=== PATIENT | female | born 1990 | race Caucasian/White ===

== ENCOUNTER 2018-01-19 08:58 | Emergency (ER) | payer OTHER, SELFPAY ==
[2018-01-19 09:00] VITALS: BP 121/74; PULSE 75; RESP 18; TEMP 36.5; O2SAT 100; BMI 18.6
--- NOTE | 2018-01-19 09:20 | RAD_ITS ---
STUDY: X-RAY CHEST REASON FOR EXAM: Female, 27 years old. Cough and dyspnea. TECHNIQUE: Two portable chest radiographs are obtained with the patient upright. COMPARISON: June 30, 2017. FINDINGS: The lungs are clear and hyperexpanded. There is no demonstrated pleural abnormality. Normal size heart. Normal mediastinum and rohini. There is prominence of the pulmonary hilar arteries without peripheral pulmonary vascular congestion. Normal visualized aortic arch and descending thoracic aorta. Normal visualized thoracic spine. Normal visualized ribs, clavicles, and shoulders. There is no demonstrated abnormality of the visualized soft tissue structures of the upper abdomen. RAD/Chest 1 View (Portable) IMPRESSION: No radiographic evidence of acute cardiopulmonary disease. Hyperexpansion of lungs could be related to reactive airway disease. Electronically Signed: Anuradha Bynum MD at 9:53 EST , Service support ,
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
[2018-01-19 09:23] VITALS: BP 112/76; PULSE 94; RESP 16; O2SAT 100
[2018-01-19] MEDS: Ipratropium/Albuterol Sulfate 3 ML AMPUL.NEB INHALATION (09:29)
[2018-01-19 09:30] VITALS: PULSE 100; RESP 18; O2SAT 100
--- NOTE | 2018-01-19 10:10 | ED.DEP ---
ED Disposition - Plan for ED Patient: Chief Complaint: Asthma Instructions: ED Reactive Airway Disease Referrals: Deyvi Preston DO [Primary Care Provider] -
[2018-01-19 10:12] VITALS: BP 114/79; PULSE 81; RESP 16; O2SAT 100
--- NOTE | 2018-01-19 10:13 | ED.RN ---
THIS NURSE REVIEWED D/C INSTRUCTIONS WITH PT. PT VERBALIZED UNDERSTANDING OF INSTRUCTIONS. PT DENIES FURTHER NEEDS OR QUESTIONS AT THIS TIME. PT AMBULATES FROM ROOM ON OWN WITHOUT ASSISTANCE FROM STAFF
== END 2018-01-19 10:14 | disposition home or self-care (01) ==
PROVIDERS: Emergency Provider Emergency Medicine; Family Provider Family Medicine; PCP Family Medicine
DX: J98.01 Acute bronchospasm (principal); Z79.51 Long term (current) use of inhaled steroids
CPT/HCPCS: 71045; 94640; 99282

== ENCOUNTER → 2018-02-03 15:28 | Outpatient (CLI) | payer OTHER, SELFPAY ==
[2018-02-09 10:07] LABS: HPV Reflexed? NOT INDICATED
== END ==
PROVIDERS: Visit Provider Obstetrics & Gynecology
DX: Z12.4 Encounter for screening for malignant neoplasm of cervix (principal)
CPT/HCPCS: 88175; G0145

== ENCOUNTER 2018-09-01 09:49 | Emergency (ER) | payer OTHER, SELFPAY ==
[2018-09-01 09:50] VITALS: BP 129/82; PULSE 74; RESP 18; TEMP 37.2; O2SAT 100; BMI 20.7
--- NOTE | 2018-09-01 11:02 | ED.DCSUM_ITS ---
- ER Visit Summary Date of Service: 09/01/18 Chief Complaint: Abdominal pain History of Present Illness: The patient is a 27 F history of asthma. Status post prior appendectomy and cholecystectomy in the past. She is had intermittent abdominal pain primarily epigastric and periumbilical for the last week. It is above her umbilicus. She denies any nausea, vomiting or diarrhea. No dysuria. No fever. No trauma. She is currently on her menstrual cycle. Physical Examination: Well-appearing young female. Vital signs are stable and afebrile. She does not look septic or toxic. She is in no acute distress. HEENT exam unremarkable. Neck nontender. Lungs clear to auscultation bilaterally. Heart regular rhythm no murmur. Abdomen soft. Nondistended. Normal bowel sounds. Both the right upper and right lower quadrant unremarkable nontender. No hernias or masses. She has mild tenderness between the epigastric region and above the umbilicus. There is no signs of trauma. Both the left upper and left lower quadrants are unremarkable. She is moving all 4 extremities. Back is nontender. Neurologically awake and alert with no focal deficits. Test Results: CBC normal. BMP normal. Normal creatinine and gap. Liver enzymes normal. Lipase normal. UA had 50-100 red cells otherwise was unremarkable. She is currently on her menstrual period. No signs of infection. test negative. Emergency Department Course and Treatment: Screening labs will be obtained. Patient currently does not need any for pain or nausea. Treatment Plan: Repeat exam patient is doing well at 1245. Abdomen is benign. She will be instructed to follow-up her primary care physician for further evaluation. I do not feel she needs imaging. Disposition: Discharge Impression: Acute upper abdominal pain of uncertain etiology This note was generated with [employer] dictation software. It may contain incorrect words, spelling, and punctuation that were not noted in review of the chart prior to signing ED Disposition - Plan for ED Patient: Chief Complaint: Abd Pain Referrals: Deyvi Preston DO [Primary Care Provider] -
[2018-09-01 11:24] LABS: Bacteria 0 SEEN /hpf (None Seen); Mucous, Urine 0 SEEN /hpf (<or=2+); White Blood Cells 0 SEEN /hpf (0-5)
[2018-09-01 11:27] LABS: Color, Urine Yellow (Yellow); Glucose, Dipstick Normal (Normal); Ketone-Dipstick Negative (Negative); Leukocyte Esterase-Dipstick 25 /ul (Negative); Nitrite-Dipstick Negative (Negative); Occult Blood-Urine 250 /ul (Negative); Protein-Dipstick 15 mg/dl (Negative); Specific Gravity, Urine 1.015 (1.002-1.030); Urine Bilirubin Dipstick Negative (Negative); Urine Clarity Sl. Cloudy (Clear); Urine Urobilinogen Normal (Normal)
[2018-09-01 11:28] LABS: Absolute Neutrophil Count 3.4 X10^3/uL (2.0-7.7); Basophil# 0.02 X10^3/uL; Basophil% 0.4 % (0-1); Eosinophil# 0.04 X10^3/uL; Eosinophils% 0.8 % (0-5); Hemoglobin 13.6 g/dl (12.0-15.0); Lymphocyte % 28.7 % (19-41); Mean Corp Hgb Conc 33.2 g/gl (32-36); Mean Corpuscular Hgb 29.9 pg (27.0-32.0); Mean Corpuscular Volume 90.1 fL (81-99); Mean Platelet Vol. 9.6 fl (6.2-12.0); Monocyte# 0.31 X10^3/uL; Monocyte% 5.9 % (0-10); Neutrophil # 3.35 X10^3/uL (2.7-7.7); POSITIVE COUNT NO; POSITIVE DIFFERENTIAL NO; POSITIVE MORPHOLOGY NO; Platelet Count 251 K/mm3 (150-450); RBC Distribution Width CV 14.5 % (11.6-14.6); RBC Distribution Width SD 47.6 fl (35.1-43.9); Red Blood Count 4.55 M/mm3 (4.2-5.4); White Blood Count 5.2 K/mm3 (4.4-11.0)
[2018-09-01 11:34] LABS: Squamous Epithelial Cells - UA 0-5 SEEN /hpf (5-10)
[2018-09-01 11:35] LABS: Red Blood Cells-Urine 50-100 SEEN /hpf (0-5)
[2018-09-01 11:42] LABS: AST(SGOT) 11 U/L (15-37); Alanine Aminotransfer ALT/SGPT 18 U/L (13-56); Albumin, Serum 3.5 g/dL (3.2-5.0); Alkaline Phosphatase 67 U/L (45-117); Anion Gap 7 (5-15); BUN 13 mg/dL (7-18); BUN/Creat Ratio 16.2 RATIO (10-20); Bilirubin, Direct 0.18 mg/dL (0.00-0.30); Calcium,Total 8.6 mg/dL (8.5-10.1); Chloride 107 mmol/L (98-107); EST Glomerular Filtration Rate 91 mL/min (>60); Est Glom Filt Rate - Afr Amer 110 mL/min (>60); Estimated Creatinine Clearance 87.38 ml/min; Glucose 82 mg/dL (74-106); Lipase 95 U/L (73-393); Potassium 3.6 mmol/L (3.5-5.1); Protein, Total 7.5 g/dL (6.4-8.2); Sodium Level 140 mmol/L (136-145)
[2018-09-01 11:54] LABS: Pregnancy, Serum, hCG Quali. NEGATIVE Negative (0-9 Nonpreg)
--- NOTE | 2018-09-01 12:48 | ED.DEP ---
ED Disposition - Plan for ED Patient: Disposition: Home or Assisted Living Chief Complaint: Abd Pain Instructions: ED Abdominal Pain Unkn Cause Referrals: Deyvi Preston DO [Primary Care Provider] - 1 Week if not improving Additional Instructions: Follow-up with your doctor. All your labs are normal today.
[2018-09-01 13:00] VITALS: BP 118/73; PULSE 67; RESP 14; RESP 18; O2SAT 99
== END 2018-09-01 13:01 | disposition home or self-care (01) ==
PROVIDERS: Emergency Provider Emergency Medicine; Family Provider Family Medicine; PCP Family Medicine
DX: R10.13 Epigastric pain (principal); J45.909 Unspecified asthma, uncomplicated
CPT/HCPCS: 80048; 80076; 81001; 83690; 84703; 85025; 99283; A4216

== ENCOUNTER 2018-10-24 13:27 | Emergency (ER) | payer OTHER, SELFPAY ==
[2018-10-24 13:29] VITALS: BP 137/64; PULSE 101; RESP 16; TEMP 36.7; O2SAT 98; BMI 20.5
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
--- NOTE | 2018-10-24 13:54 | ED.DEP ---
ED Disposition - Plan for ED Patient: Chief Complaint: Occup Expose Instructions: ED Inhalation Chemical Referrals: Corporate,[facility] [GROUP OF PHYSICIANS] -
--- NOTE | 2018-10-24 13:55 | DCINST.ED_ITS ---
ED Disposition - Plan for ED Patient: Chief Complaint: Occup Expose Instructions: ED Inhalation Chemical Referrals: [facility] [GROUP OF PHYSICIANS] -
[2018-10-24 13:58] VITALS: PULSE 91; RESP 18
[2018-10-24] MEDS: Ipratropium/Albuterol Sulfate 3 ML AMPUL.NEB INHALATION (13:58)
[2018-10-24 14:26] VITALS: RESP 16
--- NOTE | 2018-10-24 14:28 | ED.RN ---
REVIEWED D/C INSTRUCTIONS, FOLLOW UP CARE, AND S/S THAT WOULD WARRANT A RETURN TO THE ED WITH PT. PT VERBALIZED AN UNDERSTANDING AND DENIES FURTHER QUESTIONS FOR THIS RN. PT SKIN P/W/D, RESP EVEN AND UNLABORED, PT A&O X 3, NO DISTRESS NOTED. PT AMBULATED OUT OF ED, GAIT STEADY.
--- OUTSIDE RECORDS SUMMARY | 2018-12-17 23:47 | XMS RPT_ITS ---
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 week. It is above her umbilicus. She denies any nausea, vomiting or diarrhea. No dysuria. No fever. No trauma. She is currently on her menstrual cycle. Physical Examination: Well-appearing young female. Vital signs are stable and afebrile. She does not look septic or toxic. She is in no acute distress. HEENT exam unremarkable. Neck nontender. Lungs clear to auscultation bilaterally. Heart regular rhythm no murmur. Abdomen soft. Nondistended. Normal bowel sounds. Both the right upper and right lower quadrant unremarkable nontender. No hernias or masses. She has mild tenderness between the epigastric region and above the umbilicus. There is no signs of trauma. Both the left upper and left lower quadrants are unremarkable. She is moving all 4 extremities. Back is nontender. Neurologically awake and alert with no focal deficits. Test Results: CBC normal. BMP normal. Normal creatinine and gap. Liver enzymes normal. Lipase normal. UA had 50-100 red cells otherwise was unremarkable. She is currently on her menstrual period. No signs of infection. test negative. Emergency Department Course and Treatment: Screening labs will be obtained. Patient currently does not need any for pain or nausea. Treatment Plan: Repeat exam patient is doing well at 1245. Abdomen is benign. She will be instructed to follow-up her primary care physician for further evaluation. I do not feel she needs imaging. Disposition: Discharge Impression: Acute upper abdominal pain of uncertain etiology This note was generated with FilterEasyation software. It may contain incorrect words, spelling, and punctuation that were not noted in review of the chart prior to signing ED Disposition - Plan for ED Patient: Chief Complaint: Abd Pain Referrals: Aliyah Levy, [Primary Care Provider] - What to do if you have Problems For any increased pain, shortness of breath, bleeding, nausea or vomiting, chest pain, or any unexpected problems, contact your Primary Care Provider. Call [facility] ([phone]) or report to the closest Emergency Room. Call 911 if necessary. 09/01/18 0156 <Electronically signed by Theo Caceres MD> Date Theo Caceres MD Cosigner Signature (If Indicated): Date CC: DO Aliyah Levy CBC W/DIFF, AUTOMATED Collected: 09/01/2018 Status: F Source: [place] 11:19 AM [facility] REPOSITORY TYPE CODE TESTS RESULT OUT OF RANGE REFERENCE UNITS LAB L100.1000 4.4-11.0 K/mm3 Normal WBC 5.2 LAB L100.1200 4.2-5.4 M/mm3 Normal RBC 4.55 LAB L100.1300 12.0-15.0 g/dl Normal HGB 13.6 LAB L100.1400 37-47 % Normal HCT 41.0 LAB L100.1500 81-99 fL Normal MCV 90.1 LAB L100.1600 27.0-32.0 pg Normal MCH 29.9 LAB L100.1700 32-36 g/gl Normal MCHC 33.2 LAB L100.1810 11.6-14.6 % Normal RDW CV 14.5 LAB L100.1820 35.1-43.9 fl High RDW SD 47.6 LAB L100.1900 150-450 K/mm3 Normal PLT 251 LAB L100.2000 6.2-12.0 fl Normal MPV 9.6 LAB L100.2100 47-70 % Normal NEUT% 64.0 LAB L100.2200 19-41 % Normal LY% 28.7 LAB L100.2300 0-10 % Normal MONO% 5.9 LAB L100.2400 0-5 % Normal EO% 0.8 LAB L100.2500 0-1 % Normal BASO% 0.4 LAB L100.2550 0.0-0.9 % Normal IM GRAN % 0.200 Result Comment: IG% - Immature Granulocytes (promyelocytes, myelocytes and metamyelocytes) > 1% indicates that a LEFT SHIFT is Present. LAB L100.2620 2.0-7.7 X10 3/uL Normal Absolute Neut 3.4 LAB L100.2720 0.83-4.51 X10 3/ul Normal Absolute Lymph 1.50 Performed By: #### L100.0100 #### [facility] [address] [place], [address] URINALYSIS, COMPLETE Collected: 09/01/2018 Status: F Source: [place] 11:19 AM [facility] REPOSITORY Order Comment: Order Date: 09/01/18 How was Urine Obtained? CLEAN CATCH TYPE CODE TESTS RESULT OUT OF RANGE REFERENCE UNITS LAB L400.3000 Yellow COLOR Normal Yellow LAB L400.3050 Clear Normal CLARITY Sl. Cloudy LAB L400.3200 Normal mg/dl Normal GLUCOSE, UR Normal LAB L400.3300 Negative mg/dL Normal BILIRUBIN URINE Negative LAB L400.3400 Negative mg/dl Normal KETONE UR Negative LAB L400.3465 1.002-1.030 Normal SP.GR. DIPSTX 1.015 LAB L400.3550 5.0 - 8.0 pH UR Normal 8.0 LAB L400.3600 Negative mg/dl High PROT 15 DIPSTX LAB L400.3700 Normal mg/dl Normal UROBILI Normal LAB L400.3750 Negative Normal NITRITE UR Negative LAB L400.3780 Negative /ul High OCCULT BLOOD-UR 250 LAB L400.3800 Negative /ul High LEUK 25 ESTERASE LAB L400.4050 0-5 /hpf WBC 0 Normal SEEN LAB L400.4100 0-5 /hpf Normal RBC-UA 50-100 SEEN LAB L400.4150 5-10 /hpf SQUAM Normal EPI 0-5 SEEN LAB L400.4300 None Seen /hpf 0 Normal BACTERIA SEEN LAB L400.4350 <or=2+ /hpf 0 Normal MUCUS, URINE SEEN Performed By: #### L400.0001 #### [facility] [address] [place], [place], [id number] BASIC METABOLIC Collected: 09/01/2018 Status: F Source: [place] PROFILE (BMP) 11:19 AM [facility] REPOSITORY TYPE CODE TESTS RESULT OUT OF RANGE REFERENCE UNITS LAB L501.0100 74-106 mg/dL Normal GLU 82 Result Comment: Please note revised GLUCOSE reference range effective 2017. LAB L501.1000 7-18 mg/dL Normal BUN 13 LAB L501.1100 0.55-1.02 mg/dL Normal CREAT,SERUM 0.80 Result Comment: The validity of the calculated GFR AND GFRAA in patients over 70 years has not been determined. Clinical correlation is essential. LAB L501.1110 >60 mL/min Normal EST GFR 91 Result Comment: Non- GFR Calc LAB L501.1115 >60 mL/min Normal EST GFR - AA 110 Result Comment: GFR Calc LAB L501.1255 ml/min Normal Estimated CRCL 87.38 LAB L501.1300 10-20 RATIO Normal BUN/CRE 16.2 LAB L501.2200 8.5-10 mg/dL Normal .1 CA 8.6 LAB L501.5300 136-14 mmol/L Normal 5 NA 140 LAB L501.5600 3.5-5. mmol/L Normal 1 K 3.6 LAB L501.5900 98-107 mmol/L Normal CL 107 LAB L501.6100 21.0-3 mmol/L Normal 2.0 CO2 26.0 LAB L501.6200 5-15 Normal GAP 7 Performed By: #### L500.2500, L500.3400, L501.2450 #### [facility] [address] [place], [place], [id number] LIVER PROFILE Collected: 09/01/2018 Status: F Source: [place] 11:19 AM [facility] REPOSITORY TYPE CODE TESTS RESULT OUT OF RANGE REFERENCE UNITS LAB L501.1500 6.4-8.2 g/dL Normal T PROT 7.5 LAB L501.1800 3.2-5.0 g/dL Normal ALB 3.5 LAB L501.1950 2.2-4.2 g/dL Normal GLOB 4.0 LAB L501.4100 15-37 U/L Low AST 11 LAB L501.4305 45-117 U/L Normal ALK P 67 LAB L501.4405 13-56 U/L Normal ALT 18 LAB L501.4600 0.20-1.00 mg/dL Normal T BILI 0.60 LAB L501.4700 0.00-0.30 mg/dL Normal D BILI 0.18 Performed By: #### L500.2500, L500.3400, L501.2450 #### [facility] [address] [place], [address] LIPASE Collected: 09/01/2018 Status: F Source: [place] 11:19 AM [facility] TYPE CODE TESTS RESULT OUT OF RANGE REFERENCE UNITS LAB L501.2450 73-393 U/L Normal LIPASE 95 Performed By: #### L500.2500, L500.3400, L501.2450 #### [facility] [address] [place], [address] ,SERUM,HCG QUALI. Collected: Status: F Source: [place] 09/01/2018 11:19 AM [facility] REPOSITORY TYPE CODE TESTS RESULT OUT OF REFERENCE UNITS RANGE LAB L700.6700 =>Qualitative mIU/mL Normal HCG Qual < 1 triggr LAB L700.7000 0-9 Nonpreg Negative Normal HCGSQUAL NEGATIVE Performed By: #### L700.6800 #### [facility] [address] [facility] [place], [address] EMERGENCY REPORT Observed: 07/27/2018 Status: F Source: [place] 4:51 PM [facility] EMERGENCY ROOM REPORT NAME ACCOUNT SEX AGE ADMIT DISCHARGE PT MED. RECORD# NUMBER DATE DATE TYPE PRERNA MARTINEZ [id number] F 07/26/18 07/26/18 3 N [id number] ROOM: ER DATE OF : 1990 DICTATING PHYSICIAN: Alma Douglas CHIEF COMPLAINT: Facial tenderness. HISTORY OF PRESENT ILLNESS: This is a 27-year-old female with a history of allergies and asthma who presents to the emergency department with the chief complaint as stated above. She has a 1 week history of nasal congestion, facial fullness, and pressure in her face. She was placed on an antibiotic last Thursday, as well as steroids, which is not helping the symptoms. She has allergies, but has not taken anything for allergies. She used to get allergy shots, but has discontinued those because she did not think they worked. She denies any recent fever, chills, difficulty breathing, swallowing, cough, or shortness of breath. No nausea, vomiting, abdominal pain, diarrhea, constipation, urinary symptoms, fever, chills, change in appetite, or chance of . PAST MEDICAL HISTORY: Asthma and allergies. PAST SURGICAL HISTORY: Denied. MEDICATIONS: See nursing notes. ALLERGIES: She denies. FAMILY HISTORY: Noncontributory. SOCIAL HISTORY: She denies alcohol, tobacco, or illicit drug abuse. REVIEW OF SYSTEMS: Ten systems reviewed and present above in the HPI. PHYSICAL EXAMINATION: Vital signs: Stable. She is afebrile. She is awake, alert and oriented x3 in no acute distress. She has nasal congestion without rhinorrhea and mild tenderness to palpation of the frontal sinuses, maxillary sinuses. TMs are without erythema, edema, or exudate bilaterally. Extraocular muscles are intact. Mucous membranes are moist. No posterior pharyngeal erythema, edema, or exudate bilaterally. Trachea is midline. Neck is supple. Full range of motion of the neck without difficulty. Heart rate and rhythm are regular without murmur, gallop, or rub. Lungs: Clear to auscultation bilaterally without wheeze, rales, or rhonchi. Abdomen: Soft. No tenderness, guarding, rebound, or rigidity. Page 1 of 2 PRERNA MARTINEZ Emergency Room Report EMERGENCY DEPARTMENT COURSE AND TREATMENT: The patient's symptoms are consistent with sinus congestion/allergies, not bacterial so I would not expect steroids or antibiotics to have responded, and which they have not. She is going to get Claritin D and Flonase. DIAGNOSIS: Sinus congestion. PLAN/DISPOSITION: She is going to follow up with her primary care physician in 3 to 4 days. I do not believe she has acute bacterial sinusitis or meningitis and we discussed reasons for ED return sooner. Dictated By: Alma Douglas DO 07/26/18 10:35 JOB #: [id number] Transcribed By: am 07/26/18 11:46 Electronically signed by: E-Sign: ALMA DOUGLAS MD 07/27/18 16:45 Page 2 of 2 PRERNA MARTINEZ Emergency Room Report EMERGENCY REPORT Observed: 07/21/2018 Status: F Source: [place] 4:09 PM [facility] EMERGENCY ROOM REPORT NAME ACCOUNT SEX AGE ADMIT DISCHARGE PT MED. RECORD# NUMBER DATE DATE TYPE PRERNA MARTINEZ [id number] F 27 07/19/18 07/19/18 3 N [id number] ROOM: ER DATE OF : 1990 DICTATING PHYSICIAN: Lincoln Gray TIME SEEN: 2:50 a.m. HISTORY OF PRESENT ILLNESS: This is a 27-year-old white female complaining of nasal congestion, sore throat and sinus pressure for the past 2 days. She states her nose is running all the time. She was seen here recently and was given some Ceftin, but she had to be taken off of that due to some allergic- type symptoms, but usually when they put her on prednisone and Augmentin her symptoms clear up. She has been taking some [id number]-btf-[id number] guaifenesin with phenylephrine. That has been helping a little bit but not very much. She does use her albuterol aerosol machine at home as well but usually she needs the prednisone and Augmentin to get the symptoms to resolve. She complains of a lot of sinus congestion and states she cannot breathe through her nose. 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 PAST MEDICAL HISTORY: Asthma and environmental allergies. PAST SURGICAL HISTORY: Appendectomy, cholecystectomy, and previous right ankle surgery. ALLERGIES: She is allergic to Ceftin and iodine. SOCIAL HISTORY: She is not a smoker. She denies any use of alcohol or illicit drugs. She lives at home with her family. REVIEW OF SYSTEMS: She denies any chest pain or shortness of breath. She does admit to a cough. She denies any sputum, wheezing, abdominal pain, nausea, vomiting, diarrhea, constipation, melena, hematochezia, headache, numbness, unsteady gait, weakness, neck or back pain, joint pain, skin rash or swelling, hives, hay fever, or swollen glands. She does complain of a sore throat, nasal congestion, and sinus pressure. She denies any fevers, sweats or chills. Further review of systems is negative. PHYSICAL EXAMINATION: Vital signs: Blood pressure is 122/58, pulse 117, respirations 16, temperature 97.2, pulse oximetry 99%, and weight 110 pounds. The Page 1 of 2 PRERNA MARTINEZ Emergency Room Report patient is alert and oriented x3. She presently appears in some mild distress secondary to sinus congestion, but she is pleasant and cooperative. HEENT: Pupils are equal and reactive to light. Red reflexes are intact bilaterally. Extraocular muscles are intact. No conjunctival injection. Ears: TMs are intact bilaterally. No erythema is noted. No external auditory canal edema or bleeding. Nose exhibits a lot of clear rhinorrhea, and the patient does have bilateral maxillary sinus tenderness on palpation. Her face looks a little puffy but is not actually swollen. Mouth: Mucous membranes are moist. I do note some mild diffuse pharyngeal erythema. No exudates. Positive copious postnasal drainage. Neck is supple. Trachea is midline. No JVD or lymphadenopathy. No posterior cervical tenderness. No nuchal rigidity. Lungs are clear to auscultation in all lung waite. No adventitious sounds are noted. No accessory muscle use. CV: Heart rate and rhythm are regular without murmur. Abdomen is soft and nontender with normoactive bowel sounds x4 quadrants. No guarding or rigidity. No rebound. No palpable abdominal masses. No hepatosplenomegaly. Back exhibits no midline or paraspinal region tenderness. No increased paraspinal muscle rigidity. Negative Bryan's sign. Extremities: No edema or cyanosis. Peripheral pulses are intact. No motor or sensory deficits are noted. Hand missing persons investigator are strong and symmetric. Skin is warm and dry. No diaphoresis or rash. Neurologic examination shows the patient to be alert and oriented x4. No motor or sensory deficits are noted. Normal speech. No hot potato voice. EMERGENCY DEPARTMENT COURSE AND TREATMENT: The patient was placed on Augmentin 875 mg one p.o. b.i.d., dispense #20 with no refill, and prednisone 20 mg one p.o. b.i.d., dispense #10 with no refill. She was given a dose of prednisone 60 mg p.o. here and Augmentin 500 mg p.o. here. She is to follow up with [facility] in 3 to 5 days for evaluation. If her symptoms become worse or any other problems develop, return here to the Emergency Department. The patient was discharged in clinically stable condition. Nurse's notes reviewed. DIAGNOSIS: Acute sinusitis. Dictated By: Lincoln Gray DO 07/19/18 03:26 JOB #: [id number] Transcribed By: eliza 07/20/18 07:00 Electronically signed by: E-Sign: Dr. Lincoln Gray D.O. 07/21/18 16:09 Page 2 of 2 PRERNA MARTINEZ Emergency Room Report BMP WITH EGFR Collected: 06/02/2018 Status: F Source: [place] 8:52 PM [facility] REPOSITORY TYPE CODE TESTS RESULT OUT OF RANGE REFERENCE UNITS LAB BMP with eGFR(LOINC) BMP with eGFR Result Comment: BASIC METABOLIC PANEL LAB SODIUM(LOINC) 136 - 145 mmol/l SODIUM 137 LAB POTASSIUM(LOINC) 3.5 - 5.1 mmol/L POTASSIUM 3.7 LAB CHLORIDE(LOINC) 98 - 107 mmol/L CHLORIDE 103 LAB CO2(LOINC) 21.0 - mmol/L 31.0 CO2 24.8 LAB GLUCOSE(LOINC) 74 - 106 mg/dl GLUCOSE High 139 LAB BUN(LOINC) 6 - 20 mg/dl BUN 14 LAB CREATININE(LOINC) 0.6 - 1.2 mg/dl CREATININE 1.1 LAB CALCIUM(LOINC) 8.6 - mg/dl 10.2 CALCIUM 9.1 LAB ANION GAP(LOINC) 10 - 20 mmol/L ANION GAP 13 LAB AGE(LOINC) years AGE 27 LAB eGFR(LOINC) 60 - 999 ML/MINUTE eGFR 60 LAB eGFR(AA)(LOINC) 60 - 999 ML/MINUTE eGFR(AA) >60 Result Comment: ACCORDING TO THE NATIONAL KIDNEY DISEASE EDUCATION PROGRAM(NKDE), A NORMAL eGFR IS A VALUE GREATER THAN OR EQUAL TO 60 ML/MIN/1.73 SQ METERS. CHRONIC KIDNEY DISEASE: <60mL/MIN/1.73 SQ METERS KIDNEY FAILURE: <15mL/MIN/1.73 SQ METERS THIS TEST SHOULD ONLY BE USED FOR PATIENTS 18 YEARS OF AGE AND OLDER. Performed By: #### [id number] #### [facility],[address] [place] [address] CBC Collected: 06/02/2018 Status: F Source: [facility] 8:52 PM [facility] REPOSITORY TYPE CODE TESTS RESULT OUT OF RANGE REFERENCE UNITS LAB CBC(LOINC) CBC Result Comment: CBC-COMPLETE BLOOD COUNT LAB WBC(LOINC) 4.5 - 10.8 x 10EE3/UL WBC 7.6 LAB RBC(LOINC) 4.10 - x 10EE6/UL 5.30 RBC 4.36 LAB HEMOGLOBIN(LOINC) 12.0 - g/dl 16.0 HEMOGLOBIN 13.5 LAB HEMATOCRIT(LOINC) 34.0 - % 46.0 HEMATOCRIT 38.7 LAB MCV(LOINC) 80 - 99 fl MCV 89 LAB MCH(LOINC) 27 - 33 pg MCH 31 LAB MCHC(LOINC) 32 - 36 X10 3 MCHC 35 LAB RDW/CV(LOINC) 12.0 - % 15.6 RDW/CV 13.6 LAB PLATELET(LOINC) 150 - 450 x10EE3/UL PLATELET 186 LAB MPV(LOINC) 6.6 - 10.5 fl MPV 8.8 Result Comment: AUTOMATED DIFFERENTIAL LAB NEUT %(LOINC) 46.0 - % Low 76.0 NEUT % 34.2 LAB LYMPH %(LOINC) 20.0 - % 45.0 LYMPH % 55.1 High LAB MONOS %(LOINC) 0.0 - 10.0 % MONOS % 10.5 High LAB EO %(LOINC) 0.0 - 7.0 % EO % 0.0 LAB BASO %(LOINC) 0.0 - 2.0 % BASO % 0.2 LAB Lymph #(LOINC) 0.80 - x10EE3/ 2.80 UL Lymph # 4.20 High LAB Neut #(LOINC) 1.50 - x10EE3/ 7.10 UL Neut # 2.60 LAB Lawrence #(LOINC) 0.20 - x10EE3/ 1.00 UL Lawrence # 0.80 LAB EO #(LOINC) 0.00 - x10EE3/ 0.50 UL EO # 0.00 LAB Baso #(LOINC) 0.00 - x10EE3/ 0.10 UL Baso # 0.00 LAB MANUAL DIFF(LOINC) MANUAL DIFF SEE BELOW LAB SEGS(LOINC) 50 - 70 % Low SEGS 39 LAB LYMPH(LOINC) 20 - 40 % LYMPH 54 High LAB MONOS(LOINC) 0 - 8 % MONOS 7 LAB CELL COUNT(LOINC) CELL COUNT 100 LAB MORPHOLOGY(LOIN C) MORPHOLOGY REVIEWED Result Comment: {CD] Performed By: #### [id number] #### [place] [address] TROPONIN Collected: 06/02/2018 Status: F Source: [facility] 8:52 PM [facility] TYPE CODE TESTS RESULT OUT OF REFERENCE UNITS RANGE LAB TROPONIN 0.00 - 0.05 ng/ml I(LOINC) TROPONIN I <0.01 Result Comment: Elevated troponin (above the 99th percentile) usually indicates myocardial ischemia. Results must be interpreted within the clinical setting. 1.Non-ischemic pathology can also cause elevated troponin levels (e.g., acute pulmonary embolism, myocarditis, pericarditis, heart failure, intracranial injury, rhabdomyolisis, sepsis, shock and renal insufficiency). 2.Approximately 1% of healthy adults have elevated troponin levels. 3.Analytical false positive results rarely occur(due to multiple interferences such as heterophile antibodies). Performed By: #### [id number] #### [place] [address] EMERGENCY REPORT Observed: 06/02/2018 Status: F Source: [facility] 8:22 PM [facility] EMERGENCY ROOM REPORT NAME ACCOUNT SEX AGE ADMIT DISCHARGE PT MED. RECORD# NUMBER DATE DATE TYPE PRERNA MARTINEZ [id number] F 27 06/02/18 06/02/18 3 N [id number] ROOM: ER DATE OF : 1990 DICTATING PHYSICIAN: Júnior Feldman CHIEF COMPLAINT: Adverse reaction to medication. HISTORY OF PRESENT ILLNESS: The patient is a 27-year-old female who was here on Thursday, 3 days prior to arrival, for sinus infection. The patient was given cefuroxime 500 mg b.i.d. The patient states that as of Thursday she began to have some mild chest pain and arm discomfort that only began after taking her current medication. The patient states that she stopped taking the antibiotic and does feel better. The patient presently would like to have a different antibiotic. She notes that she has had symptoms like this in the past and amoxicillin has helped her significantly and presently requests this at this time. PAST MEDICAL HISTORY: Denies. PAST SURGICAL HISTORY: Significant for appendectomy, cholecystectomy, and right ankle surgery. ALLERGIES: Iodine, tape, cefuroxime as noted with today's evaluation. SOCIAL HISTORY: The patient denies tobacco use, alcohol use, illicit drug use, or prescription drug abuse. The patient lives at home with family. The patient denies concerns for domestic violence or thoughts for self harm at this time. The patient's immunizations are up-to-date. REVIEW OF SYSTEMS: A full 10 point review of systems is complete and is as noted in the paper chart. Please see this for additional details. PHYSICAL EXAMINATION: Vital signs: Temperature 98.8, pulse 88, respiratory rate 16, blood pressure 111/75, oxygen saturation 99% on room air. In general, the patient is awake, alert, and oriented, in no acute distress, well-developed, well-nourished is seated comfortably on the side of the bed in the [place] evaluation area. HEENT: Atraumatic and normocephalic. Mucous membranes are moist. Extraocular muscles are intact. Neck: Neck is supple. Range of motion normal. Cardiovascular: Regular rate and rhythm. No murmurs, rubs, or gallops. Pulmonary: Clear to auscultation bilaterally. No wheezes, rales, or rhonchi. Abdomen: Soft and nontender. Bowel sounds are normal. Musculoskeletal: No obvious deformity or range of motion abnormalities. Neurologic: Cranial nerves II-XII were grossly intact. No sensory or motor abnormalities. The patient Page 1 of 2 PRERNA MARTINEZ Emergency Room Report is awake, alert, and oriented x3. Extremities: Inspection normal. No edema. Psychiatric: Mood, affect and judgment are within normal limits at this time. DIAGNOSTIC DATA: Laboratories: CBC, troponin, and BMP were obtained and were unremarkable at this time. EKG was also obtained and was negative for ST segment changes in anterior, lateral, or inferior leads. MEDICAL DECISION MAKING/EMERGENCY DEPARTMENT COURSE AND TREATMENT: The patient is a 27-year-old female who presents with mild discomfort in chest and left upper extremity that the patient strongly associates with recent antibiotic use that has been going on in an unchanged manner for the last 2 days. Possibilities include ACS, drug reaction, upper respiratory infection, or musculoskeletal causes. Laboratory work and EKG is unremarkable at this time. The patient's HEART score is 0 at this time or potentially a 1 for history only. I do feel the patient is a low risk for discharge home with a different antibiotic at this time. DIAGNOSIS: Chest pain, drug reaction. PLAN/DISPOSITION: I did have the patient discontinue the cefuroxime, which she already had frankly, and I will provide the patient with a prescription for Augmentin, which contains the prescribed amoxicillin clavulanate as well. I discussed the new antibiotic, as well as its risks and benefits with the patient. The patient did agree to take the new antibiotic. I encouraged the patient to follow up with her primary care physician in 3 to 5 days for reevaluation. I also encouraged the patient to return to the emergency department with worsening of original symptoms or with any new concerns. Specifically, I encouraged the patient to return to the emergency department if her chest pain were to worsen, she develops shortness of breath, or any new concerns at all. All of the patient's questions were answered to her satisfaction at this time. The patient is discharged home in good clinical condition. Condition: Good. Disposition: Home. Dictated By: Júnior Feldman MD 06/03/18 12:19 JOB #: [id number] Transcribed By: am 06/03/18 19:11 Electronically signed by: DR. JÚNIOR FELDMAN 09/20/18 04:23 Page 2 of 2 PRERNA MARTINEZ [facility] Room Report EMERGENCY REPORT Observed: 06/02/2018 Status: F Source: [facility] 7:21 AM [facility] EMERGENCY ROOM REPORT NAME ACCOUNT SEX AGE ADMIT DISCHARGE PT MED. RECORD# NUMBER DATE DATE TYPE PRERNA MARTINEZ [id number] F 27 05/31/18 3 N [id number] ROOM: ER DATE OF : 1990 DICTATING PHYSICIAN: Vikram Qiu CHIEF COMPLAINT: Cold and sinus pressure. HISTORY OF PRESENT ILLNESS: The patient states that over the last couple of months she has had a lot of runny nose, nasal and sinus pressure. She has been getting allergy shots, and that has helped slightly; however, over the last several days to a week she has developed increasing nasal and head pressure, generalized achiness. She has had some fever up to 101 or more. No appreciable cough. No nausea or vomiting. PAST MEDICAL HISTORY: Negative for chronic medical problems. MEDICATIONS: She takes no medications. ALLERGIES: She has allergies to iodine and tape, but no medical allergies. SOCIAL HISTORY: She does not smoke or drink alcohol. PHYSICAL EXAMINATION: This is a 27-year-old female alert, appropriate, does not appear toxic or in acute distress. Skin is pink, warm, and dry. HEENT: Pupils equal, round, and reactive to light. Extraocular muscles intact. TMs are normal. Nose: Mild mucosal redness and swelling. No purulent drainage. Mouth and throat: Minimal redness. No exudate. Neck is supple. No adenopathy. Lungs are clear without crackles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 persistent pain in 7-10 days recommend repeat radiograph. Dictated by: Neyda Benitez MD on 01/14/2018 at 17:08 Approved by: Neyda Benitez MD on 01/14/2018 at 17:08 ALLERGIES ALLERGIES DATE TYPE / CODE NAME / REACTION SEVERITY SOURCE CODE 10/24/2018 Drug cefuroxime Other Unknown Tully Allergy/180630577(SN /[id number] [facility]) 0(RXNORM) Hospital Repository 09/01/2018 Drug iodine/F00 Rash Unknown Tracy Allergy/592622915(SN 5544630(RX [facility]) NORM) Hospital Repository Drug CEFTIN/000 Moderate Hector Pomerene Allergy/986072344(SN 78397(RXNO ([facility]) RM) Modifier) Hospital (Qualifier Repository Value) Drug IODINE/000 Moderate Hector Pomerene Allergy/434454149(SN 48478(RXNO ([facility]) RM) Modifier) Hospital (Qualifier Repository Value) Environmental TAPE Moderate Hector Pomerene Allergy/863933478(SN ([facility]) Modifier) Hospital (Qualifier Repository Value) ENCOUNTERS ENCOUNTERS ADMIT/DISCHARGE ACCOUNT NUMBER ADMITTING ENCOUNTER LOCATION SOURCE CLASS 10/24/2018/10/24/20 [id number] Emergency [address] ding:ED Repository 10/20/2018/10/20/20 [id number] DA [facility] [place] [address] Room: ERBed: [facility] Repository 10/15/2018/10/15/[id number] UYEN [facility] [place] [address] Room: ERBed: [facility] Repository 09/29/2018/10/03/20 [id number] Ambulatory ABuilding:[address] Repository 09/03/2018/09/03/20 [id number] CAM, Ambulatory Hector Pomere[address] Repository 09/03/2018/09/03/[id number] UYEN [facility] [place] [address] VIKRAM Room: ERBed: [facility] Repository 09/01/2018/09/01/20 [id number] Emergency [address] ding:ED Repository 07/26/2018/07/26/20 [id number] GRISELDA [facility] [place] [address] ALMA Miller Room: ERBed: [facility] [place] [facility] Repository 07/19/2018/07/19/20 [id number] LINCOLN GRAY [facility] [place] [address] DO Room: ERBed: [facility] Repository 06/02/2018/06/02/20 [id number] MICHELLE [facility] [place] [address] JÚNIOR MERCADO Room: ERBed: [facility] Repository 05/31/2018/07/09/[id number] UYEN [facility] [place] [address] VIKRAM Christianson Room: ERBed: [facility] Repository 02/18/2018/02/19/20 [id number] LINCOLN GRAY [facility] [place] [address] DO Room: ERBed: [facility] Repository 02/03/2018 [id number] [facility] Rep[facility] 01/19/2018/01/19/20 [id number] Emergency [address] ding:ED Repository 01/14/2018/01/14/20 [id number] RAYMOND [facility] [place] [address] DR SCAR Parisi Room: ERBed: [facility] Repository PAYERS PAYERS ENCOUNTER GUARANTOR PAYER SUBSCRIBER SOURCE 10/24/2018 PRERNA N Primary PRERNA N Tully [id number] TR Insurance:[employer] HENSELDOB: [address] Number: [id number] [facility] [address]Xbx: [id number] Repository Date: () [facility] [place], [place] [address]AW: 10/24/2018 Secondary PRERNA N Tracy Insurance:MEDICAL HENSELDOB: [facility] [id number] Hospital Number: Repository [id number] Date:[id number] [address] [place] [address]FK: 10/24/2018 Tertiary NOT GIVENUNK Tully Insurance:SELF PAY [facility] Hospital Number: Effective Repository Date:2018-10-24 10/20/2018 PRERNA N Primary PRERNA N Hector Bradshaw HENSELDOB: Insurance:MEDICAL HENSELDOB: [facility] [id number] [facility] [id number] [facility] [address] OUTPATIENTPolicy [address] [facility] [address] Repository [address] [place] [address], Number: [address], [place] [id number] N[place] [id number]: Date:Plan Name:M3 () 10/15/2018 PRERNA N Primary PRERNA N Hector DUONGELDOB: Insurance:MEDICAL HENSELDOB: [facility] [id number]PAT[address] Repository [address] [place] [address], Number: [address], [place] [id number] [place] [id number]: Date:Plan Name:M3 (HP) 09/29/2018 PRERNA Primary PRERNA HENSELDOB: [facility] HENSELDOB: Insurance:MEDICAL [id number] [facility] [place] [address] INSCOPolicy Number: 576[facility] [address] [place] [address], [id number] [place] [address]Uos: [place] [address]Kwq: Date:2017-06-06 - [id number] ()Tel: (000) (HP)Tel: (000) Name:[facility] [address] (WP) 000-0000 () [address], [place] [address]VE: 09/03/2018 PRERNA N Primary PRERNA N Hector DUONGELDOB: Insurance:MEDICAL HENSELDOB: [facility] [id number] [facility] [address] OUTPATIENTPolicy [address] Repository [address] [place] [address], Number: [address], [place] [id number] N[place] [id number]: Date:Plan Name: () 09/03/2018 PRERNA N Primary PRERNA N Hector DUONGELDOB: Insurance:MEDICAL HENSELDOB: [facility] [id number]PAT[address] Repository [address] [place] [address], Number: [address], [place] [id number] N[place] [id number]: Date:Plan Name:M3 () 09/01/2018 Prerna N Primary Prerna N Tully [id number] Insurance:MEDICAL HenselDOB: [facility] [id number], Number: [place]ository [place] [address]Vdi: [id number] Date:1742-26-25VX BOX () [address] [place], [place] [address]WP: 09/01/2018 Secondary NOT GIVENUNK Tully Insurance:SELF PAY [facility] Number: Effective Repository Date:2018-09-01 07/26/2018 PRERNA N Primary PRERNA N Hector DUONGSJOB: Insurance:MEDICAL HENSELDOB: [facility] [id number] [facility] [id number] OUTPATIENTPolicy [address] [place] [address] [place] [address], Number: [address] [place] [id number] Nd [id number]: Date:Plan Name: () 07/19/2018 PRERNA N Primary PRERNA N Hector Simentalcastillo ARREDONDOOB: Insurance:MEDICAL HENSELDOB: [facility] [id number] [facility] [id number] OUTPATIENTPolicy [facility] [address] Repository [address] [place] [address], Number: [address] [place] [address] [id number] Nd [id number]: Date:Plan Name:M3 () 06/02/2018 PRERNA N Primary PRERNA N Hector DUONGSJOB: Insurance:MEDICAL HENSELDOB: [facility] [id number] [facility] [id number] OUTPATIENTPolicy [address] [facility] [address] Repository [address] [place] [address], Number: [address], [place] [id number] Nd [id number]: Date:Plan Name:M3 () 05/31/2018 PRERNA N Primary PRERNA N Hector Melo ARREDONDOOB: Insurance:MEDICAL HENSELDOB: [facility] [id number] [facility] [address] OUTPATIENTPolicy [address] [facility] [address] Repository [address] [place] [address], Number: [address], [place] [id number] Nd [id number]: Date:Plan Name: () 02/18/2018 PRERNA N Primary PRERNA N Hector Bradshaw HENSELDOB: Insurance:MEDICAL HENSELDOB: [facility] [id number] [facility] [id number] OUTPATIENTPolicy [address] [facility] [address] Repository [address] [place] [address], Number: 57FermínEl [place], [place] [id number] Nd [id number]: Date:Plan Name: () 02/03/2018 Prerna N Primary Prerna N Tracy [id number] Insurance:MEDICAL HenselDOB: [facility] [id number], Number: [place]ository [place] [address]Qhe: [id number] Date:2827-24-01LQ BOX (HP) [address], [place] [address]QW: 02/03/2018 Secondary NOT GIVENUNK Tully Insurance:SELF PAY [facility] Number: Effective Repository Date:2018-02-03 01/19/2018 Prerna N Primary Prerna N Tracy [id number] Insurance:MEDICAL HenselDOB: [facility] [id number], Number: [place]ository [place] [address]Zxq: [id number] Date:9821-17-83JI [address] () [address], [place] [address]CL: 01/19/2018 Secondary NOT GIVENUNK Tully Insurance:SELF PAY [facility] Number: Effective Repository Date:2018-01-19 01/14/2018 PRERNA N Primary PRERNA N Hector DUONGELDOB: Insurance:MEDICAL HENSELDOB: [facility] [id number] [facility] [id number] [facility] [address] OUTPAT[address]Policy [address] Repository [address] [place] [address], Number: [address], [place] [id number] Nd [id number]: Date:Plan Name: ()
== END 2018-10-24 14:31 | disposition home or self-care (01) ==
LOC: ED 14:15
PROVIDERS: Emergency Provider Emergency Medicine; Family Provider Family Medicine; PCP Family Medicine
DX: J45.909 Unspecified asthma, uncomplicated (principal); Z79.51 Long term (current) use of inhaled steroids
CPT/HCPCS: 94640; 99283

== ENCOUNTER → 2018-11-17 14:34 | Outpatient (CLI) | payer OTHER, SELFPAY ==
[2018-10-24 13:29] VITALS: BMI 20.5
[2018-11-17 16:03] LABS: Pregnancy, Serum, hCG Quali. NEGATIVE Negative (0-9 Nonpreg)
== END ==
PROVIDERS: Visit Provider Obstetrics & Gynecology
DX: N91.2 Amenorrhea, unspecified (principal)
CPT/HCPCS: 36415; 84703

== ENCOUNTER → 2018-12-22 09:40 | Outpatient (CLI) | payer OTHER, SELFPAY ==
--- NOTE | 2018-12-22 13:09 | NEURO ---
NCS and/or EMG Patient Report Ordering Doctor: Ubaldo Vernon DATE OF SERVICE: 12/22/18 Prerna Munroe is a 28 year old female who presents with complaints of right elbow and hand pain. She presents for electrodiagnostic testing of the right upper limb. Electrodiagnostic findings: The right median motor nerve demonstrates normal distal latency, amplitude and conduction velocity. Normal right ulnar motor response, including conduction across the elbow. Normal median and ulnar F waves. Sensory responses are within normal limits. On needle EMG, all muscles tested in the right upper limb show no evidence of denervation with normal motor unit action potentials. Electrodiagnostic impression: This is a normal electrodiagnostic study of the right upper limb. There is no electrodiagnostic evidence for peripheral neuropathy or cervical radiculopathy. If there are any further questions, please do not hesitate to contact me
== END ==
PROVIDERS: Family Provider Family Medicine; PCP Family Medicine; Referring Provider Physician Assistant; Visit Provider Physician Assistant
DX: R20.0 Anesthesia of skin (principal)
CPT/HCPCS: 95886; 95910

== ENCOUNTER → 2019-02-11 09:39 | Outpatient (CLI) | payer OTHER, SELFPAY ==
[2019-02-11 11:28] LABS: hCG Titer Quant., Serum 2778 mIU/mL (<9 non-preg)
== END ==
PROVIDERS: Visit Provider Obstetrics & Gynecology
DX: N91.2 Amenorrhea, unspecified (principal)
CPT/HCPCS: 36415; 84702

== ENCOUNTER → 2019-02-13 11:42 | Outpatient (CLI) | payer OTHER, SELFPAY ==
[2019-02-13 12:38] LABS: hCG Titer Quant., Serum 5097 mIU/mL (<9 non-preg)
== END ==
PROVIDERS: Family Provider Family Medicine; PCP Family Medicine
DX: N91.2 Amenorrhea, unspecified (principal)
CPT/HCPCS: 36415; 84702

== ENCOUNTER → 2019-02-16 14:48 | Outpatient (CLI) | payer OTHER, SELFPAY ==
[2019-02-16 17:24] LABS: Chlamydia Trachomatis by PCR Negative (Negative); Neisserai gonorrhoeae by PCR Negative (Negative); Probe Check PASS; Sample Adequacy Control PASS; Specimen Processing Control PASS
== END ==
PROVIDERS: Visit Provider Obstetrics & Gynecology
DX: Z11.3 Encounter for screening for infections with a predominantly sexual mode of transmission (principal)
CPT/HCPCS: 87491; 87591

== ENCOUNTER → 2019-03-09 | Outpatient (CLI) | payer OTHER, SELFPAY ==
[2019-03-09 15:42] LABS: Absolute Lymphocyte Count 1.86 X10^3/ul (0.83-4.51); Absolute Neutrophil Count 6.8 X10^3/uL (2.0-7.7); Basophil# 0.02 X10^3/uL; Basophil% 0.2 % (0-1); Eosinophil# 0.08 X10^3/uL; Eosinophils% 0.9 % (0-5); Hematocrit 39.4 % (37-47); Hemoglobin 13.4 g/dl (12.0-15.0); Lymphocyte # 1.86 X10^3/ul (4.0); Lymphocyte % 19.8 % (19-41); Mean Corpuscular Hgb 30.8 pg (27.0-32.0); Mean Corpuscular Volume 90.6 fL (81-99); Mean Platelet Vol. 10.3 fl (6.2-12.0); Monocyte# 0.63 X10^3/uL; Monocyte% 6.7 % (0-10); Neutrophil % 72.3 % (47-70); POSITIVE COUNT NO; POSITIVE DIFFERENTIAL NO; POSITIVE MORPHOLOGY NO; Platelet Count 291 K/mm3 (150-450); RBC Distribution Width CV 14.1 % (11.6-14.6); RBC Distribution Width SD 46.8 fl (35.1-43.9); Red Blood Count 4.35 M/mm3 (4.2-5.4); White Blood Count 9.4 K/mm3 (4.4-11.0)
[2019-03-09 15:58] LABS: Thyroid Stim Hormone (TSH) 0.97 uIU/mL (0.358-3.74)
[2019-03-09 16:06] LABS: Amphetamine Urine VISTA NEGATIVE (<1000 ng/mL); Barbiturate Urine VISTA NEGATIVE (< 200 ng/mL); Benzodiazepine Urine VISTA NEGATIVE (< 200 ng/mL); Cocaine Urine VISTA NEGATIVE (< 300 ng/mL); Ecstacy Urine VISTA NEGATIVE (< 500 ng/mL); Methadone Urine VISTA NEGATIVE (< 300 ng/mL); PCP Urine VISTA NEGATIVE (< 25 ng/mL); THC Urine VISTA NEGATIVE (< 50 ng/mL); Vista UDS pH Range 6
[2019-03-09 16:40] LABS: Color, Urine Yellow (Yellow); Glucose, Dipstick Normal (Normal); Ketone-Dipstick Negative (Negative); Leukocyte Esterase-Dipstick Negative /ul (Negative); Nitrite-Dipstick Negative (Negative); Occult Blood-Urine Negative /ul (Negative); Protein-Dipstick 15 mg/dl (Negative); Specific Gravity, Urine 1.015 (1.002-1.030); Urine Bilirubin Dipstick Negative (Negative); Urine Clarity Sl. Cloudy (Clear); Urine Urobilinogen Normal (Normal)
[2019-03-09 16:44] LABS: HIV - WCH Non-Reactive (Nonreactive); Rubella IgG 248.5 IU/mL
[2019-03-11 01:43] LABS: Prenatal RPR NONREACTIVE (NONREACTIVE)
[2019-03-11 13:26] LABS: HEPATITIS B SURFACE AG Negative (Negative); Hep C Antibodies <0.1 s/co ratio (0.0-0.9)
== END | disposition home or self-care (01) ==
LOC: WOBLAB 11:31
PROVIDERS: Visit Provider Obstetrics & Gynecology
DX: Z34.81 Encounter for supervision of other normal pregnancy, first trimester (principal)
CPT/HCPCS: 36415; 80307; 81002; 84443; 85025; 86703; 86762; 86803; 87340

== ENCOUNTER → 2019-05-04 | Outpatient (CLI) | payer OTHER, SELFPAY ==
[2019-05-10 04:32] LABS: AFP MoM Value 2.37 (.); AFP Value-EIA 99.8 ng/mL (.); Comment Report (.); DIA MoM Value 1.06 (.); DIA Value-EIA 208.32 pg/mL (.); DSR (By Age) 789 (.); DSR (Second Trimester) 10000 (.); Gestat. Age Based On As provided (.); Gestational Age 16.9 WEEKS (.); Insulin Dep Diabetes No (.); Maternal Age At EDD 28.9 yr (.); hCG MoM 0.88 (.)
== END | disposition home or self-care (01) ==
LOC: LABSPEC 10:11
PROVIDERS: Visit Provider Obstetrics & Gynecology
DX: Z34.82 Encounter for supervision of other normal pregnancy, second trimester (principal)
CPT/HCPCS: 36415; 82105; 82677; 84702

== ENCOUNTER 2019-07-20 17:10 | Emergency (ER) | payer OTHER, SELFPAY ==
[2019-07-20 17:11] VITALS: BP 121/67; PULSE 107; RESP 16; TEMP 36.6; O2SAT 99; BMI 22.8
--- NOTE | 2019-07-20 17:31 | RAD_ITS ---
STUDY: X-RAY - LEFT ANKLE REASON FOR EXAM: Female, 28 years old. Pain after fall. TECHNIQUE: 3 view(s) of the ankle. COMPARISON: None. FINDINGS: Normal visualized distal tibia and fibula. Normal medial and lateral malleoli. Normal tibiotalar articulation and ankle mortise. Normal visualized talus and calcaneus. The visualized subtalar, talonavicular, calcaneocuboid and tarsal articulations are normal. The soft tissue structures are unremarkable. RAD/Ankle min 3 Views IMPRESSION: No acute fracture or dislocation. Electronically Signed: Brayan Guzman DO at 17:58 EDT Tel [phone], Service support ,
--- NOTE | 2019-07-20 18:39 | ED.VIS.LOWEX ---
History of Present Illness Chief Complaint: Lower Extremity Injury Narrative: Patient presenting secondary to fall with ankle pain. Patient is a G1, P0 at 28 weeks. She reports that she suffered a mechanical fall today while at work. She reports that her left ankle gave out on her and she fell down maybe one step. She reports that she was able to catch herself and did not actually hit her abdomen or her head on the ground. She denies any decreased movement loss of fluid or vaginal bleeding. Patient's has been complicated by a low riding placenta, with no issues with abnormal bleeding. Patient is complaining of moderate pain in her left ankle worse with ambulation and movement. Review of systems otherwise negative. Past Medical History - Allergies and Home Meds Allergies/Adverse Reactions: Allergies iodine Allergy (Verified 09/01/18 09:52) Rash cefuroxime [From Ceftin] Adverse Reaction (Verified 10/24/18 13:34) Other Primary Care Physician: Deyvi Preston DO [Primary Care Provider] - Past Medical History: None Smoking Status: Never smoker Review of Systems All systems negative except as indicated Genitourinary: Reports: - - No vaginal bleeding loss of fluid or decreased movement Musculoskeletal: Reports: - - Ankle pain Physical Exam Vital Signs/Narrative: Vital Signs Temp Pulse Resp BP Pulse Ox 07/20/19 17:11 97.9 F 107 H 16 121/67 H 99 - Extremity Exam Left Ankle: - - Examination the patient's left lower extremity shows no pain with palpation of the proximal fibular head. There is tenderness palpation over the lateral malleolus with some swelling. Patient complains of some pain over her Achilles, but has a negative Mandel test and normal active plantarflexion of the foot. No pain over the dorsal midfoot of the fifth metatarsal head. Normal pulses normal sensation. Normal capillary refill. General: Well nourished, Well developed Head: Normocephalic, Atraumatic Eyes: Perrl, EOMI ENT: No Trauma, Moist Mucous Membranes Neck: Nontender, Full ROM Cardiovascular: Regular rate, Regular rhythm, No murmurs Respiratory: No distress, CTA bilaterally, Chest nontender Abdomen: - - Appropriately gravid and nontender Back: Nontender Skin: Normal color, No rash Neurological: Alert, Oriented x3, Cranial nerves II-XII grossly intact, Normal Strength, Normal Sensation Psychological: Normal affect Diagnostic/Tx/Re-eval Chest X-Ray - ED: - - 3 view of the left ankle by my personal interpretation as well as radiology shows no evidence of fracture dislocation of the ankle - Medical Decision Making Patient presented secondary to a mechanical fall with an ankle injury. Patient is 28 weeks , but denies hitting her abdomen, and has no outward signs of trauma. 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 X-rays were obtained which were found to be negative. Patient will be provided with a David wrap, was recommended Tylenol for treatment of pain for her ankle sprain. ED Disposition - Plan for ED Patient: Disposition: Home or Assisted Living Diagnosis: Left ankle sprain Instructions: Sprain, Ankle, with X-Ray Referrals: Deyvi Preston DO [Primary Care Provider] - As Needed
== END 2019-07-20 19:09 | disposition home or self-care (01) ==
PROVIDERS: Emergency Provider Emergency Medicine; Family Provider Family Medicine; PCP Family Medicine
DX: O26.893 Other specified pregnancy related conditions, third trimester (principal); S93.402A Sprain of unspecified ligament of left ankle, initial encounter; Z3A.28 28 weeks gestation of pregnancy; W10.9XXA Fall (on) (from) unspecified stairs and steps, initial encounter; Y93.01 Activity, walking, marching and hiking; Y92.89 Other specified places as the place of occurrence of the external cause; Y99.0 Civilian activity done for income or pay
CPT/HCPCS: 73610; 99282

== ENCOUNTER → 2019-07-20 | Outpatient (CLI) | payer OTHER, SELFPAY ==
[2019-07-20 14:05] LABS: Hematocrit 35.1 % (37-47); Hemoglobin 11.4 g/dL (12.0-15.0); Mean Corp Hgb Conc 32.5 g/dL (32-36); Mean Corpuscular Hgb 30.2 pg (27.0-32.0); Mean Corpuscular Volume 92.9 fL (81-99); Mean Platelet Vol. 10.3 fl (6.2-12.0); Platelet Count 294 K/mm3 (150-450); RBC Distribution Width CV 13.2 % (11.6-14.6); RBC Distribution Width SD 44.8 fl (35.1-43.9); Red Blood Count 3.78 M/mm3 (4.2-5.4); White Blood Count 8.9 K/mm3 (4.4-11.0)
[2019-07-20 14:14] LABS: Glucose Challenge Gest 1H 50g 83 mg/dL (70-140)
== END | disposition home or self-care (01) ==
LOC: WOBLAB 10:13
PROVIDERS: Visit Provider Obstetrics & Gynecology
DX: Z34.83 Encounter for supervision of other normal pregnancy, third trimester (principal)
CPT/HCPCS: 36415; 82950; 85027

== ENCOUNTER → 2019-09-15 | Outpatient (CLI) | payer OTHER, SELFPAY | END | disposition home or self-care (01) | PROVIDERS: Family Provider Family Medicine; PCP Family Medicine; Referring Provider Obstetrics & Gynecology; Visit Provider Obstetrics & Gynecology | DX: Z36.85 Encounter for antenatal screening for Streptococcus B (principal) | CPT/HCPCS: 87081 ==

== ENCOUNTER 2019-09-28 20:20 | Outpatient (CLI) | payer OTHER, SELFPAY ==
[2019-09-28 20:59] VITALS: BMI 24.5
[2019-09-28 22:00] VITALS: RESP 18
--- NOTE | 2019-09-28 22:10 | OB.TRI.HP_ITS ---
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 Denies: Nausea, Vomiting Genitourinary: Denies: Dysuria Musculoskeletal: Denies: Joint Pain, Joint Tenderness Skin: Denies: Rash, Wounds Neurological: Denies: Numbness, Tingling, Focal weakness Psychiatric: Denies: Anxiety, Depression, Homicidal Ideations, Suicidal Ideations Hematologic/ Lymphatic: Denies: Easy Bruising, Easy Bleeding Physical Exam Vitals: Vital Signs Resp 18 09/28/19 22:00 Cervix Dilation (cm): 1.2 Station: -3 Effacement (%): 20 - done by pediatrician managing partner NST - FHR Rate Baby A Baseline: 130 Variability:: Moderate Accelerations:: 15 x 15 Decelerations:: None NST Reactive:: Yes FHR Category:: Category I Uterine Activity:: irritability, no contractions Impression/Plan Spoke with RN and in collaboration with Dr. Coffey, will let patient discharge home. To return or call if regular UC start again. Stay hydrated and rest. Has appointment in AM with mortgage or loan underwriter for follow up.
== END 2019-09-28 22:00 | disposition home or self-care (01) ==
LOC: WPOUT 20:57 → WP 20:58
PROVIDERS: Family Provider Family Medicine; PCP Family Medicine; Referring Provider Obstetrics & Gynecology; Visit Provider Obstetrics & Gynecology
DX: O26.893 Other specified pregnancy related conditions, third trimester (principal); R10.9 Unspecified abdominal pain; Z3A.38 38 weeks gestation of pregnancy
CPT/HCPCS: 59025; 59050; 99218; G0378

== ENCOUNTER 2019-10-08 04:50 | Inpatient (IN) | payer OTHER, SELFPAY ==
[2019-10-08 05:38] VITALS: BMI 24.7
[2019-10-08] MEDS: 0.9% Saline Lock 10 ML Syringe IV (06:03)
[2019-10-08 06:17] LABS: Absolute Lymphocyte Count 2.98 X10^3/uL (0.83-4.51); Absolute Neutrophil Count 6.4 X10^3/uL (2.0-7.7); Basophil# 0.07 X10^3/uL; Basophil% 0.7 % (0-1); Eosinophil# 0.07 X10^3/uL; Eosinophils% 0.7 % (0-5); Hematocrit 40.2 % (37-47); Hemoglobin 13.4 g/dL (12.0-15.0); Lymphocyte # 2.98 X10^3/ul (4.0); Lymphocyte % 29.1 % (19-41); Mean Corp Hgb Conc 33.3 g/dL (32-36); Mean Corpuscular Hgb 28.3 pg (27.0-32.0); Mean Platelet Vol. 12.4 fl (6.2-12.0); Monocyte# 0.57 X10^3/uL; Monocyte% 5.6 % (0-10); NRBC Flagged by Analyzer 0 % (0-5); Neutrophil % 62.3 % (47-70); Platelet Count 251 K/mm3 (150-450); RBC Distribution Width CV 13.6 % (11.6-14.6); RBC Distribution Width SD 41.9 fl (35.1-43.9); Red Blood Count 4.73 M/mm3 (4.2-5.4); White Blood Count 10.3 K/mm3 (4.4-11.0)
--- NOTE | 2019-10-08 08:14 | HP.PCM_ITS ---
History and Physical This is a late entry for 05[address] [facility] ANTEPARTUM RECORD - HISTORY AND PHYSICAL (10/08/2019) Name: PRERNA MARTINEZ OB Physician: JERRELL Victoria's Physician: UNDECIDED ...................................................................... : 1990 Age: 28 Address: [address] [place] [address] Phone: H) [phone] (O) [phone] Insurance Carrier: [facility] [id number] Emergency Contact: KOKO BARTLETT/BOYFRIEND [phone] ...................................................................... Final HIRAM: 10/13/19 By Ultrasound: 5 weeks 6 days Prerna is a 28yo at 39w2d gestation by 5w6d US [place] [address] this morning; she had been mike sporadically throughout the day and contractions increased in strength and frequency after midnight until they were coming constantly; she reports active FM, denies VB other than spotting after having her membranes stripped in office 2 days ago; she is O positive and group B negative; she desires as non interventive a as possible, opting to use nitrous oxide to manage her contractions PARITY: (G-Total Pregnancies P-Fullterm,Premature,Induced AB,Spont AB, Ectopics, Multip le,Living) HIRAM CONFIRMATION: By LMP: 12/30/18 Initial Exam: 10/06/19 By First Ultrasound Exam: 10/13/19 Final HIRAM: 10/13/19 BLOOD TYPE: AFP: 1 HR PG: GBS: negative (Scanned) Original Ordering Provider: SYLVAIN WONG Culture Group B Beta Streptococcus is not isolated. Rublla titer (>10 immune)-- Hepatatis B naty AG-- CULTURES:-- OB PROBLEM LIST: ALLERGIC to Ceftine and Iodine Asthma Marginal posterior previa 1.2cm from cx at 19 weeks 6 days; ck u/s at about 32 wks to confirm resolution --previa resolved Prefers NO epidural, office childbirth classes encouraged Unsure ofFOB involvement, he has teenaged children WANTS MSAFP, declines CF testing Z: Okay with midwives for visits and delivery ALLERGIES: Ceftin Stomach ache Iodine Hives and/or rash Iodine Rash/hives NKDA MEDICATIONS: Albuterol Inhaler prn Gummy 400 mcg-35 mg-25 mg-5 mg chewable tablet One pill by mouth twice a day Pulmicort Flexhaler 90 mcg/actuation breath activated As Directed one puff daily prn SOCIAL HISTORY: Smoking - Never Alcohol Use - None Diet - no special diet Lifestyle - moderate stress lifestyle and single Exercise - active Employer - [employer] Local Job Description - [employer] Illicit Drug Use - denies use of street drugs Sexual Activity - single sexual partner to date Residence - Lives with mother Place of - [place], [place] Hours Worked - 40-45 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 per 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 DATE GEST LAB WT LB WT OZ TYPE ANES LABOR TX ANTEPARTUM FLOW CHART VISIT GE RTC FU F F SC U U DATE WK MD WKS HT PN HR M SS BP ED WT SC GL D EF ST __ ____ ___ __ __ ___ __ __ __ ___ __ __ __ ___ __ 14 Sep KW 1 37 + 134/72 sl 135 - - 1 50 -3 07 Sep CH 1 37 V + + 130/78 sl 136 - - ft 30 -Aug KW 1 35 + + 136/80 0 136 - - 24 Aug 36 CH 1 35 V + + 120/78 sl 136 - - ft TH hi 17 Aug JMW 1 34 + + 114/68 sl 134 - - 03 Aug JMW 2 32 + + 110/70 sl 131 tr - Jul JMW 2 30 on + 112/58 0 130 tr - 28 Jul 19 JMW 3 27 + + 118/76 0 128 - 1+ Jun 14 JMW 4 28 + + 104/62 sl 126 - - 03 Jun 10 JMW 4 20 + + 104/66 0 122 - - May 08 JMW 3 16 + + 118/64 0 121 - - 15 April 03 ELB 4 - - + ? 114/62 0 120 - - 17 Feb 28 JMW 4 + 0 122/56 0 121 - - ANTEPARTUM NOTE(S): Oct 06 2019: Sep 29 2019: was in [facility] triage last night. Bleeding slightly. Sep 22 2019: feeling well. Cxs on and off. Sep 15 2019: feeling well. GBS and LARC today. Sep 08 2019: doing well, Good FM Aug 25 2019: feeling well. Still having heart burn. Aug 11 2019: Sono Today,Feeling Well Jul 20 2019: CBC,OGCT Today,Good FM,Low Backache Jun 20 2019: still having problems with heartburn but tums does help. May 25 2019: Sono Today,Good FM,Feeling Well May 04 2019: Doing Well, AFP today Apr 06 2019: Nausea and Fatigue Better, Mar 09 2019: mild nausea, NOB and u/s today COMPREHENSIVE ANTEPARTUM NOTE(S): Oct 07 2019: GBS negative. EB Oct 06 2019: Numerous bruised noted both lower legs. No injuries she is aware of. States first noted apprx 10 days ago. States rash upper arms is better; has not noticed a rash anywhere else. Reporting ctx's > 6/hr at times. No leaking fluid. Thinks she lost part of her mucous plug apprx a week ago. 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 Sent to [facility] to pre-register. [facility] Oct 06 2019: Feeling well; reports active FM, frequent, irregulaur UCs, denies VB, LOF; multiple small, healing bruises on both legs, no evidence of abuse, pt unable to stay how they occurred; VE per pt request /-3, soft, mid position; membrane stripping offerred, risks/benefits discussed, pt accepted, accomplished w/mininimal discomfort; discussed warning signs, s/s Labor, when to call/come in; RTO 1 week for PNV - KVW Sep 29 2019: (f*) Here after trip to triage last night. Contractions subsided, now irregular hailey demarco like has been having Q4 weeks now. States she went home, ate and went to bed which let them stop. Instructed her she can call motor and controls tester number to speak to provider if she is unsure whether she should go in to triage or not. At this point if shes resting, staying hydrated and they stop when laying down it isn't active labor. Active labor will be regular contractions that come closer, stronger, and last. States understanding. Wants SVE since checked last night in triage. FT/30%/-3 mid posterior. Mild spotting after SVE which reassured is normal. Will return in one week for routine PNV with KW. Wants EIOL. Agreeable to waiting until 40+. At that point will discuss elective induction procedure based on cervical check at that time. Reviewed bleeding, ROM and to call with regular UC. - Sep 22 2019: Feeling well; reports active FM; reports frequent BH UCs, none at this time, denies VB, LOF; discussed warning signs, s/s Labor, when to call/come in; RTO 1 week for PNV - KVW Sep 20 2019: H taken to OB. tkg Sep 20 2019: GBS negative. EB Sep 15 2019: (f*) FM+, FHR 135. Reports irregular hailey demarco contractions, nothing regular. Will try warm baths, increased fluid and rest. 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 Sister is present and support person. Having increased white discharge, which education on normalcy. Educated on mucous plug, regular contractions, ROM, and bleeding to call office [facility] SVE ft/thick/high. GBS collected today. Will return in one week with . 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 AM Jun 19 2019: [facility] Prerna used an Albuterol Treatment 45 min prior to this call and asking if she can take a Tums for heartburn ? Would there be any adverse effects d/t recent use of Albuterol? Advised no adverse effects and can certainly take Tums, Offered she can take Zantac if needed, but she has tried this and feels Tums has been more effective. Mentions she has a visit w/Dr. Rai tomorrow. Encouraged to discuss further w/. She then says she has been having Thompson Demarco, sometimes more than once a day, today just once and that Dr. Rai had asked her about this at a previous appt. Would recommend taking the opportunity at her visit to discuss both the heartbu rn and Thompson Demarco. Mar 09 2019: Prerna is here for her NOB visit at 8 w 6 d, she is a with an HIRAM of 10/13/2019. US and PNV with Dr. Rai completed prior to NOB visit today. She is accompanied today by her mother, with whom she resides. She is unsure about FOB involvement, and prefers none of his information be included on the chart at this time. Delivery at [facility], preferably without an epidural planned, and she will feed baby formula. Office childbirth classes discussed and encouraged. 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 Prerna is a non-smoker, and denies use of drugs or ETOH. She rivera sbeen having problem staking OTC vitamins, as they make her gag. She plans to try a gummy vitamin containing DHA. Genetics Screening form completed. She would like to have MSAFP drawn, and declines CF testing; consent signed as such. She shares recent Carpal Tunnel Syndrome surgery (January 2019), states that she she took four doses of Tramadol post-op, and was not yet aware of . Office practice patterns reviewed, including labs that will be collected today. Emergencies/danger signs, round ligament pain, reporting s/s of a UTI, and common oTC medications approved/not approved for use during reviewed. States mild nausea, and measures to help minimize nausea reviewed, including small frequent meals with protein included throughout the day, adequate water hydration of at least one gallon per 24 hours, Vitamin B6 50 mg twice a day, and Unisom at bedtime. Walks for exercise, and plans to continue to do so. Reviewed lifting restrictions. Water and dietary needs reviewed, including caloric needs, recommended weight gain, limiting empty calories, and limiting caffeien intake to one cup a day. Printed guide for food safety provided with review. Prerna states that she understands all information provided during NOB visit, and has no questions following same. To [facility] draw station for labs. AW Feb 17 2019: Cervical cultures NEG EB Feb 16 2019: Prerna presents here today with sister(February) for Sono due to LLQ pain, and Missed Menses appointment. 28 y.o. G 1 P 0 non-smoker with LMP of 12-31-18 lasting 5 days and history of regular menses. Sono today shows 5 weeks 6 days. Reports the LLQ discomfort continues, but not as bad as it was and we discussed using warm compresses and Tylenol. Approximate HIRAM of 10/16/19. Currently taking the Gummy Prenatals and Educational Materials given. History of normal pap screenings from 2016 through 2018. Medication list up-dated. SRAVAN Feb 16 2019: ok REVIEW OF SYSTEMS: GENERAL - Denies fever, or chills SKIN - Denies rash, new skin lesions, or change in moles EYES - Denies blurred vision, or change in visual acuity EARS - Denies ear pain, or difficulty hearing NOSE - Denies nasal congestion, discharge, or bleeding MOUTH - Denies sore throat, or difficulty swallowing NECK - Denies pain or swelling RESPIRATORY - Denies shortness of breath, cough, wheezing CARDIOVASCULAR - Denies palpitations, chest pain, orthopnea, PND, peripheral edema, syncope or claudication GASTROINTESTINAL - Denies nausea, vomiting, diarrhea, constipation, Denies abdominal pain, melena and or bright red blood GENITOURINARY - Denies dysuria, frequency of urination, urgency, or hesitancy MUSCULOSKELETAL - Denies joint or muscle pain, or back pain NEUROLOGICAL - Denies localized numbness, weakness, or tingling PSYCHIATRIC - Denies depression, anxiety, substance abuse or suicide attempts ENDOCRINE - Denies heat or cold intolerance, weight loss or gain, increasing thirst HEMATO-IMMUNOLOGIC - Denies easy bruising, bleeding, oral ulcerations or recurrent infections GENETICS SCREENING: Age 35+ years: No Thalassemia: No Neural Tube Defect: No Down Syndrome: No TORI-SACHS: No Sickle Cell Disease: No Hemophilia: No Musc. Dystrophy: No Cystic Fibrosis: No-declines screening Trudy Chorea: No Mental Retardation: No Fragile X: No Other genetic: No Other defects: No SABs/still births: No Drugs since LMP: No INFECTION HISTORY: High risk AIDS: No High risk Hepatitis: No Exposed to TB: No Exposed to Herpes: No Rash/viral illness since LMP: No History of STD: No MENSTRUAL HISTORY: *Menses Amount/Duration: 5-6 DAYSMenses Regularity: RegularFrequency: monthlyMenarche (Age Onset): 13* PAST SUMMARY: PARITY: 1. Total Pregnancies............ 1 2. Full Term Pregnancies........ 0 3. Premature.................... 0 4. Abortions - Induced.......... 0 5. Abortions - Spontaneous...... 0 6. Ectopics..................... 0 7. Multiple Births.............. 0 8. Living Children.............. 0 Labs for : PRERNA MARTINEZ since 01/16/2019 ORDER DATEIN DESCRIPTION VALUE UNITS RANGE A+ COMMENT TYPE AND SCREEN 10/08/19 Reason for Type AND Screen/Red Cells: [facility]~[address] [place], [address]~ BLOOD TYPE GEL O POSITIVE N ANTIBODY SCREEN NEGATIVE N CBC W/DIFF, AUTOMATED 10/08/19 NOTE Original Ordering Provider: SYLVAIN Rodriguez WBC 10.3 K/mm3 4.4-11.0 RBC 4.73 M/mm3 4.2-5.4 HGB 13.4 g/dL 12.0-15.0 HCT 40.2 % 37-47 MCV 85.0 fL 81-99 MCH 28.3 pg 27.0-32.0 MCHC 33.3 g/dL 32-36 RDW CV 13.6 % 11.6-14.6 RDW SD 41.9 fl 35.1-43.9 PLT 251 K/mm3 150-450 MPV 12.4 fl 6.2-12.0 H NEUT% 62.3 % 47-70 LY% 29.1 % 19-41 MONO% 5.6 % 0-10 EO% 0.7 % 0-5 BASO% 0.7 % 0-1 IM GRAN % 1.600 % 0.0-0.9 H IG% - Immature Granulocytes (promyelocytes, myelocytes and metamyelocytes) > 1% indicates that a LEFT SHIFT is Present. ABSOLUTE NEUT 6.4 X10 3/uL 2.0-7.7 ABSOLUTE LYMPH 2.98 X10 3/uL 0.83-4.51 w NRBC, FLAGGED 0 % 0-5 CULTURE, GROUP B STREPTOCOCCUS 09/15/19 NOTE Original Ordering Provider: SYLVAIN Mata MARVIN Culture Group B Beta Streptococcus is not isolated. Reviewed by MOY 36+ Week Labs 09/15/19 Group B Strep negative (Scanned) Negative Reviewed by JULIO GLUCOSE CHALLENGE GEST 1H 50G 07/20/19 NOTE Original Ordering Provider: Julio Rai GLU GEST 50G 1H 83 mg/dL 70-140 Reviewed by JULIO CBC-COMPLETE BLOOD CNT NO DIFF 07/20/19 NOTE Original Ordering Provider: Julio Rai WBC 8.9 K/mm3 4.4-11.0 RBC 3.78 M/mm3 4.2-5.4 L HGB 11.4 g/dL 12.0-15.0 L HCT 35.1 % 37-47 L MCV 92.9 fL 81-99 MCH 30.2 pg 27.0-32.0 MCHC 32.5 g/dL 32-36 RDW CV 13.2 % 11.6-14.6 RDW SD 44.8 fl 35.1-43.9 H PLT 294 K/mm3 150-450 MPV 10.3 fl 6.2-12.0 Reviewed by JULIO AFP TETRA QUAD SCREEN 05/04/19 NOTE Original Ordering Provider: Julio Rai TEST RESULTS: *Screen Negative* . GESTATIONAL AGE 16.9 WEEKS . GEST AGE FROM As provided . [facility] [age]AM [age] . RACE . WEIGHT 121 lbs . INS DEP DIABETE No . MULT GESTATION No . AFP VALUE-EIA 99.8 ng/mL . AFP MOM VALUE 2.37 . HCG VALUE 69842 mIU/mL . HCG MOM 0.88 . UE3 VALUE 1.21 ng/mL . UE3 MOM 1.11 . CON VALUE-EIA 208.32 pg/mL . CON MOM VALUE 1.06 . OSBR RISK 370 . DSR 2ND TRIMEST 53723 . DSR (BY AGE) 789 . T18 RISK Not increased . T18 (BY AGE) 1:3074 . INTERPRETATION . Interpretation: Screen Negative This result is screen negative for OSB, Down Syndrome and Trisomy 18. The AFP MoM and patient specific risks calculated are based on the gestational age and the clinical information provided. This test can identify up to 80% of open neural tube defects. Closed neural tube defects and some open defects may not be detected by this test. The combination of maternal age, AFP, hCG, uE3, and CON identifies 75-80% of Down Syndrome. The combination of maternal age, AFP, hCG and uE3 identifies 60% of Trisomy 18 pregnancies. The [place] [employer] recommends amniocentesis be offered to women age 35 and older. Recalculations are not recommended when gestational dating by LMP and ultrasound are within 10 days. Reviewed by JULIO HEPATITIS C ANTIBODIES 03/09/19 NOTE Original Ordering Provider: Julio Rai HEP C AB <0.1 s/co ratio 0.0-0.9 Negative: < 0.8 Indeterminate: 0.8 - 0.9 Positive: > 0.9 The CDC recommends that a positive HCV antibody result be followed up with a HCV Nucleic Acid Amplification test (610071). Reviewed by JULIO HEPATITIS B SURFACE AG 03/09/19 NOTE Original Ordering Provider: Julio Rai HB SURF AG Negative Negative Performed at: [place] [id number] Md Senior Research Scientist: Lonny Hawthorne PhD, Phone: [phone] Reviewed by JULIO RPR 03/09/19 NOTE Original Ordering Provider: Julio Rai RPR NONREACTIVE NONREACTIVE Reviewed by JULIO T AND S-NO CHARGE W/PNP 03/09/19 Reason for Type AND Screen/Red Cells: Surgery? [facility]~[address] [place], [address]~ BLOOD TYPE GEL O POSITIVE N AB SCREEN GEL NEGATIVE N Reviewed by JULIO HIV - [facility] 03/09/19 NOTE Original Ordering Provider: Julio Rai HIV - [facility] Non-Reactive Nonreactive Reviewed by JULIO RUBELLA IGG 03/09/19 NOTE Original Ordering Provider: Julio Rai RUBELLA IGG 248.5 IU/mL Antibody results Interpretation of Immune Status < 5 IU/ml Presumed Non-immune 5 - < 10 IU/ml Equivocal > or = 10 IU/ml Presumed Immune Reviewed by JULIO URINALYSIS, ROUTINE (DIPSTICK) 03/09/19 NOTE Original Ordering Provider: Julio Rai COLOR Yellow Yellow CLARITY Sl. Cloudy Clear GLUCOSE, UR Normal mg/dl Normal BILIRUBIN URINE Negative mg/dL Negative KETONE UR Negative mg/dl Negative SP.GR. DIPSTX 1.015 1.002-1.030 PH UR 7.0 5.0 - 8.0 PROT DIPSTX 15 mg/dl Negative H UROBILI Normal mg/dl Normal NITRITE UR Negative Negative OCCULT BLOOD-UR Negativew /ul Negative LEUK ESTERASE Negative /ul Negative Reviewed by JULIO URINE DRUG SCREEN (VISTA) 03/09/19 NOTE Original Ordering Provider: Julio Rai TO BE CONFIRMED CONFIRMATORY TESTING FOR ALL POSITIVE URINE DRUG SCREEN RESULTS WILL ONLY BE SENT OUT UPON PHYSICIAN ORDER. VISTA Urine Drug Screen methods provide only preliminary analytical test results. A more specific alternate chemical method must be used in order to obtain a confirmed analytical result. Gas chromatography/mass spectrometery (GC/MS) is the preferred confirmatory method. Clinical consideration and professional judgement should be applied to any drug of abuse test result, particularly when preliminary positive results are used. URINE TCA TESTING MUST BE ORDERED SEPARATELY. USE TEST MNEMONIC: [facility] VISTA UDS PH 6 AMPHETAMINES NEGATIVE <1000 ng/mL BARBITIURATES NEGATIVE < 200 ng/mL BENZODIAZIPINE NEGATIVE < 200 ng/mL COCAINE NEGATIVE < 300 ng/mL ECSTACY NEGATIVE < 500 ng/mL METHADONE NEGATIVE < 300 ng/mL OPIATES NEGATIVE < 300 ng/mL PCP NEGATIVE < 25 ng/mL THC NEGATIVE < 50 ng/mL Reviewed by JULIO THYROID STIM HORMONE (TSH) 03/09/19 NOTE Original Ordering Provider: Julio Rai TSH 0.97 uIU/mL 0.358-3.74 Reviewed by JULIO CBC W/DIFF, AUTOMATED 03/09/19 NOTE Original Ordering Provider: Julio Rai WBC 9.4 K/mm3 4.4-11.0 RBC 4.35 M/mm3 4.2-5.4 HGB 13.4 g/dl 12.0-15.0 HCT 39.4 % 37-47 w MCV 90.6 fL 81-99 MCH 30.8 pg 27.0-32.0 MCHC 34.0 g/gl 32-36 RDW CV 14.1 % 11.6-14.6 RDW SD 46.8r fl 35.1-43.9 H PLT 291 K/mm3 150-450 MPV 10.3 fl 6.2-12.0 NEUT% 72.3 % 47-70 H LY% 19.8 % 19-41 w MONO% 6.7 % 0-10 EO% 0.9 % 0-5 BASO% 0.2 % 0-1 IM GRAN % 0.100 % 0.0-0.9 IG% - Immature Granulocytes (promyelocytes, myelocytes and metamyelocytes) > 1% indicates that a LEFT SHIFT is Present. ABSOLUTE NEUT 6.8 X10 3/uL 2.0-7.7 ABSOLUTE LYMPH 1.86 X10 3/ul 0.83-4.51 Reviewed by JULIO LAW/JUAN F [facility] BY PCR 02/16/19 NOTE Original Ordering Provider: Julio CASTLEAM TRAC PCR Negative Negative NG BY PCR Negative Negative Reviewed by MOY HCG, Quant 02/13/19 HCG, Quant 5097 (Scanned) negative Reviewed by Jonathan HCG TITER QUANT., SERUM 02/11/19 NOTE Original Ordering Provider: Julio cabrera HCG QUANT. 2778 mIU/mL <9 non-preg H Reviewed by MOY PROVIDER SIGNATURE ( REQUIRED) PHYSICAL EXAMINATION General Appearence: 28 yo female in no acute distress Vital Signs: AF, VSS Heart: RRR without rubs or gallops Lungs: CTA x 2 Breasts: deferred Abdomen: gravid Pelvis: Cervix: 4/80/-2 per RN at approx 0509 per RN Presentation: cephalic Fetus: Size: AGA Movement: present Heart: 135 baseline, with accels, no decels, moderate to minimal va riability Impression: 28yo at 39w2d gestation by 5w6d US Term spontaneous ROM at home Active labor GBS negative O positive Cat 2 FHTs Plan: Admit to inpatient Risk/benefits of Pitocin augmentation discussed with patient, augmentation recommended, patient chooses to wait two hours to see how she progresses, then will accept Pitocin Recheck cervix in 2 hours Expectant management Anticipate vaginal delivery
--- NOTE | 2019-10-08 08:43 | PN.OBGYN_ITS ---
Subjective: This is a late entry for 10/08/2019 0730 Uncomfortable with contractions, urge to push; using nitrous oxide to manage; mother, father, sister bedside and supportive Objective: AVSS FHTs: 135 baseline, moderate variability, with accels, no decels UCs: Q 2-3 Cervix: 10/100/-1 at 0722 per this provider - Physical Exam Vitals/I&O's: Weight: 135 lb Body Mass Index (BMI) 24.7 General: Alert, Oriented x3, Cooperative HEENT: PERRLA, EOMI Oral: Moist Mucosa Neck: Supple Lungs: Clear to auscultation, Normal air movement Cardiovascular: Regular rate, Regular Rhythm Abdomen: Bowel Sounds Present, Soft, Non Tender, Non-Distended, Passing Flatus, Gravid Extremities: No edema, Capillary Refill Less than 3 Seconds, No Calf Tenderness Skin: No rashes Musculoskeletal: No Tenderness to Palpation of Joints or Extremities Neurological: Cranial nerves II-XII grossly intact, Deep Tendon Reflexes 2+/4 and Symmetrical Psych/Mental Status: Normal Affect, Appropriate, Alert and oriented to time, place, person, mood and affect Laboratory Results 10/08/19 06:03: WBC 10.3, RBC 4.73, Hgb 13.4, Hct 40.2, MCV 85.0, MCH 28.3, MCHC 33.3, RDW Std Deviation 41.9, RDW Coeff of Yecenia 13.6, Plt Count 251, MPV 12.4 H, Immature Gran % (Auto) 1.600 H, Neut % (Auto) 62.3, Lymph % (Auto) 29.1, [place] % (Auto) 5.6, Eos % (Auto) 0.7, Baso % (Auto) 0.7, Absolute Neuts (auto) 6.4, Absolute Lymphs (auto) 2.98, Nucleated RBC % 0 10/08/19 06:03: Blood Type O POSITIVE, Antibody Screen NEGATIVE Current Medications Acetaminophen (Tylenol) 325 - 650 mg PO Q4H PRN PRN PRN Reason: Pain Score 1-3/10 Al Hydroxide/Mg Hydroxide (Mylanta Ii) 15 - 30 ml PO Q4H PRN PRN PRN Reason: INDIGESTION Citric Acid/Sodium Citrate (Bicitra) 30 ml PO X1 PRN PRN Reason: Section Lactated Ringer's () 500 mls @ 999 mls/hr IV .Q31M PRN PRN Reason: Epidural Lactated Ringer's () 500 mls @ 999 mls/hr IV .Q31M PRN PRN Reason: Corrective Measures Lactated Ringer's () 1,000 mls @ 50 mls/hr IV .Q20H JONATHAN Last Admin: 10/08/19 06:03 Dose: Not Given Documented by: Nalbuphine HCl (Nubain) 5 - 10 mg IV Q3H PRN PRN PRN Reason: Pain Score 4-10/10 Nalbuphine HCl (Nubain) 5 - 10 mg SC Q3H PRN PRN PRN Reason: Pain Score 4-10/10 Ondansetron HCl (Zofran) 4 mg IV Q4H PRN PRN PRN Reason: NAUSEA Prochlorperazine Edisylate (Compazine Iv) 10 mg IV Q6H PRN PRN PRN Reason: NAUSEA Sodium Chloride () 10 - 40 ml IV X1 PRN PRN Reason: SALINE FLUSH Last Admin: 10/08/19 06:03 Dose: 10 ml Documented by: Medical Necessity - Tobacco Use Smoking Status: Never smoker Assessment/Plan All Active Problems Abdominal pain of unknown etiology (Acute) Nausea alone (Acute) Assessment: 28yo at 39w2d gestation by 5w6d US Active labor, good progression Cat 1 FHTs Plan: Begin pushing with contractions Anticipate vaginal
--- NOTE | 2019-10-08 09:02 | PCM.PN.OB ---
Subjective: Continues with pushing efforts with minimal progress, requiring extensive encouragement, states I'm too tired, this is too hard Objective: AVSS: FHTs:130 baseline, moderate variability, with accels, no decels UCs: Q 2-3 Cervix: 10/-1 - Physical Exam Vitals/I&O's: Weight: 135 lb Body Mass Index (BMI) 24.7 Laboratory Results 10/08/19 06:03: WBC 10.3, RBC 4.73, Hgb 13.4, Hct 40.2, MCV 85.0, MCH 28.3, MCHC 33.3, RDW Std Deviation 41.9, RDW Coeff of Yecenia 13.6, Plt Count 251, MPV 12.4 H, Immature Gran % (Auto) 1.600 H, Neut % (Auto) 62.3, Lymph % (Auto) 29.1, Terry % (Auto) 5.6, Eos % (Auto) 0.7, Baso % (Auto) 0.7, Absolute Neuts (auto) 6.4, Absolute Lymphs (auto) 2.98, Nucleated RBC % 0 10/08/19 06:03: Blood Type O POSITIVE, Antibody Screen NEGATIVE Current Medications Acetaminophen (Tylenol) 325 - 650 mg PO Q4H PRN PRN PRN Reason: Pain Score 1-3/10 Al Hydroxide/Mg Hydroxide (Mylanta Ii) 15 - 30 ml PO Q4H PRN PRN PRN Reason: INDIGESTION Citric Acid/Sodium Citrate (Bicitra) 30 ml PO X1 PRN PRN Reason: Section Lactated Ringer's () 500 mls @ 999 mls/hr IV .Q31M PRN PRN Reason: Epidural Lactated Ringer's () 500 mls @ 999 mls/hr IV .Q31M PRN PRN Reason: Corrective Measures Lactated Ringer's () 1,000 mls @ 50 mls/hr IV .Q20H [facility] Last Admin: 10/08/19 06:03 Dose: Not Given Documented by: Oxytocin/Sodium Chloride () 30 units in 500 mls @ 2 mls/hr IV .Q250H JONATHAN Nalbuphine HCl (Nubain) 5 - 10 mg IV Q3H PRN PRN PRN Reason: Pain Score 4-10/10 Nalbuphine HCl (Nubain) 5 - 10 mg SC Q3H PRN PRN PRN Reason: Pain Score 4-10/10 Ondansetron HCl (Zofran) 4 mg IV Q4H PRN PRN PRN Reason: NAUSEA Prochlorperazine Edisylate (Compazine Iv) 10 mg IV Q6H PRN PRN PRN Reason: NAUSEA Sodium Chloride () 10 - 40 ml IV X1 PRN PRN Reason: SALINE FLUSH Last Admin: 10/08/19 06:03 Dose: 10 ml Documented by: Medical Necessity - Tobacco Use Smoking Status: Never smoker Assessment/Plan All Active Problems Abdominal pain of unknown etiology (Acute) Nausea alone (Acute) Assessment: 28yo at 39w2d gestation by 5w6d US Second stage labor, ineffective pushing ROM x 5 hours Cat 1 FHTs Plan: Continue attempts to push Start pitocin at 1mu, increase by 1mu Q 20-30 minutes Risks/benefits of epidural discussed w/patient and family, patient opts for epidural; will continue pushing efforts until epidural in place, allow for 1/2 hour rest in throne position, then continue pushing Anticipate vaginal
[2019-10-08] MEDS: Oxytocin 30 units/NS 500 ml 30 UNITS/500 ML IV.SOLN IV (09:04)
[2019-10-08] MEDS: Lactated Ringers 1,000 ML 50 ML IV (09:08)
[2019-10-08] MEDS: Lactated Ringers 500 ML 999 ML IV (09:08)
[2019-10-08] MEDS: Ondansetron 4 MG/2 ML Vial IV (10:05)
--- NOTE | 2019-10-08 12:00 | OP.PCM_ITS ---
Vaginal Delivery Maternal Presentation: Spontaneous Rupture of Membranes Amniotic Membrane Rupture Type: Spontaneous at home Rupture of Membrane time: 0355 on 10/08/19 Amniotic Fluid Description: Clear Final HIRAM: 10/03/19 Final HIRAM Source: US <20 weeks Gestational age: 40 Weeks and 5 Days Date of Procedure: 10/08/19 Pre-Operative Diagnosis: IUP Post-Operative Diagnosis: IUP Surgery/ Procedure Performed: Vacuum Assisted Vaginal Delivery Type of Anesthesia: Local with 1% lidocaine Description of Procedure: Spontaneous vaginal delivery of a viable female with Apgars of 9/9 from a right occiput anterior presentation with clear amniotic fluid and normal three- vessel placenta. No episiotomy. First-degree midline laceration repaired with 3-0 Rapide suture using local. Kiwi vacuum used x3 gentle pulls from low outlet to expedite delivery of the head after approximately 4 hours of pushing and increasing maternal fatigue. 1 pop-off. Sponges okay. Delivery physician: Mika Rai MD. Presentation: LALO Placental Delivery Description: Spontaneous Placenta Disposition: [facility] Cord Vessel Description: 3 Vessels Cord Gases drawn per routine: ABG Cord Entanglement: None Estimated Blood Loss: 250 cc Infant A gender: Female (1 minute): 9 (5 minute): 9 Episiotomy Description: None Laceration: Midline, Periurethral Extnsion/lac, 1st degree Medications given after delivery: IV Pitocin, IM Methergin Complications: None
--- NOTE | 2019-10-08 12:05 | DCINST_ITS ---
<Mika Rai - Last Filed: 10/08/19 12:05> Discharge Diet: No Restrictions Discharge Activity: May Shower, May Take a Tub Bath May resume sexual activity in: 4-6 weeks Additional Activity Instructions:: Nothing in the vagina for 4-6 weeks. You may return to work/school in 6 weeks. Call your doctor if you observe: Fever of 101 or Higher, Inability to urinate, Inability to have a bowel movement, Using more than one pad per hour Additional Instructions: If you experience any of the following, contact your healthcare provider. * Bleeding that soaks a pad every hour for 2 hours * Unrelieved incision or abdominal pain * Swelling, redness, discharge or bleeding from your incision or episiotomy site * Your incision begins to separate * Problems urinating (including inability to urinate or burning while urinating). * Visual changes * Severe headache * Flu-like symptoms * Pain or redness in one of both of your breasts * Pain, warmth, tenderness or swelling in your legs, especially the calf area * Frequent nausea and vomiting * Symptoms of depression or anxiety If you experience any of the following, call 911 or go to the nearest Emergency Room. * Chest pain * Problems breathing * Seizure activity * Partial or complete paralysis of a body part, slurred speech, weakness or drooping of the face, or a sudden inability to walk or hold your balance Allergies/Adverse Reactions: Allergies iodine Allergy (Verified 10/08/19 05:35) Rash cefuroxime [From Ceftin] Adverse Reaction (Verified 10/08/19 05:35) Other chest pain Medications to take at Discharge Albuterol Inhaler [Ventolin Hfa] 2 puff INHALATION Q4H PRN PRN 09/09/13 Budesonide/Formoterol 160/4.5 [Symbicort 160/4.5 Mcg Inhaler (SP)] 2 puff INHALATION BID 10/24/18 Acetaminophen [Tylenol Extra Strength] 500 mg PO Q6H PRN PRN 09/28/19 Famotidine [Pepcid] 20 mg PO DAILY 09/28/19 Vits [Prenatabs FA] 1 tab PO DAILY 09/28/19 Please Follow Up With: Lyssa Rodriguez, [facility] - [phone] When: Call to make an appointment with your doctor in 6 weeks. Primary Care Physician: Deyvi Preston DO [Primary Care Provider] - Test Results: Test results from this visit will be discussed in further detail at your follow- up appointment, if applicable. <Lyssa Rodriguez - Last Filed: 10/10/19 08:21> Additional Instructions: If you experience any of the following, contact your healthcare provider. * Bleeding that soaks a pad every hour for 2 hours * Fever 100.4 or higher * Unrelieved incision or abdominal pain * Swelling, redness, discharge or bleeding from your incision or episiotomy site * Your incision begins to separate * Problems urinating (including inability to urinate or burning while urinating). * Visual changes * Severe headache * Flu-like symptoms * Pain or redness in one of both of your breasts * Pain, warmth, tenderness or swelling in your legs, especially the calf area * Frequent nausea and vomiting * Symptoms of depression or anxiety If you experience any of the following, call 911 or go to the nearest Emergency Room. * Chest pain * Problems breathing * Seizure activity * Partial or complete paralysis of a body part, slurred speech, weakness or drooping of the face, or a sudden inability to walk or hold your balance Test Results: Test results from this visit will be discussed in further detail at your follow- up appointment, if applicable.
--- NOTE | 2019-10-08 13:03 | PN.OBGYN_ITS ---
Subjective: This is a late entry for 10/08/2019 1030 Pt w/increasing exhaustion, frequently declining to push Objective: AVSS FHTs: 130 baseline, minimal to moderate variability, with accels, occasional variable UCs: Q 2-3 Pitocin 4 mu Cervix/ descent: minimal change - Physical Exam Vitals/I&O's: Weight: 135 lb Body Mass Index (BMI) 24.7 Intake and Output for Last 24 Hours 10/06/19 10/07/19 10/08/19 23:59 23:59 23:59 Intake Total 637.07 / 637.07 Balance 637.07 / 637.07 Laboratory Results 10/08/19 06:03: WBC 10.3, RBC 4.73, Hgb 13.4, Hct 40.2, MCV 85.0, MCH 28.3, MCHC 33.3, RDW Std Deviation 41.9, RDW Coeff of Yecenia 13.6, Plt Count 251, MPV 12.4 H, Immature Gran % (Auto) 1.600 H, Neut % (Auto) 62.3, Lymph % (Auto) 29.1, [place] % (Auto) 5.6, Eos % (Auto) 0.7, Baso % (Auto) 0.7, Absolute Neuts (auto) 6.4, Absolute Lymphs (auto) 2.98, Nucleated RBC % 0 10/08/19 06:03: Blood Type O POSITIVE, Antibody Screen NEGATIVE Current Medications Acetaminophen (Tylenol) 1,000 mg PO Q8H PRN PRN PRN Reason: Pain Score 1-3/10 Albuterol Sulfate (Ventolin Hfa (Sp)) 2 puff INHALATION Q4H PRN PRN PRN Reason: SHORTNESS OF BREATH Bisacodyl (Dulcolax) 10 mg RECTAL UD PRN PRN Reason: If no BM Dibucaine (Dibucaine) 1 applic TOPICAL TID PRN PRN; Protocol PRN Reason: Discomfort Famotidine (Pepcid) 20 mg PO DAILY JONATHAN Hydrocortisone (Hytone) 1 applic TOPICAL TID PRN PRN; Protocol PRN Reason: Discomfort Oxytocin/Sodium Chloride () 30 units in 500 mls @ 334 mls/hr IV .Q1H30M JONATHAN Stop: 10/08/19 13:14 Ibuprofen (Motrin) 600 mg PO Q6H PRN PRN PRN Reason: Pain Score 1-3/10 Measles/Mumps/Rubella Vaccine Live (M-M-R Ii) 0.5 ml SC .ONCE ONE Stop: 10/08/19 12:45 Methylergonovine Maleate (Methergine) 0.2 mg IM X1 PRN PRN Reason: Excess bleeding/uterine atony Non-Formulary Medication (Budesonide/Formoterol 160/4.5) 2 puff INHALATION BID JONATHAN Ondansetron HCl (Zofran) 4 mg IV Q4H PRN PRN PRN Reason: Nausea Oxycodone HCl (Oxyir) 5 - 10 mg PO Q4H PRN PRN PRN Reason: Pain Score 4-10/10 Senna/Docusate Sodium (Senokot-S, Meseret-Colace) 1 - 2 tablet PO DAILY PRN PRN PRN Reason: Constipation Simethicone (Mylicon) 80 mg PO PCHS PRN PRN Reason: Indigestion/Stomach pain Sodium Chloride () 5 - 15 ml IV UD PRN PRN Reason: SALINE FLUSH Zolpidem Tartrate (Ambien (Generic)) 5 mg PO QHS PRN PRN PRN Reason: Insomnia Medical Necessity - Tobacco Use Smoking Status: Never smoker Assessment/Plan All Active Problems Abdominal pain of unknown etiology (Acute) Nausea alone (Acute) Assessment: Second stage labor, minimal progress, increasing maternal exhaustion Cat 2 FHTs Plan: Discussed with anesthesia, epidural would not be adequate pain control if decision for c/section Decision to continue pushing until vertex low enough for Kiwi vacuum Dr. Rai notified at 1104
[2019-10-08] MEDS: Acetaminophen 500 MG Tablet 1000 MG PO (13:26)
[2019-10-08 17:00] VITALS: BP 135/71; PULSE 82; RESP 18; TEMP 37.2; O2SAT 97
[2019-10-08] MEDS: Albuterol 2.5 MG/3 ML VIAL.NEB. INHALATION (18:43)
[2019-10-08 18:44] VITALS: PULSE 86; RESP 14
[2019-10-08] MEDS: Budesonide Respules 0.5 MG/2 ML AMPUL.NEB. INHALATION (18:44)
[2019-10-08 20:10] VITALS: BP 138/90; PULSE 91; RESP 16; TEMP 36.9
[2019-10-09] VITALS (7 sets, daily range): BP systolic 106–127; BP diastolic 51–82; PULSE 71–88; RESP 15–18; TEMP 36.4–37; O2SAT 97–99
[2019-10-09] MEDS: Ibuprofen 600 MG Tablet PO ×2 (01:02→14:04)
[2019-10-09] MEDS: Acetaminophen 500 MG Tablet 1000 MG PO ×2 (08:08→20:25)
[2019-10-09] MEDS: Albuterol 2.5 MG/3 ML VIAL.NEB. 2 MG INHALATION (09:47)
--- NOTE | 2019-10-09 10:56 | PCM.PN.OB ---
Subjective: Pain well controlled, tolerating diet, passing flatus, bottle feeding well Objective: AVSS Breasts soft, nipples atraumatic Fundus firm, midline, u/2, lochia small Perineal repair well approximate, no edema, erythema or drainage noted - Physical Exam Vitals/I&O's: Vital Signs Temp Pulse Resp BP Pulse Ox 97.9 F 81 18 112/79 98 10/09/19 08:39 10/09/19 09:47 10/09/19 09:47 10/09/19 08:39 10/09/19 08:39 Oxygen Delivery Method Room Air Weight: 135 lb Body Mass Index (BMI) 24.7 Intake and Output for Last 24 Hours 10/07/19 10/08/19 10/09/19 23:59 23:59 23:59 Intake Total 1137.07 / 1137.07 Output Total 350 / 350 Balance 787.07 / 787.07 General: Alert, Oriented x3, Cooperative, No apparent distress HEENT: PERRLA, EOMI Oral: Moist Mucosa Neck: Supple Lungs: Clear to auscultation, Normal air movement Cardiovascular: Regular rate, Regular Rhythm Abdomen: Bowel Sounds Present, Soft, Non Tender, Non-Distended, Passing Flatus Extremities: No edema, Capillary Refill Less than 3 Seconds, No Calf Tenderness Skin: No rashes Musculoskeletal: No Tenderness to Palpation of Joints or Extremities Neurological: Cranial nerves II-XII grossly intact, Deep Tendon Reflexes 2+/4 and Symmetrical Psych/Mental Status: Normal Affect, Appropriate, Alert and oriented to time, place, person, mood and affect Current Medications Acetaminophen (Tylenol) 1,000 mg PO Q8H PRN PRN PRN Reason: Pain Score 1-3/10 Last Admin: 10/09/19 08:08 Dose: 1,000 mg Documented by: Albuterol Sulfate (Ventolin Aerosols) 2 mg INHALATION Q4H PRN PRN PRN Reason: SHORTNESS OF BREATH Last Admin: 10/09/19 09:47 Dose: 2 mg Documented by: Albuterol Sulfate (Ventolin Aerosols) 2.5 mg INHALATION Q6HWA.RT JONATHAN Last Admin: 10/08/19 18:43 Dose: 2.5 mg Documented by: Bisacodyl (Dulcolax) 10 mg RECTAL UD PRN PRN Reason: If no BM Budesonide (Pulmicort Aerosol) 0.5 mg INHALATION Q12H.RT JONATHAN Last Admin: 10/09/19 07:05 Dose: Not Given Documented by: Dibucaine (Dibucaine) 1 applic TOPICAL TID PRN PRN; Protocol PRN Reason: Discomfort Famotidine (Pepcid) 20 mg PO DAILY JONATHAN Hydrocortisone (Hytone) 1 applic TOPICAL TID PRN PRN; Protocol PRN Reason: Discomfort Ibuprofen (Motrin) 600 mg PO Q6H PRN PRN PRN Reason: Pain Score 1-3/10 Last Admin: 10/09/19 01:02 Dose: 600 mg Documented by: Methylergonovine Maleate (Methergine) 0.2 mg IM X1 PRN PRN Reason: Excess bleeding/uterine atony Oxycodone HCl (Oxyir) 5 - 10 mg PO Q4H PRN PRN PRN Reason: Pain Score 4-10/10 Senna/Docusate Sodium (Senokot-S, Meseret-Colace) 1 - 2 tablet PO DAILY PRN PRN PRN Reason: Constipation Simethicone (Mylicon) 80 mg PO PCHS PRN PRN Reason: Indigestion/Stomach pain Zolpidem Tartrate (Ambien (Generic)) 5 mg PO QHS PRN PRN PRN Reason: Insomnia Medical Necessity - Tobacco Use Smoking Status: Never smoker Assessment/Plan All Active Problems Abdominal pain of unknown etiology (Acute) Nausea alone (Acute) Assessment: 28yo G1 Now P1001 delivered at 39w2d gestation by 5w6d US PP Day #1, normal involution, normal course Plan: Discharge teaching started Continue routine care
[2019-10-09] MEDS: Albuterol 2.5 MG/3 ML VIAL.NEB. INHALATION (19:22)
[2019-10-09] MEDS: Budesonide Respules 0.5 MG/2 ML AMPUL.NEB. INHALATION (19:22)
[2019-10-10] MEDS: Ibuprofen 600 MG Tablet PO (01:11)
[2019-10-10 01:16] VITALS: BP 106/62; PULSE 81; RESP 18; TEMP 36.3
[2019-10-10 06:54] VITALS: PULSE 84; RESP 18
[2019-10-10] MEDS: Albuterol 2.5 MG/3 ML VIAL.NEB. INHALATION (06:54)
[2019-10-10 07:40] VITALS: BP 125/76; PULSE 84; RESP 20; TEMP 37.2; O2SAT 98
--- NOTE | 2019-10-10 07:47 | PN.OBGYN_ITS ---
Subjective: Pain well controlled, tolerating diet, passing flatus, bottle feeding well; desired discharge home today Objective: AVSS Breasts soft, nipples atraumatic Fundus firm, midline, u/2, lochia small Perineal repair well approximate, no edema, erythema or drainage noted - Physical Exam Vitals/I&O's: Vital Signs Temp Pulse Resp BP Pulse Ox 97.3 F L 81 18 106/62 97 10/10/19 01:16 10/10/19 01:16 10/10/19 01:16 10/10/19 01:16 10/09/19 21:01 Oxygen Delivery Method Room Air Weight: 135 lb Body Mass Index (BMI) 24.7 Intake and Output for Last 24 Hours 10/08/19 10/09/19 10/10/19 23:59 23:59 23:59 Intake Total 1137.07 / 1137.07 Output Total 350 / 350 Balance 787.07 / 787.07 General: Alert, Oriented x3, Cooperative, No apparent distress HEENT: PERRLA, EOMI Oral: Moist Mucosa Neck: Supple Lungs: Clear to auscultation, Normal air movement Cardiovascular: Regular rate, Regular Rhythm Abdomen: Bowel Sounds Present, Soft, Non Tender, Non-Distended, Passing Flatus Extremities: No edema Skin: No rashes Musculoskeletal: No Tenderness to Palpation of Joints or Extremities Neurological: Cranial nerves II-XII grossly intact, Deep Tendon Reflexes 2+/4 and Symmetrical Psych/Mental Status: Normal Affect, Appropriate, Alert and oriented to time, place, person, mood and affect Current Medications Acetaminophen (Tylenol) 1,000 mg PO Q8H PRN PRN PRN Reason: Pain Score 1-3/10 Last Admin: 10/09/19 20:25 Dose: 1,000 mg Documented by: Albuterol Sulfate (Ventolin Aerosols) 2 mg INHALATION Q4H PRN PRN PRN Reason: SHORTNESS OF BREATH Last Admin: 10/09/19 09:47 Dose: 2 mg Documented by: Albuterol Sulfate (Ventolin Aerosols) 2.5 mg INHALATION Q6HWA.RT JONATHAN Last Admin: 10/10/19 06:54 Dose: 2.5 mg Documented by: Bisacodyl (Dulcolax) 10 mg RECTAL UD PRN PRN Reason: If no BM Budesonide (Pulmicort Aerosol) 0.5 mg INHALATION Q12H.RT [facility] Last Admin: 10/10/19 06:55 Dose: Not Given Documented by: Dibucaine (Dibucaine) 1 applic TOPICAL TID PRN PRN; Protocol PRN Reason: Discomfort Famotidine (Pepcid) 20 mg PO DAILY [facility] Last Admin: 10/09/19 12:49 Dose: Not Given Documented by: Hydrocortisone (Hytone) 1 applic TOPICAL TID PRN PRN; Protocol PRN Reason: Discomfort Ibuprofen (Motrin) 600 mg PO Q6H PRN PRN PRN Reason: Pain Score 1-3/10 Last Admin: 10/10/19 01:11 Dose: 600 mg Documented by: Methylergonovine Maleate (Methergine) 0.2 mg IM X1 PRN PRN Reason: Excess bleeding/uterine atony Senna/Docusate Sodium (Senokot-S, Meseret-Colace) 1 - 2 tablet PO DAILY PRN PRN PRN Reason: Constipation Simethicone (Mylicon) 80 mg PO PCHS PRN PRN Reason: Indigestion/Stomach pain Medical Necessity - Tobacco Use Smoking Status: Never smoker Assessment/Plan All Active Problems Abdominal pain of unknown etiology (Acute) Nausea alone (Acute) Assessment: 28yo G1 Now P1001 delivered at 39w2d gestation by 5w6d PP Day #2, normal involution, normal course Plan: Discharge teaching completed DC home today RTO 6 weeks for PP checkup or PRN
[2019-10-10] MEDS: Acetaminophen 500 MG Tablet 1000 MG PO (11:00)
== END 2019-10-10 11:20 | disposition home or self-care (01) | DRG 807 ==
PROVIDERS: Advanced Practice Midwife; Admitting Provider Obstetrics & Gynecology; Family Provider Family Medicine; PCP Family Medicine; Referring Provider Obstetrics & Gynecology; Visit Provider Obstetrics & Gynecology
DX: O71.82 Other specified trauma to perineum and vulva (principal); Z37.0 Single live birth; Z3A.39 39 weeks gestation of pregnancy
CPT/HCPCS: 59025; 59050; 85025; 86850; 86900; 86901; 94640; 99218; J7120; 90686; A4216; G0378; J2405

== ENCOUNTER → 2019-12-26 18:59 | Outpatient (CLI) | payer OTHER, SELFPAY ==
--- NOTE | 2019-12-26 19:06 | RAD_ITS ---
STUDY: X-RAY - LEFT KNEE REASON FOR EXAM: Female, 29 years old. FALL TECHNIQUE: 3 view(s) of the knee. COMPARISON: None. FINDINGS: Normal visualized distal femur. Normal visualized proximal tibia and fibula. Normal proximal tibiofibular articulation. Normal medial femorotibial compartment. Normal lateral femorotibial compartment. Normal patellofemoral articulation. The soft tissue structures are unremarkable. RAD/Knee 3 Views IMPRESSION: Normal x-ray examination of the knee. Electronically Signed: Benny Mccall DO at 23:54 EST Tel [phone], Service support ,
== END ==
PROVIDERS: PCP Family Medicine; Referring Provider Family Medicine; Visit Provider Family Medicine
DX: M25.562 Pain in left knee (principal)
CPT/HCPCS: 73562

== ENCOUNTER → 2020-09-27 11:54 | Outpatient (CLI) | payer OTHER, SELFPAY ==
[2020-10-02 15:02] LABS: HPV Reflexed? NOT INDICATED
== END ==
PROVIDERS: PCP Family Medicine; Visit Provider Obstetrics & Gynecology
DX: Z12.4 Encounter for screening for malignant neoplasm of cervix (principal)
CPT/HCPCS: 88175; G0145

== ENCOUNTER 2021-12-31 09:16 | Day surgery (SDC) | payer OTHER, SELFPAY ==
--- NOTE | 2021-12-25 10:43 | EKG12_ITS ---
Test Reason : PRE OP Blood Pressure : / mmHG Vent. Rate : 080 BPM Atrial Rate : 080 BPM P-R Int : 128 ms QRS Dur : 092 ms QT Int : 390 ms P-R-T Axes : 060 086 029 degrees QTc Int : 449 ms Normal sinus rhythm with sinus arrhythmia Normal ECG Confirmed by AHMET MERCADO, ALY ([id number]), film editor PRETTY DUMONT ([id number]) on 12/26/2021 7:10:36 AM Referred By: Mika Rai Confirmed By:ALY LEO MD
[2021-12-25 12:15] LABS: Prothrombin Time (Protime)PT. 12.5 SECONDS (11.7-14.9)
[2021-12-25 12:16] LABS: Hematocrit 39.5 % (37-47); Hemoglobin 13.1 g/dL (12.0-15.0); Mean Corp Hgb Conc 33.2 g/dL (32-36); Mean Corpuscular Hgb 29.2 pg (27.0-32.0); Mean Corpuscular Volume 88.2 fL (81-99); Mean Platelet Vol. 10.4 fl (6.2-12.0); Platelet Count 323 K/mm3 (150-450); RBC Distribution Width CV 14.7 % (11.6-14.6); Red Blood Count 4.48 M/mm3 (4.2-5.4); White Blood Count 6.7 K/mm3 (4.4-11.0)
[2021-12-25 12:17] LABS: Partial Thromboplast Time 31.2 Seconds (24.1-36.2)
[2021-12-25 12:34] LABS: Internal QC Validated? YES +Cl - CLEAR BKGD; Pregnancy, Serum, hCG Quali. NEGATIVE Negative
[2021-12-25 12:49] LABS: Anion Gap 8 (5-15); BUN 14 mg/dL (7-18); BUN/Creat Ratio 20.5 RATIO (10-20); Chloride 105 mmol/L (98-107); Creatinine, Serum 0.68 mg/dL (0.55-1.02); EST Glomerular Filtration Rate 107 mL/min (>60); Est Glom Filt Rate - Afr Amer 129 mL/min (>60); Glucose 72 mg/dL (74-106); Potassium 3.6 mmol/L (3.5-5.1); Sodium Level 137 mmol/L (136-145)
[2021-12-31] VITALS (10 sets, daily range): BP systolic 96–120; BP diastolic 51–69; PULSE 69–90; RESP 16–21; TEMP 36.2–37.3; O2SAT 98–100; BMI 24.6
--- NOTE | 2021-12-31 | IMM_PTH ---
PATIENT: KALE MONTERO LOC: [facility] [place] U#:[id number] AGE/SX: 31/F ROOM: RE12/31/[address]: Dr. Mika Rai MD : 1990 BED: DIS: 12/31/2021 SPEC #: [id number] RECD: 01/01/22 13:11 STATUS: [facility] REMary #: [id number] TRISTA: 12/31/21 00:[address]: Mika Rai DEPT: IMMUNOHISTOCHEMISTRY RECD BY: Kami Moss ENTERED: 01/01/22 13:12 SP TYPE: IMMUNO OTHR DR: Fanny Kendall, FLY FRAME TENDER-C Tissues: C - Peritoneum, NOS Procedures: Calretinin (initial) CK8 (add) ER (add) MACRO (add) MT (add) Vimentin (add) PHYSICIAN & INSTITUTION [place] [id number] SPECIMEN INFORMATION: Tissue Source: C ? Peritoneal implants Clinical Info: Dysmenorrhea, left lower quadrant pain Specimen Number: [id number] C CPT code: 36292, 22131 x4 METHODOLOGY: Deparaffinized sections of prefer/formalin-fixed tissue or PAP/DQ stained slides are incubated with monoclonal/polyclonal antibodies/oligonucleotide probes. Localization is made via biotin free immunoperoxidase method. Appropriate controls are performed and reacted as expected. Results on target cell population are indicated in the following table: RESULTS: ANTIBODY / CLONE RESULT Block C CALRET (polyclonal) positive, focal in mesothelial cells ER (6F11) negative MT (1E2) negative Vimentin (V9) positive Macro (HAM-56) positive, focal These tests were developed and their performance characteristics determined by [facility]. They may not have been cleared or approved by the U.S. Food and Drug Administration. The FDA has determined that such clearance or approval is not necessary. The above immunohistochemical/dualISH markers are ordered and reviewed by the Pathologist. INTERPRETATION: C. Peritoneal implants: Negative for endometriosis. JUNIOR:purnima 01/02/2022
--- NOTE | 2021-12-31 | EMB_PTH ---
PATIENT: KALE MONTERO LOC: [facility] [place] U#:[id number] AGE/SX: 31/F ROOM: RE12/31/[address]: Dr. Mika Rai MD : 1990 BED: DIS: 12/31/2021 SPEC #: [id number] RECD: 12/31/21 12:46 STATUS: [facility] MED[facility]OS #: [id number] TRISTA: 12/31/21 00:[address]: Mika Rai DEPT: SURGICAL PATHOLOGY RECD BY: Mehnaz Reynoso ENTERED: 12/31/21 12:48 SP TYPE: ENDOM BX/C FAUSTINO DR: Fanny Kendall, PIPE WASHER-C Tissues: A - Endometrium, NOS B - Endocervical C - Peritoneum, NOS Procedures: Surgery Specimen Level IV HEADER OPERATION: Diagnostic laparoscopy, hysteroscopy, dilation and curettage PRE-OP DIAGNOSIS: Dysmenorrhea and left lower quadrant pain TISSUE SUBMITTED: A ? Endometrial curettings, B ? Cervical lesion, possible endometriosis, C ? Peritoneal implants MICROSCOPIC DIAGNOSIS A. Endometrial curettings: Proliferative endometrium. Fragments of myometrium. See comment. B. Cervical lesion, biopsy: Scant fragments of benign ecto- and endocervical epithelium and blood. See comment. C. Peritoneal implants: Reactive changes and recent hemorrhage. Negative for endometriosis. See comment. SJ:rg 01/01/2022 COMMENT A. A few of the fragments show polypoid appearance and may represent fragments of benign endometrial polyp. B. Changes consistent with endometriosis are not seen. C. Immunohistochemistry ([id number]) supports the above diagnosis. Correlation with clinical findings and appropriate follow up are necessary. MICROSCOPIC DESCRIPTION Slides are reviewed. GROSS DESCRIPTION A - Received in fixative is one container labeled with the patient's name and designated endometrial curettings. The specimen consists of multiple fragments of pink hemorrhagic soft tissue that in aggregate measure 3 x 2.5 x 0.2 cm. The specimen is totally submitted in one cassette. B - Received in fixative is one container labeled with the patient's name and designated cervical lesion, possible endometriosis. The specimen consists of minute fragments of hemorrhagic soft tissue that in aggregate measure 0.2 x 0.1 x 0.1 cm. The specimen is totally submitted in one cassette. C - Received in fixative is one container labeled with the patient's name and designated peritoneal implants. The specimen consists of a piece of pink, congested soft tissue measuring 0.7 x 0.5 x 0.2 cm. The specimen is totally submitted in one cassette. / SJ:rg 12/31/2021 TC:5 CPT: 93912 x3
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
[2021-12-31] MEDS: Lactated Ringers 1,000 ML 100 ML IV ×2 (10:05→11:51)
[2021-12-31 10:09] LABS: Internal QC Validated? YES +Cl - CLEAR BKGD; Pregnancy, Urine Negative Negative
[2021-12-31] MEDS: Ipratropium/Albuterol Sulfate 3 ML AMPUL.NEB INHALATION (10:55)
[2021-12-31] MEDS: Cefotetan 2 GM in 0.9% NS 100 ML IV (10:57)
[2021-12-31] MEDS: Ropivacaine 0.5% 30 ML Vial (11:14)
--- NOTE | 2021-12-31 11:33 | PCM.OPRPT ---
Report of Operation Date of Procedure: 12/31/21 Pre-Operative Diagnosis: Intermittent Left Lower Quadrant Pain, Dysmenorrhea Post-Operative Diagnosis: Intermittent Left Lower Quadrant Pain, Dysmenorrhea, Endometriosis Surgery/Procedure Performed:: Diagnostic Hysteroscopy, Dilation and Curettage, Diagnostic Laparoscopy Description of Surgical Findings:: 8 cm endometrial cavity without polyps or fibroids. Cervix which had a 0.25 cm implant consistent with cervical endometriosis. Multiple peritoneal powder burn and red filmy implants especially on the left. 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 Normal upper abdomen and bowel. Some varicose veins in the left pelvic vessels near the tube. Surgeon: Mika Rai internet sales associate: Jimmy Dan Type of Anesthesia: General (Endotracheal) Anesthesiologist: Malcom Nelson Specimen's removed: Endometrial curettings, cervical biopsy, peritoneal implants Estimated Blood Loss (mL): Minimal Fluids Replaced: Crystalloid Description of Procedure: ]Surgeon: Mika Rai MD, FACOG Indications: This is a 31 year old patient who has the above diagnosis. The patient has been counseled regarding the risk and indications of this procedure including the possibility of bleeding, infection, and injury to surrounding structures such as bowel bladder. All questions were answered and we consider the patient well-informed. Procedure: The patient was taken to the operating room where after induction of general anesthesia, she was placed in the dorsolithotomy position and prepped and draped in the usual sterile fashion. The bladder was drained of approximately 50 cc of clear yellow urine with a catheter. Anterior cervix was grasped with the tenaculum and dilated to about 4-5 mm. A 3 mm hysteroscope was placed in the uterus of the above findings were noted. After removing the hysteroscope the uterus was gently curetted removing all contents. The cervix was examined and using DeBakey the contents of the apparent endometriosis implant on the cervix was removed and separately sent. In the course of the procedure approximately 100 cc of saline distending media was used and virtually all of this was recovered. Conn cannula was placed and attention was turned toward the laparoscopic portion of the procedure. Approximately 20 cc of half percent ropivacaine was injected subumbilically and suprapubically. A 5 mm bladeless trocar was placed subumbilically and intraperitoneal placement confirmed. After CO2 insufflation was complete, a 5 mm bladeless trocar was introduced suprapubically. The above findings were noted. Each fallopian tube was identified to its fimbriated end and the pelvis was closely examined for evidence of endometriosis. Implants were removed and sent on Telfa or possible. The peritoneal cavity and upper abdomen were examined and noted to be normal. Photographs were taken. Laparoscopic instruments with as much CO2 gas as possible were removed and incisions were closed with interrupted 4-0 Monocryl suture. Steri-Strips placed across the incision. Vaginal instruments were removed. The patient tolerated the procedure well was taken to recovery room in satisfactory condition and sponge instrument and needle counts were all reportedly correct. Estimated blood loss for the case was minimal. There were no apparent complications of the surgery. Complications: None Grafts/Implants Used: None Complications None Admit VTE Documentation VTE Present on Admission: Yes VTE Mechan Device Prophylaxis: SCD's
--- NOTE | 2021-12-31 11:44 | PCM.DC ---
Discharge Instructions Diet Discharge Diet: No restrictions (Increase fluid intake for the next 48 hours.) and - (Increase fluid intake for 48 hours.) Activity Additional Activity Instructions:: Ambulate often the next week after surgery. Nothing in the vagina for 7-10 days. Dressing / Incision Call your doctor if your incision/area has: Continuous Slow Oozing, Sudden Increased Bleeding, Increased Pain/ Swelling, Increased Redness and Foul Smelling Discharge Call your doctor if you observe: Fever of 101 or Higher Follow Up Care Please Follow Up With: Miak Rai MD When: 2-3 weeks Test Results: Test results from this visit will be discussed in further detail at your follow-up appointment, if applicable. Discharge Plan Admission Primary Reason for Your Visit: Diagnostic Laparoscopy and D and C Attending Provider: Mika Rai Primary Care Provider: Fanny Kendall NP Discharge Orders/Prescriptions Prescriptions: New oxycodone 5 mg capsule 5 mg PO Q6H PRN (Reason: pain (scale score 7-10)) 7 Days Qty: 7 RF: 0 Continued albuterol sulfate [Ventolin HFA] 1 INHALER inhaler 2 puff inhalation Q4H PRN PRN (Reason: Shortness Of Breath) RF: 0 budesonide-formoterol [Symbicort] 0 inhaler 2 puff inhalation PRN PRN (Reason: SOB) RF: 0 famotidine 20 MG tablet 20 mg PO PRN PRN (Reason: Heartburn) RF: 0 norgestimate-ethinyl estradiol [Sprintec (28)] 0.25-35 mg-mcg Tablet 1 tab PO DAILY RF: 0 albuterol sulfate 2.5 mg /3 mL (0.083 %) Solution For Nebulization 2.5 mg INHALATION Q4H PRN (Reason: SOB) RF: 0 Referrals / Follow Up: Fanny Kendall NP, [employer] [Primary Care Provider] - Disposition Disposition (needs filled in before D/C Order can be placed): Home, Self Care
[2021-12-31] MEDS: oxyCODONE 5 MG Tablet PO (13:40)
== END 2021-12-31 23:59 | disposition home or self-care (01) ==
LOC: SDC 09:17 → AC 09:17
PROVIDERS: Anesthesiology; PCP Nurse Practitioner Family; Referring Provider Obstetrics & Gynecology; Visit Provider Obstetrics & Gynecology
PROC: (CPT 49320; principal; 2021-12-31 10:30)
DX: N94.6 Dysmenorrhea, unspecified (principal); R10.32 Left lower quadrant pain; J45.909 Unspecified asthma, uncomplicated; Z86.16 Personal history of COVID-19
CPT/HCPCS: 58558; 00952; 80048; 81025; 84703; 85027; 85610; 85730; 86850; 86900; 86901; 88305; 88341; 88342; 93005; 94640; J7120; J2405

== ENCOUNTER → 2022-08-13 | Outpatient (CLI) | payer OTHER, SELFPAY ==
--- NOTE | 2022-08-13 10:59 | US_ITS ---
INDICATION: PELVIC PAIN EXAMINATION: Ultrasound US Pelvis Non OB Complete With Transvaginal Imaging TECHNIQUE: Transabdominal and transvaginal pelvic ultrasound was performed. Grayscale, spectral waveform, and color flow Doppler evaluation of the adnexa. COMPARISON: None. FINDINGS: UTERUS: Anteverted. The uterus measures 8.0 x 4.8 x 3.6 cm. There is no uterine mass. The endometrial stripe measures 0.7 cm in AP diameter which is within normal limits. RIGHT OVARY: The right ovary measures 2.6 x 1.6 x 1.0 cm.. Non-enlarged, normal echogenicity. There is normal arterial inflow and venous outflow present in the right ovary. LEFT OVARY: The left ovary measures 2.1 x 1.8 x 0.3 cm.. Non-enlarged, normal echogenicity. There is normal arterial inflow and venous outflow present in the left ovary. FREE FLUID: None. The urinary bladder is unremarkable in appearance and demonstrates a volume of 69.17 mL. US/Transvaginal Non- IMPRESSION: Unremarkable pelvic ultrasound. Electronically Signed: Candelario Arrieta MD at 16:38 EDT ,
--- NOTE | 2022-08-13 10:59 | US_ITS ---
INDICATION: PELVIC PAIN EXAMINATION: Ultrasound US Pelvis Non OB Complete With Transvaginal Imaging TECHNIQUE: Transabdominal and transvaginal pelvic ultrasound was performed. Grayscale, spectral waveform, and color flow Doppler evaluation of the adnexa. COMPARISON: None. FINDINGS: UTERUS: Anteverted. The uterus measures 8.0 x 4.8 x 3.6 cm. There is no uterine mass. The endometrial stripe measures 0.7 cm in AP diameter which is within normal limits. RIGHT OVARY: The right ovary measures 2.6 x 1.6 x 1.0 cm.. Non-enlarged, normal echogenicity. There is normal arterial inflow and venous outflow present in the right ovary. LEFT OVARY: The left ovary measures 2.1 x 1.8 x 0.3 cm.. Non-enlarged, normal echogenicity. There is normal arterial inflow and venous outflow present in the left ovary. FREE FLUID: None. The urinary bladder is unremarkable in appearance and demonstrates a volume of 69.17 mL. US/Pelvic (Non ) IMPRESSION: Unremarkable pelvic ultrasound. Electronically Signed: Candelario Arrieta MD at 16:38 EDT ,
== END | disposition home or self-care (01) ==
PROVIDERS: PCP Nurse Practitioner Family; Referring Provider Nurse Practitioner Primary Care; Visit Provider Nurse Practitioner Primary Care
DX: R10.2 Pelvic and perineal pain (principal)
CPT/HCPCS: 76830; 76856; 93976

== ENCOUNTER 2022-09-08 14:45 | Observation (INO) | payer OTHER, SELFPAY ==
[2022-09-02 12:24] LABS: Hematocrit 40.4 % (37-47); Hemoglobin 13.3 g/dL (12.0-15.0); Mean Corp Hgb Conc 32.9 g/dL (32-36); Mean Corpuscular Hgb 29.6 pg (27.0-32.0); Mean Corpuscular Volume 89.8 fL (81-99); Mean Platelet Vol. 10.1 fl (6.2-12.0); Platelet Count 324 K/mm3 (150-450); RBC Distribution Width CV 14.4 % (11.6-14.6); RBC Distribution Width SD 47.3 fl (35.1-43.9); White Blood Count 7.8 K/mm3 (4.4-11.0)
[2022-09-03 12:35] LABS: Prothrombin Time (Protime)PT. 12.6 SECONDS (11.7-14.9)
[2022-09-03 12:36] LABS: Partial Thromboplast Time 26.9 Seconds (24.1-36.2)
[2022-09-03 12:49] LABS: AST(SGOT) 11 U/L (15-37); Alanine Aminotransfer ALT/SGPT 17 U/L (13-56); Albumin, Serum 3.4 g/dL (3.2-5.0); Alkaline Phosphatase 82 U/L (45-117); Globulin 4.1 g/dL (2.2-4.2); Magnesium 2.1 mg/dL (1.6-2.6); Protein, Total 7.5 g/dL (6.4-8.2)
[2022-09-08] VITALS (19 sets, daily range): BP systolic 111–151; BP diastolic 69–93; PULSE 60–103; RESP 14–20; TEMP 36.4–37.6; O2SAT 98–100; BMI 23.5
--- NOTE | 2022-09-08 | HYST_PTH ---
PATIENT: KALE MONTERO LOC: [facility] U#:[id number] AGE/SX: 31/F [place] [facility] [place]: Dr. Mike Bynum MD : 1990 BED: 1 DIS: 09/09/2022 SPEC #: [id number] RECD: 09/08/22 13:15 STATUS: [facility] REQ #: [id number] TRISTA: 09/08/22 00:[address]: Mike Bynum DEPT: SURGICAL PATHOLOGY RECD BY: Triston Blanco ENTERED: 09/08/22 13:16 SP TYPE: HYSTERECT OTHR DR: Fanny Kendall, MOVIE PROJECTIONIST-C Tissues: Uterus, NOS Procedures: Surgery Specimen Level V HEADER OPERATION: stacy BILLINGS robotic hysterectomy, bilateral salpingectomy, left oophorectomy PRE-OP DIAGNOSIS: Pelvic pain TISSUE SUBMITTED: Uterus, bilateral fallopian tubes, left ovary MICROSCOPIC DIAGNOSIS Uterus, bilateral fallopian tubes and left ovary, hysterectomy, bilateral salpingectomy and left oophorectomy: Cervix ? mild chronic inflammation. Endometrium ? interval endometrium. Myometrium ? focal superficial adenomyosis. Bilateral fallopian tubes - no pathologic diagnosis. Left ovary - no pathologic diagnosis. SJ:purnima 09/10/2022 COMMENT Please make reference to previous specimen ([id number]) endometrial curettings with diagnosis of ?proliferative endometrium and fragments of myometrium,? cervical lesion, biopsy with diagnosis of ?scant fragments of benign ecto- and endocervical epithelium and blood,? and peritoneal implants with diagnosis of ?reactive changes and recent hemorrhage.? MICROSCOPIC DESCRIPTION Slides are reviewed. GROSS DESCRIPTION Received in fixative is one container labeled with the patient's name and designated uterus, bilateral fallopian tubes, left ovary. The specimen consists of a hysterectomy specimen consisting of uterus with cervix, attached bilateral fallopian tubes and left ovary. The uterus with cervix weighs 69 gm and measures 8 x 6 x 4 cm. The serosal surface is talbert, glistening. The ectocervical mucosa is unremarkable. The external os is oval and patulous in contour. The endocervical canal measures 3 cm in length and the endocervical mucosa is talbert, glistening and unremarkable. The triangular endometrial cavity measures 4 cm in length and 2 cm in width. The endometrium is talbert, glistening without any mass lesion and measures 0.1 cm in thickness. Sections of the uterine wall do not reveal any mass lesion and measures 2 cm in thickness. The right fallopian tube measures 6 in length and 0.4 cm in diameter. The fimbrial end is identified. Sections reveal unremarkable cut surfaces. The left fallopian tube is similar appearance to right and measures 6.5 cm in length and 0.4 cm in diameter. No tubo-ovarian adhesions are noted. The left ovary measures 2 x 1 x 0.7 cm. Sections reveal unremarkable cut surfaces. Transformation Specialist sections are submitted in eight cassettes as follows: 1 - anterior cervix, 2 - posterior cervix, 3 & 4 - anterior uterine wall, 5 & 6 - posterior uterine wall, 7 - right fallopian tube, 8 - left fallopian tube and ovary. / JUNIOR:purnima 09/08/2022 More sections are submitted in cassettes 9-11, entire endometrium is submitted. / JUNIOR:purnima 09/09/2022 TC:3 CPT: 62694
[2022-09-08 06:34] LABS: Internal QC Validated? YES +Cl - CLEAR BKGD; Pregnancy, Urine Negative Negative
[2022-09-08] MEDS: Magnesium 1 GM over 15 mins IV (06:37)
[2022-09-08] MEDS: Lactated Ringers 1,000 ML 40 ML IV (06:37)
[2022-09-08] MEDS: Gabapentin 600 MG Tablet PO (06:39)
[2022-09-08] MEDS: Acetaminophen 500 MG Tablet 1000 MG PO ×3 (06:39→23:53)
--- NOTE | 2022-09-08 06:57 | PCM.HP.BLA ---
History and Physical Date of Admission: 09/08/22 Chief complaint: Pelvic pain History present illness: 31-year-old arrives for robotic assisted total laparoscopic hysterectomy bilateral salpingectomy left salpingo-oophorectomy possible right oophorectomy cystoscopy for pelvic pain. No medical changes since last seen. All questions answered and consent signed. Obstetric history: History of 1 vaginal delivery Past medical history: Asthma Medications: Albuterol, Sprintec Past surgical history: D&C, ankle surgery, laparoscopic removal of endometriosis, appendectomy, cholecystectomy Allergies: Mircette, Ceftin, iodine, chlorhexidine, Rocephin Social history: Denies smoking, alcohol use, drug use Family history: Denies history DVT or PE Review of systems: Besides above pertinent positives a full review of systems was performed and found to be negative Physical exam: Vitals: Blood pressure 146/82 pulse 102 respiratory rate 20 temperature 99.7 ?F SPO2 100% on room air General: Normal-appearing no acute distress HEENT: Normocephalic atraumatic no cervical of adenopathy Cardiac/respiratory: No accessory muscles, nonlabored breathing Abdomen: Soft, nontender, nondistended Extremities: No peripheral edema normal peripheral pulses Psych: Normal affect normal demeanor nonpressured speech Labs UPT negative Assessment plan: 31-year-old for robotic assisted total laparoscopic hysterectomy bilateral salpingectomy, left salpingo-oophorectomy, possible right oophorectomy and cystoscopy. Patient educated on the procedure and postoperative recovery. All questions answered and consent signed
[2022-09-08 07:00] LABS: Bedside Glucose 127 mg/dL (74-106)
[2022-09-08] MEDS: Clindamycin 900 MG/50 ML BAG 75 MG IV (07:37)
--- NOTE | 2022-09-08 09:10 | PCM.DC ---
Discharge Instructions Diet Discharge Diet: No restrictions Activity Discharge Activity: Return to Normal Activity, May Drive, May Shower and - (No tub baths for 2 weeks) May resume sexual activity in: 4-6 weeks Lifting Restrictions: No lifting over 25 pounds for 2 to 3 weeks Dressing / Incision Call your doctor if your incision/area has: Continuous Slow Oozing and Foul Smelling Discharge Call your doctor if you observe: Fever of 101 or Higher, Shortness of breath and Chest pain Follow Up Care Please Follow Up With: Mike Bynmu MD When: 2 weeks postoperatively Test Results: Test results from this visit will be discussed in further detail at your follow-up appointment, if applicable. Discharge Plan Admission Attending Provider: Mike Bynum Primary Care Provider: Fanny Kendall NP Discharge Orders/Prescriptions Prescriptions: No Action albuterol sulfate [Ventolin HFA] 1 INHALER inhaler 2 puff inhalation Q4H PRN PRN (Reason: Shortness Of Breath) budesonide-formoterol [Symbicort] 0 inhaler 2 puff inhalation PRN PRN (Reason: SOB) famotidine 20 MG tablet 20 mg PO PRN PRN (Reason: Heartburn) norgestimate-ethinyl estradiol [Sprintec (28)] 0.25-35 mg-mcg Tablet 1 tab PO DAILY albuterol sulfate 2.5 mg /3 mL (0.083 %) Solution For Nebulization 2.5 mg INHALATION Q4H PRN (Reason: SOB) Referrals / Follow Up: Fanny Kendall NP, RESIDENT PROGRAM SPECIALIST-C [Primary Care Provider] - Disposition Disposition (needs filled in before D/C Order can be placed): Home, Self Care
--- NOTE | 2022-09-08 09:11 | PCM.OPRPT ---
Report of Operation Date of Procedure: 09/08/22 Pre-Operative Diagnosis: Pelvic pain Post-Operative Diagnosis: Pelvic pain Surgery/Procedure Performed:: Robotic assisted total laparoscopic hysterectomy bilateral salpingectomy left oophorectomy, cystoscopy Description of Surgical Findings:: Surgeon: Mike Bynum MD Anesthesia: General EBL 25 cc Urine 100 cc IV fluids: 1200 cc Complications: None Specimen: Cervix, uterus, bilateral fallopian tubes, left ovary Findings: Normal uterus, tubes, and ovaries. Post procedure cystoscopy was performed and bilateral ureteral jets were noted, no pathology noted. Consent: Patient with pelvic pain elects for robotic assisted laparoscopic hysterectomy bilateral salpingectomy left oophorectomy, cystoscopy. Patient understands the risk of the procedure include but are not limited to visceral or vascular injury, prolonged hospitalization, blood loss and need for transfusion, reoperation. Patient state understanding wish to proceed. All questions were answered and consent was signed. Procedure: Patient was brought back to the OR where general anesthesia was found to be adequate. Patient was prepared and draped in a dorsolithotomy position with yellowfin stirrups. Clindamycin and gentamicin were given for infection prophylaxis. Weighted speculum was placed in the posterior aspect of the vagina and cervical dilators were used to dilate the cervix. Uterine manipulator was placed. Varies needle was inserted at the umbilicus and water safety test was passed. Abdomen was insufflated. Supraumbilical midline 8 mm trocar incision was made and trocar was inserted. Laparoscope was inserted and above findings were noted. Bilateral lower quadrant 8 mm trochars were inserted under direct visualization. Left upper quadrant 8 mm trocar was inserted under direct visualization. Robot was docked. Using a vessel sealer and monopolar scissors the left round ligament was cut and cauterized anterior and posterior portions of broad ligament were dissected. Bladder flap was developed. Posterior portion of the broad ligament was dissected in order to lateralize the ureter. the left IP ligament was identified, ureter was visualized and out of the operative field, the left IP ligament was cut and cauterized. The left uterine vessels were skeletonized cut and cauterized lateralized beyond the level the colpotomy cup. In a similar fashion the right round ligament was identified cut and cauterized anterior and posterior portions of broad ligament were dissected. Bladder flap was completely developed beyond the level to colpotomy cup. Mesosalpinx of right fallopian tube was cut and cauterized. Right uterine vessels were skeletonized cut and cauterized lateralized beyond the level to colpotomy cup. Circumferential colpotomy was made and the uterus, bilateral fallopian tubes, left ovary was removed from the abdominal cavity and sent to pathology. Post procedure cystoscopy was performed and no pathology was noted, bilateral ureteral jets were noted. Ema was placed over the colpotomy incision. Good hemostasis was noted. Insufflation pressure was dropped and again good hemostasis was noted. Abdomen was desufflated and trochars were removed under direct visualization, good hemostasis was noted. Trocar sites were closed in a subcutaneous fashion. All counts were correct x2. Patient tolerated procedure well and was brought to recovery in stable condition.
--- NOTE | 2022-09-08 16:08 | EKG12_ITS ---
Test Reason : ARRYTHMIA Blood Pressure : / mmHG Vent. Rate : 084 BPM Atrial Rate : 084 BPM P-R Int : 126 ms QRS Dur : 094 ms QT Int : 384 ms P-R-T Axes : 075 086 035 degrees QTc Int : 453 ms Sinus rhythm with sinus arrhythmia with occasional Premature ventricular complexes Incomplete right bundle branch block Confirmed by LO MERCADO, DA ([id number]), brands editor PRETTY DUMONT ([id number]) on 09/10/2022 6:51:00 AM Referred By: Mike Bynum Confirmed By:DA BLANCHARD MD
[2022-09-09 05:30] VITALS: BP 123/80; PULSE 80; RESP 16; TEMP 37.3; O2SAT 100
[2022-09-09] MEDS: Acetaminophen 500 MG Tablet 1000 MG PO (05:42)
[2022-09-09 07:51] VITALS: BP 118/63; PULSE 77; RESP 16; TEMP 36.7; O2SAT 95
--- NOTE | 2022-09-09 07:55 | PCM.PN.OB ---
Subjective Subjective Patient sore but pain controlled. Voiding spontaneously. Has been up to bathroom. Tolerating fluids. Has ordered breakfast. Objective Data Objective Data Vital Signs: Vital Signs Temp Pulse Resp BP Pulse Ox O2 Del Method O2 Flow Rate 98.0 F 77 16 118/63 95 Room Air 4 09/09/22 07:51 09/09/22 07:51 09/09/22 07:51 09/09/22 07:51 09/09/22 07:51 09/09/22 07:52 09/08/22 11:35 Oxygen Flow Rate (L/min) 4 Oxygen Delivery Method Room Air Weight: 60.3 kg Body Mass Index (BMI) 23.5 Intake & Output: Intake and Output for Last 24 Hours 09/07/22 09/08/22 09/09/22 23:59 23:59 23:59 Intake Total 947.17 / 947.17 Output Total 100 / 900 1300 / 1300 Balance 847.17 / 47.17 -1300 / -1300 Lab / Micro Data Attestation: I reviewed the patient's lab results. Result Diagrams: 09/02/22 11:23 Physical Exam Const alert, oriented x3 and no apparent distress HEENT normocephalic Resp normal respiratory effort Cardio regular rate GI soft to palpation GI Narrative: Mildly tender, nondistended. Incisions clean/dry/intact. Extremity normal to inspection Psych mental status grossly normal and affect normal Assessment & Plan (1) Acute postoperative pain: PLAN: Postop day 1 status post robotic assisted total laparoscopic hysterectomy, left oophorectomy, Bilateral salpingectomies, cystoscopy. ? Pain controlled ? Tolerating oral intake ? Reviewed postoperative management and care ? Transition to regular diet ? Discharge home today with 2-week postop appointment.
--- NOTE | 2022-09-09 09:09 | PHA.DC.MR ---
Pharmacy Service has performed discharge medication reconciliation for this patient. The patient's discharge medication list was reviewed for discrepancies and discrepancies were resolved. Home Medications albuterol sulfate 90 mcg/actuation aerosol inhaler (Ventolin HFA) 2 puff inhalation Q4H PRN PRN Shortness Of Breath 09/09/13 budesonide-formoterol HFA 160 mcg-4.5 mcg/actuation aerosol inhaler (Symbicort) 2 puff inhalation PRN PRN SOB 10/24/18 famotidine 20 mg tablet 20 mg PO PRN PRN Heartburn 09/28/19 albuterol sulfate 2.5 mg/3 mL (0.083 %) solution for nebulization 2.5 mg inhalation Q4H PRN SOB 12/20/21 norgestimate 0.25 mg-ethinyl estradiol 35 mcg tablet (Sprintec (28)) 1 tab PO DAILY 12/20/21 oxycodone 5 mg tablet 5 mg PO Q6H PRN PRN Pain Score 4-10 5 days #20 tabs 09/08/22
[2022-09-09 11:13] VITALS: BP 108/63; PULSE 80; RESP 15; TEMP 36.5; O2SAT 97
== END 2022-09-09 11:20 | disposition home or self-care (01) ==
LOC: SDC 14:52 → MS3 14:52
PROVIDERS: Anesthesiology; Admitting Provider Obstetrics & Gynecology; PCP Nurse Practitioner Family; Referring Provider Obstetrics & Gynecology; Visit Provider Obstetrics & Gynecology
PROC: 0UT90ZZ Resection of Uterus, Open Approach (ICD-10-PCS; CPT 58571; principal; 2022-09-08 07:10)
DX: N80.03 Adenomyosis of the uterus (principal); R10.2 Pelvic and perineal pain; J45.909 Unspecified asthma, uncomplicated; Z86.16 Personal history of COVID-19; K21.9 Gastro-esophageal reflux disease without esophagitis
CPT/HCPCS: 58571; S2900; 00840; 36415; 80076; 81025; 82962; 83735; 85027; 85610; 85730; 86850; 86900; 86901; 88307; 93005; 99218; 99251; J7120; G0378; G0463; J2405; J3475

== ENCOUNTER → 2023-03-09 | Outpatient (CLI) | payer OTHER, SELFPAY ==
[2023-03-09 12:18] LABS: Absolute Lymphocyte Count 1.65 X10^3/uL (0.83-4.51); Absolute Neutrophil Count 2.9 X10^3/uL (2.0-7.7); Basophil# 0.03 X10^3/uL; Basophil% 0.6 % (0-1); Eosinophil# 0.15 X10^3/uL; Eosinophils% 2.9 % (0-5); Hematocrit 37.7 % (37-47); Hemoglobin 12.4 g/dL (12.0-15.0); Lymphocyte # 1.65 X10^3/ul (0.83-4.51); Lymphocyte % 32.2 % (19-41); Mean Corp Hgb Conc 32.9 g/dL (32-36); Mean Corpuscular Hgb 29.7 pg (27.0-32.0); Mean Corpuscular Volume 90.4 fL (81-99); Mean Platelet Vol. 10.6 fl (6.2-12.0); Monocyte# 0.39 X10^3/uL; Monocyte% 7.6 % (0-10); NRBC Flagged by Analyzer 0 % (0-5); Neutrophil % 56.7 % (47-70); Platelet Count 275 K/mm3 (150-450); RBC Distribution Width CV 13.8 % (11.6-14.6); Red Blood Count 4.17 M/mm3 (4.2-5.4); White Blood Count 5.1 K/mm3 (4.4-11.0)
[2023-03-09 12:37] LABS: Hemoglobin A1c 5.2 % (3.8-5.6)
[2023-03-09 12:41] LABS: Vitamin B12 477 pg/mL (211-911); Vitamin D,25 Hydroxy 19.8 ng/mL
[2023-03-09 13:00] LABS: ALB/GLOB Ratio 0.9 RATIO (0.9-2.4); AST(SGOT) 13 U/L (15-37); Alanine Aminotransfer ALT/SGPT 22 U/L (13-56); Albumin, Serum 3.6 g/dL (3.2-5.0); Alkaline Phosphatase 105 U/L (45-117); Anion Gap 5 (5-15); BUN 15 mg/dL (7-18); BUN/Creat Ratio 22.3 RATIO (10-20); Calcium,Total 8.5 mg/dL (8.5-10.1); Chloride 106 mmol/L (98-107); Creatinine, Serum 0.67 mg/dL (0.55-1.02); EST Glomerular Filtration Rate 108 mL/min (>60); Est Glom Filt Rate - Afr Amer 130 mL/min (>60); Ferritin 24 ng/mL (8-252); Globulin 3.8 g/dL (2.2-4.2); Glucose 91 mg/dL (74-106); Potassium 3.7 mmol/L (3.5-5.1); Protein, Total 7.4 g/dL (6.4-8.2); Sodium Level 135 mmol/L (136-145); Thyroid Stim Hormone (TSH) 1.54 uIU/mL (0.358-3.74)
== END | disposition home or self-care (01) ==
LOC: MFPLAB 10:39
PROVIDERS: PCP Nurse Practitioner Family; Visit Provider Family Medicine
DX: R53.83 Other fatigue (principal)
CPT/HCPCS: 36415; 80053; 82306; 82607; 82728; 83036; 84443; 85025

== ENCOUNTER → 2024-02-29 | Outpatient (CLI) | payer OTHER, SELFPAY ==
[2024-02-29 08:10] LABS: Hematocrit 38.4 % (37-47); Hemoglobin 12.6 g/dL (12.0-15.0); Mean Corp Hgb Conc 32.8 g/dL (32-36); Mean Corpuscular Volume 88.3 fL (81-99); Mean Platelet Vol. 10.1 fl (6.2-12.0); Platelet Count 319 K/mm3 (150-450); RBC Distribution Width CV 13.6 % (11.6-14.6); RBC Distribution Width SD 44.2 fl (35.1-43.9); Red Blood Count 4.35 M/mm3 (4.2-5.4)
[2024-02-29 08:42] LABS: ALB/GLOB Ratio 0.9 RATIO (0.9-2.4); AST(SGOT) 13 U/L (15-37); Alanine Aminotransfer ALT/SGPT 15 U/L (13-56); Albumin, Serum 3.5 g/dL (3.2-5.0); Alkaline Phosphatase 111 U/L (45-117); Anion Gap 8 (5-15); BUN 16 mg/dL (7-18); Calcium,Total 8.6 mg/dL (8.5-10.1); Chloride 105 mmol/L (98-107); Cholesterol 187 mg/dL (200); Creatinine, Serum 0.73 mg/dL (0.55-1.02); EST Glomerular Filtration Rate 98 mL/min (>60); Est Glom Filt Rate - Afr Amer 118 mL/min (>60); Glucose 91 mg/dL (74-106); High Density Lipoprotein 109 mg/dL; Potassium 3.9 mmol/L (3.5-5.1); Protein, Total 7.5 g/dL (6.4-8.2); Sodium Level 138 mmol/L (136-145); Triglycerides 44 mg/dL; Very Low Density Lipoprotein 9 mg/dL (5-40)
== END | disposition home or self-care (01) ==
PROVIDERS: PCP Family Medicine; Referring Provider Internal Medicine Cardiovascular Disease; Visit Provider Internal Medicine Cardiovascular Disease
DX: R07.9 Chest pain, unspecified (principal); Q21.12 Patent foramen ovale; R55 Syncope and collapse; R06.02 Shortness of breath
CPT/HCPCS: 36415; 80053; 80061; 85027

== ENCOUNTER → 2024-03-08 | Outpatient (CLI) | payer OTHER, SELFPAY ==
--- NOTE | 2024-03-08 18:04 | STRESSREP ---
Stress Test Report Exercise stress test. 33-year-old lady with a history of chest pain Stress protocol: Resting EKG demonstrates normal sinus rhythm with a rate of 72 bpm resting blood pressure is 106/62 mmHg. The patient exercised according to the regular [facility] protocol for a total duration of 8 minutes and 30 seconds attaining a maximum heart rate of 184 bpm which was 98% of maximum predicted heart rate; the maximum workload was 10.1 metabolic equivalents. At rest there were no ST or T wave changes noted to suggest ischemia and at peak exercise upsloping ST changes only were noted which did not meet the criteria for ischemia. During recovery T wave inversions were noted in the inferior leads. No clinical angina was noted the test was terminated due to the target heart rate being achieved/fatigue. The peak blood pressure was 142/50 mmHg. Rate-pressure product was 26,100. Conclusion: Exercise stress test with no EKG criteria for ischemia at a high workload No clinical angina noted
== END | disposition home or self-care (01) ==
LOC: CVS 11:02
PROVIDERS: PCP Family Medicine; Referring Provider Internal Medicine Cardiovascular Disease; Visit Provider Internal Medicine Cardiovascular Disease
DX: R07.9 Chest pain, unspecified (principal)
CPT/HCPCS: 93017

== ENCOUNTER → 2024-05-12 | Outpatient (CLI) | payer OTHER, SELFPAY ==
[2024-05-12 17:48] LABS: Absolute Lymphocyte Count 2.08 X10^3/uL (0.83-4.51); Absolute Neutrophil Count 4.1 X10^3/uL (2.0-7.7); Basophil# 0.04 X10^3/uL; Basophil% 0.6 % (0-1); Eosinophil# 0.23 X10^3/uL; Eosinophils% 3.3 % (0-5); Hematocrit 39.9 % (37-47); Lymphocyte # 2.08 X10^3/ul (0.83-4.51); Lymphocyte % 30.2 % (19-41); Mean Corp Hgb Conc 32.6 g/dL (32-36); Mean Corpuscular Hgb 29.5 pg (27.0-32.0); Mean Corpuscular Volume 90.5 fL (81-99); Mean Platelet Vol. 10.2 fl (6.2-12.0); Monocyte# 0.45 X10^3/uL; Monocyte% 6.5 % (0-10); NRBC Flagged by Analyzer 0 % (0-5); Neutrophil # 4.07 X10^3/uL (2.7-7.7); Neutrophil % 59.1 % (47-70); Platelet Count 379 K/mm3 (150-450); RBC Distribution Width CV 13.5 % (11.6-14.6); RBC Distribution Width SD 45.1 fl (35.1-43.9); Red Blood Count 4.41 M/mm3 (4.2-5.4); White Blood Count 6.9 K/mm3 (4.4-11.0)
[2024-05-12 18:27] LABS: Vitamin D,25 Hydroxy 19.6 ng/mL
[2024-05-12 18:31] LABS: Hemoglobin A1c 5.2 % (3.8-5.6)
[2024-05-12 18:35] LABS: ALB/GLOB Ratio 0.9 RATIO (0.9-2.4); AST(SGOT) 16 U/L (15-37); Alanine Aminotransfer ALT/SGPT 19 U/L (13-56); Albumin, Serum 3.8 g/dL (3.2-5.0); Alkaline Phosphatase 117 U/L (45-117); Anion Gap 10 (5-15); BUN 19 mg/dL (7-18); Calcium,Total 9.4 mg/dL (8.5-10.1); Chloride 104 mmol/L (98-107); EST Glomerular Filtration Rate 76 mL/min (>60); Est Glom Filt Rate - Afr Amer 92 mL/min (>60); Globulin 4.1 g/dL (2.2-4.2); Glucose 96 mg/dL (74-106); Protein, Total 7.9 g/dL (6.4-8.2); Sodium Level 138 mmol/L (136-145); T4 Free Direct 0.79 ng/dL (0.76-1.46)
[2024-05-14 04:09] LABS: Insulin Level 9.5 uIU/mL (2.6-24.9)
== END | disposition home or self-care (01) ==
LOC: MFPLAB 15:42
PROVIDERS: PCP Family Medicine; Visit Provider Family Medicine
DX: R42 Dizziness and giddiness (principal); E16.2 Hypoglycemia, unspecified
CPT/HCPCS: 36415; 80053; 82306; 83036; 83525; 84439; 84443; 85025

== ENCOUNTER 2024-07-13 12:30 | Outpatient (RCR) | payer OTHER, SELFPAY ==
--- NOTE | 2024-08-12 11:52 | HP.PTEVAL_ITS ---
Patient's Visit Information Visit Information Visit Information: KALE MONTERO is a 33 year old F referred to Physical Therapy by Dr. Bri Tang MD with a diagnosis of PELVIC PAIN, PROLAPSE AND VOIDING DYSFUNCTION.. Date of Evaluation: 07/06/24 Physical Therapist: Opal Gardiner PT, Cert MDT Visit Plan Frequency: 1x/Week Duration: 2-4 Months Plan: MANUAL PF THERAPY FOR LENGTHENING/RELAXATION TRAINING. HEALTHY BLADDER HABIT EDUCATION. CORE STRENGTHENING. OLVIN LE ROM, STRETCHING AND STRENGTHENING. POSTURE TRAINING. HEP INSTRUCTION. 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 PATIENT DENIES URINARY INCONTINENCE. Present since: FIRST WEEK IN APRIL 2024 Pain Scale: WORST 9/10, LEAST 2/10 Currently: 2/10 Is it getting better, worse or staying the same: WORSENING Commenced as a result of: LIFTED A TOTE AND STARTED FEELING PAIN IN ABDOMEN AND WHEN TRIED TO CONTINUE LIFTING THE PAIN GOT WORSE. MOVED IN MARCH 2024. MOVED A LOT OF BOXES AND HEAVY THINGS LIKE THE refrigerator. ONLY AND SELF DID THE MOVING. Symptoms at onset: REAL BAD PAIN IN ABDOMEN LIKE PERIOD CRAMPS. Worse: CONSISTENTLY LIFTING, SOMETIMES VOIDING - URINATING AND HAVING BOWEL MVMTS, SOMETIMES RANDOMLY THE PAIN HITS WHEN STILL IN SITTING OR LYING DOWN AT NIGHT OR DURING A NAP. Better: NOTHING Disturbed sleep: YES - DUE TO PAIN Previous history/Previous treatment: 2019 OR [address] PINEDA FOR ENDOMETRIOSIS. PARTIAL HYSTERECTOMY [address] DR. [place] DOMINGUEZ. ONE VAGINAL FOLLOWED BY 6 STITCHES. Treatment this episode: NONE Coughing/sneezing/straining: STRAINING CAUSES PAIN. DENIES PAIN OR UI WITH COUGHING AND SNEEZING. Gait: NORMAL How long can you delay the need to urinate: LONG NEEDED TO GET TO THE BATHROOM IN TIME BUT DOES INCREASE INTRA-ABDOMINAL PAIN SOMETIMES. Prolapse (Falling out feeling): NO Frequency of Urination: EVERY 3 TO 4 HOURS Ability to stop urine flow: YES Ability to initiate urine stream: YES Dyspareunia: YES Bowel Incontinence: NO Accidents: FALL 2011 - FELL 4-5 FEET ONTO CONCRETE ONTO BACK - WENT NUMB IN LEGS - FX'D TAILBONE - NERVE DAMAGE NECK AND BACK - CRUSHED VERTEBRAE - SURGERY RECOMMENDED BUT PATIENT OPTED NOT TO HAVE SURGERY. STATES SHE HAS CHRONIC BACK PAIN BUT SHE IS VERY ACTIVE AND DOES NOT LET THE PAIN STOP HER. Unexplained weight loss: NO Imaging: NO RECENT LOWER BODY X-RAYS, MRI'S OR CAT SCAN'S. PMH/Recent major surgery: ASTHMA Objective Objective: Sitting/Standing Posture: FAIR. MILD ANTERIOR PELVIC TILT. NO RELEVANT LATERAL SHIFT. Active Correction of posture: NE Other Observations: INDEP GAIT AND TRANSFERS Sensory deficit: OLVIN LE LIGHT TOUCH SENSATION GROSSLY INTACT AND SYMMETRICAL ROM deficit: OLVIN LE HIP FLEXOR, HIP ER AND CALF TIGHTNESS. Motor deficit: OLVIN LE'S GROSSLY 5/5. PELVIC FLOOR STRENGTH 3/5 X 4 X 5 SEC WITH INTERNAL MANUAL VAGINAL TESTING - PATIENT DENIES PAIN DURING OR AFTER TESTING. Reflexes: 2+ OLVIN LE'S. Dural Signs: NEGATIVE OLVIN LE'S Lumbar mvmt loss: flex - NIL ext - MIN TO MOD R SG - MIN L SG - MIN PATIENT DENIES PAIN WITH LUMBAR ROM TESTING ALL PLANES Core strength: FAIR Palpation: NO ACUTE LUMBAR OR SACRAL TENDERNESS. MILD PELVIC FLOOR TENDERNESS, TIGHTNESS AND TRIGGER POINTS WITH INTERNAL MANUAL VAGINAL PALPATION THAT DOES NOT REMAIN WORSE A RESULT OF TESTING. FUNCTIONAL SCREEN: Incontinence Impact Questionnaire Score: 0 Urogenital Distress Inventory Score: 3 Goals Goal 1:: DECREASE C/O ABDOMINAL/PELVIC PAIN BY AT LEAST 75% TO EASE ADL'S. Goal Time Frame: 4-6 Weeks Goal 2:: PATIENT WILL BE ABLE TO RELAX PELVIC FLOOR TO EASE VOIDING Goal Time Frame: 6-8 Weeks Goal 3:: PATIENT WILL BE INDEP WITH A HEP FOR CONTINUED IMRPOVEMENT ONCE FORMAL PHYSICAL THERAPY CONCLUDES. Goal Time Frame: 6-8 Weeks Rehabilitation Potential Physical Therapy Diagnosis: PELVIC FLOOR WEAKNESS, TIGHTNESS AND TENDERNESS. CORE WEAKNESS AND LE STIFFNESS. Rehabilitation Potential: Good Anticipated Interventions Patient/Client Instruction: Educate patient on: Condition, Plan of Care and Risk Factors For the Purpose of:: To improve self management Therapeutic Exercise to Include: Strength training, Postural training, Flexibilty training and Relaxation training For the Purpose of:: To decrease pain, To improve muscle performance and motor function, To improve ability to perform ADL's, To increase tolerance to activity/condition/position, To improve ability of physical actions for home/community/work/leisure, To decrease soft tissue restriction, To increase flexibility/ROM and To improve self management Manual Therapy Techniques to Include: Trigger point massage and Soft tissue mobilization For the Purpose of:: To decrease pain, To improve nutrient delivery to tissue, To improve muscle performance and motor function, To decrease soft tissue restriction, To increase flexibility/ROM and To improve self management Text: Thank you for the opportunity to evaluate your patient. For Medicare and Medicare HMO plans, please review the plan of care and approve it. It will need to be FAXED BACK to us at [phone] for Medicare purposes. For Medicare only, by signing this I certify the plan of care. Please let me know if there are questions or concerns regarding this plan of care. Physician Signature: Dat e:
--- NOTE | 2024-09-18 17:12 | HP.PT.NRP ---
Patient Information Patient Information: KALE MONTERO was seen in my office for initial evaluation on 07/06/24. The following Plan of Care was established for this patient: POC Established Initial Frequency: 1x/Week Initial Duration: 2-4 Months Anticipated Interventions Patient/Client Instruction: Educate patient on: Condition, Plan of Care and Risk Factors For the Purpose of:: To improve self management Therapeutic Exercise to Include: Strength training, Postural training, Flexibilty training and Relaxation training For the Purpose of:: To decrease pain, To improve muscle performance and motor function, To improve ability to perform ADL's, To increase tolerance to activity/condition/position, To improve ability of physical actions for home/community/work/leisure, To decrease soft tissue restriction, To increase flexibility/ROM and To improve self management Manual Therapy Techniques to Include: Trigger point massage and Soft tissue mobilization For the Purpose of:: To decrease pain, To improve nutrient delivery to tissue, To improve muscle performance and motor function, To decrease soft tissue restriction, To increase flexibility/ROM and To improve self management Last Seen Last Seen: This patient was last seen in our office 07/13/24. Pertinent comments regarding their Physical therapy will appear below: It has been my pleasure to see this patient for a total of 2 visits. She was seen for an initial Physical Therapy evaluation on 07/06/24 and subsequently on 07/13/24. This patient has not returned to Physical Therapy for more visits and is appropriate to return to MD for further follow-up as needed. I believe she was dealing with her daughter being ill in July and she was hoping to resume PT at the beginning of August. At this point I will be discontinuing this patient from physical therapy. I would be happy to see this patient again in the future if found appropriate by the physician. Thank you! Opal Gardiner, PT, Cert MDT
== END 2024-07-13 19:00 | disposition home or self-care (01) ==
LOC: PT 12:30
PROVIDERS: PCP Family Medicine; Referring Provider Obstetrics & Gynecology; Visit Provider Obstetrics & Gynecology
DX: R10.2 Pelvic and perineal pain (principal); N81.89 Other female genital prolapse; N39.9 Disorder of urinary system, unspecified
CPT/HCPCS: 97162; 97530

== ENCOUNTER 2025-04-21 10:56 | Outpatient (CLI) | payer OTHER, SELFPAY ==
[2025-04-21 12:59] LABS: Absolute Lymphocyte Count 2.07 X10^3/uL (0.83-4.51); Absolute Neutrophil Count 3.7 X10^3/uL (2.0-7.7); Basophil# 0.05 X10^3/uL; Basophil% 0.8 % (0-1); Eosinophil# 0.32 X10^3/uL; Eosinophils% 4.9 % (0-5); Hematocrit 39.5 % (37-47); Lymphocyte # 2.07 X10^3/ul (0.83-4.51); Lymphocyte % 31.6 % (19-41); Mean Corp Hgb Conc 32.9 g/dL (32-36); Mean Platelet Vol. 10.2 fl (6.2-12.0); Monocyte# 0.43 X10^3/uL; Monocyte% 6.6 % (0-10); NRBC Flagged by Analyzer 0 % (0-5); Neutrophil # 3.66 X10^3/uL (2.7-7.7); Neutrophil % 55.8 % (47-70); Platelet Count 340 K/mm3 (150-450); RBC Distribution Width CV 13.6 % (11.6-14.6); RBC Distribution Width SD 46.1 fl (35.1-43.9); Red Blood Count 4.34 M/mm3 (4.2-5.4); White Blood Count 6.6 K/mm3 (4.4-11.0)
[2025-04-21 13:15] LABS: Hemoglobin A1c 5.5 % (<=5.6)
[2025-04-21 13:25] LABS: ALB/GLOB Ratio 1.4 RATIO (0.9-2.4); AST(SGOT) 15 U/L (<=31); Alanine Aminotransfer ALT/SGPT 9 U/L (<=34); Albumin, Serum 4.4 g/dL (3.5-5.0); Alkaline Phosphatase 109 U/L (35-104); Anion Gap 10 (5-15); BUN 13 mg/dL (4-19); BUN/Creat Ratio 18.2 RATIO (10-20); Calcium,Total 9.5 mg/dL (7.6-11.0); Carbon Dioxide 24.3 mmol/L (21.0-32.0); Chloride 103 mmol/L (98-108); Creatinine, Serum 0.71 mg/dL (0.70-1.20); EST Glomerular Filtration Rate 115 (>60); Globulin 3.2 g/dL (2.2-4.2); Glucose 88 mg/dL (70-99); Potassium 4.4 mmol/L (3.3-5.1); Protein, Total 7.6 g/dL (5.9-8.4); Sodium Level 138 mmol/L (133-145); Total Bilirubin 0.31 mg/dL (0.00-1.30); Vitamin D,25 Hydroxy 17.9 ng/mL (30-100)
== END 2025-04-21 23:59 | disposition home or self-care (01) ==
LOC: MFPLAB 10:56
PROVIDERS: PCP Family Medicine; Visit Provider Family Medicine
DX: N80.9 Endometriosis, unspecified (principal); E16.2 Hypoglycemia, unspecified; E56.9 Vitamin deficiency, unspecified
CPT/HCPCS: 36415; 80053; 82306; 83036; 84443; 85025

== ENCOUNTER 2025-04-28 08:26 | Day surgery (SDC) | payer OTHER, SELFPAY ==
--- NOTE | 2025-04-14 13:45 | PAT.ANE_ITS ---
Pre-Assessment Diagnosis/Proposed Procedure Planned Operative Procedure(s): LEFT ACHILLES TENDON DEBRIDEMENT AND REPAIR Anesthesia History Anesthesia History - senior solutions workflow consultant: Anesthesia History - senior solutions workflow consultant Hx Hospitalization No 04/14/25 12:54 Any Problems With Anesthesia Yes: HAD TO BE OVERNIGHT DUE 04/14/25 12:54 TO VERSED Cholinesterase deficiency No 04/14/25 12:54 You/Your Family Experience No 04/14/25 12:54 fever (hyperthermia) with Relationship Recent Exposure to Contagious No 09/08/22 06:32 Disease Does patient have nerve No 04/14/25 12:54 stimulator Patient instructed to have device shut off --Does patient have Pacemaker or ICD? When Was Last Pacemaker Check QUESTION #4 FULL TEXT: You/Your Family Experience fever (hyperthermia) with Anesthesia Last Oral Intake Last Oral intake: Last Oral Intake NPO since Meds taken in AM with sips of water? Meds patient instructed to take am of surgery PONV PONV - senior solutions workflow consultant: PONV - senior solutions workflow consultant Female Yes 04/14/25 12:54 HX of Motion Sickness No 04/14/25 12:54 HX of N/V After Surgery No 04/14/25 12:54 Non-Smoker Yes 04/14/25 12:54 Duration of Surgery greater Yes 04/14/25 12:54 than 60 minutes Number of Risk Factors 3 04/14/25 12:54 PONV Score Moderate Risk 04/14/25 12:54 Height & Weight Height & Weight: Anesthesia: Height & Weight Height 5 ft 3 in 02/23/24 10:24 Respiratory Assessment Respiratory Assessment - senior solutions workflow consultant: Respiratory Tract Infection Hx - senior solutions workflow consultant Hx Respiratory Tract Infection No 04/14/25 12:54 STOP Sleep Apnea STOP Sleep Apnea - senior solutions workflow consultant: STOP Sleep Apnea - senior solutions workflow consultant Hx Hypertension No 04/14/25 12:54 Hx Sleep Apnea No 04/14/25 12:54 CPAP BIPAP Do you snore loudly (louder No 04/14/25 12:54 than talking or can be heard Do you often feel tired/ No 04/14/25 12:54 fatigued/ sleepy during daytime? Has anyone observed you stop No 04/14/25 12:54 breathing during sleep? STOP Results Negative 04/14/25 12:54 QUESTION #5 FULL TEXT : Do you snore loudly (louder than talking or can be heard through closed doors)? 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 Specify any problems Hx of Preganancy in last 3 No 04/14/25 12:54 Months Nurse Filling Out Transfusion DSCHRIBER 04/14/25 12:54 & Questions: Date: 04/14/25 04/14/25 12:54 Time: 12:56 04/14/25 12:54 Patient unable to answer at this time (ie. confused, unrespo /Reproduction History /Reproductive History - senior solutions workflow consultant: /Reproductive Hx- senior solutions workflow consultant Hx Now Gestational Age (in weeks): EDC: Hx Hx Para Hx Section SAB No 04/14/25 12:54 PFSH Medical History (Updated 04/14/25 @ 13:04 by Gissel Sifuentes) Easy bruising Hoarseness Airway problem Heartburn History of edema History of pain when walking History of echocardiogram Patent foramen ovale Incomplete right bundle branch block (RBBB) Wears glasses History of stress test Migraine headache Injury of back Non-smoker Asthma Cardiology follow-up encounter Hx of fracture of ankle Home Medications ?Medication ?Instructions ?Recorded ?Last Taken ?Type albuterol sulfate 90 mcg/actuation 2 puff inhalation Q 4H PRN PRN 09/09/13 10/01/19 History aerosol inhaler (Ventolin HFA) Shortness Of Breath 2 puffs albuterol sulfate 2.5 mg/3 mL 2.5 mg inhalation Q4H [place] N SOB 12/20/21 Unknown History (0.083 %) solution for nebulization fluticasone furoate 100 1 ea inhalation DAILY Unknown History mcg-vilanterol 25 mcg/dose inhalation powder (Breo Ellipta) levocetirizine 5 mg tablet (Xyzal) 5 mg PO QPM PRN all ergy symptoms 04/14/25 Unknown History Allergy/AdvReac Type Severity Reaction Status Date / Time chlorhexidine Allergy Intermediate Rash Verified 04/14/25 12:52 ibuprofen Allergy Itching Verified 04/14/25 12:51 iodine Allergy Rash Verified 04/14/25 12:51 cefuroxime (From Ceftin) AdvReac Other Verified 04/14/25 12:51 Family History Grandmother Heart disease Surgical History (Updated 04/14/25 @ 13:04 by Gissel Sifuentes) Hx of Achilles tendon repair History of hysterectomy (~08/2022) Hx of colonoscopy History of laparoscopic cholecystectomy Hx of appendectomy Social History Smoking Status: Never smoker alcohol intake: never substance use type: does not use caffeine: Yes Type: coffee Number of servings: 1 and tea Number of servings: 2 Audit: Pertinent Findings Pertinent Findings EKG Perinent findings: 09/08/2022. Sinus rhythm with sinus arrhythmia occasio nal PVCs. Incomplete right bundle branch block. Stress test pertinent findings: 03/08/2024. Negative. However during recovery T wave inversions were noted in the inferior leads. Consult pertinent findings: Cardiology 02/23/2024. Patent foramen ovale. Small PFO on echocardiogram at [facility] 2020. No TIA or CVA type symptoms. Shortness of breath. Will obtain a stress EKG treadmill test. Recommendation Anesthesia Recommendation Anesthesia recommendation: OPTIMIZED for anesthesia
[2025-04-28] VITALS (10 sets, daily range): BP systolic 96–138; BP diastolic 65–91; PULSE 73–99; RESP 16; TEMP 36.1–36.9; O2SAT 100; BMI 27.0
--- NOTE | 2025-04-28 08:45 | PRE.ANES_ITS ---
ASA Classification* ASA Classification ASA Classification: 2 Assessment & Plan Anesthesia* Anesthesia Assessment Anesthesia Assessment: Discussed sedation and/or anesthesia options, risks, benefits, and alternatives with patient/parents/legal guardian/POA. Questions invited. The patient/parents/legal guardian/POA seems to understand and agrees to proceed with anesthesia plan. Reviewed the physical assessment, medical history, allergy history and patient home medications list prior to surgery/procedure/anesthetic and documented any changes. Performed airway and anesthesia risk assessments. Anesthesia Type Anesthesia Type: General (POSSIBLE BLOCK ONLY IF REQUESTED BY SURGEON. NO AIR IN IV DUE TO PFO HX) Anesthesia Focused Assessment* Airway Assessment Mouth opens: >3 cm Mallampati Score: II Focused Labs Anesthesia Preop lab: CBC WBC 6.6 K/mm3 (4.4-11.0) 04/21/25 10:04/21/25 RBC 4.34 M/mm3 (4.2-5.4) 04/21/25 10:04/21/25 Hgb 13.0 g/dL (12.0-15.0) 04/21/25 10:56 04/21/25 Hct 39.5 % (37-47) 04/21/25 10:04/21/25 Plt Count 340 K/mm3 (150-450) 04/21/25 10:56 04/21/25 CHEMISTRY Potassium 4.4 mmol/L (3.3-5.1) 04/21/25 10:56 04/21/25 Sodium 138 mmol/L (133-145) 04/21/25 10:04/21/25 Magnesium 2.1 mg/dL (1.6-2.6) 09/03/22 11:48 09/03/22 BUN 13 mg/dL (4-19) 04/21/25 10:04/21/25 Creatinine 0.71 mg/dL (0.70-1.20) 04/21/25 10:04/21/25 Glucose 88 mg/dL (70-99) 04/21/25 10:56 04/21/25 POC Glucose 127 mg/dL (74-106) H 09/08/22 06:27 09/08/22 TSH 2.550 uIU/mL (0.300-4.200) 04/21/25 10:56 05/ COAG PT 12.6 SECONDS (11.7-14.9) 09/03/22 11:48 HCG, Quant 5097 mIU/mL (<9 non-preg) H 02/13/19 11:30 Urine Test Negative Negative 09/08/22 06:02 09/08/22 Pre-Assessment Diagnosis/Proposed Procedure Planned Operative Procedure(s): LEFT ACHILLES TENDON DEBRIDEMENT AND REPAIR Anesthesia History Anesthesia History - strong nitric operator: Anesthesia History - strong nitric operator Hx Hospitalization No 04/14/25 12:54 Any Problems With Anesthesia Yes: HAD TO BE OVERNIGHT DUE 04/14/25 12:54 TO VERSED Cholinesterase deficiency No 04/14/25 12:54 You/Your Family Experience No 04/14/25 12:54 fever (hyperthermia) with Relationship Recent Exposure to Contagious No 09/08/22 06:32 Disease Does patient have nerve No 04/14/25 12:54 stimulator Patient instructed to have device shut off --Does patient have Pacemaker or ICD? When Was Last Pacemaker Check QUESTION #4 FULL TEXT: You/Your Family Experience fever (hyperthermia) with Anesthesia Last Oral Intake Last Oral intake: Last Oral Intake NPO since Meds taken in AM with sips of water? Meds patient instructed to take am of surgery PONV PONV - strong nitric operator: PONV - strong nitric operator Female Yes 04/14/25 12:54 HX of Motion Sickness No 04/14/25 12:54 HX of N/V After Surgery No 04/14/25 12:54 Non-Smoker Yes 04/14/25 12:54 Duration of Surgery greater Yes 04/14/25 12:54 than 60 minutes Number of Risk Factors 3 04/14/25 12:54 PONV Score Moderate Risk 04/14/25 12:54 Height & Weight Height & Weight: Anesthesia: Height & Weight Height 5 ft 3 in 02/23/24 10:24 Respiratory Assessment Respiratory Assessment - strong nitric operator: Respiratory Tract Infection Hx - strong nitric operator Hx Respiratory Tract Infection No 04/14/25 12:54 STOP Sleep Apnea STOP Sleep Apnea - strong nitric operator: STOP Sleep Apnea - strong nitric operator Hx Hypertension No 04/14/25 12:54 Hx Sleep Apnea No 04/14/25 12:54 CPAP BIPAP Do you snore loudly (louder No 04/14/25 12:54 than talking or can be heard Do you often feel tired/ No 04/14/25 12:54 fatigued/ sleepy during daytime? Has anyone observed you stop No 04/14/25 12:54 breathing during sleep? STOP Results Negative 04/14/25 12:54 QUESTION #5 FULL TEXT : Do you snore loudly (louder than talking or can be heard through closed doors)? 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 Specify any problems Hx of Preganancy in last 3 No 04/14/25 12:54 Months Nurse Filling Out Transfusion DSCHRIBER 04/14/25 12:54 & Questions: Date: 04/14/25 04/14/25 12:54 Time: 12:56 04/14/25 12:54 Patient unable to answer at this time (ie. confused, unrespo /Reproduction History /Reproductive History - strong nitric operator: /Reproductive Hx- strong nitric operator Hx Now Gestational Age (in weeks): EDC: Hx Hx Para Hx Section SAB No 04/14/25 12:54 Active Medications Active Medications: Current Medications Generic Name Dose Route Start Last Admin Trade Name Freq PRN Reason Stop Dose Admin Acetaminophen 1,000 mg 04/28/25 10:00 Acetaminophen 500 Mg Tablet PO 04/28/25 10:01 PREOP ONE Gabapentin 600 mg 04/28/25 10:00 Gabapentin 600 Mg Tablet PO 04/28/25 10:01 PREOP ONE Clindamycin Phosphate 900 mg in 50 mls @ 75 mls/hr 04/28/25 10:00 Cleocin IV 04/28/25 10:39 INTRAOP ONE Lactated Ringer's 1,000 mls @ 15 mls/hr 04/28/25 08:45 IV .Q48H JONATHAN Insulin Human Lispro 1 - 6 unit 04/28/25 10:00 Insulin Lispro 100 Unit/Ml Insuln.Pen SC 04/28/25 18:00 Q4H PRN PRN BG>/= 180, SEE PROTOCOL Protocol PFSH Medical History Easy bruising Hoarseness Airway problem Heartburn History of edema History of pain when walking History of echocardiogram Patent foramen ovale Incomplete right bundle branch block (RBBB) Wears glasses History of stress test Migraine headache Injury of back Non-smoker Asthma Cardiology follow-up encounter Hx of fracture of ankle Home Medications ?Medication ?Instructions ?Recorded ?Last Taken ?Type albuterol sulfate 90 mcg/actuation 2 puff inhalation Q 4H PRN PRN 09/09/13 10/01/19 History aerosol inhaler (Ventolin HFA) Shortness Of Breath 2 puffs albuterol sulfate 2.5 mg/3 mL 2.5 mg inhalation Q4H NE N SOB 12/20/21 Unknown History (0.083 %) solution for nebulization fluticasone furoate 100 1 ea inhalation DAILY Unknown History mcg-vilanterol 25 mcg/dose inhalation powder (Breo Ellipta) levocetirizine 5 mg tablet (Xyzal) 5 mg PO QPM PRN all ergy symptoms 04/14/25 Unknown History Allergy/AdvReac Type Severity Reaction Status Date / Time chlorhexidine Allergy Intermediate Rash Verified 04/28/25 08:44 ibuprofen Allergy Itching Verified 04/28/25 08:44 iodine Allergy Rash Verified 04/28/25 08:44 cefuroxime (From Ceftin) AdvReac Other Verified 04/28/25 08:44 Family History Grandmother Heart disease Surgical History Hx of Achilles tendon repair History of hysterectomy (~08/2022) Hx of colonoscopy History of laparoscopic cholecystectomy Hx of appendectomy Social History Smoking Status: Never smoker alcohol intake: never substance use type: does not use caffeine: Yes Type: coffee Number of servings: 1 and tea Number of servings: 2 Review of Systems (Anesthesia) ROS Narrative System reviewed and no additional complaints, except as documented.
[2025-04-28] MEDS: Lactated Ringers 1,000 ML 15 ML IV (08:51)
[2025-04-28] MEDS: Acetaminophen 500 MG Tablet 1000 MG PO ×2 (08:55→14:46)
[2025-04-28] MEDS: Gabapentin 600 MG Tablet PO (08:55)
[2025-04-28 09:58] LABS: Bedside Glucose 102 mg/dL (74-106)
--- NOTE | 2025-04-28 10:00 | DEB_PTH ---
PATIENT: KALE MONTERO LOC: [facility] U#:[id number] AGE/SX: 34/F ROOM: RE04/28/[address]: Dr. Anastacio Estrella DPM : 1990 BED: DIS: 04/28/2025 SPEC #: [id number] RECD: 04/28/25 13:40 STATUS: [facility] REMary #: [id number] TRISTA: 04/28/25 10:[address]: Anastacio Estrella DEPT: SURGICAL PATHOLOGY RECD BY: Chad Watt ENTERED: 04/28/25 13:53 SP TYPE: REBECCA HARMON DR: Jameel Valero MD Tissues: A - Soft tissues, NOS Procedures: Surgery Specimen Level III HEADER OPERATION: Left Achilles tendon debridement and repair with partial excision PRE-OP DIAGNOSIS: Left Achilles tendinitis TISSUE SUBMITTED: A- Left leg Achilles tendonitis MICROSCOPIC DIAGNOSIS A. Left leg, Achilles tendon, partial excision: * Dense fibrous tissue consistent with tendon with no specific pathologic change. MICROSCOPIC DESCRIPTION Slides are reviewed. GROSS DESCRIPTION A. Received in formalin in a container labeled with the patient's name, date of , and left leg Achilles tendinosis is a 3.8 x 0.5 x 0.3 cm fragment of white-yellow, rubbery and glistening soft tissue. Sectioning reveals uniform fibrous surfaces. Employee Relation Manager sections are submitted in A1. [facility] 04-28-2025 CPT:42942
--- NOTE | 2025-04-28 10:02 | OP.PCM_ITS ---
Problems Associated Problem List Diagnoses (1) Pain in left foot: (2) Achilles tendon contracture, left: (3) Calcaneal spur, left foot: (4) Other bursitis, not elsewhere classified, left ankle and foot: (5) Plantar fascial fibromatosis: Operative Report (Standard) Operative Information Date of Procedure: 04/28/25 Pre-Operative Diagnosis: 1. Pain, left foot 2. Plantar fascial fibromatosis, left lower extremity 3. Retrocalcaneal bursitis, left lower extremity 4. Achilles tendon contracture/tendinitis, left lower extremity 5. Calcaneal spur, left lower extremity Post-Operative Diagnosis: 1. Pain, left foot 2. Plantar fascial fibromatosis, left lower extremity 3. Retrocalcaneal bursitis, left lower extremity 4. Achilles tendon contracture/tendinitis, left lower extremity 5. Calcaneal spur, left lower extremity Surgery/Procedure Performed: Procedure #1: Elsberry of bone marrow aspirate concentrate, left lower extremity Procedure #2: Endoscopic plantar fasciotomy, left lower extremity Procedure #3: Excision of bursa, left lower extremity Procedure #4: Partial excision of calcaneus, left lower extremity Procedure #5: Achilles tendon debridement repair, left lower extremity Procedure #6: Application of graft jacket, left lower extremity Procedure #7: Advancement flap closure, left lower extremity Procedure #8: Application of posterior splint, left lower extremity med spec: No Type of Anesthesia: General/Regional RN Documented Start/Stop Times: Operation Date: 04/28/25 10:00 Case Time Into Pre-Op 04/28/25 08:32 Procedure Start Time: 10:22 Procedure Stop Time: 13:08 Select all DRAINS/GRAFTS/IMPLANTS that apply: Graft Graft details: Caceres medical graft jacket, left lower extremity , Tissue Tissue details: Bone marrow aspirate concentrate and Implanted device Implanted device details: CitraFix 3.5 mm anchors x 4, left lower extremity Special Medications: For anesthesia Estimated Blood Loss: 30 cc Fluids Replaced: Per anesthesia Specimen collected: Yes Description of specimen(s) removed: Achilles tendinosis, left lower extremity Description of surgery: Indications For Operation: Mrs. Baer is a 34-year-old female who was admitted to [facility] for left lower extremity surgery secondary to chronic pain for the past 6 months to 1 year. Patient did have surgery by an outside provider approximately 1 to 2 years ago and since the procedure the patient has had chronic pain to the left heel especially with walking and standing for long periods of time. 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 She does admit that her only pain relief is with rest but the second that she begins to weight-bear the pain starts to increase. Patient was initially seen in office by another provider who unfortunately is leaving the practice due to be closer with family and the patient was referred to my service for continued care and possible surgical intervention to left lower extremity due to Achilles tendon tendinopathy as well as plantar fasciitis pain. The patient has exhausted all conservative treatment consisting of stretching, massage, shoe gear modification, nonsteroid anti-inflammatories, steroid injections as well as [id number] orthotics and taping. Due to the patient's chronic pain an MRI was ordered to the left lower extremity which showed evidence of Achilles tendon thickening with insertional tendinopathy, inflamed bursitis as well as thickening of the plantar fascia band to left lower extremity. Educated the patient on conservative treatment versus surgical treatment and she elected to move forward with surgical treatment as we are going to do today. All risk and benefits were discussed the patient great detail. She did have surgical consultation in the office with chart review and consent signed. Due to chronic left lower extremity pain it was deemed necessary at this time to take the patient to the operating room to perform the above procedure to help decrease as well as possibly reduce her chronic pain. The nature of the problem, anticipated procedures, postop recovery/convalences and risk/complications in clude but not limited to infection, wound healing complications, digital amputation, hypertrophic scarring, numbness, tingling, chronic pain, CRPS, over and under correction, recurrence of deformity, DVT and or PE and the need for further surgery have been discussed in great detail with the patient. All questions have been answered to the patient's satisfaction. There are no guarantees given as to the outcome of the procedure. Description of Procedure: Under mild sedation, the patient was brought into the operating room and placed on the operating table in supine position. Once the patient was under general anesthesia with endotracheal tube, the patient was rotated to a prone position protecting all structures and airway. Next, the left lower extremity was blo cked using approximately 30 cc 0.5% Marcaine plain. Next, a well-padded thigh tourniquet was applied to the left lower extremity. Next, the left lower extremity was prepped and draped in normal aseptic manner. Next, a timeout was then undertaken verifying the correct patient, extremity, visibility of preoperative markings, availability of the equipment. Procedure #1: Elsberry of bone marrow aspirate concentrate, left lower extremity (CPT code: 57736) Next, attention was directed to the lateral wall of the calcaneus for bone graft harvest. Using a Jamshidi needle and mallet the needle was inserted to the lateral calcaneal wall without incident. 60 cc of bone marrow aspirate was harvested passed back table to be spun down to be used later in the case. Next, attention was directed to the left lower extremity. Using a 4 inch Esmarch, left lower extremity was exsanguinated and elevated to 60 degrees for 1 minute. Procedure #2: Endoscopic plantar fasciotomy, left lower extremity (CPT code: 24699) Next, attention was directed to the heel of the left lower extremity. Using large C-arm fluoroscopy the calcaneal tubercle was marked with sterile skin marker. The incision was marked approximately 2 mm distally and superiorly 20 mm from the calcaneal tubercle on the lateral side to the left lower extremity. Using a stab incision laterally, the incision was dilated with lightly scissors. A trocar was used to free up the soft tissue plantarly to the plantar fascial band with advancement to the medial side of the heel. Next a additional stab incision was placed medially and as well as dilated. The trocar was advanced and the guide was placed. Using the 4.0 mm 30 degree arthroscope, the plantar fascial band was identified. The hook blade was advanced to the medial side of the plantar fascia band and approximately one third of the deep tissue was cut. Next the triangle blade was advanced to further deepen the cut without violating the deep muscle belly of the flexor digitorum brevis. The area was flushed with copious normal saline. The incisions were reapproximated and closed with 3-0 nylon in simple erupted suture technique. Procedure #3: Excision of bursa, left lower extremity (CPT code: 54401) Next, attention was directed to the posterior aspect the left lower extremity at the level of the Achilles tendon. A skin marker was used to place incision posterior medial along the Achilles tendon. A #15 blade was used to a full- thickness vision down to subcutaneous tissue. A wet Ray-Dorothy was used to continue blunt dissection to the level of the peritenon. A #blade was used to split the peritenon without violating the Achilles tendon. Continued blunt dissection was carried down and around the Achilles tendon using a Metzenbaum scissors. At this time the Achilles tendon was a little bit flattened nature with no evidence of rupture. Next, using a #15 blade a long centerline incision down Achilles tendon was performed and Achilles tendon was booked ended with care not to completely detach the Achilles tendon from its insertion. The bursa was identified and removed with rongeur. The area was flushed with cold kacie normal saline. Procedure #4: Partial excision of calcaneus, left lower extremity (CPT code: 53876) Next, attention was directed to the calcaneal spur to the posterior superior aspect of the calcaneus. Using a large C arm fluoroscopy, a sagittal saw with #111 blade, the partial excision of calcaneus was performed with the cut identified on large from fluoroscopy. A combination of rongeur and power rasp was used to smooth down all edges on the superior, medial, lateral and posterior border of the calcaneus. Once satisfied, the area was flushed with copious ounce of normal saline. Procedure #5: Achilles tendon debridement repair, left lower extremity (CPT code: 63349) Next, excisional debridement down to tendon with a #15 blade of the thickened portions of the centralized tendon just proximal to its insertion were removed and passed the back table to be sent off for pathology for identification. At this time there was less than 50% of the Achilles tendon removed and there is no need to move forward with the flexor hallucis longus tendon transfer. Next, using a 2-0 FiberWire the Achilles tendon was reconstructed as well as reubularized. Next, using the 2.5 mm drill and power for the two 3.5 mm Citrafix anchors with fiber tape were placed at the superior margin of the posterior calcaneus without incident. The tape was tugged on and showed excellent seating. The 2 fiber tapes were rethrown through the Achilles tendon and pulled down for tension. Next, using the 2.5 mm drill and power the additional two 3.5 mm Citrafix anchors were drilled without incident. The fiber tape was crossed per the patient financial services manager's recommendation and tension in place and advanced into the calcaneus using the additional two 3.5 mm anchors. The ankle was put through range of motion and showed no evidence of catching. There is evidence of good attention to the Achilles tendon as compared to the contralateral limb. The knee was flexed on the operating room table and a Mandel test was performed, at this time it was a negative Mandel test and there showed excellent plantarflexion of the attitude to the left foot. The incision was flushed with copious normal saline. Procedure #6: Application of graft jacket, left lower extremity (CPT code: 82153) Next, 2 x 4 cm graft jacket was sutured in place using 3-0 Monocryl and running locking suture technique. Procedure #7: Advancement flap closure, left lower extremity (CPT code: 20505) Next, the adjacent skin to the Achilles tendon was undermined to allow for advancement flap closure. The deep layer was reapproximated closed using 3-0 Vicryl in running locking suture technique. The subcutaneous layer was reapproximated and closed using 3-0 Vicryl in running suture technique. At this time the left lower extremity tourniquet was deflated and all bleeders were ligated and cauterized as necessary. The skin was reapproximated and advanced closed using 3 oh STRATAFIX suture. Procedure #8: Application of posterior splint, left lower extremity (CPT code: 86165?LT) Next, the left lower extremities were cleaned and patted dry. Bacitracin soaked Adaptic was applied to all incisions. A 6 cc of bone marrow aspirate concentrate were injected all of the incisions to the left lower extremity. Platelet poor plasma was applied to the Adaptic. The incisions were then dressed with dry sterile dressing and double layer Roblero AO splint in plantarflexion was applied to left lower extremity. The patient tolerated the procedure and anesthesia well and apparent satisfactory condition and was transported to the PACU for further monitoring prior to discharge home. Vital signs stable and vascular status intact to all digits bilateral. Post Operative Plan: Weightbearing: Patient will be nonweightbearing to left lower extremity with assistive knee scooter and or crutches. Full weightbearing right lower extremity. Antibiotics: 900 mg of clindamycin through the IV DVT Prophylaxis: 81 mg aspirin twice daily until ambulatory Rodriguez: None Dressing: Bacitracin soaked Adaptic, 4 x 4's, double layer Roblero AO splint plantarflexed, left lower extremity X-Rays: Post-operative films taken on the operating room. Pain Medication: OxyContin 5 mg, Tylenol 1000 mg Follow-up: Patient will continue to be nonweightbearing until follow-up in 1 week to [address] Estrella in private office. Patient was instructed to page Dr. Estrella with any questions or concerns during the postoperative recovery until follow-up. Surgical Findings: 1. Evidence of thickened bursa that was removed at the time of surgery. 2. Retubularization and good anatomic correction of the Achilles tendon with the foot in plantarflexion attitude at the time of repair. 3. Negative Mandel test Complications Complications: No Admit VTE Documentation VTE Present on Admission: No VTE Mechan Device Prophylaxis: SCD's VTE Pharm Prophylaxis ordered?: Yes
[2025-04-28] MEDS: Clindamycin 900 MG/50 ML BAG 75 MG IV (10:43)
--- NOTE | 2025-04-28 11:20 | RAD_ITS ---
EXAM: XR Left Calcaneus, 2 or More Views CLINICAL INDICATION: LEFT ACHILLES TENDON DEBRIDEMENT, CALCANEUS REPAIR TECHNIQUE: Lateral and plantar views of the left calcaneus. COMPARISON: No relevant prior studies available. FINDINGS: BONES/JOINTS: Unremarkable. No acute fracture. No dislocation. SOFT TISSUES: Unremarkable. No radiopaque foreign body. OTHER FINDINGS: Fluoroscopic guidance was used intraoperatively. In total of 2 images were obtained. Total fluoroscopy time was 49.1 seconds. Total radiation dose was 0.79 mGy. RAD/Calcaneus min 2 Views IMPRESSION: Fluoroscopic guidance was used intraoperatively. Please refer to operative not e for further details. Reading Location: [id number]
[2025-04-28] MEDS: Thrombin 5,000 IU Kit (PSA) 5,000 IU Vial 5000 IU TOPICAL (11:41)
[2025-04-28] MEDS: Calcium Chloride 1 GM/10 ML Syringe (11:42)
[2025-04-28] MEDS: Bupivacaine Mpf 0.5% 30 ML VIAL (11:44)
[2025-04-28] MEDS: Bacitracin 500 UNITS/GM PACKET (12:17)
--- NOTE | 2025-04-28 13:09 | PCM.POST.ANE ---
Anesthesia: Postop Eval I Current Vital Signs Temperature: 97.0 F Pulse Rate: 86 Blood Pressure: 120/89 Respiratory Rate: 16 Pulse Ox: 100 Oxygen Delivery Method: Nasal Cannula Oxygen Flow Rate (L/min): 2 Assessment Airway patent: Yes Spontaneous unlabored respirations: Yes Mental status: Calm nausea: No Vomiting: No Anesthesia Complication: No Fluid Hydration Crystalloid volume administer (ml): 1,200 Total IV fluid infused: 1,200 Progress Note Anesthesia document: Postop Eval 1 completed: Yes
--- NOTE | 2025-04-28 13:37 | POSTOPAN2_ITS ---
Anesthesia Postop Eval I Sum Postop Eval Completion status Anesthesia document: Postop Eval 1 completed: Yes Anesthesia Postop Eval I Summary Anesthesia Postop Eval I Summary: Anesthesia Postop Eval I: Assessment Summary Airway patent Yes 04/28/25 13:09 COLOR [email or web address] Spontaneous unlabored Yes 04/28/25 13:09 COLOR [email or web address] respirations Mental status Calm 04/28/25 13:09 COLOR [email or web address] nausea No 04/28/25 13:09 COLOR [email or web address] Vomiting No 04/28/25 13:09 COLOR [email or web address] Anesthesia Postop Eval I: Fluid Summary Crystalloid volume administer 1,200 04/28/25 13:09 COLOR [email or web address] (ml) Colloids volume administered ( ml) Blood Product volume administered (ml) Total IV fluid infused 1,200 04/28/25 13:09 COLOR [email or web address] Anesthesia Postop Eval I: Summary Notes Anesthesia Complication No 04/28/25 13:09 COLOR [email or web address] Anesthesia Complication Comment: Post-operative progress note Anesthesia: Postop Eval II Evaluation Mental status: Awake Pain Level: 0 nausea: No Vomiting: No
--- NOTE | 2025-04-28 13:37 | PCM.POSTANE2 ---
Anesthesia Postop Eval I Sum Postop Eval Completion status Anesthesia document: Postop Eval 1 completed: Yes Anesthesia Postop Eval I Summary Anesthesia Postop Eval I Summary: Anesthesia Postop Eval I: Assessment Summary Airway patent Yes 04/28/25 13:09 [email or web address] Spontaneous unlabored Yes 04/28/25 13:09 WOOD [email or web address] respirations Mental status Calm 04/28/25 13:09 [email or web address] [email or web address] nausea No 04/28/25 13:09 WOOD ROUTER.SHOF Vomiting No 04/28/25 13:09 WOOD [email or web address] Anesthesia Postop Eval I: Fluid Summary Crystalloid volume administer 1,200 04/28/25 13:09 WOOD [email or web address] (ml) Colloids volume administered ( ml) Blood Product volume administered (ml) Total IV fluid infused 1,200 04/28/25 13:09 WOOD [email or web address] Anesthesia Postop Eval I: Summary Notes Anesthesia Complication No 04/28/25 13:09 WOOD [email or web address] Anesthesia Complication Comment: Post-operative progress note Anesthesia: Postop Eval II Evaluation Mental status: Awake Pain Level: 0 nausea: No Vomiting: No
== END 2025-04-28 15:57 | disposition home or self-care (01) ==
LOC: SDC 08:26 → AC 08:28
PROVIDERS: PCP Family Medicine; Referring Provider Podiatrist Foot & Ankle Surgery; Visit Provider Podiatrist Foot & Ankle Surgery
PROC: (CPT 27650; principal; 2025-04-28 09:45)
DX: M76.62 Achilles tendinitis, left leg (principal); M72.2 Plantar fascial fibromatosis; M77.32 Calcaneal spur, left foot; M67.02 Short Achilles tendon (acquired), left ankle; G89.29 Other chronic pain; M77.52 Other enthesopathy of left foot and ankle; Z87.74 Personal history of (corrected) congenital malformations of heart and circulatory system
CPT/HCPCS: 27652; 29893; 28090; 28120; 38206; 15275; 14040; 64445; 01464; 73650; 76000; 82962; 88304; C1713; J2405

== ENCOUNTER 2025-04-29 22:52 | Emergency (ER) | payer OTHER, SELFPAY ==
[2025-04-29 22:53] VITALS: BP 148/95; PULSE 93; RESP 26; TEMP 36.1; O2SAT 100
--- NOTE | 2025-04-29 23:14 | EDS_ITS ---
HPI History of Present Illness Chief Complaint: Lower Extremity Injury Informant: patient and spouse/S.O. Narrative Narrative: Postop day 1 left Achilles surgery plantar fasciotomy bone spur removal, bursa excision followed by Dr. Estrella. She had initial Achilles surgery this past September. She ended up seeing Dr. Estrella with new surgery performed yesterday after a few referrals. She did fine yesterday with Tylenol and then today increasing pain took hydrocodone at noon and 7 PM. She reports she requested no splinting or cast due to having more pain with this on her previous surgery. She denies any paresthesias toes. Pain in the lateral aspects of her ankle. She reports her surgeon supposed to call her today however did not. She is requesting the splint removal. She does not want stronger pain medications. [facility] Medical History Easy bruising Hoarseness Airway problem Heartburn History of edema History of pain when walking History of echocardiogram Patent foramen ovale Incomplete right bundle branch block (RBBB) Wears glasses History of stress test Migraine headache Injury of back Non-smoker Asthma Cardiology follow-up encounter Hx of fracture of ankle Home Medications ?Medication ?Instructions ?Recorded ?Last Taken ?Type albuterol sulfate 90 mcg/actuation 2 puff inhalation Q 4H PRN PRN 09/09/13 10/01/19 History aerosol inhaler (Ventolin HFA) Shortness Of Breath 2 puffs albuterol sulfate 2.5 mg/3 mL 2.5 mg inhalation Q4H MA N SOB 12/20/21 Unknown History (0.083 %) solution for nebulization fluticasone furoate 100 1 ea inhalation DAILY Unknown History mcg-vilanterol 25 mcg/dose inhalation powder (Breo Ellipta) levocetirizine 5 mg tablet (Xyzal) 5 mg PO QPM PRN all ergy symptoms 04/14/25 Unknown History acetaminophen 500 mg tablet 1,000 mg (2 x 500 mg) PO Q 6H 10 04/28/25 Unknown Rx (Tylenol Extra Strength) days #80 tabs ascorbic acid (vitamin C) 1,000 mg 1 g PO DAILY 90 day s #90 tabs 04/28/25 Unknown Rx tablet (Vitamin C) aspirin 81 mg tablet,delayed 81 mg PO DAILY 30 days #3 0 tabs 04/28/25 Unknown Rx release calcium 500 mg (as 1 tab PO DAILY 90 days #90 t abs 04/28/25 Unknown Rx carbonate)-vitamin D3 15 mcg (600 unit) tablet (Os-Monroe 500 + D3) docusate sodium 100 mg capsule 100 mg PO DAILY 10 days #10 caps 04/28/25 Unknown Rx (Colace) oxycodone 5 mg tablet 5 mg PO Q4H pain 7 days #42 tabs 04/28/25 Unknown Rx Allergy/AdvReac Type Severity Reaction Status Date / Time chlorhexidine Allergy Intermediate Rash Verified 04/29/25 22:52 ibuprofen Allergy Itching Verified 04/29/25 22:52 iodine Allergy Rash Verified 04/29/25 22:52 cefuroxime (From Ceftin) AdvReac Other Verified 04/29/25 22:52 Family History Grandmother Heart disease Surgical History Hx of Achilles tendon repair History of hysterectomy (~08/2022) Hx of colonoscopy History of laparoscopic cholecystectomy Hx of appendectomy Social History Smoking Status: Never smoker alcohol intake: never substance use type: does not use caffeine: Yes Type: coffee Number of servings: 1 and tea Number of servings: 2 ROS ROS ED Constitutional Constitutional ED: Denies fever(s) Cardiovascular Cardiovascular: Denies chest pain Respiratory/Chest Respiratory/Chest: Denies cough Gastrointestinal Gastrointestinal: Denies diarrhea or vomiting Musculoskeletal Musculoskeletal: Reports other Details: Postop pain left ankle Neurologic Neurologic: Denies paresthesias or weakness EXAM Physical Exam Const Vital Signs: 04/29/25 22:53 Temperature 96.9 F L Temperature Source Temporal Pulse Rate 93 Respiratory Rate 26 H Blood Pressure 148/95 H Blood Pressure Mean 112 Pulse Ox 100 Oxygen Delivery Method Room Air Positive well nourished and well developed Constitutional Narrative: Nontoxic. General Appearance ED: well developed HEENT normocephalic and atraumatic Eyes General Eye ED: Yes normal appearance of both eyes Neck full ROM Resp normal respiratory effort and normal air movement Cardio regular rate and regular rhythm GI soft to palpation Extremity Extremity Narrative: Left lower extremity: Posterior plantar flexion splint with David wrap. Cap refill less than 3 seconds. Sensation intact of the toes. Neuro oriented x3 Skin no rashes or lesions noted and no wounds MDM MDM MDM Narrative Medical decision making narrative: Interventions / MDM: Differential diagnosis: Postop pain Diagnosis considered but do not suspect: No paresthesias for concerns of splint/David wrap compartment syndrome. My EKG interpretation: N/A Imaging independently reviewed and interpreted by myself: N/A External documents reviewed: N/A Test considered but not ordered:N/A ED course: Patient nontoxic. Does not want additional pain medicines. He presents requesting splint removal. I will discuss with podiatry service. 2325: I discussed with Dr. Saldana who is on-call did not recommend removing the splint. He recommends continued elevation when she is sitting or laying down. States postop pain. Recommend taking her pain medicines every 4 hours and Tylenol in between. I discussed this with the patient reviewed her medicines she is on oxycodone without Tylenol she also has a bottle of Tylenol 500 mg prescriptions from her surgeon. Discussed can use up to a gram of Tylenol every 6 hours will continue oxycodone every 4 hours. 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 All questions were answered. Disposition discussed with patient/family/significant other: Patient Case discussed with consulting clinician: Podiatry This note was generated with [employer] dictation software. It may contain incorrect words, spelling, and punctuation that were not noted in checking the note before signing. Discharge Plan Triage Chief Complaint: Lower Extremity Injury ED Provider: Willy Bowman Dx/Rx/DC Orders Clinical Impression: Acute post-operative pain, Pain in left foot Instructions: Managing Post-Op Pain at Home Prescriptions: No Action albuterol sulfate [Ventolin HFA] 1 INHALER inhaler 2 puff inhalation Q4H PRN PRN (Reason: Shortness Of Breath) albuterol sulfate 2.5 mg /3 mL (0.083 %) Solution For Nebulization 2.5 mg INHALATION Q4H PRN (Reason: SOB) fluticasone furoate-vilanterol [Breo Ellipta] 100-25 mcg/dose blister with device 1 ea INHALATION DAILY levocetirizine [Xyzal] 5 mg tablet 5 mg PO QPM PRN (Reason: allergy symptoms) oxycodone 5 mg tablet 5 mg PO Q4H 7 Days Qty: 42 0RF aspirin 81 mg tablet,delayed release (DR/EC) 81 mg PO DAILY 30 Days Qty: 30 0RF docusate sodium [Colace] 100 mg capsule 100 mg PO DAILY 10 Days Qty: 10 0RF calcium carbonate-vitamin D3 [Os-Monroe 500 + D3] 500 mg-15 mcg (600 unit) tablet 1 tab PO DAILY 90 Days Qty: 90 0RF ascorbic acid (vitamin C) [Vitamin C] 1,000 mg tablet 1 g PO DAILY 90 Days Qty: 90 0RF acetaminophen [Tylenol Extra Strength] 500 mg tablet 1,000 mg PO Q6H 10 Days Qty: 80 0RF Primary Care Provider: Jameel Valero Referrals: Jameel Valero MD [Primary Care Provider] - Anastacio Estrella DPM [Med Staff - Active Staff] - Keep Lianet appointment Activity Restrictions/Additional Instructions: Discussed with Dr. Saldana. Continue to elevate your left lower extremity. Use your oxycodone every 4 hours. Take your Tylenol up to 1 g every 6 hours. Ice over your splinting material at your ankles. Print Language: Maltese Disposition Disposition: Home, Self Care Discharge Date/Time: 04/29/25 23:58
--- OUTSIDE RECORDS SUMMARY | 2025-04-29 23:46 | XMS RPT_ITS | CCD ---
Author Organization [facility] CliniSyga Care Team Providers Care Mat Puncher Name Role Phone Matt Spaulding Unavailable Unavailable Deyvi Preston Unavailable Unavailable [facility] [employer] MECH[employer], FANNY Primary Care Physician DR OZZIE GRANGER DO Primary Care Physician ([phone] DR. DASHA MENDIETA DO Attending Unavailabl e [employer], [facility] Primary Care Unavaila ble [place] [employer]CH[employer], LEIA Attending Unavai lable [facility] [employer], [facility] Primary Care Unavaila ble [place] [employer], LEIA Attending Unavai lable [facility] [employer], [facility] Primary Care Unavaila ble [place] [employer], MARK Attending UnavailOZZIE Mendoza Primary Care Unavailable FISH [employer], MARGARETH Attending Unavailable [facility] [employer], [facility] Primary Care Unavaila ble DO Payal Reddy Referring Provider [phone] Dr. Matt Yee Attending Provider [phone] MD Jameel Estrada Primary Care Provider Dr. Matt Yee Referring Provider Dr. Matt Yee Other Provider [phone] Cash Gonsalez Attending Provider [phone] Luis Enrique FARM AGENT, FARM AGENT-C Abril Attending Provider JAMEEL ESTRADA Consulting Unavailable SHIRA DUNLAP Admitting Unavailable SHIRA DUNLAP Attending Unavailable SHIRA DUNLAP Primary Care Unavailable PROVIDER, UNKNOWN Consulting Unavailable JAMEEL ESTRADA Consulting Unavailable DANIELA DOMINGUEZ DR Admitting Unavailable DANIELA DOMINGUEZ DR Attending Unavailable DANIELA DOMINGUEZ DR Primary Care Unavailable PROVIDER, UNKNOWN Consulting Unavailable DANIELA DOMINGUEZ DR Admitting Unavailable DANIELA DOMINGUEZ DR Attending Unavailable DANIELA DOMINGUEZ DR Primary Care Unavailable NATALIE, JOYCEON Yesenia Consulting Unavailable PROVIDER, UNKNOWN Consulting Unavailable DOMINIQUE, JULIO Admitting Unavailable VACCARIJOSE GUADALUPE, JULIO Attending Unavailable VACCARIELLO, JULIO Primary Care Unavailable NATALIE, CHALON J Consulting Unavailable PROVIDER, UNKNOWN Consulting Unavailable NATALIE, CHALON J Consulting Unavailable JOAQUIN, PRASANTH DPM Admitting Unavailable HORN, PRASANTH DPM Attending Unavailable HORN, PRASANTH DPM Primary Care Unavailable PROVIDER, UNKNOWN Consulting Unavailable ELECTRICAL INSTRUMENT TECHNICIAN, SHIRA J Admitting Unavailable ELECTRICAL INSTRUMENT TECHNICIAN, SHIRA J Attending Unavailable ELECTRICAL INSTRUMENT TECHNICIAN, SHIRA J Primary Care Unavailable NATALIE, CHALON J Consulting Unavailable PROVIDER, UNKNOWN Consulting Unavailable Natalie, Jameel Attending Unavailable Natalie, Joyceon Primary Care Unavailable Natalie, Joyceon Primary Care Unavailable Bri Saravia Referring Unavailable Bri Saravia Attending Unavailable Natalie, Jameel Attending Unavailable Natalie, Joyceon Primary Care Unavailable Natalie, Chalon Primary Care Unavailable Chon Cho Attending Unavailable Jameel Estrada Referring Unavailable Natalie, Jameel Primary Care Unavailable Anastacio Estrella Referring Unavailable Anastacio Estrella Attending Unavailable Jameel Estrada MD Primary Care Provider [phone] Jameel Estrada MD Attending Provider Sameer DPM, Dr. Chaves Attending Provider Sameer DPM, Dr. Chaves Referring Provider Allergies Allergy Classification Reported Allergen(s) Allergy Type Date of Onset Reaction(s) Facility (13 sources) Cefuroxime; Translations: [cefuroxime] Drug Allergy 2 Muscle pain (finding) [facility] Comment on above: chest pain (13 sources) Iodine; Translations: [iodine] Drug Allergy 2 rash [facility] (5 sources) Ibuprofen Drug Allergy 2 Itching [facility] Comment on above: itching inside of [place] (1 source) Adhesive Tape; Translations: [TAPE] Propensity to adverse reactions (disorder) [facility] (1 source) Cefuroxime Drug Allergy [facility] (1 source) Iodine Drug Allergy [facility] (1 source) Cefuroxime Drug Allergy 5 [facility] (1 source) Chlorhexidine Drug Allergy 5 [facility] (1 source) Ibuprofen Drug Allergy 5 [facility] (1 source) Iodine Drug Allergy 5 [facility] (1 source) Chlorhexidine Drug Allergy 5 Rash [facility] Medications Current Medications Medication Drug Class(es) Dates Sig (Normalized) Sig (Original) acetaminophen 500 mg oral tablet (1 source) Start: 04-28-2025 take 2 tablets by mouth every six hours Acetaminophen (Tylenol Extra Strength) 500 mg tablet Active 1000 mg PO EVERY 6 HOURS 80 10 April 28, 2025 12:00am albuterol 0.83 mg/ml inhalation solution (20 sources) beta2-Adrenergic Agonist Start: 12-20-2021 take 2.5 mg by inhalation every four hours as needed Albuterol Sulfate 2.5 mg /3 mL (0.083 %) Solution For Nebulization Active 2.5 mg INHALATION Q4H as needed for SOB December 20, 2021 1:00am Start: 08-26-2021 End: 12-24-2021 take 2 puff(s) by inhalation every four hours as needed for wheezing ProAir HFA MDI (90 mcg/inh) inhalation aerosol 2 puff(s), Inhalation, q4h, PRN as needed for wheezing, # 6.7 gram(s), 3 Refill(s), Pharmacy: [facility], 158.5, cm, 08/26/21 10:05:00 EDT, Height, kg, 08/26/21 10:05:00 EDT, Dosing Weight Start Date: 08/26/21 Stop Date: 12/24/21 Status: Ordered Start: 03-11-2021 End: 09-07-2021 take 2 puff(s) by inhalation every six hours as needed for wheezing Ventolin HFA MDI (90 mcg/inh) inhalation aerosol 2 puff(s), Inhalation, q6h, PRN as needed for wheezing, Dispsense ventolin. pt cannot use proair, # 1 EA, 5 Refill(s), DAQUAN, Pharmacy: [facility], 162, cm, 01/18/21 9:31:00 EST, Height, kg, 01/18/21 9:31:00 EST, Dosing Weight Start Date: 03/11/21 Stop Date: 09/07/21 Status: Ordered Start: 04-05-2020 take 1 dose by inhal ation every four hours as needed albuterol 2.5 mg/3 mL (0.083%) inhalation solution Dose : 2.5 mg = 3 mL, Inhalation, q4h, PRN for wheezing, # 60 EA, 0 Refill(s) Start Date: 04/05/20 Status: Ordered Start: 09-09-2013 Albuterol Sulf ate (Ventolin Hfa) 1 INHALER inhaler Active 2 NMA INHALATION EVERY 4 HOURS NEEDED as needed for Shortness Of Breath September 09, 2013 12:00am Start: 09-09-2013 take 1 puff(s) by in halation every four hours as needed Albuterol Sulfate (Ventolin Hfa) 1 INHALER inhaler Active 2 PUFF INHALATION EVERY 4 HOURS NEEDED September 09, 2013 12:00am albuterol 0.833 mg/ml / ipratropium bromide 0.167 mg/ml inhalation solution (6 sources) Anticholinergic, beta2-Adrenergic Agonist Start: 09-30-2022 albuterol-ipratropium 2.5 mg-0.5 mg/3 mL inhalation solution Dose = 3 mL, Nebulized, q4h, USE 1 AMPULE IN NEBULIZER EVERY 4 HOURS, # 90 mL, 0 Refill(s), Pharmacy: [facility], 158.7, cm, 08/11/22 9:49:00 EDT, Height, kg, 08/11/22 9:49:00 EDT, Dosing Weight Start Date: 09/30/22 Status: Ordered Start: 05-20-2022 albuterol-ipra tropium 2.5 mg-0.5 mg/3 mL inhalation solution Dose = 3 mL, Nebulized, q4h, USE 1 AMPULE IN NEBULIZER EVERY 4 HOURS, # 90 mL, 0 Refill(s), Pharmacy: [facility], 160, cm, 01/09/22 9:11:00 EST, Height, kg, 04/01/22 17:01:00 EDT, Dosing Weight Start Date: 05/20/22 Status: Ordered Start: 08-26-2021 take 1 dose by inhal ation every four hours albuterol-ipratropium 2.5 mg-0.5 mg/3 mL inhalation solution Dose = 3 mL, Inhalation, q4h, # 30 EA, 3 Refill(s), Pharmacy: [facility], 158.5, cm, 08/26/21 10:05:00 EDT, Height, kg, 08/26/21 10:05:00 EDT, Dosing Weight Start Date: 08/26/21 Status: Ordered amoxicillin 875 mg / clavulanate 125 mg oral tablet (1 source) Penicillin-class Antibacterial Start: 10-28-2021 End: 11-04-2021 take 1 tablet by mouth every twelve hours amoxicillin-clavulanate 875 mg-125 mg oral tablet 1 tab(s), Oral, q12h, X 7 day(s), # 14 tab(s), 0 Refill(s), 11/04/21 14:09:00 EST, Pharmacy: [facility], Acute bacterial sinusitis, 158, cm, 10/21/21 8:34:00 EST, Height, 61.4, kg, 10/28/21 13:42:00 EST, Dosing Weight Start Date: 10/28/21 Stop Date: 11/04/21 Status: Ordered ascorbic acid 1000 mg oral tablet (1 source) Vitamin C Start: 04-28-2025 take 1 g by mouth once daily Ascorbic Acid (Vitamin C) (Vitamin C) 1,000 mg tablet Active 1 g PO DAILY April 28, 2025 12:00am aspirin 81 mg delayed release oral tablet (1 source) Platelet Aggregation Inhibitor, Nonsteroidal Anti-inflammatory Drug Start: 04-28-2025 take 1 tablet by mouth once daily Aspirin 81 mg tablet,delayed release (DR/EC) Active 81 mg PO DAILY April 28, 2025 12:00am calcium carbonate 1250 mg / cholecalciferol 600 unt oral tablet (1 source) Vitamin D Start: 04-28-2025 Calcium Carbonate-Vitamin D3 (Os-Mon[place] 500 + D3) 500 mg-15 mcg (600 unit) tablet Active 1 {tbl} PO DAILY April 28, 2025 12:00am DME MISCellaneous (5 sources) Start: 10-10-2022 DME MISCellaneous See Instructions, Spacer chamber, Dx: J45.909, # 1 EA, 0 Refill(s), Pharmacy: [facility], Asthma, 158.7, cm, 08/11/22 9:49:00 EDT, Height, 60.9 Start Date: 10/10/22 Status: Ordered Start: 09-04-2022 DME MISCellane ous See Instructions, Please provide nebulizer tubing kit with mouthpiece, # 2 EA, 0 Refill(s), Pharmacy: [facility], 158.7, cm, 08/11/22 9:49:00 EDT, Height, 61.9 Start Date: 09/04/22 Status: Ordered Start: 10-28-2021 DME MISCellane ous See Instructions, nebulizer tubing and supplies, # 1 EA, 0 Refill(s), Pharmacy: [facility], Asthma, 158, cm, 10/21/21 8:34:00 EST, Height, 61.4, kg, 10/28/21 13:42:00 EST, Dosing Weight Start Date: 10/28/21 Status: Ordered Start: 05-16-2021 DME MISCellane ous See Instructions, nebulizer tubing and supplies, # 1 EA, 0 Refill(s), Pharmacy: [facility], Asthma, 160, cm, 05/08/21 10:43:00 EDT, Height, 63.8, kg, 05/08/21 10:43:00 EDT, Dosing Weight Start Date: 05/16/21 Status: Ordered docusate sodium 100 mg oral capsule (1 source) Start: 04-28-2025 take 1 capsule by mouth once daily Docusate Sodium (Colace) 100 mg capsule Active 100 mg PO DAILY 09 01April 28, 2025 12:00am {21 (Ethinyl Estradiol 0.035 MG / norgestimate 0.25 MG Oral Tablet) / 7 (Inert Ingredients 1 MG Oral Tablet) } Pack [Sprintec 28 Day] (9 sources) Progestin, Estrogen Start: 07-02-2022 Sprintec 0.25 mg-35 mcg oral tablet 0 Refill(s) Start Date: 07/02/22 Status: Ordered Start: 12-20-2021 End: 02-23-2024 Norgestimate-Ethinyl Estradi ol (Sprintec (28)) 0.25-35 mg-mcg Tablet Discontinued 1 {tbl} PO DAILY December 20, 2021 1:00am February 23, 2024 10:28am Start: 12-20-2021 End: 02-23-2024 take 1 tablet by mouth once daily Norgestimate-Ethinyl Estradiol (Sprintec (28)) 0.25-35 mg-mcg Tablet Discontinued 1 TABLET PO DAILY December 20, 2021 1:00am February 23, 2024 10:28am Start: 12-20-2021 take 1 tablet by eleazar th once daily Norgestimate-Ethinyl Estradiol (Sprintec (28)) 0.25-35 mg-mcg Tablet Active 1 TABLET PO DAILY December 20, 2021 1:00am Start: 02-01-2020 take 1 tablet by eleazar th once daily Sprintec 0.25 mg-35 mcg oral tablet Dose = 1 tab(s), Oral, qDay, # 28 tab(s), 0 Refill(s) Start Date: 02/01/20 Status: Ordered fluticasone propionate 0.05 mg/actuat metered dose nasal spray (3 sources) Corticosteroid Start: 05-28-2022 End: 05-23-2023 take 1 dose nasal route once daily in the morning Flonase 50 mcg/inh nasal spray Dose = 2 spray(s), Nostril, each, qAM, # 16 gram(s), 11 Refill(s), Pharmacy: [facility], 159, cm, 05/28/22 10:20:00 EDT, Height Start Date: 05/28/22 Stop Date: 05/23/23 Status: Ordered 30 actuat fluticasone furoate 0.1 mg/actuat / vilanterol 0.025 mg/actuat dry powder inhaler (1 source) Corticosteroid, beta2-Adrenergic Agonist Start: 04-14-2025 Fluticasone Furoate-Vilanterol (Breo Ellipta) 100-25 mcg/dose blister with device Active 1 NMA INHALATION DAILY April 14, 2025 12:00am levocetirizine dihydrochloride 5 mg oral tablet (4 sources) Histamine-1 Receptor Antagonist Start: 04-14-2025 take 1 tablet by mouth once daily in the evening as needed Levocetirizine (Xyzal) 5 mg tablet Active 5 mg PO EVERY EVENING as needed for allergy symptoms April 14, 2025 12:00am Start: 08-10-2020 Xyzal 5 mg ora l tablet Dose : 5 mg = 1 tab(s), Oral, qHS, # 30 tab(s), 0 Refill(s) Start Date: 08/10/20 Status: Ordered methylPREDNISolone 4 mg oral tablet (1 source) Corticosteroid Start: 11-20-2022 End: 11-26-2022 Medrol Dosepak 4 mg oral tablet Per Dosepak Instructions, Oral, Daily, as directed on package labeling, X 6 day(s), # 1 packet(s), 0 Refill(s), 11/26/22 8:56:00 EST, Pharmacy: [facility], Cough, 158.7, cm, 11/20/22 8:08:00 EST, Height Start Date: 11/20/22 Stop Date: 11/26/22 Status: Ordered nitrofurantoin, macrocrystals 100 mg oral capsule (2 sources) Nitrofuran Antibacterial Start: 08-11-2022 End: 08-16-2022 nitrofurantoin macrocrystals 100 mg oral capsule Dose : 100 mg = 1 cap(s), Oral, BID, X 5 day(s), # 10 cap(s), 0 Refill(s), 08/16/22 10:51:00 EDT, Pharmacy: [facility], 158.7, cm, 08/11/22 9:49:00 EDT, Height, 61.9 Start Date: 08/11/22 Stop Date: 08/16/22 Status: Ordered ondansetron 4 mg oral tablet (3 sources) Serotonin-3 Receptor Antagonist Start: 03-19-2021 Zofran 4 mg oral tablet Dose : 4 mg = 1 tab(s), Oral, q6h, PRN Nausea/Vomiting, # 20 tab(s), 0 Refill(s), Pharmacy: [facility], 162.6, cm, 03/19/21 10:36:00 EDT, Height, kg, 03/19/21 10:36:00 EDT, Dosing Weight Start Date: 03/19/21 Status: Ordered oxyCODONE hydrochloride 5 mg oral tablet (7 sources) Opioid Agonist Start: 04-28-2025 take 1 tablet by mouth every four hours Oxycodone 5 mg tablet Active 5 mg PO Q4H 42 April 28, 2025 Start: 09-08-2022 End: 02-23-2024 take 1 tablet by mouth every six hours as needed for pain Oxycodone 5 mg Tablet Discontinued 5 mg PO EVERY 6 HOURS NEEDED as needed for Pain Score 4-10 20 September 08, 2022 February 23, 2024 10:28am Start: 12-31-2021 take 5 mg by mouth e very six hours Oxycodone Active 5 MG PO EVERY 6 HOURS 7 December 31, 2021 predniSONE 20 mg oral tablet (1 source) Start: 10-21-2021 End: 10-26-2021 predniSONE 20 mg oral tablet Dose : 20 mg = 1 tab(s), Oral, BID, X 5 day(s), # 10 tab(s), 0 Refill(s), 10/26/21 8:59:00 EST, Pharmacy: [facility], 158, cm, 10/21/21 8:34:00 EST, Height, kg, 10/21/21 8:34:00 EST, Dosing Weight Start Date: 10/21/21 Stop Date: 10/26/21 Status: Ordered Sprintec 0.25 mg-35 mcg oral tablet (3 sources) Start: 02-01-2020 take 1 tablet by mouth once daily Sprintec 0.25 mg-35 mcg oral tablet Dose = 1 tab(s), Oral, qDay, # 28 tab(s), 0 Refill(s) Start Date: 02/01/20 Status: Ordered Symbicort 80 mcg-4.5 mcg/inh Inhaler (3 sources) Start: 10-21-2021 take 1 dose by inhalation twice daily Symbicort 80 mcg-4.5 mcg/inh Inhaler Dose = 2 puff(s), Inhalation, BID, # 1 EA, 11 Refill(s), Pharmacy: [facility], 158, cm, 10/21/21 8:34:00 EST, Height, kg, 10/21/21 8:34:00 EST, Dosing Weight Start Date: 10/21/21 Status: Ordered traZODone hydrochloride 50 mg oral tablet (2 sources) Serotonin Reuptake Inhibitor Start: 07-02-2022 End: 12-29-2022 traZODone 50 mg oral tablet Dose : 50 mg = 1 tab(s), Oral, qHS, # 30 tab(s), 5 Refill(s), Pharmacy: [facility], 159, cm, 07/02/22 10:17:00 EDT, Height, kg, 07/02/22 10:17:00 EDT, Dosing Weight Start Date: 07/02/22 Stop Date: 12/29/22 Status: Ordered vitamin b12 1 mg oral tablet (2 sources) Vitamin B12 Start: 08-02-2020 Vitamin B12 10 00 mcg oral tablet Dose : 1,000 mcg = 1 tab(s), Oral, qDay, # 30 tab(s), 0 Refill(s), Pharmacy: [facility], 160, cm, 03/06/20 10:50:00 EDT, Height, kg, 06/27/20 8:37:00 EDT, Dosing Weight Start Date: 08/02/20 Status: Ordered Completed/Discontinued Medications Medication Drug Class(es) Dates Sig (Normalized) Sig (Original) albuterol MDI (90 mcg/inh) CFC free inhalation aerosol (4 sources) Start: 09-30-2022 End: 10-30-2022 take 1 puff(s) by inhalation every six hours albuterol MDI (90 mcg/inh) CFC free inhalation aerosol 1 puff(s), Inhalation, q6hr, # 1 EA, 0 Refill(s), Pharmacy: [facility], 158.7, cm, 08/11/22 9:49:00 EDT, Height, kg, 08/11/22 9:49:00 EDT, Dosing Weight Start Date: 09/30/22 Stop Date: 10/30/22 Status: Ordered Start: 09-28-2020 End: 10-28-2020 take 1 puff(s) by inhalation every six hours albuterol MDI (90 mcg/inh) CFC free inhalation aerosol 1 puff(s), Inhalation, q6hr, # 1 EA, 0 Refill(s), Pharmacy: [facility], 160, cm, 03/06/20 10:50:00 EDT, Height, kg, 08/10/20 10:11:00 EDT, Dosing Weight Start Date: 09/28/20 Stop Date: 10/28/20 Status: Ordered Budesonide-Formoterol (6 sources) Corticosteroid, beta2-Adrenergic Agonist Start: 10-24-2018 End: 02-23-2024 Budesonide-Formoterol (Symbicort) 0 inhaler Discontinued 2 NMA INHALATION NEEDED as needed for SOB October 24, 2018 1:00am February 23, 2024 10:28am Start: 10-24-2018 End: 02-23-2024 Budesonide-Formoterol (Symbi roland) 0 inhaler Discontinued 2 PUFF INHALATION NEEDED October 24, 2018 1:00am February 23, 2024 10:28am Start: 10-24-2018 Budesonide-For moterol (Symbicort) 0 inhaler Active 2 PUFF INHALATION NEEDED October 24, 2018 1:00am famotidine 20 mg oral tablet (6 sources) Histamine-2 Receptor Antagonist Start: 09-28-2019 End: 02-23-2024 Famotidine 20 MG tablet Discontinued 20 mg PO NEEDED as needed for Heartburn September 28, 2019 1:00am February 23, 2024 10:28am fludrocortisone acetate 0.1 mg oral tablet (3 sources) Start: 02-04-2024 End: 02-23-2024 take 1 tablet by mouth once daily Fludrocortisone 0.1 mg tablet Discontinued 0.1 mg PO DAILY February 04, 2024 12:00am February 23, 2024 10:29am Problems Active Problems Problem Classification Problem Date Documented Date Episodic/Chronic Abdominal pain (7 sources) Abdominal pain - cause unknown; Translations: [Unspecified abdominal pain] Onset: 09-26-2024 11-05-2015 Episodic Anxiety disorders (3 sources) Anxiety 05-28-2022 Chronic Cardiac and circulatory congenital anomalies (12 sources) Patent foramen ovale; Translations: [Patent foramen ovale] 06-05-2021 Chronic Comment on above: Patient has a histor y of a small PFO described on an echocardiogram done at [facility] in 2020. Said negative lower extremity evaluation and has never had a TIA or CVA type symptoms. I do not believe that the PFO is causing any of the symptoms she is complaining of now. 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 Cardiac dysrhythmias (7 sources) Palpitations 05-08-2021 Episodic Conduction disorders (11 sources) Incomplete right bundle branch block; Translations: [Unspecified right bundle-branch block] 05-08-2021 Chronic Endometriosis (4 sources) Endometriosis (clinical); Translations: [Endometriosis, unspecified] Onset: 04-25-2025 05-28-2022 Chronic Headache; including migraine (8 sources) Migraine; Translations: [Migraine with aura] 06-27-2020 Chronic Heart valve disorders (6 sources) Heart murmur 05-08-2021 Episodic Malaise and fatigue (3 sources) Fatigue 05-28-2022 Episodic Nausea and vomiting (6 sources) Nausea; Translations: [Nausea] 09-09-2013 Episodic Nonspecific chest pain (20 sources) Atypical chest pain; Translations: [Chest pain] 06-05-2021 Episodic Comment on above: The patient chest sy mptoms are difficult to ascertain in etiology. She does not have much in the way of cardiovascular risk factors. But some of her symptoms do sound potentially ischemic in etiology. I recommend that she walk a treadmill stress test to evaluate and rule out ischemic etiology of these chest symptoms. Osteoarthritis (3 sources) Unilateral primary osteoarthritis, left knee; Translations: [Unilateral primary osteoarthritis, left knee] Onset: 03-23-2025 Chronic Other connective tissue disease (2 sources) Bursitis of bursa of ankle and/or foot; Translations: [Other bursitis, not elsewhere classified, left ankle and foot] 04-28-2025 Episodic Other connective tissue disease (2 sources) Plantar fascial fibromatosis; Translations: [Plantar fascial fibromatosis] 04-28-2025 Episodic Other connective tissue disease (2 sources) Foot pain; Translations: [Pain in left foot] 04-28-2025 Episodic Other connective tissue disease (2 sources) Contracture of left Achilles tendon; Translations: [Short Achilles tendon (acquired), left ankle] 04-28-2025 Episodic Other connective tissue disease (2 sources) Calcaneal spur; Translations: [Calcaneal spur, left foot] 04-28-2025 Episodic Other endocrine disorders (1 source) Hypoglycemia, unspecified; Translations: [Hypoglycemia, unspecified] Onset: 04-25-2025 Chronic Other lower respiratory disease (3 sources) Dyspnea on exertion; Translations: [Shortness of breath] 02-23-2024 Episodic Comment on above: Complains of dyspnea on exertion with chest symptoms activity she also has some shortness of breath with chest symptoms occur at rest. Other lower respiratory disease (2 sources) Shortness of breath; Translations: [Shortness of breath] 02-23-2024 Episodic Other nervous system disorders (7 sources) Left venous thoracic outlet syndrome 06-05-2021 Chronic Other nervous system disorders (12 sources) Acute postoperative pain; Translations: [Other acute postprocedural pain] 12-31-2021 Episodic Other nervous system disorders (1 source) Other acute postprocedural pain; Translations: [Other acute postoperative pain] Episodic Other non-traumatic joint disorders (1 source) Pain in left knee; Translations: [Pain in left knee] Onset: 03-23-2025 Episodic Other and delivery including normal (7 sources) 05-08-2021 Episodic Comment on above: System added from do cumentation. Status documented as Yes on Admission Other upper respiratory disease (7 sources) Allergic rhinitis 03-06-2020 Chronic Sprains and strains (6 sources) Sprain of ankle; Translations: [Sprain of unspecified ligament of left ankle, initial encounter] 07-21-2019 Episodic Syncope (5 sources) Near syncope; Translations: [Syncope and collapse] 02-23-2024 Episodic Comment on above: The patient reports episodes of near syncope that are very difficult to determine the etiology. These have been going on for several years since she had COVID. Unclassified (1 source) Unknown / UNK(Unknown) Onset: 07-08-2017 Unclassified (4 sources) Patient encounter status 12-04-2021 Urinary tract infections (7 sources) Acute urinary tract infection 03-12-2021 Episodic Viral infection (5 sources) Disease caused by 2019-nCoV 12-04-2021 Past or Other Problems Problem Classification Problem Date Documented Da te Episodic/Chronic Cardiac dysrhythmias (1 source) Cardiac dysrhythmias Onset: 07-08-2017 Conditions associated with dizziness or vertigo (8 sources) Dizziness; Translations: [Dizziness and giddiness] Onset: 06-15-2024 06-27-2020 Episodic Genitourinary symptoms and ill-defined conditions (8 sources) Urinary symptoms ; Translations: [Frequency of micturition] Onset: 08-11-2022 03-13-2021 Episodic Other connective tissue disease (3 sources) Achilles tendinitis, left leg; Translations: [Achilles tendinitis, left leg] Onset: 11-24-2024 Episodic Results Test Name Value Interpretation Reference Range Facility Bedside Glucoseon 04-28-2025 FINGERSTICK GLU 102 mg/dL Normal 74-106 [facility] Comment on above: Result Comment: MIGUEL A BLANCHARD OF PATIENT CARE PER NURSING PROTOCOL Performed By: #### L 501.080 #### [facility] [address], [place], [id number] [facility] deOrdered By: Anastacio Estrella on 04-28-2025 Glucose [Mass/Vol] 102 mg/dL 74-106 [facility] Comment on above: MANAGEMENT OF PATIEN T CARE PER NURSING PROTOCOL MR/POSTOP.ANEon 04-28-2025 MR/POSTOP.[facility] Medical Records Department [address] [place] [address] Anesthesia Postop Eval I 04/28/25 1309 MR#: [id number] Acct: [id number] Name: PRERNA MONTERO Rep #: [id number] : 1990 34 From: Benedicto Monroy CRNA PCP: Dr. Jameel Estrada MD Status:REG SDC Y Race: C Location: [place] [address] Anesthesia: Postop Eval I Current Vital Signs Temperature: 97.0 F Pulse Rate: 86 Blood Pressure: 120/89 Respiratory Rate: 16 Pulse Ox: 100 Oxygen Delivery Method: Nasal Cannula Oxygen Flow Rate (L/min): 2 Assessment Airway patent: Yes Spontaneous unlabored respirations: Yes Mental status: Calm nausea: No Vomiting: No Anesthesia Complication: No Fluid Hydration Crystalloid volume administer (ml): 1,200 Total IV fluid infused: 1,200 Progress Note Anesthesia document: Postop Eval 1 completed: Yes 04/28/25 1309 Date Benedicto Monroy CHILD AND YOUTH PROGRAM ASSISTANT Cosigner Signature: Date CC: Signed Normal [facility] MR/[id number] 04-28-2025 [facility] Medical Records Department [address] [facility] [place] [address] Anesthesia Postop Eval II 04/28/25 1337 MR#: [id number] Acct: [id number] Name: PRERNA MONTERO Rep #: [id number] : 1990 34 From: Oswaldo Pineda MD PCP: Dr. Jameel Estrada MD Status:REG [facility] Y Race: C Location: [place] [address]- Anesthesia Postop Eval I Sum Postop Eval Completion status Anesthesia document: Postop Eval 1 completed: Yes Anesthesia Postop Eval I Summary Anesthesia Postop Eval I Summary: Anesthesia Postop Eval I: Assessment Summary Airway patent Yes 04/28/25 13:09 CHILD AND YOUTH PROGRAM ASSISTANT.SHOF Spontaneous unlabored Yes 04/28/25 13:09 CHILD AND YOUTH PROGRAM ASSISTANT.SHOF respirations Mental status Calm 04/28/25 13:09 CHILD AND YOUTH PROGRAM ASSISTANT.SHOF nausea No 04/28/25 13:09 CHILD AND YOUTH PROGRAM ASSISTANT.SHOF Vomiting No 04/28/25 13:09 CHILD AND YOUTH PROGRAM ASSISTANT.SHOF Anesthesia Postop Eval I: Fluid Summary Crystalloid volume administer 1,200 04/28/25 13:09 CHILD AND YOUTH PROGRAM ASSISTANT.SHOF (ml) Colloids volume administered ( ml) Blood Product volume administered (ml) Total IV fluid infused 1,200 04/28/25 13:09 CHILD AND YOUTH PROGRAM ASSISTANT.SHOF Anesthesia Postop Eval I: Summary Notes Anesthesia Complication No 04/28/25 13:09 CHILD AND YOUTH PROGRAM ASSISTANT.SHOF Anesthesia Complication Comment: Post-operative progress note Anesthesia: Postop Eval II Evaluation Mental status: Awake Pain Level: 0 nausea: No Vomiting: No 04/28/25 1337 Date Oswaldo Elmore Signature: Date CC: Signed Normal [facility] Operative Reporton 5 Operative Report [facility] Medical Records Department [address] [place] [address] Operative Report 04/28/25 1002 MR#: [id number] Acct: [id number] Name: PRERNA MONTERO Rep #: [id number] : 1990 34 From: Anastacio Estrella DPM PCP: Dr. Jameel Estrada MD Status:[facility] Location: [place] [address] Problems Associated Problem List Diagnoses (1) Pain in left foot: (2) Achilles tendon contracture, left: (3) Calcaneal spur, left foot: (4) Other bursitis, not elsewhere classified, left ankle and foot: (5) Plantar fascial fibromatosis: Operative Report (Standard) Operative Information Date of Procedure: 04/28/25 Pre-Operative Diagnosis: 1. Pain, left foot 2. Plantar fascial fibromatosis, left lower extremity 3. Retrocalcaneal bursitis, left lower extremity 4. Achilles tendon contracture/tendinitis, left lower extremity 5. Calcaneal spur, left lower extremity Post-Operative Diagnosis: 1. Pain, left foot 2. Plantar fascial fibromatosis, left lower extremity 3. Retrocalcaneal bursitis, left lower extremity 4. Achilles tendon contracture/tendinitis, left lower extremity 5. Calcaneal spur, left lower extremity Surgery/Procedure Performed: Procedure #1: [place] of bone marrow aspirate concentrate, left lower extremity Procedure #2: Endoscopic plantar fasciotomy, left lower extremity Procedure #3: Excision of bursa, left lower extremity Procedure #4: Partial excision of calcaneus, left lower extremity Procedure #5: Achilles tendon debridement repair, left lower extremity Procedure #6: Application of graft jacket, left lower extremity Procedure #7: Advancement flap closure, left lower extremity Procedure #8: Application of posterior splint, left lower extremity chief reservoir engineering: No Type of Anesthesia: General/Regional RN Documented Start/Stop Times: Operation Date: 04/28/25 10:00 Case Time Into Pre-Op 04/28/25 08:32 Procedure Start Time: 10:22 Procedure Stop Time: 13:08 Select all DRAINS/GRAFTS/IMPLANTS that apply: Graft Graft details: Morris anderson graft jacket, left lower extremity , Tissue Tissue details: Bone marrow aspirate concentrate and Implanted device Implanted device details: CitraFix 3.5 mm anchors x 4, left lower extremity Special Medications: For anesthesia Estimated Blood Loss: 30 cc Fluids Replaced: Per anesthesia Specimen collected: Yes Description of specimen(s) removed: Achilles tendinosis, left lower extremity Description of surgery: Indications For Operation: Mrs. Montero is a 34-year-old female who was admitted to [facility] for left lower extremity surgery secondary to chronic pain for the past 6 months to 1 year. Patient did have surgery by an outside provider approximately 1 to 2 years ago and since the procedure the patient has had chronic pain to the left heel especially with walking and standing for long periods of time. 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 She does admit that her only pain relief is with rest but the second that she begins to weight-bear the pain starts to increase. Patient was initially seen in office by another provider who unfortunately is leaving the practice due to be closer with family and the patient was referred to my service for continued care and possible surgical intervention to left lower extremity due to Achilles tendon tendinopathy as well as plantar fasciitis pain. The patient has exhausted all conservative treatment consisting of stretching, massage, shoe gear modification, nonsteroid anti-inflammatories, steroid injections as well as [id number] orthotics and taping. Due to the patient's chronic pain an MRI was ordered to the left lower extremity which showed evidence of Achilles tendon thickening with insertional tendinopathy, inflamed bursitis as well as thickening of the plantar fascia band to left lower extremity. Educated the patient on conservative treatment versus surgical treatment and she elected to move forward with surgical treatment as we are going to do today. All risk and benefits were discussed the patient great detail. She did have surgical consultation in the office with chart review and consent signed. Due to chronic left lower extremity pain it was deemed necessary at this time to take the patient to the operating room to perform the above procedure to help decrease as well as possibly reduce her chronic pain. The nature of the problem, anticipated procedures, postop recovery/convalences and risk/complications include but not limited to infection, wound healing complications, digital amputation, hypertrophic scarring, numbness, tingling, chronic pain, CRPS, over and under correction, recurrence of deformity, DVT and or PE and the need for further surgery have been discussed in great detail with the patient. All ques (more content not included)... Normal [facility] Absolute lymphocyte countOrd ered By: Jameel Estrada on 04-21-2025 Lymphocytes Auto (Unsp spec) [#/Vol] 2.07 10*3/uL 0.83-4.51 [facility] Absolute neutrophil countOrd ered By: Jameel Estrada on 04-21-2025 Neutrophils (Bld) [#/Vol] 3.7 10*3/uL 2.0-7.7 [facility] Anion gap in Serum or Plasma Ordered By: Jameel Estrada on 04-21-2025 Anion gap [Moles/Vol] 10 mmol/L 5-[address] [facility] Automated lymphocyte count a s percentage of total leukocytesOrdered By: Jameel Estrada on 04-21-2025 Lymphocytes/100 WBC Auto (Unsp spec) 31.6 % 19-41 [facility] BUN/creatinine ratioOrdered By: Jameel Natalie on 04-21-2025 Urea nitrogen/Creatinine [Mass ratio] 18.2 mg/mg 10-20 [facility] Basophil percentageOrdered B y: Jameel Natalie on 04-21-2025 Basophils/100 WBC (Bld) 0.8 % 0-1 [facility] Bilirubin, totalOrdered By: Jameel Natalie on 04-21-2025 Bilirubin [Mass/Vol] 0.31 mg/dL 0.00-1.30 [facility] CBC W/Diff, Automatedon 03-25 Absolute Lymph 2.07 X10 3/uL Normal 0.83-4.51 [facility] Comment on above: Order Comment: Order Date: 04/21/25Order Info: 0184-1 - CBCD Performed By: #### L 100.0100, L500.4050, L501.9520, L501.9985 ####[facility] [address] [place], [address] Absolute Neut 3.7 X10 3/uL Normal 2.0-7.7 [facility] Comment on above: Order Comment: Order Date: 04/21/25Order Info: 0184-1 - CBCD Performed By: #### L 100.0100, L500.4050, L501.9520, L501.9985 ####[facility] [address] [place], [address] Basophils/100 WBC (Bld) 0.8 % Normal 0-1 [facility] Comment on above: Order Comment: Order Date: 04/21/25Order Info: 0184-1 - CBCD Performed By: #### L 100.0100, L500.4050, L501.9520, L501.9985 ####[facility] [address] [place], [address] Eosinophils/100 WBC (Bld) 4.9 % Normal 0-5 [facility] Comment on above: Order Comment: Order Date: 04/21/25Order Info: 0184-1 - CBCD Performed By: #### L 100.0100, L500.4050, L501.9520, L501.9985 ####[facility] [address] [place], [address] Erythrocyte distribution width (RBC) [Ratio] 13.6 % Normal 11.6-14.6 [facility] Comment on above: Order Comment: Order Date: 04/21/25Order Info: 0184-1 - CBCD Performed By: #### L 100.0100, L500.4050, L501.9520, L501.9985 ####[facility] [address] [place], [address] Hematocrit (Bld) [Volume fraction] 39.5 % Normal 37-47 [facility] Comment on above: Order Comment: Order Date: 04/21/25Order Info: 0184-1 - CBCD Performed By: #### L 100.0100, L500.4050, L501.9520, L501.9985 ####[facility] [address] [place], [address] Hemoglobin (Bld) [Mass/Vol] 13.0 g/dL Normal 12.0-15.0 [facility] Comment on above: Order Comment: Order Date: 04/21/25Order Info: 0184-1 - CBCD Performed By: #### L 100.0100, L500.4050, L501.9520, L501.9985 ####[facility] [address] [place], [address] IG% 0.300 Normal 0.0-0.9 [facility] Comment on above: Order Comment: Order Date: 04/21/25Order Info: 0184-1 - CBCD Result Comment: IG% - Immature Granulocytes (promyelocytes, myelocytes and metamyelocytes) > 1% indicates that a LEFT SHIFT is Present. Performed By: #### L 100.0100, L500.4050, L501.9520, L501.9985 ####[facility] [address] [place], [address] Lymphocytes/100 WBC (Bld) 31.6 % Normal 19-41 [facility] Comment on above: Order Comment: Order Date: 04/21/25Order Info: 0184-1 - CBCD Performed By: #### L 100.0100, L500.4050, L501.9520, L501.9985 ####[facility] [address] [place], [address] MCH (RBC) [Entitic mass] 30.0 pg Normal 27.0-32.0 [facility] Comment on above: Order Comment: Order Date: 04/21/25Order Info: 0184-1 - CBCD Performed By: #### L 100.0100, L500.4050, L501.9520, L501.9985 ####[facility] [address] [place], [address] MCHC (RBC) [Mass/Vol] 32.9 g/dL Normal 32-[address] [facility] Comment on above: Order Comment: Order Date: 04/21/25Order Info: 0184-1 - CBCD Performed By: #### L 100.0100, L500.4050, L501.9520, L501.9985 ####[facility] [address] [place], [address] MCV (RBC) [Entitic vol] 91.0 fL Normal 81-99 [facility] Comment on above: Order Comment: Order Date: 04/21/25Order Info: 0184-1 - CBCD Performed By: #### L 100.0100, L500.4050, L501.9520, L501.9985 ####[facility] [address] [place], [address] Monocytes/100 WBC (Bld) 6.6 % Normal 0-10 [facility] Comment on above: Order Comment: Order Date: 04/21/25Order Info: 0184-1 - CBCD Performed By: #### L 100.0100, L500.4050, L501.9520, L501.9985 ####[facility] [address] [place], [address] Neutrophils/100 WBC (Bld) 55.8 % Normal 47-70 [facility] Comment on above: Order Comment: Order Date: 04/21/25Order Info: 0184-1 - CBCD Performed By: #### L 100.0100, L500.4050, L501.9520, L501.9985 ####[facility] [address] [place], [address] Nucleated RBC (Bld) [#/Vol] 0 10*3/uL Normal 0-5 [facility] Comment on above: Order Comment: Order Date: 04/21/25Order Info: 0184-1 - CBCD Performed By: #### L 100.0100, L500.4050, L501.9520, L501.9985 ####[facility] [address] [place], [address] Platelet mean volume (Bld) [Entitic vol] 10.2 fL Normal 6.2-12.0 [facility] Comment on above: Order Comment: Order Date: 04/21/25Order Info: 0184-1 - CBCD Performed By: #### L 100.0100, L500.4050, L501.9520, L501.9985 ####[facility] [address] [place], [address] Platelets (Bld) [#/Vol] 340 10*3/uL Normal 150-450 [facility] Comment on above: Order Comment: Order Date: 04/21/25Order Info: 0184-1 - CBCD Performed By: #### L 100.0100, L500.4050, L501.9520, L501.9985 ####[facility] [address] [place], [address] RBC (Bld) [#/Vol] 4.34 10*6/uL Normal 4.2-5.4 [facility] Comment on above: Order Comment: Order Date: 04/21/25Order Info: 0184-1 - CBCD Performed By: #### L 100.0100, L500.4050, L501.9520, L501.9985 ####[facility] [address] [place], [address] RDW SD 46.1 fl High 35.1-43.9 [facility] Comment on above: Order Comment: Order Date: 04/21/25Order Info: 0184-1 - CBCD Performed By: #### L 100.0100, L500.4050, L501.9520, L501.9985 ####[facility] [address] [place], [address] WBC (Bld) [#/Vol] 6.6 10*3/uL Normal 4.4-11.0 [facility] Comment on above: Order Comment: Order Date: 04/21/25Order Info: 0184- - CBCD Performed By: #### L 100.0100, L500.4050, L501.9520, L501.9985 ####[facility] [address] [place], [address] Carbon dioxide, total [Moles /volume] in Central venous bloodOrdered By: Jameel Estrada on 04-21-2025 CO2 [Moles/Vol] 24.3 mmol/L 21.0-32.0 [facility] Chloride assayOrdered By: Cheryle Estrada on 04-21-2025 Chloride [Moles/Vol] 103 mmol/L 98-108 [facility] Comprehensive Metabolic Prof ilon 04-21-2025 Albumin [Mass/Vol] 4.4 g/dL Normal 3.5-5.0 [facility] Comment on above: Order Comment: Order Date: 04/21/25Order Info: 0786-1 - CMPOrder Info: 3016-3 - TSH Performed By: #### L 100.0100, L500.4050, L501.9520, L501.9985 ####[facility] [address] [place], [address] Albumin/Globulin [Mass ratio] 1.4 {ratio} Normal 0.9-2.4 [facility] Comment on above: Order Comment: Order Date: 04/21/25Order Info: 0786-1 - CMPOrder Info: 3016-3 - TSH Performed By: #### L 100.0100, L500.4050, L501.9520, L501.9985 ####[facility] [address] [place], [address] ALK PHOS 109 U/L High 35-104 [facility] Comment on above: Order Comment: Order Date: 04/21/25Order Info: 0786- - CMPOrder Info: 3 - TSH Performed By: #### L 100.0100, L500.4050, L501.9520, L501.9985 ####[facility] [address] [place], [address] ALT [Catalytic activity/Vol] 9 U/L Normal <=34 [facility] Comment on above: Order Comment: Order Date: 04/21/25Order Info: [id number] - CMPOrder Info: 3 - TSH Performed By: #### L 100.0100, L500.4050, L501.9520, L501.9985 ####[facility] [address] [place], [address] AST [Catalytic activity/Vol] 15 U/L Normal <=31 [facility] Comment on above: Order Comment: Order Date: 04/21/25Order Info: 0786 - CMPOrder Info: 3 - TSH Performed By: #### L 100.0100, L500.4050, L501.9520, L501.9985 ####[facility] [address] [place], [address] Bilirubin [Mass/Vol] 0.31 mg/dL Normal 0.00-1.30 [facility] Comment on above: Order Comment: Order Date: 04/21/25Order Info: 0786 - CMPOrder Info: 3 - TSH Performed By: #### L 100.0100, L500.4050, L501.9520, L501.9985 ####[facility] [address] [place], [address] BUN/CRE 18.2 RATIO Normal 10-20 [facility] Comment on above: Order Comment: Order Date: 04/21/25Order Info: 0786-1 - CMPOrder Info: 3016-3 - TSH Performed By: #### L 100.0100, L500.4050, L501.9520, L501.9985 ####[facility] [address] [place], [address] Calcium [Mass/Vol] 9.5 mg/dL Normal 7.6-11.0 [facility] Comment on above: Order Comment: Order Date: 04/21/25Order Info: 0786-1 - CMPOrder Info: 3015-3 - TSH Performed By: #### L 100.0100, L500.4050, L501.9520, L501.9985 ####[facility] [address] [place], [address] Chloride [Moles/Vol] 103 mmol/L Normal 98-108 [facility] Comment on above: Order Comment: Order Date: 04/21/25Order Info: 0786- - CMPOrder Info: 3015-3 - TSH Performed By: #### L 100.0100, L500.4050, L501.9520, L501.9985 ####[facility] [address] [place], [address] CO2 [Moles/Vol] 24.3 mmol/L Normal 21.0-32.0 [facility] Comment on above: Order Comment: Order Date: 04/21/25Order Info: 0786-1 - CMPOrder Info: 3015-3 - TSH Performed By: #### L 100.0100, L500.4050, L501.9520, L501.9985 ####[facility] [address] [place], [address] Creatinine [Mass/Vol] 0.71 mg/dL Normal 0.70-1.[address] [facility] Comment on above: Order Comment: Order Date: 04/21/25Order Info: 0786-1 - CMPOrder Info: 3016-3 - TSH Performed By: #### L 100.0100, L500.4050, L501.9520, L501.9985 ####[facility] [address] [place], [address] GAP 10 Normal 5-15 [facility] Comment on above: Order Comment: Order Date: 04/21/25Order Info: 0786-1 - CMPOrder Info: 3016-01 - TSH Performed By: #### L 100.0100, L500.4050, L501.9520, L501.9985 ####[facility] [address] [place], [address] GFR/1.73 sq M.predicted among non-blacks MDRD (S/P/Bld) [Vol rate/Area] 115 mL/min/{1.73_m2} Normal >60 [facility] Comment on above: Order Comment: Order Date: 04/21/25Order Info: 0786-1 - CMPOrder Info: 3016-01 - TSH Result Comment: mL/m in/1.73m2 CKD-EPI Creatinine Equation (2020) Performed By: #### L 100.0100, L500.4050, L501.9520, L501.9985 ####[facility] [address] [place], [address] Globulin (S) [Mass/Vol] 3.2 g/dL Normal 2.2-4.2 [facility] Comment on above: Order Comment: Order Date: 04/21/25Order Info: 0786-1 - CMPOrder Info: 3016-01 - TSH Performed By: #### L 100.0100, L500.4050, L501.9520, L501.9985 ####[facility] [address] [place], [address] Glucose [Mass/Vol] 88 mg/dL Normal 70-99 [facility] Comment on above: Order Comment: Order Date: 04/21/25Order Info: 0786-1 - CMPOrder Info: 3016-01 - TSH Performed By: #### L 100.0100, L500.4050, L501.9520, L501.9985 ####[facility] [address] [place], [address] Potassium [Moles/Vol] 4.4 mmol/L Normal 3.3-5.[address] [facility] Comment on above: Order Comment: Order Date: 04/21/25Order Info: 0786-1 - CMPOrder Info: 3016-01 - TSH Performed By: #### L 100.0100, L500.4050, L501.9520, L501.9985 ####[facility] [address] [place], [address] Sodium [Moles/Vol] 138 mmol/L Normal 133-145 [facility] Comment on above: Order Comment: Order Date: 04/21/25Order Info: 0786-1 - CMPOrder Info: 3016-01 - TSH Performed By: #### L 100.0100, L500.4050, L501.9520, L501.9985 ####[facility] [address] [place], [address] T PROT 7.6 g/dL Normal 5.9-8.4 [facility] Comment on above: Order Comment: Order Date: 04/21/25Order Info: 0786-1 - CMPOrder Info: 3016-01 - TSH Performed By: #### L 100.0100, L500.4050, L501.9520, L501.9985 ####[facility] [facility] [address] [place], [address] Urea nitrogen [Mass/Vol] 13 mg/dL Normal 4-19 [facility] Comment on above: Order Comment: Order Date: 04/21/25Order Info: [id number] - CMPOrder Info: 3 - TSH Performed By: #### L 100.0100, L500.4050, L501.9520, L501.9985 ####[facility] [id number] [place], [place], [id number] Eosinophil percentageOrdered By: Jameel Natalie on 04-21-2025 Eosinophils/100 WBC (Bld) 4.9 % 0-5 [facility] Erythrocyte distribution wid th ratioOrdered By: [facility] on 04-21-2025 Erythrocyte distribution width (RBC) [Ratio] 13.6 % 11.6-14.6 [facility] Erythrocyte distribution wid th standard deviationOrdered By: [facility] Natalie on 04-21-2025 Erythrocyte distribution width (RBC) [Ratio] 46.1 fl High 35.1-43.9 [facility] Glomerular filtration rate ( GFR) estimation/1.73 sq m using serum, plasma, or whole bOrdered By: [facility] Natalie on 04-21-2025 GFR/1.73 sq M.predicted among non-blacks MDRD (S/P/Bld) [Vol rate/Area] 115 mL/min/{1.73_m2} >60 [facility] Comment on above: mL/min/1.73m2 CKD-EP I Creatinine Equation (2020) Hematocrit Auto (Bld) [Volum e fraction]Ordered By: [facility] Natalie on 04-21-2025 Hematocrit (Bld) [Volume fraction] 39.5 % 37-47 [facility] Hemoglobin A1con 04-21-2025 HbA1c (Bld) [Mass fraction] 5.5 % Normal <=5.6 [facility] Comment on above: Order Comment: Order Date: 04/21/25Order Info: [id number] - A1C Result Comment: Norm al < 5.7 % Prediabetic 5.7 - 6.4 % Diabetic >or= 6.5 % Please note range changes. Performed By: #### L 100.0100, L500.4050, L501.9520, L501.9985 ####[facility] [address] [place], [place], [phone] Hemoglobin A1c percentageOrd ered By: Jameel Natalie on 04-21-2025 HbA1c (Bld) [Mass fraction] 5.5 % <5.7 [facility] Comment on above: Normal < 5.7 % Predi abetic 5.7 - 6.4 % Diabetic >or= 6.5 % Please note range changes. Hemoglobin measurementOrdere d By: Jameel Estrada on 04-21-2025 Hemoglobin (Bld) [Mass/Vol] 13.0 g/dL 12.0-15.0 [facility] Immature granulocytes/100 WB C Auto (Bld)Ordered By: Jameel Estrada on 04-21-2025 Immature granulocytes/100 WBC (Bld) 0.300 % 0.0-0.9 [facility] Comment on above: IG% - Immature Granu locytes (promyelocytes, myelocytes and metamyelocytes) > 1% indicates that a LEFT SHIFT is Present. Laboratory - Chemistry and C hemistry - challengeOrdered By: Jameel Estrada on 04-21-2025 AST [Catalytic activity/Vol] 15 U/L <32 [facility] MCV (mean corpuscular volume ) determinationOrdered By: Jameel Estrada on 04-21-2025 MCV (RBC) [Entitic vol] 91.0 fL 81-99 [facility] Mean corpuscular hemoglobin (MCH) determinationOrdered By: [facility] Estrada on 04-21-2025 MCH (RBC) [Entitic mass] 30.0 pg 27.0-32.0 [facility] Mean corpuscular hemoglobin concentration (MCHC) determinationOrdered By: Jameel Estrada on 04-21-2025 MCHC (RBC) [Mass/Vol] 32.9 g/dL 32-[address] [facility] Mean platelet volume determi nationOrdered By: Jameel Estrada on 04-21-2025 Platelet mean volume (Bld) [Entitic vol] 10.2 fL 6.2-12.0 [facility] Monocyte percentageOrdered B y: aJmeel Estrada on 04-21-2025 Monocytes/100 WBC (Bld) 6.6 % 0-10 [facility] Neutrophil percentageOrdered By: Jameel Estrada on 04-21-2025 Neutrophils/100 WBC (Bld) 55.8 % 47-70 [facility] Nucleated red blood cell per centageOrdered By: Jameel Estrada on 04-21-2025 Nucleated RBC/100 WBC (Bld) [Ratio] 0 % 0-5 [facility] Platelet countOrdered By: Cheryle Estrada on 04-21-2025 Platelets (Bld) [#/Vol] 340 10*3/uL 150-450 [facility] Potassium measurement (mass/ volume)Ordered By: Jameel Estrada on 04-21-2025 Potassium (Unsp spec) [Mass/Vol] 4.4 mmol/L 3.3-5.1 [facility] RBC Auto (Bld) [#/Vol]Ordere d By: Jameel Estrada on 04-21-2025 RBC (Bld) [#/Vol] 4.34 10*6/uL 4.2-5.4 [facility] Serum creatinine measurement (mass/volume)Ordered By: Jameel Estrada on 04-21-2025 Creatinine [Mass/Vol] 0.71 mg/dL 0.70-1.[address] [facility] Serum globulin measurementOr dered By: Jameel Estrada on 04-21-2025 Globulin (S) [Mass/Vol] 3.2 g/dL 2.2-4.2 [facility] Serum glucose measurement (m ass/volume)Ordered By: Jameel Estrada on 04-21-2025 Glucose [Mass/Vol] 88 mg/dL 70-99 [facility] Serum or plasma alanine mcguire otransferase (ALT) measurementOrdered By: Jameel Estrada on 04-21-2025 ALT [Catalytic activity/Vol] 9 U/L <35 [facility] Serum or plasma albumin cornel urement (mass/volume)Ordered By: Jameel Estrada on 04-21-2025 Albumin [Mass/Vol] 4.4 g/dL 3.5-5.0 [facility] Serum or plasma albumin/glob ulin mass ratioOrdered By: Jameel Estrada on 04-21-2025 Albumin/Globulin [Mass ratio] 1.4 {ratio} 0.9-2.4 [facility] Serum or plasma alkaline kee sphatase measurementOrdered By: Jameel Estrada on 04-21-2025 ALP [Catalytic activity/Vol] 109 U/L High 35-104 [facility] Serum or plasma calcium cornel urement (mass/volume)Ordered By: Jameel Estrada on 04-21-2025 Calcium [Mass/Vol] 9.5 mg/dL 7.6-11.0 [facility] Serum or plasma urea nitroge n measurement (mass/volume)Ordered By: Jameel sEtrada on 04-21-2025 Urea nitrogen [Mass/Vol] 13 mg/dL 4-19 [facility] Sodium levelOrdered By: Joyce Estrada on 04-21-2025 Sodium [Moles/Vol] 138 mmol/L 133-145 [facility] TSH DL <= 0.005 mIU/L QnOrde red By: Jameel Estrada on 04-21-2025 TSH Qn 2.550 uIU/mL 0.300-4.200 [facility] Thyroid Stim Hormone (TSH)on 04-21-2025 TSH 2.550 uIU/mL Normal 0.300-4.200 [facility] Comment on above: Order Comment: Order Date: 04/21/25Order Info: [id number] - CMPOrder Info: [id number] - TSH Performed By: #### L 100.0100, L500.4050, L501.9520, L501.9985 ####[facility] [address] [place], [place], [id number] Total proteinOrdered By: Toma Estrada on 04-21-2025 Protein [Mass/Vol] 7.6 g/dL 5.9-8.4 [facility] Vitamin D,25 Hydroxyon 04-21 Vitamin D 25-OH 17.9 ng/mL Low 30-100 [facility] Comment on above: Order Comment: Order Date: 04/21/25Order Info: [id number] - CMPOrder Info: [id number] - TSH Result Comment: Teresa min D Status Deficiency: <20 ng/mL (50nmol/L) Insufficiency: 20-30 ng/mL (50-75 nmol/L) Sufficiency: 30-100 ng/mL (75-250 nmol/L) Toxicity: >100 ng/mL (>250 nmol/L) Performed By: #### L 506.1001 ####[facility] [address] [place], [place], [phone] White blood cell (WBC) count Ordered By: Jameel Estrada on 04-21-2025 WBC (Bld) [#/Vol] 6.6 10*3/uL 4.4-11.0 [facility] MR/PATMisha 04-14-2025 MR/PAT.[facility] Medical Records Department [address] [place] [address] PAT - Anesthesia 04/14/25 1345 MR#: [id number] Acct: [id number] Name: PRERNA MONTERO Rep #: [id number] : 1990 34 From: Oswaldo Pineda MD PCP: Dr. 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 When Was Last Pacemaker Check QUESTION #4 FULL TEXT: You/Your Family Experience fever (hyperthermia) with Anesthesia Last Oral Intake Last Oral intake: Last Oral Intake NPO since Meds taken in AM with sips of water? 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 Female Yes 04/14/25 12:54 HX of Motion Sickness No 04/14/25 12:54 HX of N/V After Surgery No 04/14/25 12:54 Non-Smoker Yes 04/14/25 12:54 Duration of Surgery greater Yes 04/14/25 12:54 than 60 minutes Number of Risk Factors 3 04/14/25 12:54 PONV Score Moderate Risk 04/14/25 12:54 Height Weight Height Weight: Anesthesia: Height Weight Height 5 ft 3 in 02/23/24 10:24 Respiratory Assessment Respiratory Assessment - otr driver: Respiratory Tract Infection Hx - otr driver Hx Respiratory Tract Infection No 04/14/25 12:54 STOP Sleep Apnea STOP Sleep Apnea - otr driver: STOP Sleep Apnea - otr driver Hx Hypertension No 04/14/25 12:54 Hx Sleep Apnea No 04/14/25 12:54 CPAP BIPAP Do you snore loudly (louder No 04/14/25 12:54 than talking or can be heard Do you often feel tired/ No 04/14/25 12:54 fatigued/ sleepy during daytime? Has anyone observed you stop No 04/14/25 12:54 breathing during sleep? STOP Results Negative 04/14/25 12:54 QUESTION #5 FULL TEXT : Do you snore loudly (louder than talking or can be heard through closed doors)? 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 confused, unrespo /Reproduction History /Reproductive History - otr driver: /Reproductive Hx- otr driver Hx Now Gestational Age (in weeks): EDC: Hx Hx Para Hx Section SAB No 04/14/25 12:54 PFSH Medical History (Updated 04/14/25 @ 13:04 by Gissel Sifuentes) Easy bruising Hoarseness Airway problem Heartburn History of edema History of pain when walking History of echocardiogram Patent foramen ovale Incomplete right bundle branch block (RBBB) Wears glasses History of stress test Migraine headache Injury of back Non-smoker Asthma Cardiology follow-up encounter Hx of fracture of ankle Home Medications ???Medication ???Instructions ???Recorded ???Last Taken ???Type albuterol sulfate 90 mcg/actuation 2 puff inhalation Q4H PRN PRN 10/01/19 History aerosol inhaler (Ventolin HFA) Shortness Of Breath 2 puffs albuterol sulfate 2.5 mg/3 mL 2.5 mg inhalation Q4H PRN SOB 11/24 07/14 Unknown History (0.083 %) solution for nebulization fluticasone furoate 100 1 ea inhalation DAILY 04/14/25 Unk nown History mcg-vilanterol 25 mcg/dose inhalation powder (Breo Ellipta) levo (more content not included)... Normal [facility] MR ANKLE W/WO LTon MR ANKLE W/WO LT [place] [address] Patient: PRERNA MONTERO Phone#: : 1990 Age: 34 Gender: F Pt. Type: Out Account: [id number] [place] [facility] [place] Ordering: PRASANTH NUÑEZ Exam Date: 01/20/2025/10:52 Family Phys: JAMEEL ESTRADA Charge Code: 579638 Physician: Sunflower Order #: [id number] Dose#: CORRECTION to the PROCEDURE title. It should read as follows: MRI ANKLE LEFT WITHOUT AND WITH CONTRAST. The FINDINGS and CONCLUSION sections reference the contrast enhanced images. No edits needed to these sections. Corrected on: 02/21/2025; PROCEDURE: MRI ANKLE LT WITHOUT AND WITH CONTRAST COMPARISON: None. INDICATIONS: Chronic pain to plantar and posterior heel TECHNIQUE: A complete multi-planar examination was performed without contrast. FINDINGS: LATERAL LIGAMENTS AND SOFT TISSUE STRUCTURES TALOFIBULAR: There is an os subfibulare, series 5, image 15, within the anterior talofibular ligament. CALCANEOFIBULAR: Normal. TIBIOFIBULAR: Normal. PERONEAL TENDONS:Normal. No subluxation, tendinopathy, or tear. MEDIAL LIGAMENTS AND SOFT TISSUE STRUCTURES DELTOID COMPLEX: Normal. SPRING LIGAMENT: Normal. TARSAL TUNNEL: Normal. FLEXORS: There is fluid surrounding the flexor hallucis longus tendon. The tendon is maintained in shape and signal. The flexor digitorum longus and tibialis posterior tendons are unremarkable. OTHER TENDONS EXTENSORS: Normal. ACHILLES: The proximal Achilles is thickened. Above the level of the ankle there is T2 hyperintense signal in the subcutaneous tissues, consistent with surgical scar, series 9, image 13. There is thickening of the underlying Achilles tendon at the myotendinous junction, series 3, image 33. PLANTAR FASCIA: Plantar fascia is intact. There is a small amount of fluid adjacent to the plantar fascia attachment to the calcaneus, series 6, image 12. The plantar fascia is maintained in size and signal. Continued Report - Page 2 of 2 Patient: PRERNA MONTERO Phone#: : 1990 Age: 34 Gender: F Pt. Type: Out Account: [id number] [place] [facility] [place] Ordering: PRASANTH NUÑEZ Exam Date: 01/20/2025/10:52 Family Phys: JAMEEL ESTRADA Charge Code: 922937 Physician: Sunflower Order #: [id number] Dose#: SINUS TARSI: Normal. No edema or synovitis to suggest sinus tarsi syndrome. BONES: Normal. No arthropathy, bone edema, osteochondral defect, or other bone lesion. EFFUSIONS: There is a small joint effusion posterior to the ankle. OTHER: There is T2 hyperintense signal in the medial posterior heel fat pad resulting in effacement of the subcutaneous tissues, series 6, image 15 and series 5 image 15. The area edema measures 1.1 x 2.7 x 1.5 cm. There is some involvement of the subcutaneous fat at the medial plantar surface of the heel, series 8, image 10. On post-contrast imaging there is associated enhancement corresponding to the area of T2 signal hyperintensity. On postcontrast imaging there are no defined borders. CONCLUSION: 1. Abnormal signal and enhancement in the heel fat pad. The appearance favors adventitious bursitis however the differential also includes glomangioma. Dictated by: Neyda Clark MD on 01/24/2025 at 16:12 Approved by: Neyda Clark MD on 02/09/2025 at 16:02 Dictated by: Neyda Clark MD on 02/21/2025 at 16:14 Approved by: Neyda Clark MD on 02/21/2025 at 16:14 Normal [facility] Inital Evaluation (1) - PTon 08-12-2024 Inital Evaluation (1) - PT [facility] Physical Therapy [facility] [address] [place] [address] / REHABILITATION SERVICES INITIAL EVALUATION MR#: [id number] Acct: [id number] Name: PRERNA MONTERO Rep #: [id number] : 1990 33 From: Opal Gardiner PT Cert. MDT Referring Dr.: Dr. Bri Tang MD Status: REG RCR Insurance: [facility] SELF PAY INSURANCE Patient's Visit Information Visit Information Visit Information: PRERNA MONTERO is a 33 year old F referred to Physical Therapy by Dr. Bri Tang MD with a diagnosis of PELVIC PAIN, PROLAPSE AND VOIDING DYSFUNCTION.. Date of Evaluation: 07/06/24 Physical Therapist: Opal Gardiner PT, Cert MDT Visit Plan Frequency: 1x/Week Duration: 2-4 Months Plan: MANUAL PF THERAPY FOR LENGTHENING/RELAXATION TRAINING. HEALTHY BLADDER HABIT EDUCATION. CORE STRENGTHENING. OLVIN LE ROM, STRETCHING AND STRENGTHENING. POSTURE TRAINING. HEP INSTRUCTION. 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 PATIENT DENIES URINARY INCONTINENCE. Present since: FIRST WEEK IN APRIL 2024 Pain Scale: WORST 9/10, LEAST 2/10 Currently: 2/10 Is it getting better, worse or staying the same: WORSENING Commenced as a result of: LIFTED A TOTE AND STARTED FEELING PAIN IN ABDOMEN AND WHEN TRIED TO CONTINUE LIFTING THE PAIN GOT WORSE. MOVED IN MARCH 2024. MOVED A LOT OF BOXES AND HEAVY THINGS LIKE THE refrigerator. ONLY AND SELF DID THE MOVING. Symptoms at onset: REAL BAD PAIN IN ABDOMEN LIKE PERIOD CRAMPS. Worse: CONSISTENTLY LIFTING, SOMETIMES VOIDING - URINATING AND HAVING BOWEL MVMTS, SOMETIMES RANDOMLY THE PAIN HITS WHEN STILL IN SITTING OR LYING DOWN AT NIGHT OR DURING A NAP. Better: NOTHING Disturbed sleep: YES - DUE TO PAIN Previous history/Previous treatment: 2019 OR [address] PINEDA FOR ENDOMETRIOSIS. PARTIAL HYSTERECTOMY [address] DR. [place]OR[place] DOMINGUEZ. ONE VAGINAL FOLLOWED BY 6 STITCHES. Treatment this episode: NONE Coughing/sneezing/straini ng: STRAINING CAUSES PAIN. DENIES PAIN OR UI WITH COUGHING AND SNEEZING. Gait: NORMAL How long can you delay the need to urinate: LONG NEEDED TO GET TO THE BATHROOM IN TIME BUT DOES INCREASE INTRA-ABDOMINAL PAIN SOMETIMES. Prolapse (Falling out feeling): NO Frequency of Urination: EVERY 3 TO 4 HOURS Ability to stop urine flow: YES Ability to initiate urine stream: YES Dyspareunia: YES Bowel Incontinence: NO Accidents: FALL 2011 - FELL 4-5 FEET ONTO CONCRETE ONTO BACK - WENT NUMB IN LEGS - FX'D TAILBONE - NERVE DAMAGE NECK AND BACK - CRUSHED VERTEBRAE - SURGERY RECOMMENDED BUT PATIENT OPTED NOT TO HAVE SURGERY. STATES SHE HAS CHRONIC BACK PAIN BUT SHE IS VERY ACTIVE AND DOES NOT LET THE PAIN STOP HER. Unexplained weight loss: NO Imaging: NO RECENT LOWER BODY X-RAYS, MRI'S OR CAT SCAN'S. PMH/Recent major surgery: ASTHMA Objective Objective: Sitting/Standing Posture: FAIR. MILD ANTERIOR PELVIC TILT. NO RELEVANT LATERAL SHIFT. Active Correction of posture: NE Other Observations: INDEP GAIT AND TRANSFERS Sensory deficit: OLVIN LE LIGHT TOUCH SENSATION GROSSLY INTACT AND SYMMETRICAL ROM deficit: OLVIN LE HIP FLEXOR, HIP ER AND CALF TIGHTNESS. Motor deficit: OLVIN LE'S GROSSLY 5/5. PELVIC FLOOR STRENGTH 3/5 X 4 X 5 SEC WITH INTERNAL MANUAL VAGINAL TESTING - PATIENT DENIES PAIN DURING OR AFTER TESTING. Reflexes: 2+ OLVIN LE'S. Dural Signs: NEGATIVE OLVIN LE'S Lumbar mvmt loss: flex - NIL ext - MIN TO MOD R SG - MIN L SG - MIN PATIENT DENIES PAIN WITH LUMBAR ROM TESTING ALL PLANES Core strength: FAIR Palpation: NO ACUTE LUMBAR OR SACRAL TENDERNESS. MILD PELVIC FLOOR TENDERNESS, TIGHTNESS AND TRIGGER POINTS WITH INTERNAL MANUAL VAGINAL PALPATION THAT DOES NOT REMAIN WORSE A RESULT OF TESTING. FUNCTIONAL SCREEN: Incontinence Impact Questionnaire Score: 0 Urogenital Distress Inventory Score: 3 Goals Goal 1:: DECREASE C/O ABDOMINAL/PELVIC PAIN BY AT LEAST 75% TO EASE ADL'S. Goal Time Frame: 4-6 Weeks Goal 2:: PATIENT WILL BE ABLE TO RELAX PELVIC FLOOR TO EASE VOIDING Goal Time Frame: 6-8 Weeks Goal 3:: PATIENT WILL BE INDEP WITH A HEP FOR CONTINUED IMRPOVEMENT ONCE FORMAL PHYSICAL THERAPY CONCLUDES. Goal Time Frame: 6-8 Weeks Rehabilitation Potential Physical Therapy Diagnosis: PELVIC FLOOR WEAKNESS, TIGHTNESS AND TENDERNESS. CORE WEAKNESS AND LE STIFFNESS. Rehabilitation Potential: Good Anticipated Interventions Patient/Client Instruction: Educate patient on: Condition, Plan of Care and Risk Factors For the Purpose of:: To improve self management Therapeutic Exercise to Include: Strength training, Postural training, Flexibilty training and Relaxation training For the Purpose of:: To decrease pain, To improve muscle performance and motor function, To improve ability to perform ADL's, To incre (more content not included)... Normal [facility] Insulin Levelon 05-14-2024 INSULIN,FASTING 9.5 uIU/mL Normal 2.6-24.9 [facility] Comment on above: Result Comment: Perf ormed at: - [facility] [address] [id number] Make Ready Worker: Lonny Hawthorne PhD, Phone: [phone] Performed By: #### L 501.9985, L100.0100, L506.1000, L3300.3500, L500.4050, L506.0400, L501.9520 ####[facility] [id number] [place], [address] CBC W/Diff, Automatedon 04-24 Absolute Lymph 2.08 X10 3/uL Normal 0.83-4.51 [facility] Comment on above: Performed By: #### L 501.9985, L100.0100, L506.1000, L3300.3500, L500.4050, L506.0400, L501.9520 #### [facility] Laboratory [address] [place], [address] Absolute Neut 4.1 X10 3/uL Normal 2.0-7.7 [facility] Comment on above: Performed By: #### L 501.9985, L100.0100, L506.1000, L3300.3500, L500.4050, L506.0400, L501.9520 #### [facility] [address] [place], [address] Basophils/100 WBC (Bld) 0.6 % Normal 0-1 [facility] Comment on above: Performed By: #### L 501.9985, L100.0100, L506.1000, L3300.3500, L500.4050, L506.0400, L501.9520 #### [facility] [address] [place], [address] Eosinophils/100 WBC (Bld) 3.3 % Normal 0-5 [facility] Comment on above: Performed By: #### L 501.9985, L100.0100, L506.1000, L3300.3500, L500.4050, L506.0400, L501.9520 #### [facility] [address] [place], [address] Erythrocyte distribution width (RBC) [Ratio] 13.5 % Normal 11.6-14.6 [facility] Comment on above: Performed By: #### L 501.9985, L100.0100, L506.1000, L3300.3500, L500.4050, L506.0400, L501.9520 #### [facility] [address] [place], [address] Hematocrit (Bld) [Volume fraction] 39.9 % Normal 37-47 [facility] Comment on above: Performed By: #### L 501.9985, L100.0100, L506.1000, L3300.3500, L500.4050, L506.0400, L501.9520 #### [facility] [address] [place], [address] Hemoglobin (Bld) [Mass/Vol] 13.0 g/dL Normal 12.0-15.0 [facility] Comment on above: Performed By: #### L 501.9985, L100.0100, L506.1000, L3300.3500, L500.4050, L506.0400, L501.9520 #### [facility] [facility] [address] [place], [address] IG% 0.300 Normal 0.0-0.9 [facility] Comment on above: Result Comment: IG% - Immature Granulocytes (promyelocytes, myelocytes and metamyelocytes) > 1% indicates that a LEFT SHIFT is Present. Performed By: #### L [id number], L100.0100, L506.1000, L3300.3500, L500.4050, L506.0400, [id number] #### [facility] [address] [place] [place], [address] Lymphocytes/100 WBC (Bld) 30.2 % Normal 19-41 [facility] Comment on above: Performed By: #### L [id number], L100.0100, L506.1000, L3300.3500, L500.4050, L506.0400, [id number] #### [facility] [address] [place], [address] MCH (RBC) [Entitic mass] 29.5 pg Normal 27.0-32.0 [facility] Comment on above: Performed By: #### L [id number], L100.0100, L506.1000, L3300.3500, L500.4050, L506.0400, [id number] #### [facility] [address] [place], [address] MCHC (RBC) [Mass/Vol] 32.6 g/dL Normal 32-[address] [facility] Comment on above: Performed By: #### L [id number], L100.0100, L506.1000, L3300.3500, L500.4050, L506.0400, [id number] #### [facility] [address] [place], [address] MCV (RBC) [Entitic vol] 90.5 fL Normal 81-99 [facility] Comment on above: Performed By: #### L [id number], L100.0100, L506.1000, L3300.3500, L500.4050, L506.0400, [id number] #### [facility] [address] [place], [address] Monocytes/100 WBC (Bld) 6.5 % Normal 0-10 [facility] Comment on above: Performed By: #### L 501.9985, L100.0100, L506.1000, L3300.3500, L500.4050, L506.0400, [id number] #### [facility] [address] [place], [address] Neutrophils/100 WBC (Bld) 59.1 % Normal 47-70 [facility] Comment on above: Performed By: #### L [id number], L100.0100, L506.1000, L3300.3500, L500.4050, L506.0400, [id number] #### [facility] [address] [place], [address] Nucleated RBC (Bld) [#/Vol] 0 10*3/uL Normal 0-5 [facility] Comment on above: Performed By: #### L [id number], L100.0100, L506.1000, L3300.3500, L500.4050, L506.0400, [id number] #### [facility] [address] [place], [address] Platelet mean volume (Bld) [Entitic vol] 10.2 fL Normal 6.2-12.0 [facility] Comment on above: Performed By: #### L [id number], L100.0100, L506.1000, L3300.3500, L500.4050, L506.0400, [id number] #### [facility] [address] [place], [address] Platelets (Bld) [#/Vol] 379 10*3/uL Normal 150-450 [facility] Comment on above: Performed By: #### L [id number], L100.0100, L506.1000, L3300.3500, L500.4050, L506.0400, [id number] #### [facility] [address] [place], [address] RBC (Bld) [#/Vol] 4.41 10*6/uL Normal 4.2-5.4 [facility] Comment on above: Performed By: #### L [id number], L100.0100, L506.1000, L3300.3500, L500.4050, L506.0400, [id number] #### [facility] [address] [place], [address] RDW SD 45.1 fl High 35.1-43.9 [facility] Comment on above: Performed By: #### L 501.9985, L100.0100, L506.1000, L3300.3500, L500.4050, L506.0400, [id number] #### [facility] [address] [place], [address] WBC (Bld) [#/Vol] 6.9 10*3/uL Normal 4.4-11.0 [facility] Comment on above: Performed By: #### L [id number], L100.0100, L506.1000, L3300.3500, L500.4050, L506.0400, [id number] #### [facility] [address] [place], [address] Comprehensive Metabolic Prof [facility] 05-12-2024 Albumin [Mass/Vol] 3.8 g/dL Normal 3.2-5.0 [facility] Comment on above: Performed By: #### L [id number], L100.0100, L506.1000, L3300.3500, L500.4050, L506.0400, [id number] #### [facility] [address] [place], [address] Albumin/Globulin [Mass ratio] 0.9 {ratio} Normal 0.9-2.4 [facility] Comment on above: Performed By: #### L [id number], L100.0100, L506.1000, L3300.3500, L500.4050, L506.0400, [id number] #### [facility] [address] [place], [address] ALK P 117 U/L Normal 45-117 [facility] Comment on above: Performed By: #### L 501.9985, L100.0100, L506.1000, L3300.3500, L500.4050, L506.0400, [id number] #### [facility] [address] [place], [address] ALT [Catalytic activity/Vol] 19 U/L Normal 13-56 [facility] Comment on above: Performed By: #### L 501.9985, L100.0100, L506.1000, L3300.3500, L500.4050, L506.0400, [id number] #### [facility] [address] [place], [address] AST [Catalytic activity/Vol] 16 U/L Normal 15-37 [facility] Comment on above: Performed By: #### L 501.9985, L100.0100, L506.1000, L3300.3500, L500.4050, L506.0400, [id number] #### [facility] [address] [place], [address] Bilirubin [Mass/Vol] 0.30 mg/dL Normal 0.20-1.00 [facility] Comment on above: Result Comment: For patients on eltrombopag therapy, use of Dimension [place] TBIL is not recommended. Performed By: #### L 501.9985, L100.0100, L506.1000, L3300.3500, L500.4050, L506.0400, [id number] #### [facility] [address] [place], [address] BUN/CRE 21.0 RATIO High 10-20 [facility] Comment on above: Performed By: #### L 501.9985, L100.0100, L506.1000, L3300.3500, L500.4050, L506.0400, [id number] #### [facility] [address] [place], [address] CA,Total 9.4 mg/dL Normal 8.5-10.1 [facility] Comment on above: Performed By: #### L 501.9985, L100.0100, L506.1000, L3300.3500, L500.4050, L506.0400, [id number] #### [facility] [address] [place], [address] Chloride [Moles/Vol] 104 mmol/L Normal 98-107 [facility] Comment on above: Performed By: #### L 501.9985, L100.0100, L506.1000, L3300.3500, L500.4050, L506.0400, [id number] #### [facility] [address] [place], [address] CO2 [Moles/Vol] 24.0 mmol/L Normal 21.0-32.0 [facility] Comment on above: Performed By: #### L 501.9985, L100.0100, L506.1000, L3300.3500, L500.4050, L506.0400, [id number] #### [facility] [address] [place], [address] Creatinine [Mass/Vol] 0.90 mg/dL Normal 0.55-1.[address] [facility] Comment on above: Result Comment: The validity of the calculated GFR GFRAA in patients over 70 years has not been determined. Clinical correlation is essential. Performed By: #### L 501.9985, L100.0100, L506.1000, L3300.3500, L500.4050, L506.0400, [id number] #### [facility] [address] [place], [address] EST GFR - AA 92 mL/min Normal >60 [facility] Comment on above: Result Comment: Afri can Ivorian GFR Calc Performed By: #### L 501.9985, L100.0100, L506.1000, L3300.3500, L500.4050, L506.0400, [id number] #### [facility] [address] [place], [address] GAP 10 Normal 5-15 [facility] Comment on above: Performed By: #### L 501.9985, L100.0100, L506.1000, L3300.3500, L500.4050, L506.0400, [id number] #### [facility] [address] [place], [address] GFR/1.73 sq M.predicted among non-blacks MDRD (S/P/Bld) [Vol rate/Area] 76 mL/min/{1.73_m2} Normal >60 [facility] Comment on above: Result Comment: Non- GFR Calc Performed By: #### L 501.9985, L100.0100, L506.1000, L3300.3500, L500.4050, L506.0400, [id number] #### [facility] [address] [place], [address] Globulin (S) [Mass/Vol] 4.1 g/dL Normal 2.2-4.2 [facility] Comment on above: Performed By: #### L 501.9985, L100.0100, L506.1000, L3300.3500, L500.4050, L506.0400, [id number] #### [facility] [address] [place], [address] Glucose [Mass/Vol] 96 mg/dL Normal 74-106 [facility] Comment on above: Performed By: #### L 501.9985, L100.0100, L506.1000, L3300.3500, L500.4050, L506.0400, [id number] #### [facility] [address] [place], [address] Potassium [Moles/Vol] 4.0 mmol/L Normal 3.5-5.[address] [facility] Comment on above: Performed By: #### L 501.9985, L100.0100, L506.1000, L3300.3500, L500.4050, L506.0400, [id number] #### [facility] [address] [place], [address] Sodium [Moles/Vol] 138 mmol/L Normal 136-145 [facility] Comment on above: Performed By: #### L 501.9985, L100.0100, L506.1000, L3300.3500, L500.4050, L506.0400, [id number] #### [facility] [address] [place], [address] T PROT 7.9 g/dL Normal 6.4-8.2 [facility] Comment on above: Performed By: #### L 501.9985, L100.0100, L506.1000, L3300.3500, L500.4050, L506.0400, [id number] #### [facility] [address] [place], [address] Urea nitrogen [Mass/Vol] 19 mg/dL High 7-18 [facility] Comment on above: Performed By: #### L 501.9985, L100.0100, L506.1000, L3300.3500, L500.4050, L506.0400, [id number] #### [facility] [address] [place], [address] Hemoglobin A1con 05-12-2024 HbA1c (Bld) [Mass fraction] 5.2 % Normal 3.8-5.6 [facility] Comment on above: Result Comment: Norm al < 5.7 % Prediabetic 5.7 - 6.4 % Diabetic >or= 6.5 % Please note range changes. Performed By: #### L 501.9985, L100.0100, L506.1000, L3300.3500, L500.4050, L506.0400, [id number] #### [facility] [address] [place], [address] T4 Free Directon 05-12-2024 T4 FREE DIRECT 0.79 ng/dL Normal 0.76-1.46 [facility] Comment on above: Performed By: #### L [id number], L100.0100, L506.1000, L3300.3500, L500.4050, L506.0400, [id number] #### [facility] [address] [place], [address] Thyroid Stim Hormone (TSH)on 05-12-2024 TSH 1.90 uIU/mL Normal 0.358-3.74 [facility] Comment on above: Performed By: #### L 501.9985, L100.0100, L506.1000, L3300.3500, L500.4050, L506.0400, [id number] #### [facility] [address] [place], [address] Vitamin D,25 Hydroxyon 05-12 Vitamin D 25-OH 19.6 ng/mL Normal [facility] Comment on above: Result Comment: Teresa min D 25(OH) Status Range Deficiency <20 ng/mL (50nmol/L) Insufficiency 20 - 30 ng/mL (50 - 75 nmol/L) Sufficiency 30 - 100 ng/mL (75 - 250 nmol/L) Toxicity >100 ng/mL (>250 nmol/L) Performed By: #### L 501.9985, L100.0100, L506.1000, L3300.3500, L500.4050, L506.0400, [id number] #### [facility] [address] [place], [address] Basophil percentageOrdered B y: Matt Yee on 02-29-2024 Bilirubin [Mass/Vol] 0.40 mg/dL 0.20-1.00 [facility] Comment on above: For patients on eltr ombopag therapy, use of Dimension [place] TBIL is not recommended. Chloride [Moles/Vol] 105 mmol/L 98-107 [facility] Cholesterol [Mass/Vol] 187 mg/dL <200 [facility] Comment on above: <200 mg/dL Desirable 200-240 mg/dL Borderline >240 mg/dL High Risk Glucose [Mass/Vol] 91 mg/dL 74-106 [facility] Hemoglobin (Bld) [Mass/Vol] 12.6 g/dL 12.0-15.0 [facility] Potassium [Moles/Vol] 3.9 mmol/L 3.5-5.[address] [facility] Protein [Mass/Vol] 7.5 g/dL 6.4-8.2 [facility] Sodium [Moles/Vol] 138 mmol/L 136-145 [facility] Triglyceride [Mass/Vol] 44 mg/dL <199 [facility] Comment on above: The drugs N-Acetylcy steine and Metamizole may falsely depress this assay.Serum Triglycerides Reference Interval Normal <150 mg/dL Borderline high 150 - 199 mg/dL High 200 - 499 mg/dL Very High > or = 500 mg/dL WBC (Bld) [#/Vol] 6.0 10*3/uL 4.4-11.0 [facility] Determination of erythrocyte mean corpuscular volume (MCV)Ordered By: Matt Yee on 02-29-2024 MCV (RBC) [Entitic vol] 88.3 fL 81-99 [facility] Erythrocyte distribution wid th ratioOrdered By: Matt Yee on 02-29-2024 Erythrocyte distribution width (RBC) [Ratio] 13.6 % 11.6-14.6 [facility] Erythrocyte distribution wid th standard deviationOrdered By: Matt Yee on 02-29-2024 Erythrocyte distribution width (RBC) [Entitic vol] 44.2 fL 35.1-43.9 [facility] Hematocrit Auto (Bld) [Volum e fraction]Ordered By: Matt Yee on 02-29-2024 Hematocrit (Bld) [Volume fraction] 38.4 % 37-47 [facility] - Chemistry and C hemistry - challengeOrdered By: Matt Yee on 02-29-2024 Albumin/Globulin [Mass ratio] 0.9 {ratio} 0.9-2.4 [facility] ALP [Catalytic activity/Vol] 111 U/L 45-117 [facility] ALT [Catalytic activity/Vol] 15 U/L 13-56 [facility] Cholesterol in HDL [Mass/Vol] 109 mg/dL >40 [facility] Comment on above: The drugs N-Acetylcy steine and Metamizole may falsely depress this assay. Reference Range HDL <40 mg/dL Low HDL Cholesterol HDL >or= 60 mg/dL High HDL Cholesterol Cholesterol in LDL [Mass/Vol] 69 mg/dL 0-130 [facility] CO2 [Moles/Vol] 25.0 mmol/L 21.0-32.0 [facility] Globulin (S) [Mass/Vol] 4.0 g/dL 2.2-4.2 [facility] Urea nitrogen/Creatinine [Mass ratio] 22.0 mg/mg 10-20 [facility] - Hematology and Cell countsOrdered By: Matt Yee on 02-29-2024 MCH (RBC) [Entitic mass] 29.0 pg 27.0-32.0 [facility] MCHC (RBC) [Mass/Vol] 32.8 g/dL 32-[address] [facility] Platelet mean volume (Bld) [Entitic vol] 10.1 fL 6.2-12.0 [facility] Platelets (Bld) [#/Vol] 319 10*3/uL 150-450 [facility] No Panel InformationOrdered By: Matt Yee on 02-29-2024 Estimated GFR (MDRD) Amer 118 mL/min >60 [facility] Comment on above: GFR Calc Estimated GFR (MDRD) Non-Af Amer 98 mL/min >60 [facility] Comment on above: Non- GFR Calc VLDL Cholesterol 9 mg/dL 5-40 [facility] RBC Auto (Bld) [#/Vol]Ordere d By: Matt Yee on 02-29-2024 RBC (Bld) [#/Vol] 4.35 10*6/uL 4.2-5.4 [facility] Serum or plasma calcium cornel urement (mass/volume)Ordered By: Matt Yee on 02-29-2024 Calcium [Mass/Vol] 8.6 mg/dL 8.5-10.1 [facility] Serum or plasma creatinine m easurement (mass/volume)Ordered By: Matt Yee on 02-29-2024 Creatinine [Mass/Vol] 0.73 mg/dL 0.55-1.[address] [facility] Comment on above: The validity of the calculated GFR & GFRAA in patients over 70 years has not been determined. Clinical correlation is essential. Serum or plasma urea nitroge n measurement (mass/volume)Ordered By: Matt Yee on 02-29-2024 Urea nitrogen [Mass/Vol] 16 mg/dL 7-18 [facility] Thin prep Papanicolaou smear with manual screeningOrdered By: Matt Yee on 02-29-2024 Thin prep Papanicolaou smear with manual screening 3.5 g/dL 3.2-5.0 [facility] Thin prep Papanicolaou smear with manual screening 13 U/L 15-37 [facility] Thin prep Papanicolaou smear with manual screening 8 5-15 [facility] Absolute lymphocyte countOrd ered By: Payal Reddy on 03-09-2023 Lymphocytes Auto (Unsp spec) [#/Vol] 1.65 10*3/uL 0.83-4.51 [facility] Basophil percentageOrdered B y: Payal Reddy on 03-09-2023 Basophils/100 WBC (Bld) 0.6 % 0-1 [facility] Bilirubin [Mass/Vol] 0.40 mg/dL 0.20-1.00 [facility] Comment on above: For patients on eltr ombopag therapy, use of Dimension [place] TBIL is not recommended. Chloride [Moles/Vol] 106 mmol/L 98-107 [facility] Eosinophils/100 WBC (Bld) 2.9 % 0-5 [facility] Glucose [Mass/Vol] 91 mg/dL 74-106 [facility] Neutrophils (Bld) [#/Vol] 2.9 10*3/uL 2.0-7.7 [facility] Neutrophils/100 WBC (Bld) 56.7 % 47-70 [facility] Potassium [Moles/Vol] 3.7 mmol/L 3.5-5.[address] [facility] Protein [Mass/Vol] 7.4 g/dL 6.4-8.2 [facility] Sodium [Moles/Vol] 135 mmol/L 136-145 [facility] WBC (Bld) [#/Vol] 5.1 10*3/uL 4.4-11.0 [facility] Blood erythrocytes count (nu mber/volume)Ordered By: Payal Reddy on 03-09-2023 RBC (Bld) [#/Vol] 4.17 10*6/uL 4.2-5.4 [facility] Blood hemoglobin measurement (mass/volume)Ordered By: Payal Reddy on 03-09-2023 Hemoglobin (Bld) [Mass/Vol] 12.4 g/dL 12.0-15.0 [facility] Blood lymphocytes/100 leukoc ytesOrdered By: Payal Reddy on 03-09-2023 Lymphocytes/100 WBC (Bld) 32.2 % 19-41 [facility] Blood monocytes/100 leukocyt esOrdered By: Payal Reddy on 03-09-2023 Monocytes/100 WBC (Bld) 7.6 % 0-10 [facility] Blood platelet mean volumeOr dered By: Payal Reddy on 03-09-2023 Platelet mean volume (Bld) [Entitic vol] 10.6 fL 6.2-12.0 [facility] Determination of erythrocyte mean corpuscular volume (MCV)Ordered By: Payal Reddy on 03-09-2023 MCV (RBC) [Entitic vol] 90.4 fL 81-99 [facility] Hematocrit Auto (Bld) [Volum e fraction]Ordered By: Payal Reddy on 03-09-2023 Hematocrit (Bld) [Volume fraction] 37.7 % 37-47 [facility] - Chemistry and C hemistry - challengeOrdered By: Payal Reddy on 03-09-2023 ALP [Catalytic activity/Vol] 105 U/L 45-117 [facility] ALT [Catalytic activity/Vol] 22 U/L 13-56 [facility] CO2 [Moles/Vol] 24.0 mmol/L 21.0-32.0 [facility] Cobalamin (Vitamin B12) [Mass/Vol] 477 pg/mL 211-911 [facility] Globulin (S) [Mass/Vol] 3.8 g/dL 2.2-4.2 [facility] Urea nitrogen/Creatinine [Mass ratio] 22.3 mg/mg 10-20 [facility] - Hematology and Cell countsOrdered By: Payal Reddy on 03-09-2023 Erythrocyte distribution width (RBC) [Entitic vol] 46.0 fL 35.1-43.9 [facility] Erythrocyte distribution width (RBC) [Ratio] 13.8 % 11.6-14.6 [facility] Immature granulocytes/100 WBC (Bld) 0.000 % 0.0-0.9 [facility] Comment on above: IG% - Immature Granu locytes (promyelocytes, myelocytes and metamyelocytes) > 1% indicates that a LEFT SHIFT is Present. MCH (RBC) [Entitic mass] 29.7 pg 27.0-32.0 [facility] Nucleated RBC/100 WBC (Bld) [Ratio] 0 % 0-5 [facility] MCHC Auto (RBC) [Mass/Vol]Or dered By: Payal Reddy on 03-09-2023 MCHC (RBC) [Mass/Vol] 32.9 g/dL 32-[address] [facility] No Panel InformationOrdered By: Payal Reddy on 03-09-2023 Estimated GFR (MDRD) Amer 130 mL/min >60 [facility] Comment on above: GFR Calc Estimated GFR (MDRD) Non-Af Amer 108 mL/min >60 [facility] Comment on above: Non- GFR Calc Thyroid Stimulating Hormone (TSH) 1.54 uIU/mL 0.358-3.74 [facility] Vitamin D 25-Hydroxy 19.8 ng/mL [facility] Comment on above: Vitamin D 25(OH) Sta tus Range Deficiency <20 ng/mL (50nmol/L) Insufficiency 20 - 30 ng/mL (50 - 75 nmol/L) Sufficiency 30 - 100 ng/mL (75 - 250 nmol/L) Toxicity >100 ng/mL (>250 nmol/L) Platelets bldOrdered By: Martita Reddy on 03-09-2023 Platelets (Bld) [#/Vol] 275 10*3/uL 150-450 [facility] Serum or plasma albumin cornel urement (mass/volume)Ordered By: Payal Reddy on 03-09-2023 Albumin [Mass/Vol] 3.6 g/dL 3.2-5.0 [facility] Serum or plasma albumin/glob ulin mass ratioOrdered By: Payal Reddy on 03-09-2023 Albumin/Globulin [Mass ratio] 0.9 {ratio} 0.9-2.4 [facility] Serum or plasma calcium cornel urement (mass/volume)Ordered By: Payal Reddy on 03-09-2023 Calcium [Mass/Vol] 8.5 mg/dL 8.5-10.1 [facility] Serum or plasma creatinine m easurement (mass/volume)Ordered By: Payal Reddy on 03-09-2023 Creatinine [Mass/Vol] 0.67 mg/dL 0.55-1.[address] [facility] Comment on above: The validity of the calculated GFR & GFRAA in patients over 70 years has not been determined. Clinical correlation is essential. Serum or plasma ferritin mehdi surement (mass/volume)Ordered By: Payal Reddy on 03-09-2023 Ferritin [Mass/Vol] 24 ng/mL 8252 [facility] Serum or plasma urea nitroge n measurement (mass/volume)Ordered By: Payal Reddy on 03-09-2023 Urea nitrogen [Mass/Vol] 15 mg/dL 7-18 [facility] Thin prep Papanicolaou smear with manual screeningOrdered By: Payal Reddy on 03-09-2023 Thin prep Papanicolaou smear with manual screening 13 U/L 15-37 [facility] Thin prep Papanicolaou smear with manual screening 5 5-15 [facility] Whole blood hemoglobin A1c/t otal hemoglobin ratio (mass fraction)Ordered By: Payal Reddy on 03-09-2023 HbA1c (Bld) [Mass fraction] 5.2 % 3.8-5.6 [facility] Comment on above: Normal < 5.7 % Predi abetic 5.7 - 6.4 % Diabetic >or= 6.5 % Please note range changes. .Auto Diffon 11-20-2022 Basophil, Absolute 0.1 10 3/mcL Normal 0.0-0.2 [facility] ([place]) Comment on above: Performed By: #### T SH, GFR, CMP, MG ####[place] [address]#### B12 ####[address] [address] Basophils/100 WBC (Bld) 1.0 % Normal 0.0-2.5 [facility] ([place]) Comment on above: Performed By: #### T SH, GFR, CMP, MG ####Charley [place] [place] [address]#### B12 ####[address] [address] Eosinophil, Absolute 0.3 10 3/mcL Normal 0.0-0.4 [facility] ([place]) Comment on above: Performed By: #### T SH, GFR, CMP, MG ####Charley [place] [place] [address]#### B12 ####[address] [address] Eosinophils/100 WBC (Bld) 5.9 % Normal 0.0-7.0 [facility] ([place]) Comment on above: Performed By: #### T SH, GFR, CMP, MG ####Charley [address] [place] [address]#### B12 ####[address] [address] Lymphocyte, Absolute 1.5 10 3/mcL Normal 0.8-3.9 [facility] ([place]) Comment on above: Performed By: #### T SH, GFR, CMP, MG ####Charley [address] [place] [address]#### B12 ####[address] [address] Lymphocytes/100 WBC (Bld) 27.7 % Normal 10.0-50.0 [facility] ([place]) Comment on above: Performed By: #### T SH, GFR, CMP, MG ####Charley [address] [address]#### B12 ####[address] [address] Monocyte, Absolute 0.4 10 3/mcL Normal 0.2-1.0 [facility] ([place]) Comment on above: Performed By: #### T SH, GFR, CMP, MG ####[place] [place] [address]#### B12 ####[address] [address] Monocytes/100 WBC (Bld) 6.9 % Normal 1.7-13.0 [facility] ([place]) Comment on above: Performed By: #### T SH, GFR, CMP, MG ####Charley [address] [place] [address]#### B12 ####[address] [address] Neutrophils/100 WBC (Bld) 58.5 % Normal 37.0-80.0 [facility] ([place]) Comment on above: Performed By: #### T SH, GFR, CMP, MG ####[place] [address] [place], [place] [address]#### B12 ####[address] [address] .GFRon 11-20-2022 GFR Non- 99 ml/min/1.73sqm Normal [facility] ([place]) Comment on above: Result Comment: GFR Population mean for , [...] 15 mL/min/1.73 square meters Performed By: #### T SH, GFR, CMP, MG ####[place] [address] [place], [place] [address]#### B12 ####[address] [address] GFR 120 ml/min/1.73sqm Normal [facility] ([place]) Comment on above: Result Comment: GFR Population mean for , [...] 15 mL/min/1.73 square meters Performed By: #### T SH, GFR, CMP, MG ####Charley [address] [place], [place] [address]#### B12 ####[address] [address] .NEUABSon 11-20-2022 Neutrophil, Absolute 3.3 10 3/mcL Normal 2.9-6.2 [facility] ([place]) Comment on above: Performed By: #### T SH, GFR, CMP, MG ####[place] [id number]#### B12 ####[place] [address] B12on 11-20-2022 Cobalamin (Vitamin B12) [Mass/Vol] 464 pg/mL Normal 211-911 [facility] ([place]) Comment on above: Performed By: #### T SH, GFR, CMP, MG ####[place] [address]#### B12 ####[place] [address] CBCon 11-20-2022 Erythrocyte distribution width (RBC) [Ratio] 14.2 % Normal 11.5-14.5 [facility] ([place]) Comment on above: Performed By: #### T SH, GFR, CMP, MG ####[place] [address]#### B12 ####[place] [address] Hematocrit (Bld) [Volume fraction] 38.6 % Normal 37.0-47.0 [facility] ([place]) Comment on above: Performed By: #### T SH, GFR, CMP, MG ####[place] [address] [place] [address]#### B12 ####[place] [address] Hgb 12.8 G/dL Normal 12.0-16.0 [facility] ([place]) Comment on above: Performed By: #### T SH, GFR, CMP, MG ####[place] [id number]#### B12 ####[place] [id number] MCH (RBC) [Entitic mass] 29.5 pg Normal 27.0-31.2 [facility] ([place]) Comment on above: Performed By: #### T SH, GFR, CMP, MG ####[place] [address]#### B12 ####[place] [address] MCHC 33.0 G/dL Normal 33.0-37.0 [facility] ([place]) Comment on above: Performed By: #### T SH, GFR, CMP, MG ####[place] [address]#### B12 ####[place] [address] MCV (RBC) [Entitic vol] 89.3 fL Normal 80.0-94.0 [facility] ([place]) Comment on above: Performed By: #### T SH, GFR, CMP, MG ####[place] [address]#### B12 ####[place] [address] Platelet 286 10 3/mcL Normal 130-400 [facility] ([place]) Comment on above: Performed By: #### T SH, GFR, CMP, MG ####[place] [address]#### B12 ####[place] [address] Platelet mean volume (Bld) [Entitic vol] 8.6 fL Normal 7.4-10.4 [facility] ([place]) Comment on above: Performed By: #### T SH, GFR, CMP, MG ####[place] [address]#### B12 ####[place] [address] RBC 4.32 10 6/mcL Normal 4.20-5.40 [facility] ([place]) Comment on above: Performed By: #### T SH, GFR, CMP, MG ####[facility]832 [place] [address]#### B12 ####[address] [address] WBC 5.6 10 3/mcL Normal 4.6-10.8 [facility] ([place]) Comment on above: Performed By: #### T SH, GFR, CMP, MG ####[place] [address]#### B12 ####[place] [address] CMPon 11-20-2022 Albumin Level 3.9 G/dL Normal 3.5-5.0 [facility] ([place]) Comment on above: Performed By: #### T SH, GFR, CMP, MG ####[place] [address]#### B12 ####[place] [address] Albumin/Globulin [Mass ratio] 1.2 {ratio} Normal 1.1-2.5 [facility] ([place]) Comment on above: Performed By: #### T SH, GFR, CMP, MG ####[place] [address]#### B12 ####[place] [address] ALP [Catalytic activity/Vol] 109 U/L Normal 40-135 [facility] ([place]) Comment on above: Performed By: #### T SH, GFR, CMP, MG ####[place] [address]#### B12 ####[place] [address] ALT [Catalytic activity/Vol] 25 U/L Normal 14-59 [facility] ([place]) Comment on above: Performed By: #### T SH, GFR, CMP, MG ####[facility]832 [place] [address]#### B12 ####[address] [place] [address] AST [Catalytic activity/Vol] 19 U/L Normal 10-40 [facility] ([place]) Comment on above: Performed By: #### T SH, GFR, CMP, MG ####[place] [id number]#### B12 ####[address] [address] Bili Total 0.9 mg/dL Normal 0.2-1.0 [facility] ([place]) Comment on above: Result Comment: Use of this assay is not recommended for patients undergoing treatment with eltrombopag due to the potential for falsely elevated results. Performed By: #### T SH, GFR, CMP, MG ####[place] [address]#### B12 ####[address] [address] BUN/Creatinine Ratio 25 ratio Normal 7-27 [facility] ([place]) Comment on above: Performed By: #### T SH, GFR, CMP, MG ####[place] [address]#### B12 ####[address] [address] Calcium [Mass/Vol] 9.0 mg/dL Normal 8.4-10.2 [facility] ([place]) Comment on above: Performed By: #### T SH, GFR, CMP, MG ####[place] [address]#### B12 ####[address] [address] Chloride [Moles/Vol] 104 mmol/L Normal 98-107 [facility] ([place]) Comment on above: Performed By: #### T SH, GFR, CMP, MG ####[place] [address]#### B12 ####[address] [address] CO2 [Moles/Vol] 28 mmol/L Normal 22-29 [facility] ([place]) Comment on above: Performed By: #### T SH, GFR, CMP, MG ####[place] [address]#### B12 ####[address] [address] Creatinine [Mass/Vol] 0.69 mg/dL Normal 0.55-1.02 [facility] ([place]) Comment on above: Performed By: #### T SH, GFR, CMP, MG ####[place] [address]#### B12 ####[address] [address] Electrolyte Balance 9.0 mEq/L Normal 4.0-15.0 [facility] ([place]) Comment on above: Performed By: #### T SH, GFR, CMP, MG ####[place] [address]#### B12 ####[place] [address] Globulin 3.3 G/dL Normal [facility] ([place]) Comment on above: Performed By: #### T SH, GFR, CMP, MG ####[place] [address]#### B12 ####[place] [address] Glucose [Mass/Vol] 82 mg/dL Normal 70-105 [facility] ([place]) Comment on above: Performed By: #### T SH, GFR, CMP, MG ####[place] [address]#### B12 ####[address] [address] Potassium [Moles/Vol] 4.3 mmol/L Normal 3.5-5.1 [facility] ([place]) Comment on above: Performed By: #### T SH, GFR, CMP, MG ####[place] [address]#### B12 ####[place] [address] Sodium [Moles/Vol] 141 mmol/L Normal 136-145 [facility] ([place]) Comment on above: Performed By: #### T SH, GFR, CMP, MG ####[facility] [place], [place] [address]#### B12 ####[place] [address] Total Protein 7.2 G/dL Normal 6.4-8.2 [facility] ([place]) Comment on above: Performed By: #### T SH, GFR, CMP, MG ####[facility] [place], [place] [address]#### B12 ####[place] [address] Urea nitrogen [Mass/Vol] 17 mg/dL Normal 7-18 [facility] ([place]) Comment on above: Performed By: #### T SH, GFR, CMP, MG ####[place] [address] [place] [id number]#### B12 ####[place] [address] LABORATORYOrdered By: SYSTEM SYSTEM on 11-20-2022 Albumin BCP dye [Mass/Vol] 3.9 G/dL Invalid Interpretation Code 3.5 - 5.0 G/dL AO ADM SS Albumin/Globulin [Mass ratio] 1.2 {ratio} Invalid Interpretation Code 1.1 - 2.5 ratio AO ADM SS ALP [Catalytic activity/Vol] 109 U/L Invalid Interpretation Code 40 - 135 U/L AO ADM SS ALT With P-5'-P [Catalytic activity/Vol] 25 U/L Invalid Interpretation Code 14 - 59 U/L AO ADM SS AST With P-5'-P [Catalytic activity/Vol] 19 U/L Invalid Interpretation Code 10 - 40 U/L AO ADM SS Bilirubin [Mass/Vol] 0.9 mg/dL Invalid Interpretation Code 0.2 - 1.0 mg/dL AO ADM SS Calcium [Mass/Vol] 9.0 mg/dL Invalid Interpretation Code 8.4 - 10.2 mg/dL AO ADM SS Chloride [Moles/Vol] 104 mmol/L Invalid Interpretation Code 98 - 107 mmol/L AO ADM SS CO2 [Moles/Vol] 28 mmol/L Invalid Interpretation Code 22 - 29 mmol/L AO ADM SS Cobalamin (Vitamin B12) [Mass/Vol] 464 pg/mL Invalid Interpretation Code 211 - 911 pg/mL AH ADM SS Creatinine [Mass/Vol] 0.69 mg/dL Invalid Interpretation Code 0.55 - 1.02 mg/dL AO ADM SS Electrolyte Balance 9.0 mEq/L Invalid Interpretation Code 4.0 - 15.0 mEq/L AO ADM SS GFR 120 ml/min/1.73sqm Invalid Interpretation Code AO Chemistry S GFR Non- 99 ml/min/1.73sqm Invalid Interpretation Code AO Chemistry S Globulin 3.3 G/dL Invalid Interpretation Code AO ADM SS Glucose [Mass/Vol] 82 mg/dL Invalid Interpretation Code 70 - 105 mg/dL AO ADM SS Magnesium [Mass/Vol] 2.1 mg/dL Invalid Interpretation Code 1.8 - 2.4 mg/dL AO ADM SS Potassium [Moles/Vol] 4.3 mmol/L Invalid Interpretation Code 3.5 - 5.1 mmol/L AO ADM SS Protein [Mass/Vol] 7.2 G/dL Invalid Interpretation Code 6.4 - 8.2 G/dL AO ADM SS Sodium [Moles/Vol] 141 mmol/L Invalid Interpretation Code 136 - 145 mmol/L AO ADM SS TSH Qn 1.89 m[IU]/L Invalid Interpretation Code 0.36 - 3.74 mcIU/mL AO ADM SS Urea nitrogen [Mass/Vol] 17 mg/dL Invalid Interpretation Code 7 - 18 mg/dL AO ADM SS Urea nitrogen/Creatinine [Mass ratio] 25 ratio Invalid Interpretation Code 7 - 27 ratio AO ADM SS LABORATORYOrdered By: Meri August on 11-20-2022 Basophil, Absolute 0.1 103/mcL Invalid Interpretation Code 0.0 - 0.2 10^3/mcL AO Workflow SS Basophils/100 WBC (Bld) 1.0 % Invalid Interpretation Code 0.0 - 2.5 % AO Workflow SS Eosinophil, Absolute 0.3 103/mcL Invalid Interpretation Code 0.0 - 0.4 10^3/mcL AO Workflow SS Eosinophils/100 WBC (Bld) 5.9 % Invalid Interpretation Code 0.0 - 7.0 % AO Workflow SS Erythrocyte distribution width (RBC) [Ratio] 14.2 % Invalid Interpretation Code 11.5 - 14.5 % AO Workflow SS Hematocrit (Bld) [Volume fraction] 38.6 % Invalid Interpretation Code 37.0 - 47.0 % AO Workflow SS Hemoglobin (Bld) [Mass/Vol] 12.8 G/dL Invalid Interpretation Code 12.0 - 16.0 G/dL AO Workflow SS Lymphocyte, Absolute 1.5 103/mcL Invalid Interpretation Code 0.8 - 3.9 10^3/mcL AO Workflow SS Lymphocytes/100 WBC (Bld) 27.7 % Invalid Interpretation Code 10.0 - 50.0 % AO Workflow SS MCH (RBC) [Entitic mass] 29.5 pg Invalid Interpretation Code 27.0 - 31.2 pg AO Workflow SS MCHC 33.0 G/dL Invalid Interpretation Code 33.0 - 37.0 G/dL AO Workflow SS MCV (RBC) [Entitic vol] 89.3 fL Invalid Interpretation Code 80.0 - 94.0 fL AO Workflow SS Monocyte, Absolute 0.4 103/mcL Invalid Interpretation Code 0.2 - 1.0 10^3/mcL AO Workflow SS Monocytes/100 WBC (Bld) 6.9 % Invalid Interpretation Code 1.7 - 13.0 % AO Workflow SS Neutrophil, Absolute 3.3 103/mcL Invalid Interpretation Code 2.9 - 6.2 10^3/mcL AO Workflow SS Neutrophils/100 WBC (Bld) 58.5 % Invalid Interpretation Code 37.0 - 80.0 % AO Workflow SS Platelet mean volume (Bld) [Entitic vol] 8.6 fL Invalid Interpretation Code 7.4 - 10.4 fL AO Workflow SS Platelets (Bld) [#/Vol] 286 103/mcL Invalid Interpretation Code 130 - 400 10^3/mcL AO Workflow SS RBC (Bld) [#/Vol] 4.32 106/mcL Invalid Interpretation Code 4.20 - 5.40 10^6/mcL AO Workflow SS WBC (Bld) [#/Vol] 5.6 103/mcL Invalid Interpretation Code 4.6 - 10.8 10^3/mcL AO Workflow SS MGon 11-20-2022 Magnesium [Mass/Vol] 2.1 mg/dL Normal 1.8-2.4 [facility] ([place]) Comment on above: Performed By: #### T SH, GFR, CMP, MG ####[place] [address] [place] [address]#### B12 ####[facility] [place] [address] TSHon 11-20-2022 TSH Qn 1.89 m[IU]/L Normal 0.36-3.74 [facility] ([place]) Comment on above: Performed By: #### T SH, GFR, CMP, MG ####Charley [address] [place], [place] [address]#### B12 ####[facility] [place] [address] Glucose Glucometer (BldC) [M ass/Vol]on 09-08-2022 Glucose [Mass/Vol] 127 mg/dL 74-106 [facility] Work Phone: Comment on above: MANAGEMENT OF PATIEN T CARE PER NURSING PROTOCOL Laboratory - Chemistry and C hemistry - challengeon 09-08-2022 HCG ( test) Ql (U) Negative [facility] Work Phone: Comment on above: Very dilute urine sp ecimens, as indicated by a low specificgravity, may not contain customer relations representative levels of hCG. If is still suspected, a first morning urinespecimen should be collected 48 hours later and tested. Basophil percentageon 2021 Bilirubin [Mass/Vol] 0.30 mg/dL 0.20-1.00 [facility] Work Phone: Comment on above: For patients on eltr ombopag therapy, use of Dimension [place] TBIL is not recommended. Protein [Mass/Vol] 7.5 g/dL 6.4-8.2 [facility] Work Phone: Direct bilirubinon Bilirubin.direct [Mass/Vol] 0.10 mg/dL 0.00-0.30 [facility] Work Phone: INR in Blood by Coagulation assayon 09-03-2022 INR Coag (Bld) [Relative time] 1.0 {INR} [facility] Work Phone: Laboratory - Chemistry and C hemistry - challengeon 09-03-2022 ALP [Catalytic activity/Vol] 82 U/L 45-117 [facility] Work Phone: ALT [Catalytic activity/Vol] 17 U/L 13-56 [facility] Work Phone: Globulin (S) [Mass/Vol] 4.1 g/dL 2.2-4.2 [facility] Work Phone: Magnesium [Mass/Vol] 2.1 mg/dL 1.6-2.6 [facility] Work Phone: Laboratory - Coagulationon 1 aPTT Coag (Bld) [Time] 26.9 s 24.1-36.2 [facility] Work Phone: PT Coag (PPP) [Time] 12.6 s 11.7-14.9 [facility] Work Phone: Serum or plasma albumin cornel urement (mass/volume)on 09-03-2022 Albumin [Mass/Vol] 3.4 g/dL 3.2-5.0 [facility] Work Phone: Thin prep Papanicolaou smear with manual screeningon 09-03-2022 Thin prep Papanicolaou smear with manual screening 11 U/L 15-37 [facility] Work Phone: Basophil percentageon 2021 WBC (Bld) [#/Vol] 7.8 10*3/uL 4.4-11.0 [facility] Work Phone: Blood erythrocytes count (nu mber/volume)on 09-02-2022 RBC (Bld) [#/Vol] 4.50 10*6/uL 4.2-5.4 [facility] Work Phone: Blood hemoglobin measurement (mass/volume)on 09-02-2022 Hemoglobin (Bld) [Mass/Vol] 13.3 g/dL 12.0-15.0 [facility] Work Phone: Blood platelet mean volumeon 09-02-2022 Platelet mean volume (Bld) [Entitic vol] 10.1 fL 6.2-12.0 [facility] Work Phone: Determination of erythrocyte mean corpuscular volume (MCV)on 09-02-2022 MCV (RBC) [Entitic vol] 89.8 fL 81-99 [facility] Work Phone: Hematocrit Auto (Bld) [Volum e fraction]on 09-02-2022 Hematocrit (Bld) [Volume fraction] 40.4 % 37-47 [facility] Work Phone: Laboratory - Hematology and Cell countson 09-02-2022 Erythrocyte distribution width (RBC) [Entitic vol] 47.3 fL 35.1-43.9 [facility] Work Phone: Erythrocyte distribution width (RBC) [Ratio] 14.4 % 11.6-14.6 [facility] Work Phone: MCH (RBC) [Entitic mass] 29.6 pg 27.0-32.0 [facility] Work Phone: MCHC Auto (RBC) [Mass/Vol]on 09-02-2022 MCHC (RBC) [Mass/Vol] 32.9 g/dL 32-[address] [facility] Work Phone: Platelets bldon 09-02-2022 Platelets (Bld) [#/Vol] 324 10*3/uL 150-450 [facility] Work Phone: .Auto Diffon 08-12-2022 Basophil, Absolute 0.1 10 3/mcL Normal 0.0-0.2 [facility] ([place]) Comment on above: Performed By: #### C MP, SANAZ, LIP, PREGS, GFR #### [facility] [address] [place], [place] [address] Basophils/100 WBC (Bld) 0.9 % Normal 0.0-2.5 [facility] ([place]) Comment on above: Performed By: #### C MP, SANAZ, LIP, PREGS, GFR #### [facility] [address] [place], [place] [address] Eosinophil, Absolute 0.1 10 3/mcL Normal 0.0-0.4 [facility] ([place]) Comment on above: Performed By: #### C MP, SANAZ, LIP, PREGS, GFR #### [address] [address] Eosinophils/100 WBC (Bld) 0.9 % Normal 0.0-7.0 [facility] ([place]) Comment on above: Performed By: #### C MP, SANAZ, LIP, PREGS, GFR #### [address] [address] Lymphocyte, Absolute 1.8 10 3/mcL Normal 0.8-3.9 [facility] ([place]) Comment on above: Performed By: #### C MP, SANAZ, LIP, PREGS, GFR #### [address] [address] Lymphocytes/100 WBC (Bld) 27.7 % Normal 10.0-50.0 [facility] ([place]) Comment on above: Performed By: #### C MP, SANAZ, LIP, PREGS, GFR #### [address] [address] Monocyte, Absolute 0.4 10 3/mcL Normal 0.2-1.0 [facility] ([place]) Comment on above: Performed By: #### C MP, SANAZ, LIP, PREGS, GFR #### [address] [address] Monocytes/100 WBC (Bld) 6.6 % Normal 1.7-13.0 [facility] ([place]) Comment on above: Performed By: #### C MP, SANAZ, LIP, PREGS, GFR #### [address] [address] Neutrophils/100 WBC (Bld) 63.9 % Normal 37.0-80.0 [facility] ([place]) Comment on above: Performed By: #### C MP, SANAZ, LIP, PREGS, GFR #### [address] [address] .GFRon 08-12-2022 GFR 99 ml/min/1.73sqm Normal [facility] ([place]) Comment on above: Result Comment: GFR Population mean for , [...] 15 mL/min/1.73 square meters Performed By: #### C MP, SANAZ, LIP, PREGS, GFR #### [address] [address] GFR Non- 81 ml/min/1.73sqm Normal [facility] ([place]) Comment on above: Result Comment: GFR Population mean for , [...] 15 mL/min/1.73 square meters Performed By: #### C MP, SANAZ, LIP, PREGS, GFR #### [address] [address] .NEUABSon 08-12-2022 Neutrophil, Absolute 4.1 10 3/mcL Normal 2.9-6.2 [facility] ([place]) Comment on above: Performed By: #### C MP, SANAZ, LIP, PREGS, GFR #### [address] [address] AMYon 08-12-2022 Amylase [Catalytic activity/Vol] 63 U/L Normal 25-115 [facility] ([place]) Comment on above: Performed By: #### C MP, SANAZ, LIP, PREGS, GFR #### [address] [address] CBCon 08-12-2022 Erythrocyte distribution width (RBC) [Ratio] 15.3 % High 11.5-14.5 [facility] ([place]) Comment on above: Performed By: #### C MP, SANAZ, LIP, PREGS, GFR #### [place] [address] Hematocrit (Bld) [Volume fraction] 40.0 % Normal 37.0-47.0 [facility] ([place]) Comment on above: Performed By: #### C MP, SANAZ, LIP, PREGS, GFR #### [place] [address]77 Hgb 13.4 G/dL Normal 12.0-16.0 [facility] ([place]) Comment on above: Performed By: #### C MP, SANAZ, LIP, PREGS, GFR #### [address] [address] MCH (RBC) [Entitic mass] 29.9 pg Normal 27.0-31.2 [facility] ([place]) Comment on above: Performed By: #### C MP, SANAZ, LIP, PREGS, GFR #### [place] [address] MCHC 33.7 G/dL Normal 33.0-37.0 [facility] ([place]) Comment on above: Performed By: #### C MP, SANAZ, LIP, PREGS, GFR #### [place] [address] MCV (RBC) [Entitic vol] 88.8 fL Normal 80.0-94.0 [facility] ([place]) Comment on above: Performed By: #### C MP, SANAZ, LIP, PREGS, GFR #### [place] [address] Platelet 310 10 3/mcL Normal 130-400 [facility] ([place]) Comment on above: Performed By: #### C MP, SANAZ, LIP, PREGS, GFR #### [address] [address] Platelet mean volume (Bld) [Entitic vol] 8.3 fL Normal 7.4-10.4 [facility] ([place]) Comment on above: Performed By: #### C MP, SANAZ, LIP, PREGS, GFR #### [address] [address] RBC 4.50 10 6/mcL Normal 4.20-5.40 [facility] ([place]) Comment on above: Performed By: #### C MP, SANAZ, LIP, PREGS, GFR #### [address] [address] WBC 6.4 10 3/mcL Normal 4.6-10.8 [facility] ([place]) Comment on above: Performed By: #### C MP, SANAZ, LIP, PREGS, GFR #### [address] [address] CMPon 08-12-2022 Albumin Level 3.5 G/dL Normal 3.5-5.0 [facility] ([place]) Comment on above: Performed By: #### C MP, SANAZ, LIP, PREGS, GFR #### [address] [address] Albumin/Globulin [Mass ratio] 0.9 {ratio} Low 1.1-2.5 [facility] ([place]) Comment on above: Performed By: #### C MP, SANAZ, LIP, PREGS, GFR #### [address] [address] ALP [Catalytic activity/Vol] 94 U/L Normal 40-135 [facility] ([place]) Comment on above: Performed By: #### C MP, SANAZ, LIP, PREGS, GFR #### [address] [address] ALT [Catalytic activity/Vol] 14 U/L Normal 14-59 [facility] ([place]) Comment on above: Performed By: #### C MP, SANAZ, LIP, PREGS, GFR #### [address] [address] AST [Catalytic activity/Vol] 10 U/L Normal 10-40 [facility] ([place]) Comment on above: Performed By: #### C MP, SANAZ, LIP, PREGS, GFR #### [address] [address] Bili Total 0.4 mg/dL Normal 0.2-1.0 [facility] ([place]) Comment on above: Result Comment: Use of this assay is not recommended for patients undergoing treatment with eltrombopag due to the potential for falsely elevated results. Performed By: #### C MP, SANAZ, LIP, PREGS, GFR #### [address] [address] BUN/Creatinine Ratio 13 ratio Normal 7-27 [facility] ([place]) Comment on above: Performed By: #### C MP, SANAZ, LIP, PREGS, GFR #### [address] [address] Calcium [Mass/Vol] 8.7 mg/dL Normal 8.4-10.2 [facility] ([place]) Comment on above: Performed By: #### C MP, SANAZ, LIP, PREGS, GFR #### [address] [address] Chloride [Moles/Vol] 102 mmol/L Normal 98-107 [facility] ([place]) Comment on above: Performed By: #### C MP, SANAZ, LIP, PREGS, GFR #### [address] [address] CO2 [Moles/Vol] 26 mmol/L Normal 22-29 [facility] ([place]) Comment on above: Performed By: #### C MP, SANAZ, LIP, PREGS, GFR #### [address] [address] Creatinine [Mass/Vol] 0.82 mg/dL Normal 0.55-1.02 [facility] ([place]) Comment on above: Performed By: #### C MP, SANAZ, LIP, PREGS, GFR #### [address] [address] Electrolyte Balance 10.0 mEq/L Normal 4.0-15.0 [facility] ([place]) Comment on above: Performed By: #### C MP, SANAZ, LIP, PREGS, GFR #### [address] [address] Globulin 3.7 G/dL Normal [facility] ([place]) Comment on above: Performed By: #### C MP, SANAZ, LIP, PREGS, GFR #### [address] [address] Glucose [Mass/Vol] 82 mg/dL Normal 70-105 [facility] ([place]) Comment on above: Performed By: #### C MP, SANAZ, LIP, PREGS, GFR #### [address] [address] Potassium [Moles/Vol] 4.1 mmol/L Normal 3.5-5.1 [facility] ([place]) Comment on above: Performed By: #### C MP, SANAZ, LIP, PREGS, GFR #### [address] [address] Sodium [Moles/Vol] 138 mmol/L Normal 136-145 [facility] ([place]) Comment on above: Performed By: #### C MP, SANAZ, LIP, PREGS, GFR #### [address] [address] Total Protein 7.2 G/dL Normal 6.4-8.2 [facility] ([place]) Comment on above: Performed By: #### C MP, SANAZ, LIP, PREGS, GFR #### [place] [id number] Urea nitrogen [Mass/Vol] 11 mg/dL Normal 7-18 [facility] ([place]) Comment on above: Performed By: #### C MP, SANAZ, LIP, PREGS, GFR #### [address] [address] LABORATORYOrdered By: Ashley Mcghee on 08-12-2022 Albumin BCP dye [Mass/Vol] 3.5 G/dL Invalid Interpretation Code 3.5 - 5.0 G/dL AO ADM SS Albumin/Globulin [Mass ratio] 0.9 {ratio} Invalid Interpretation Code 1.1 - 2.5 ratio AO ADM SS ALP [Catalytic activity/Vol] 94 U/L Invalid Interpretation Code 40 - 135 U/L AO ADM SS ALT With P-5'-P [Catalytic activity/Vol] 14 U/L Invalid Interpretation Code 14 - 59 U/L AO ADM SS Amylase [Catalytic activity/Vol] 63 U/L Invalid Interpretation Code 25 - 115 U/L AO ADM SS AST With P-5'-P [Catalytic activity/Vol] 10 U/L Invalid Interpretation Code 10 - 40 U/L AO ADM SS Bilirubin [Mass/Vol] 0.4 mg/dL Invalid Interpretation Code 0.2 - 1.0 mg/dL AO ADM SS Calcium [Mass/Vol] 8.7 mg/dL Invalid Interpretation Code 8.4 - 10.2 mg/dL AO ADM SS Chloride [Moles/Vol] 102 mmol/L Invalid Interpretation Code 98 - 107 mmol/L AO ADM SS CO2 [Moles/Vol] 26 mmol/L Invalid Interpretation Code 22 - 29 mmol/L AO ADM SS Creatinine [Mass/Vol] 0.82 mg/dL Invalid Interpretation Code 0.55 - 1.02 mg/dL AO ADM SS Electrolyte Balance 10.0 mEq/L Invalid Interpretation Code 4.0 - 15.0 mEq/L AO ADM SS Globulin 3.7 G/dL Invalid Interpretation Code AO ADM SS Glucose [Mass/Vol] 82 mg/dL Invalid Interpretation Code 70 - 105 mg/dL AO ADM SS Lipase [Catalytic activity/Vol] 106 U/L Invalid Interpretation Code 73 - 393 U/L AO ADM SS Potassium [Moles/Vol] 4.1 mmol/L Invalid Interpretation Code 3.5 - 5.1 mmol/L AO ADM SS Protein [Mass/Vol] 7.2 G/dL Invalid Interpretation Code 6.4 - 8.2 G/dL AO ADM SS Sodium [Moles/Vol] 138 mmol/L Invalid Interpretation Code 136 - 145 mmol/L AO ADM SS Urea nitrogen [Mass/Vol] 11 mg/dL Invalid Interpretation Code 7 - 18 mg/dL AO ADM SS Urea nitrogen/Creatinine [Mass ratio] 13 ratio Invalid Interpretation Code 7 - 27 ratio AO ADM SS LABORATORYOrdered By: Sarai Gregory on 08-12-2022 Basophil, Absolute 0.1 103/mcL Invalid Interpretation Code 0.0 - 0.2 10^3/mcL AO Workflow SS Basophils/100 WBC (Bld) 0.9 % Invalid Interpretation Code 0.0 - 2.5 % AO Workflow SS Eosinophil, Absolute 0.1 103/mcL Invalid Interpretation Code 0.0 - 0.4 10^3/mcL AO Workflow SS Eosinophils/100 WBC (Bld) 0.9 % Invalid Interpretation Code 0.0 - 7.0 % AO Workflow SS Erythrocyte distribution width (RBC) [Ratio] 15.3 % Invalid Interpretation Code 11.5 - 14.5 % AO Workflow SS Hematocrit (Bld) [Volume fraction] 40.0 % Invalid Interpretation Code 37.0 - 47.0 % AO Workflow SS Hemoglobin (Bld) [Mass/Vol] 13.4 G/dL Invalid Interpretation Code 12.0 - 16.0 G/dL AO Workflow SS Lymphocyte, Absolute 1.8 103/mcL Invalid Interpretation Code 0.8 - 3.9 10^3/mcL AO Workflow SS Lymphocytes/100 WBC (Bld) 27.7 % Invalid Interpretation Code 10.0 - 50.0 % AO Workflow SS MCH (RBC) [Entitic mass] 29.9 pg Invalid Interpretation Code 27.0 - 31.2 pg AO Workflow SS MCHC 33.7 G/dL Invalid Interpretation Code 33.0 - 37.0 G/dL AO Workflow SS MCV (RBC) [Entitic vol] 88.8 fL Invalid Interpretation Code 80.0 - 94.0 fL AO Workflow SS Monocyte, Absolute 0.4 103/mcL Invalid Interpretation Code 0.2 - 1.0 10^3/mcL AO Workflow SS Monocytes/100 WBC (Bld) 6.6 % Invalid Interpretation Code 1.7 - 13.0 % AO Workflow SS Neutrophil, Absolute 4.1 103/mcL Invalid Interpretation Code 2.9 - 6.2 10^3/mcL AO Workflow SS Neutrophils/100 WBC (Bld) 63.9 % Invalid Interpretation Code 37.0 - 80.0 % AO Workflow SS Platelet mean volume (Bld) [Entitic vol] 8.3 fL Invalid Interpretation Code 7.4 - 10.4 fL AO Workflow SS Platelets (Bld) [#/Vol] 310 103/mcL Invalid Interpretation Code 130 - 400 10^3/mcL AO Workflow SS RBC (Bld) [#/Vol] 4.50 106/mcL Invalid Interpretation Code 4.20 - 5.40 10^6/mcL AO Workflow SS WBC (Bld) [#/Vol] 6.4 103/mcL Invalid Interpretation Code 4.6 - 10.8 10^3/mcL AO Workflow SS LABORATORYOrdered By: SYSTEM SYSTEM on 08-12-2022 GFR 99 ml/min/1.73sqm Invalid Interpretation Code AO Chemistry S GFR Non- 81 ml/min/1.73sqm Invalid Interpretation Code AO Chemistry S LABORATORYOrdered By: Vaishnavi Johns on 08-12-2022 HCG ( test) Ql (U) Negative (08/12/22 9:22 AM) Invalid Interpretation Code AO Rapid Testing SS test (s) int Not detected Invalid Interpretation Code AO Rapid Testing SS LIPon 08-12-2022 Lipase Level 106 U/L Normal 73-393 [facility] ([place]) Comment on above: Performed By: #### C MP, SANAZ, LIP, PREGS, GFR #### [address] [address] PREGSon 08-12-2022 test (s) Negative Normal [facility] ([place]) Comment on above: Performed By: #### C MP, SANAZ, LIP, PREGS, GFR #### [address] [address] test (s) int Not detected Invalid Interpretation Code [facility] ([place]) Comment on above: Performed By: #### C MP, SANAZ, LIP, PREGS, GFR #### [address] [address] No Panel Informationon 08-11 Culture Urine <10,000 cfu/ml. No Significant growth. Sensitivity not indicated. [facility] Work Phone: XR ANKLE MINIMUM 3 VIEWS LEF Ton 04-03-2022 XR ANKLE MINIMUM 3 VIEWS LEFT ORIGINAL EXAMINATION: THREE XRAY VIEWS OF THE LEFT ANKLE 04/02/2022 10:22 am COMPARISON: None. HISTORY: ORDERING SYSTEM PROVIDED HISTORY: Reason for Exam: injury, pain lateral FINDINGS: No appreciable soft tissue swelling. Normal alignment. No fracture or appreciable effusion. IMPRESSION: Normal ankle radiographs. I have personally reviewed the images of this examination and agree with the resident's findings and interpretation. Interpreted by: Ubaldo Lawson MD Preliminary Report By: Surinder Mackenzie Electronically signed By Ubaldo Lawson MD Dictated Date: 04/03/2022 3:37:40 AM Prelim Date: 04/03/2022 3:40:19 AM Sign Date: 04/03/2022 4:02:07 AM Ordering Provider: DASHA Jeffers [facility] ([place]) .Auto Diffon 12-05-2021 Basophil, Absolute 0.00 10 3/mcL Normal 0.00-0.19 [facility] ([place]) Comment on above: Performed By: #### C MP, SANAZ, LIP, PREGS, GFR #### [address] [address] Basophils/100 WBC (Bld) 0.7 % Normal 0.0-2.5 [facility] ([place]) Comment on above: Performed By: #### C MP, SANAZ, LIP, PREGS, GFR #### [address] [address] Eosinophil, Absolute 0.20 10 3/mcL Normal 0.00-0.40 [facility] ([place]) Comment on above: Performed By: #### C MP, SANAZ, LIP, PREGS, GFR #### [address] [address] Eosinophils/100 WBC (Bld) 3.7 % Normal 0.0-7.0 [facility] ([place]) Comment on above: Performed By: #### C MP, SANAZ, LIP, PREGS, GFR #### [address] [address] Lymphocyte, Absolute 1.90 10 3/mcL Normal 0.77-3.85 [facility] ([place]) Comment on above: Performed By: #### C MP, SANAZ, LIP, PREGS, GFR #### [address] [address] Lymphocytes/100 WBC (Bld) 30.4 % Normal 10.0-50.0 [facility] ([place]) Comment on above: Performed By: #### C MP, SANAZ, LIP, PREGS, GFR #### [address] [address] Monocyte, Absolute 0.50 10 3/mcL Normal 0.15-1.00 [facility] ([place]) Comment on above: Performed By: #### C MP, SANAZ, LIP, PREGS, GFR #### [address] [address] Monocytes/100 WBC (Bld) 7.4 % Normal 1.7-13.0 [facility] ([place]) Comment on above: Performed By: #### C MP, SANAZ, LIP, PREGS, GFR #### [address] [address] Neutrophils/100 WBC (Bld) 57.8 % Normal 37.0-80.0 [facility] ([place]) Comment on above: Performed By: #### C MP, SANAZ, LIP, PREGS, GFR #### [address] [address] .NEUABSon 12-05-2021 Neutrophil, Absolute 3.60 10 3/mcL Normal 2.85-6.16 [facility] ([place]) Comment on above: Performed By: #### C MP, SANAZ, LIP, PREGS, GFR #### [address] [address] CBCon 12-05-2021 Erythrocyte distribution width (RBC) [Ratio] 15.9 % High 11.5-14.5 [facility] ([place]) Comment on above: Performed By: #### C RP, ANEU, PBNP, ADIFF, CBC, ESR ####[address] [address] Hematocrit (Bld) [Volume fraction] 40.7 % Normal 37.0-47.0 [facility] ([place]) Comment on above: Performed By: #### C RP, ANEU, PBNP, ADIFF, CBC, ESR ####[address] [place], [place] [address] Hgb 13.2 G/dL Normal 12.0-16.0 [facility] ([place]) Comment on above: Performed By: #### C RP, ANEU, PBNP, ADIFF, CBC, ESR ####[address] [place], [place] [address] MCH (RBC) [Entitic mass] 28.3 pg Normal 27.0-31.2 [facility] ([place]) Comment on above: Performed By: #### C RP, ANEU, PBNP, ADIFF, CBC, ESR ####[address] [place], [place] [address] MCHC 32.5 G/dL Low 33.0-37.0 [facility] ([place]) Comment on above: Performed By: #### C RP, ANEU, PBNP, ADIFF, CBC, ESR ####[address] [place], [place] [address] MCV (RBC) [Entitic vol] 86.9 fL Normal 80.0-94.0 [facility] ([place]) Comment on above: Performed By: #### C RP, ANEU, PBNP, ADIFF, CBC, ESR ####[address] [place], [place] [address] Platelet 315 10 3/mcL Normal 130-400 [facility] ([place]) Comment on above: Performed By: #### C RP, ANEU, PBNP, ADIFF, CBC, ESR ####[address] [place], [place] [address] Platelet mean volume (Bld) [Entitic vol] 8.6 fL Normal 7.4-10.4 [facility] ([place]) Comment on above: Performed By: #### C RP, ANEU, PBNP, ADIFF, CBC, ESR ####[address] [place], [place] [address] RBC 4.68 10 6/mcL Normal 4.20-5.40 [facility] ([place]) Comment on above: Performed By: #### C RP, ANEU, PBNP, ADIFF, CBC, ESR ####[address] [place], [place] [address] WBC 6.20 10 3/mcL Normal 4.60-10.80 [facility] ([place]) Comment on above: Performed By: #### C RP, ANEU, PBNP, ADIFF, CBC, ESR ####[address] [place], [place] [address] CRPon 12-05-2021 C-Reactive Protein 1.6 mg/dL High 0.0-0.9 [facility] ([place]) Comment on above: Performed By: #### C RP, ANEU, PBNP, ADIFF, CBC, ESR ####[address] [place], [place] [address] ESRon 12-05-2021 Erythrocyte Sed Rate 8 mm/hr Normal 0-20 [facility] ([place]) Comment on above: Performed By: #### C MP, SANAZ, LIP, PREGS, GFR #### [address] [place] [address] [place], [place] [address] LABORATORYOrdered By: Savannah Bullock on 12-05-2021 Basophil, Absolute 0.00 103/mcL Invalid Interpretation Code 0.00 - 0.19 10^3/mcL AO Auto Heme SS Basophils/100 WBC (Bld) 0.7 % Invalid Interpretation Code 0.0 - 2.5 % AO Auto Heme SS Eosinophil, Absolute 0.20 103/mcL Invalid Interpretation Code 0.00 - 0.40 10^3/mcL AO Auto Heme SS Eosinophils/100 WBC (Bld) 3.7 % Invalid Interpretation Code 0.0 - 7.0 % AO Auto Heme SS Erythrocyte distribution width (RBC) [Ratio] 15.9 % Invalid Interpretation Code 11.5 - 14.5 % AO Auto Heme SS ESR 15 minute reading (Bld) [Velocity] 8 mm/hr Invalid Interpretation Code 0 - 20 mm/hr AO Man Heme SS Hematocrit (Bld) [Volume fraction] 40.7 % Invalid Interpretation Code 37.0 - 47.0 % AO Auto Heme SS Hemoglobin (Bld) [Mass/Vol] 13.2 G/dL Invalid Interpretation Code 12.0 - 16.0 G/dL AO Auto Heme SS Lymphocyte, Absolute 1.90 103/mcL Invalid Interpretation Code 0.77 - 3.85 10^3/mcL AO Auto Heme SS Lymphocytes/100 WBC (Bld) 30.4 % Invalid Interpretation Code 10.0 - 50.0 % AO Auto Heme SS MCH (RBC) [Entitic mass] 28.3 pg Invalid Interpretation Code 27.0 - 31.2 pg AO Auto Heme SS MCHC (RBC) [Mass/Vol] 32.5 G/dL Invalid Interpretation Code 33.0 - 37.0 G/dL AO Auto Heme SS MCV (RBC) [Entitic vol] 86.9 fL Invalid Interpretation Code 80.0 - 94.0 fL AO Auto Heme SS Monocyte, Absolute 0.50 103/mcL Invalid Interpretation Code 0.15 - 1.00 10^3/mcL AO Auto Heme SS Monocytes/100 WBC (Bld) 7.4 % Invalid Interpretation Code 1.7 - 13.0 % AO Auto Heme SS Neutrophil, Absolute 3.60 103/mcL Invalid Interpretation Code 2.85 - 6.16 10^3/mcL AO Auto Heme SS Neutrophils/100 WBC (Bld) 57.8 % Invalid Interpretation Code 37.0 - 80.0 % AO Auto Heme SS Platelet mean volume (Bld) [Entitic vol] 8.6 fL Invalid Interpretation Code 7.4 - 10.4 fL AO Auto Heme SS Platelets (Bld) [#/Vol] 315 103/mcL Invalid Interpretation Code 130 - 400 10^3/mcL AO Auto Heme SS RBC (Bld) [#/Vol] 4.68 106/mcL Invalid Interpretation Code 4.20 - 5.40 10^6/mcL AO Auto Heme SS WBC (Bld) [#/Vol] 6.20 103/mcL Invalid Interpretation Code 4.60 - 10.80 10^3/mcL AO Auto Heme SS LABORATORYOrdered By: Ashley Mcghee on 12-05-2021 CRP [Mass/Vol] 1.6 mg/dL Invalid Interpretation Code 0.0 - 0.9 mg/dL AO ADM SS Natriuretic peptide.B prohormone N-Terminal [Mass/Vol] 71 pg/mL Invalid Interpretation Code 0 - 125 pg/mL AO ADM SS PBNPon 12-05-2021 Natriuretic peptide B (Bld) [Mass/Vol] 71 pg/mL Normal 0-125 [facility] ([place]) Comment on above: Result Comment: NT-p roBNP results of less than 300 pg/mL effectively rules out acute congestive heart failure with 99% negative predictive value. Performed By: #### C MP, SANAZ, FRANKIE, PREGS, GFR #### [place] [id number] [place], [place] [address] XR CHEST 2 VIEWSon 2 XR CHEST 2 VIEWS ORIGINAL EXAMINATION: TWO XRAY VIEWS OF THE CHEST 12/05/2021 9:43 am COMPARISON: None. HISTORY: ORDERING SYSTEM PROVIDED HISTORY: Reason for Exam: SOB Shortness of breath FINDINGS: The cardiomediastinal silhouette is normal. There is no focal consolidation, pleural effusion, vascular congestion, or pneumothorax. Mild biapical scarring. Spinal alignment is maintained with minimal degenerative change seen near the thoracolumbar junction. IMPRESSION: No acute radiographic findings. Interpreted by: Abril Dale MD Preliminary Report By: Abril Dale MD Electronically signed By Abril Dale MD Dictated Date: 12/05/2021 11:00:39 AM Prelim Date: 12/05/2021 11:01:35 AM Sign Date: 12/05/2021 11:01:35 AM Ordering Provider: MARGARETH Jeffers [facility] ([place]) LABORATORYOrdered By: Leida Rhoades on 10-30-2021 Adenovirus DNA ERVIN+non-probe Ql (Nph) Not Detected *NA* (10/30/21 12:00 PM) Invalid Interpretation Code Not Detected AH Auto Viro/Sero SS ADMITTED TO INTENSIVE CARE UNIT FOR CONDITION OF INTEREST:FIND:PT:^BRANDON ENT:ORD: No (10/30/21 12:00 PM) Invalid Interpretation Code AH Auto Viro/Sero SS B. pertussis toxin promoter region ERVIN+non-probe Ql (Nph) Not Detected *NA* (10/30/21 12:00 PM) Invalid Interpretation Code Not Detected AH Auto Viro/Sero SS Bordetella Parapertussis Not Detected *NA* (10/30/21 12:00 PM) Invalid Interpretation Code Not Detected AH Auto Viro/Sero SS C. pneumoniae DNA ERVIN+non-probe Ql (Nph) Not Detected *NA* (10/30/21 12:00 PM) Invalid Interpretation Code Not Detected AH Auto Viro/Sero SS EMPLOYED IN A HEALTHCARE SETTING:FIND:PT:^PATIE NT:ORD: No (10/30/21 12:00 PM) Invalid Interpretation Code AH Auto Viro/Sero SS FIRST TEST FOR CONDITION OF INTEREST:FIND:PT:^BRANDON ENT:ORD: Yes (10/30/21 12:00 PM) Invalid Interpretation Code Auto Viro/Sero SS FLUAV RNA ERVIN+non-probe Ql (Nph) Not Detected *NA* (10/30/21 12:00 PM) Invalid Interpretation Code Not Detected AH Auto Viro/Sero SS FLUBV RNA ERVIN+non-probe Ql (Nph) Not Detected *NA* (10/30/21 12:00 PM) Invalid Interpretation Code Not Detected AH Auto Viro/Sero SS HAS SYMPTOMS RELATED TO CONDITION OF INTEREST:FIND:PT:^BRANDON ENT:ORD: Yes (10/30/21 12:00 PM) Invalid Interpretation Code Auto Viro/Sero SS hMPV RNA ERVIN+non-probe Ql (Nph) Not Detected *NA* (10/30/21 12:00 PM) Invalid Interpretation Code Not Detected Auto Viro/Sero SS Illness or injury onset date and time [id number] Invalid Interpretation Code Auto Viro/Sero SS M. pneumoniae DNA ERVIN+non-probe Ql (Nph) Not Detected *NA* (10/30/21 12:00 PM) Invalid Interpretation Code Not Detected Auto Viro/Sero SS Parainfluenza virus 1 RNA ERVIN+non-probe Ql (Nph) Not Detected *NA* (10/30/21 12:00 PM) Invalid Interpretation Code Not Detected Auto Viro/Sero SS Parainfluenza virus 2 RNA ERVIN+non-probe Ql (Nph) Not Detected *NA* (10/30/21 12:00 PM) Invalid Interpretation Code Not Detected Auto Viro/Sero SS Parainfluenza virus 3 RNA ERVIN+non-probe Ql (Nph) Not Detected *NA* (10/30/21 12:00 PM) Invalid Interpretation Code Not Detected AH Auto Viro/Sero SS Parainfluenza virus 4 RNA ERVIN+non-probe Ql (Nph) Not Detected *NA* (10/30/21 12:00 PM) Invalid Interpretation Code Not Detected AH Auto Viro/Sero SS Patient was hospitalized because of this condition No (10/30/21 12:00 PM) Invalid Interpretation Code AH Auto Viro/Sero SS status Unknown (10/30/21 12:00 PM) Invalid Interpretation Code AH Auto Viro/Sero SS RESIDES IN A CONGREGATE CARE SETTING:FIND:PT:^MARLO NT:ORD: No (10/30/21 12:00 PM) Invalid Interpretation Code AH Auto Viro/Sero SS Rhinovirus+Enterovirus RNA ERVIN+non-probe Ql (Nph) Not Detected *NA* (10/30/21 12:00 PM) Invalid Interpretation Code Not Detected AH Auto Viro/Sero SS RSV RNA ERVIN+non-probe Ql (Nph) Not Detected *NA* (10/30/21 12:00 PM) Invalid Interpretation Code Not Detected AH Auto Viro/Sero SS SARS-CoV-2 (COVID-19) RNA ERVIN+probe Ql (Unsp spec) Detected 1 *ABN* (10/30/21 12:00 PM) Invalid Interpretation Code Not Detected AH Auto Viro/Sero SS Comment on above: Result Comment: This organism causes a reportable disease. Infection Control has been notified. Results have been reported to the [place] [facility]. LABORATORYOrdered By: Savannah Bullock on 10-21-2021 Albumin BCP dye [Mass/Vol] 3.7 G/dL Invalid Interpretation Code 3.5 - 5.0 G/dL AO ADM SS Albumin/Globulin [Mass ratio] 0.9 {ratio} Invalid Interpretation Code 1.1 - 2.5 ratio AO ADM SS ALP [Catalytic activity/Vol] 116 U/L Invalid Interpretation Code 40 - 135 U/L AO ADM SS ALT With P-5'-P [Catalytic activity/Vol] 23 U/L Invalid Interpretation Code 14 - 59 U/L AO ADM SS AST With P-5'-P [Catalytic activity/Vol] 16 U/L Invalid Interpretation Code 10 - 40 U/L AO ADM SS Bilirubin [Mass/Vol] 0.4 mg/dL Invalid Interpretation Code 0.2 - 1.0 mg/dL AO ADM SS Calcium [Mass/Vol] 9.0 mg/dL Invalid Interpretation Code 8.4 - 10.2 mg/dL AO ADM SS Chloride [Moles/Vol] 100 mmol/L Invalid Interpretation Code 98 - 107 mmol/L AO ADM SS CO2 [Moles/Vol] 28 mmol/L Invalid Interpretation Code 22 - 29 mmol/L AO ADM SS Creatinine [Mass/Vol] 0.76 mg/dL Invalid Interpretation Code 0.55 - 1.02 mg/dL AO ADM SS Electrolyte Balance 10.0 mEq/L Invalid Interpretation Code AO ADM SS Globulin 4.0 G/dL Invalid Interpretation Code AO ADM SS Glucose [Mass/Vol] 82 mg/dL Invalid Interpretation Code 70 - 105 mg/dL AO ADM SS Potassium [Moles/Vol] 4.3 mmol/L Invalid Interpretation Code 3.5 - 5.1 mmol/L AO ADM SS Protein [Mass/Vol] 7.7 G/dL Invalid Interpretation Code 6.4 - 8.2 G/dL AO ADM SS Sodium [Moles/Vol] 138 mmol/L Invalid Interpretation Code 136 - 145 mmol/L AO ADM SS TSH Qn 1.63 m[IU]/L Invalid Interpretation Code 0.36 - 3.74 mcIU/mL AO ADM SS Urea nitrogen [Mass/Vol] 17 mg/dL Invalid Interpretation Code 7 - 18 mg/dL AO ADM SS Urea nitrogen/Creatinine [Mass ratio] 22 ratio Invalid Interpretation Code 7 - 27 ratio AO ADM SS LABORATORYOrdered By: Agustín Velazco on 10-21-2021 Basophil, Absolute 0.00 103/mcL Invalid Interpretation Code 0.00 - 0.19 10^3/mcL AO Auto Heme SS Basophils/100 WBC (Bld) 0.8 % Invalid Interpretation Code 0.0 - 2.5 % AO Auto Heme SS Eosinophil, Absolute 0.20 103/mcL Invalid Interpretation Code 0.00 - 0.40 10^3/mcL AO Auto Heme SS Eosinophils/100 WBC (Bld) 2.9 % Invalid Interpretation Code 0.0 - 7.0 % AO Auto Heme SS Erythrocyte distribution width (RBC) [Ratio] 15.7 % Invalid Interpretation Code 11.5 - 14.5 % AO Auto Heme SS Hematocrit (Bld) [Volume fraction] 41.9 % Invalid Interpretation Code 37.0 - 47.0 % AO Auto Heme SS Hemoglobin (Bld) [Mass/Vol] 13.8 G/dL Invalid Interpretation Code 12.0 - 16.0 G/dL AO Auto Heme SS Lymphocyte, Absolute 2.00 103/mcL Invalid Interpretation Code 0.77 - 3.85 10^3/mcL AO Auto Heme SS Lymphocytes/100 WBC (Bld) 36.0 % Invalid Interpretation Code 10.0 - 50.0 % AO Auto Heme SS MCH (RBC) [Entitic mass] 28.3 pg Invalid Interpretation Code 27.0 - 31.2 pg AO Auto Heme SS MCHC (RBC) [Mass/Vol] 32.9 G/dL Invalid Interpretation Code 33.0 - 37.0 G/dL AO Auto Heme SS MCV (RBC) [Entitic vol] 85.9 fL Invalid Interpretation Code 80.0 - 94.0 fL AO Auto Heme SS Monocyte, Absolute 0.40 103/mcL Invalid Interpretation Code 0.15 - 1.00 10^3/mcL AO Auto Heme SS Monocytes/100 WBC (Bld) 8.0 % Invalid Interpretation Code 1.7 - 13.0 % AO Auto Heme SS Neutrophil, Absolute 2.90 103/mcL Invalid Interpretation Code 2.85 - 6.16 10^3/mcL AO Auto Heme SS Neutrophils/100 WBC (Bld) 52.3 % Invalid Interpretation Code 37.0 - 80.0 % AO Auto Heme SS Platelet mean volume (Bld) [Entitic vol] 8.7 fL Invalid Interpretation Code 7.4 - 10.4 fL AO Auto Heme SS Platelets (Bld) [#/Vol] 353 103/mcL Invalid Interpretation Code 130 - 400 10^3/mcL AO Auto Heme SS RBC (Bld) [#/Vol] 4.88 106/mcL Invalid Interpretation Code 4.20 - 5.40 10^6/mcL AO Auto Heme SS WBC (Bld) [#/Vol] 5.60 103/mcL Invalid Interpretation Code 4.60 - 10.80 10^3/mcL AO Auto Heme SS LABORATORYOrdered By: SYSTEM SYSTEM on 10-21-2021 GFR 108 ml/min/1.73sqm Invalid Interpretation Code AO Chemistry S GFR Non- 89 ml/min/1.73sqm Invalid Interpretation Code AO Chemistry S ORon 07-08-2017 OPERATIVE REPORT This is a preliminar y report only, as the practitioner review and authentication has not occurred. Normal [facility] [place] DATE OF SERVICE: 07/08/2017TIME: 11:30 a.m.PREOPERATIVE DIAGNOSIS: Lateral impingement, right ankle, with possiblechondromalacia, traumatic, talus.POSTOPERATIVE DIAGNOSIS: Lateral impingement, right ankle, with possiblechondromalacia, traumatic, talus; minimal chondromalacia.OPERATION: 1. Diagnostic and operative arthroscopy, right ankle.2. Debridement of impingement lesion laterally.SURGEON: Matt Spaulding, DOANESTHESIA: General.BLOOD LOSS: Minimal.COMPLICATIONS: None.CONDITION: Stable.HISTORY: Prerna is a 26-year-old white female who underwent a modified Brostrom someyears ago and did quite well. She started developing lateral ankle pain. MRIsrevealed her to have scar tissue. We discussed operative intervention withdebridement of that scar, including the risks, benefits and postoperative management.She is aware and the consent was signed.PROCEDURE IN DETAIL: The patient was brought down to the OR, placed in the supineposition after induction of general anesthesia. A tourniquet was placed on her rightproximal thigh and the right leg was sterilely prepped and draped in the usualorthopedic fashion. Esmarch was used to exsanguinate the limb. The tourniquet wasinflated to 280 mmHg for approximately 20 minutes. Anterior medial and anteriorlateral portals were introduced followed by arthroscopic intervention of the rightankle. There were no talar dome fractures or damage noted. The lateral hypertrophicimpingement scar was identified. Then, a 4-0 resector through the lateral portal wasutilized to debride the scar from the posterior aspect of the posterior talofibularligament to the anterior talofibular ligament. We then palpated the talus. Welooked from both medial and lateral portals. We found no disruption or pathology.The instruments were removed. The two portals were closed with 4-0 nylon suturefollowed by OpSites. An injection of 20 mL of 0.5% Marcaine plain was injectedfollowed by a compression dressing. The tourniquet was deflated. The patienttolerated the procedure well, was brought out of anesthesia and was taken to the [facility] PATIENT NAME: [facility]Z [facility] MEDICAL REC #: [id number], [place] [address] DATE:DISCHARGE DATE:OPERATIVE REPORT ATTENDING [facility]. HAYDEE Milian/[id number]: 07/09/2017 12:53DT: 07/09/2017 13:12SSI File#: [id number] #: [id number] [facility] PATIENT NAME: PRERNA [facility]Z [facility] MEDICAL REC #: [id number], [place] [address] DATE:DISCHARGE DATE:OPERATIVE REPORT ATTENDING PHY: Matt Spaulding DO Normal [facility] URINE PREGNANCYon 07-08-2017 UR HCG QUAL Negative Normal NEGATIVE [facility] Comment on above: Order Comment: Campu s: M Performed By: #### L [id number] ####[facility] [address] [place], [place] [address]Ew# [phone] UR SPEC GRAV 1.020 Normal 1.005-1.030 [facility] Comment on above: Order Comment: Campu s: M Performed By: #### L [id number] ####[facility] [id number] [place] [id number]# [phone] Vital Signs Date Time Vital Sign Value Performing Clinician Katie olivares 04-28-2025 15:37-0400 Body temperature 98.4 [degF] Jameel Estrada MD Work Phone: [facility] 04-28-2025 15:37-0400 Diastolic blood pressure 68 mm[Hg] Jameel Estrada MD Work Phone: [facility] 04-28-2025 15:37-0400 Heart rate 77 /min Jameel Estrada MD Work Phone: [facility] 04-28-2025 15:37-0400 Respiratory rate 16 /min Jameel Estrada MD Work Phone: [facility] 04-28-2025 15:37-0400 SaO2% (BldA) [Mass fraction] 100 % Jameel Estrada MD Work Phone: [facility] 04-28-2025 15:37-0400 Systolic blood pressure 96 mm[Hg] Jameel Estrada MD Work Phone: [facility] 04-28-2025 13:09-0400 Inhaled oxygen flow rate 2 L/min Jameel Estrada MD Work Phone: [facility] 04-28-2025 08:43-0400 Body height 160.02 cm Jameel Estrada MD Work Phone: [facility] 04-28-2025 08:43-0400 Body mass index (BMI) [Ratio] 27 kg/m2 Jameel Estrada MD Work Phone: [facility] 04-28-2025 08:43-0400 Body weight 69.2 kg Jameel Estrada MD Work Phone: [facility] 02-23-2024 10:24-0400 Body height 160.02 cm DO Payal Reddy Work Phone: [facility] 02-23-2024 10:24-0400 Body mass index (BMI) [Ratio] 27.3 kg/m2 DO Payal Reddy Work Phone: [facility] 02-23-2024 10:24-0400 Body weight 69.85 kg DO Payal Reddy Work Phone: [facility] 02-23-2024 10:24-0400 Diastolic blood pressure 73 mm[Hg] DO Payal Reddy Work Phone: [facility] 02-23-2024 10:24-0400 Heart rate 88 /min DO Payal Reddy Work Phone: [facility] 02-23-2024 10:24-0400 Respiratory rate 16 /min DO Payal Hunterer Work Phone: [facility] 02-23-2024 10:24-0400 Systolic blood pressure 119 mm[Hg] DO Payal Hunterer Work Phone: [facility] 09-09-2022 11:13-0400 Body temperature 97.7 [degF] [facility] Work Phone: 09-09-2022 11:13-0400 Diastolic blood pressure 63 mm[Hg] [facility] Work Phone: 09-09-2022 11:13-0400 Heart rate 80 /min [facility] Work Phone: 09-09-2022 11:13-0400 Respiratory rate 15 /min [facility] Work Phone: 09-09-2022 11:13-0400 SaO2% (BldA) [Mass fraction] 97 % [facility] Work Phone: 09-09-2022 11:13-0400 Systolic blood pressure 108 mm[Hg] [facility] Work Phone: 09-08-2022 15:34-0400 Body height 160.02 cm [facility] Work Phone: 09-08-2022 15:34-0400 Body mass index (BMI) [Ratio] 23.5 kg/m2 [facility] Work Phone: 09-08-2022 15:34-0400 Body weight 60.3 kg [facility] Work Phone: 09-08-2022 11:35-0400 Inhaled oxygen flow rate 4 L/min [facility] Work Phone: Encounters Encounter Date Encounter Type Care Provider Facility Start: 04-28-2025 End: 04-28-2025 Admission to same day surgery center Dr. Anastacio Estrella DPPaul -Surgical Day [facility] Start: 04-28-2025 End: 04-28-2025 ambulatory Jameel Estrada Facility:[facility] Start: 04-21-2025 End: 04-21-[address] Jameel Estrada MD -Laboratory [facility] Start: 04-21-2025 End: 04-21-2025 ambulatory Jameel Natalie Facility:[facility] Start: 03-29-2025 ambulatory Jameel Natalie Facility:[facility] Start: 03-23-2025 End: 04-20-2025 ambulatory DANIELA DOMINGUEZ [facility] Start: 02-09-2025 End: 02-09-2025 ambulatory JULIO FOX [facility] Start: 01-20-2025 End: 01-20-2025 ambulatory JAMEEL ESTRADA [facility] Start: 01-03-2025 End: 03-22-2025 ambulatory JAMEEL ESTRADA [facility] Start: 11-24-2024 End: 01-31-2025 ambulatory JAMEEL ESTRADA [facility] Start: 11-02-2024 End: 11-22-2024 ambulatory SHIRA DUNLAP [facility] Start: 07-25-2024 ambulatory Facility:[facility] Start: 07-13-2024 End: 07-13-2024 ambulatory Jameel Natalie Facility:[facility] Start: 05-12-2024 End: 05-12-2024 ambulatory Jameel [facility] Facility:[facility] Start: 03-09-2024 Non-patient / Non-visit DO Martita Reddy Work Phone: [facility] Work Phone: Start: 03-08-2024 Non-patient / Non-visit DO Maritta Reddy Work Phone: [facility] Start: 03-08-2024 End: 03-08-2024 ambulatory DO Payal Reddy Work Phone: [facility] Work Phone: Start: 03-08-2024 End: 03-08-2024 Patient encounter procedure DO Payal Reddy Work Phone: [facility]Cardiovascula r Services Work Phone: Start: 02-29-2024 End: 02-29-2024 ambulatory DO Payal Reddy Work Phone: [facility] Work Phone: Start: 02-29-2024 End: 02-29-2024 Patient encounter procedure DO Payal Reddy Work Phone: [facility]-Laboratory Work Phone: Start: 02-23-2024 End: 02-23-2024 Patient encounter procedure DO Payal Reddy Work Phone: [facility] Work Phone: Start: 03-09-2023 End: 03-09-2023 ambulatory [facility] Work Phone: Start: 03-09-2023 End: 03-09-2023 Patient encounter procedure [facility] Start: 11-20-2022 End: 11-21-2022 ambulatory [facility] [employer] [facility] Facility:B Start: 11-20-2022 End: 11-20-2022 Patient encounter procedure [facility] Start: 09-08-2022 End: 09-09-2022 Evaluation and management of inpatient [facility]-Medical Surgical 3 Start: 09-08-2022 End: 09-09-2022 observation encounter [facility] Work Phone: Start: 08-13-2022 End: 08-13-2022 ambulatory [facility] Work Phone: Start: 08-13-2022 End: 08-13-[address] [facility] Start: 08-12-2022 End: 08-13-2022 ambulatory LEIA GAO [employer] Facility:B Start: 08-12-2022 End: 08-12-2022 Patient encounter procedure LEIA GAO [employer] [facility] Start: 08-11-2022 End: 08-16-2022 ambulatory LEIA BANUELOSNS [employer] Facility:B Start: 08-11-2022 End: 08-15-2022 Outreach Lab LEIA GAO [employer] [facility] Start: 04-02-2022 End: 04-03-[address] DASHA MENDIETA DO Facility:B Start: 04-02-2022 End: 04-02-[address] DASHA MENDIETA DO [facility] Start: 12-05-2021 End: 12-06-2021 ambulatory MARGARETH JEFFERSON [employer] Facility:B Start: 12-05-2021 End: 12-05-2021 Patient encounter procedure MARGARETH JEFFERSON [employer] [facility] Start: 10-30-2021 End: 10-30-2021 Patient encounter procedure STEPHANIE ALAS [employer] [facility] Start: 10-21-2021 End: 10-21-2021 Patient encounter procedure FANNY CH [employer] [facility] Start: 07-08-2017 Evaluation and management of inpatient Matt Spaulding Facility:[facility] Procedures Date Procedure Procedure Detail Performing Clinician Start: 04-28-2025 Fluoroscopic guidance C michael Estrada MD Work Phone: Start: 04-28-2025 Repair of tendo achilles Jameel Estrada MD Work Phone: Start: 04-21-2025 Vitamin D, 25-hydrox y measurement Jameel Estrada MD Work Phone: Comment on above: Vitamin D StatusDefi ciency: <20 ng/mL (50nmol/L)Insufficiency: 20-30 ng/mL (50-75 nmol/L)Sufficiency: 30-100 ng/mL (75-250 nmol/L)Toxicity: >100 ng/mL (>250 nmol/L) Start: 09-08-2022 Abdominal hysterecto my with conservation of ovaries Start: 08-13-2022 Pelvic echography Start: 08-13-2022 Transvaginal echography Start: 05-14-2021 Echocardiography FANNY CH APRNRS[facility] [employer] Comment on above: EF 60%. Positive for small PFO by bubble study. A trivial pericardial effusion is identified. Start: 11-23-2012 Ankle region structu re (body structure) FANNY CH APRNRS[facility] [employer] Comment on above: Right Start: 11-23-2012 Cholecystectomy FANNY CH APRN-[employer] Start: 11-23-2011 Cardiovascular stres s testing FANNY CH [employer] Start: 11-23-2005 Appendectomy FANNY VÁZQUEZ [employer] Plan of Treatment Date Care Activity Detail Author Start: 04-28-2025 Patient discharge [facility] Start: 04-28-2025 X-ray of calcaneus, two or more views Calcaneus min 2 Views [facility] Start: 04-28-2025 XR Calcaneus Views [facility] Start: 09-09-2022 Introduction of urin daniel catheter [facility] Work Phone: Start: 09-09-2022 Patient discharge [facility] Work Phone: Start: 09-08-2022 Following clinical p athway protocol [facility] Work Phone: Start: 09-08-2022 Ambulation without limitation [facility] Work Phone: Start: 09-08-2022 Admission procedure [facility] Work Phone: Start: 09-08-2022 Introduction of urin daniel catheter [facility] Work Phone: Start: 09-08-2022 Ambulation therapy management [facility] Work Phone: Start: 09-08-2022 Continuous pulse oximetry [facility] Work Phone: Start: 09-08-2022 Elevation of head of bed [facility] Work Phone: Start: 09-08-2022 Incentive spirometry [facility] Work Phone: Start: 09-08-2022 Measuring intake and output [facility] Work Phone: Start: 09-08-2022 Notification of physician [facility] Work Phone: Start: 09-08-2022 Oxygen therapy [facility] Work Phone: Start: 09-08-2022 Patient education [facility] Work Phone: Start: 09-08-2022 Procedures relating to eating and drinking [facility] Work Phone: Start: 09-08-2022 Taking patient vital signs [facility] Work Phone: Start: 09-08-[address] [facility] Work Phone: Start: 09-08-2022 [facility] Work Phone: Cardiovascular stres s testing [facility] Patient referral [facility] Work Phone: Immunizations Immunization Date Immunization Notes Care Provider Meagan upton 11-07-2022 influenza, injectabl e, quadrivalent, contains preservative; Translations: [Fluarix PF Quadrivalent ] MARK ROJO [employer] [facility] 08-26-2021 influenza, injectabl e, quadrivalent, contains preservative; Translations: [Fluarix PF Quadrivalent ] FANNY CH [employer] [facility] 10-09-2019 influenza, injectabl e, quadrivalent, preservative free DO Payal Reddy Work Phone: [facility] 10-09-2019 influenza, seasonal, injectable [facility] Payers Date Payer Category Payer Self-pay [id number] 2013 Unknown [id number] 1990 Unknown [id number] 2.16.8 [id number] 1990 Unknown [id number] 2.16.8 [id number] 1990 Unknown [id number] 2.16.8 [id number] 1990 Unknown [id number] 2.16.8 [id number] 1990 Unknown [id number] 2.16.8 [id number] 1990 Unknown [id number] 2.16.8 40.1.728048.3.579.2.651 1990 Unknown [id number] 2.16.8 40.1.876220.3.579.2.651 1990 Unknown [id number] 2.16.8 40.1.894064.3.579.2.651 1990 Unknown [id number] 2.16.8 40.1.253223.3.579.2.651 1990 Unknown [id number] 2.16.8 40.1.238778.3.579.2.651 1990 Unknown [id number] 2.16.8 40.1.729030.3.579.2.651 Unknown OB COMP MANAGEMENT [id number] Unknown [id number] 2.16.8 [id number] Unknown [id number] 2.16.8 [id number] Unknown [id number] 2.16.8 [id number] Unknown [id number] 2.16.8 [id number] Unknown [id number] 2.16.8 [id number] Social History Date Type Detail Facility Start: 08-10-2019 End: 04-14-2025 Never smoked tobacco (finding) [facility] Start: 1990 Sex Assigned At Female [facility] Start: 12-20-2021 End: 02-23-2024 Tobacco smoking status NHIS Unknown if ever smoked [facility] Medical Equipment Procedure Code Equipment Code Equipment Origin al Text Equipment Identifier Dates Abdominal hysterectomy with conservation of ovaries Plant polysaccharide haemostatic agent, bioabsorbable [id number] [facility] Start: 09-08-2022 Goals Date Patient Goal Desired Activity /State Functional Status Date Assessment Result Facility 09-09-[address] [facility] Work Phone: Mental Status Date Assessment Result Facility 04-28-2025 Cognitive function Voice/Name [facility] Work Phone: 09-09-2022 Cognitive function Level Of Cons ciousness Awake;Alert;Appropriate [facility] Work Phone: 09-09-2022 Cognitive function Voice/Name;Touch/Josie rodriguez [facility] Work Phone: Clinical Notes 12-24-2020 to 04-28-2025 Note Date & Type Note Facility 04-28-2025 Consult note [facility] 04-28-2025 Consult note [facility] 04-28-2025 Consult note Note Date/Time April 28, 2025 3:57pm [facility] Medical Records Department [address] [place] [address] Anesthesia Postop Eval II 04/28/25 1337 MR#: [id number] Acct: [id number] Name: PRERNA MONTERO Rep #:[id number] : 1990 34 From: Oswaldo Pineda MD PCP: Dr. Jameel Estrada MD Status:REG SD C Y Race: C Location: [place] [address] Anesthesia Postop Eval I Sum Postop Eval Completion status Anesthesia document: Postop Eval 1 completed: Yes Anesthesia Postop Eval I Summary Anesthesia Postop Eval I Summary: Anesthesia Postop Eval I: Assessment Summary Airway patent Yes 04/28/25 13:09 CHILD AND YOUTH PROGRAM ASSISTANT.SHOF Spontaneous unlabored Yes 04/28/25 13:09 CHILD AND YOUTH PROGRAM ASSISTANT.SHOF respirations Mental status Calm 04/28/25 13:09 CHILD AND YOUTH PROGRAM ASSISTANT.SHOF nausea No 04/28/25 13:09 CHILD AND YOUTH PROGRAM ASSISTANT.SHOF Vomiting No 04/28/25 13:09 CHILD AND YOUTH PROGRAM ASSISTANT.SHOF Anesthesia Postop Eval I: Fluid Summary Crystalloid volume administer 1,200 04/28/25 13:09 CHILD AND YOUTH PROGRAM ASSISTANT.SHOF (ml) Colloids volume administered ( ml) Blood Product volume administered (ml) Total IV fluid infused 1,200 04/28/25 13:09 CHILD AND YOUTH PROGRAM ASSISTANT.SHOF Anesthesia Postop Eval I: Summary Notes Anesthesia Complication No 04/28/25 13:09 CHILD AND YOUTH PROGRAM ASSISTANT.SHOF Anesthesia Complication Comment: Post-operative progress note Anesthesia: Postop Eval II Evaluation Mental status: Awake Pain Level: 0 nausea: No Vomiting: No 04/28/25 1337 <Electronically signed by Oswaldo Pineda MD > Date _ Oswaldo Elmore Signature: Date CC: ~ Signed [facility] Work Phone: 1(772) 351-227206-06-2025 Consult note Author Benedicto Monroy [facility] Note Date/Time April 28, 2025 3:57p m [facility] Medical Records Department [address] [place] [address] Anesthesia Postop Eval I 04/28/25 1309 MR#: [id number] Acct: [id number] Name: PRERNA MONTERO Rep #:[id number] : 1990 34 From: Benedicto Monroy CRNA PCP: Dr. Jameel Estrada MD Status:REG SD C Y Race: C Location: [place] [address] Anesthesia: Postop Eval I Current Vital Signs Temperature: 97.0 F Pulse Rate: 86 Blood Pressure: 120/89 Respiratory Rate: 16 Pulse Ox: 100 Oxygen Delivery Method: Nasal Cannula Oxygen Flow Rate (L/min): 2 Assessment Airway patent: Yes Spontaneous unlabored respirations: Yes Mental status: Calm nausea: No Vomiting: No Anesthesia Complication: No Fluid Hydration Crystalloid volume administer (ml): 1,200 Total IV fluid infused: 1,200 Progress Note Anesthesia document: Postop Eval 1 completed: Yes 04/28/25 1309 <Electronically signed by Benedicto holm CHILD AND YOUTH PROGRAM ASSISTANT> Date _ Benedicto Elmore Signature: Date CC: ~ Signed [facility] Work Phone: 1(428) 750-689306-06-2025 Procedure note [facility] Medical Records Department [address] [place] [address] Operative Report 04/28/25 1002 MR#: [id number] Acct: [id number] Name: PRERNA MONTERO Rep #:[id number] : 1990 34 From: Anastacio Cheney PM PCP: Dr. Jameel Estrada MD Status:REG SD C Location: [place] [address]1 Problems Associated Problem List Diagnoses (1) Pain in left foot: (2) Achilles tendon contracture, left: (3) Calcaneal spur, left foot: (4) Other bursitis, not elsewhere classified, left ankle and foot: (5) Plantar fascial fibromatosis: Operative Report (Standard) Operative Information Date of Procedure: 04/28/25 Pre-Operative Diagnosis: 1. Pain, left foot 2. Plantar fascial fibromatosis, left lower extremity 3. Retrocalcaneal bursitis, left lower extremity 4. Achilles tendon contracture/tendinitis, left lower extremity 5. Calcaneal spur, left lower extremity Post-Operative Diagnosis: 1. Pain, left foot 2. Plantar fascial fibromatosis, left lower extremity 3. Retrocalcaneal bursitis, left lower extremity 4. Achilles tendon contracture/tendinitis, left lower extremity 5. Calcaneal spur, left lower extremity Surgery/Procedure Performed: Procedure #1: [place] of bone marrow aspirate concentrate, left lower extremity Procedure #2: Endoscopic plantar fasciotomy, left lower extremity Procedure #3: Excision of bursa, left lower extremity Procedure #4: Partial excision of calcaneus, left lower extremity Procedure #5: Achilles tendon debridement repair, left lower extremity Procedure #6: Application of graft jacket, left lower extremity Procedure #7: Advancement flap closure, left lower extremity Procedure #8: Application of posterior splint, left lower extremity chief reservoir engineering: No Type of Anesthesia: General/Regional RN Documented Start/Stop Times: Operation Date: 04/28/25 10:00 Case Time Into Pre-Op 04/28/25 08:32 Procedure Start Time: 10:22 Procedure Stop Time: 13:08 Select all DRAINS/GRAFTS/IMPLANTS that apply: Graft Graft details: [employer] medical graft jacket, left lower extremity , Tissue Tissue details: Bone marrow aspirate concentrate and Implanted device Implanted device details: CitraFix 3.5 mm anchors x 4, left lower extremity Special Medications: For anesthesia Estimated Blood Loss: 30 cc Fluids Replaced: Per anesthesia Specimen collected: Yes Description of specimen(s) removed: Achilles tendinosis,left lower extremity Description of surgery: Indications For Operation: Mrs. Montero is a 34-year-old female who was admitted to [facility] for left lower extremity surgery secondary to chronic pain for the past6 months to 1 year. Patient did have surgery by an outside provider approximately 1 to 2 years ago and since the procedure the patient has had chr onic pain to the left heel especially with walking and standing for long periods of time. 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 She does admit that her only pain relief is with rest but the second that she begins to weight- bear the pain starts to increase. Patient was initially seen in office by dat her provider who unfortunately is leaving the practice due to be closer with family and the patientwas referred to my service for continued care and possible surgical intervention to left lower extremity due to Achilles tendon tendinopathy as well as plantar fasciitis pain. The patient has exhausted all conservative treatment consisting of stretching, massage, shoe gear modification, nonsteroid anti-inflammatories, steroid injections as well jtfrul-swc-tdoawih orthotics and taping. Due to the patient's chronic pain an MRIwas ordered to the left lower extremity which showed evidence of Achilles tendonthickening with insertional tendinopathy, inflamed bursitis as well as thickening of the plantar fascia band to left lower extremity. Educated the patient on conservative treatment versus surgical treatment and she elected to move forward with surgical treatment as we are going to do today.All risk and benefits were discussed the patient great detail. She did have surgical consultation in the office with chart review and consent signed. Due to chronicleft lower extremity pain it was deemed necessary at this time to take the patient to the operating room to perform the above procedureto help decrease aswell as possibly reduce her chronic pain. The nature of the problem, anticipatedprocedures, postop recovery/convalences and risk/complications include but not limited to infection, wound healing complications, digital amputation, hypertrophic scarring, numbness, tingling, chronic pain, CRPS, over and under correction, recurrence of deformity, DVT and or PE and the need for further surgery have been discussed in great detail with the patient. All questions have been answered to the patient's satisfaction. There are no guarantees given as to the outcome of the procedure. Description of Procedure: Under mild sedation, the patient was brought into the operating room and placed on the operating table in supine position. Once the patient was under general anesthesia with endotracheal tube, the patient was rotated to a prone position protecting all structures and airway. Next, the left lower extremity was blocked using approximately 30 cc 0.5% Marcaine plain. Next, a well-padded thigh tourniquet was applied to the left lower extremity. Next, the left lower extremity was prepped and draped innormal aseptic manner. Next, a timeout was then undertaken verifying the correct patient, extremity, visibility of preoperative markings, availability of the equipment. Procedure #1: [place] of bone marrow aspirate concentrate, left lower extremity (CPT code: 18207) Next, attention was directed to the lateral wall of the calcaneus for bone graftharvest. Using a Jamshidi needle and mallet the needle was inserted to the lateral calcaneal wall without incident. 60 cc of bone marrow aspirate was harvested passed back table to be spun down to be used later in the case. Next, attention was directed to the left lower extremity. Using a 4 inch Esmarch, left lower extremity was exsanguinated and elevated to 60 degrees for 1 minute. Procedure #2: Endoscopic plantar fasciotomy, left lower extremity (CPT code: 96358) Next, attention was directed to the heel of the left lower extremity. Using large C-arm fluoroscopythe calcaneal tubercle was marked with sterile skin marker. The incision was marked approximately 2mm distally and superiorly 20 mm from the calcaneal tubercle on the lateral side to the left lower extremity. Using a stab incision laterally, the incision was dilated with lightly scissors. A trocarwas used to free up the soft tissue plantarly to the plantar fascial band with advancement to the medial side of the heel. Next a additional stab incision was placed medially and as well as dilated. The trocar was advanced and the guide was placed. Using the 4.0 mm 30 degree arthroscope, the plantar fascial band was identified. The hook blade was advanced to the medial side of the plantar fascia band and approximately one third of the deep tissue was cut. Next the triangle blade was advanced tofurther deepen the cut without violatingthe deep muscle belly of the flexor digitorum brevis. The area was flushed withcopious normal saline. The incisions were reapproximated and closed with 3-0 nylon in simple erupted suture technique. Procedure #3: Excision of bursa, left lower extremity (CPT code: 34129) Next, attention was directed to the posterior aspect the left lower extremity atthe level of the Achilles tendon. A skin marker was used to place incision posterior medial along the Achilles tendon. A #15 blade was used to a full- thickness vision down to subcutaneous tissue. A wet Ray-Dorothy was used to continue blunt dissection to the level of the peritenon. A #blade was used to split the peritenonwithout violating the Achilles tendon. Continued blunt dissection was carried down and around the Achilles tendon using a Metzenbaum scissors. At this time the Achilles tendon was a little bit flattened nature with no evidence of rupture. Next, using a #15 blade a long centerline incisiondown Achilles tendon was performed and Achilles tendon was booked ended with care not to completely detach theAchilles tendon from its insertion. The bursawas identified and removed with rongeur. The area was flushed with cold kacie normal saline. Procedure #4: Partial excision of calcaneus, left lower extremity (CPT code: 73405) Next, attention was directed to the calcaneal spur to the posterior superior aspect of the calcaneus. Using a large C arm fluoroscopy, a sagittal saw with #111 blade, the partial excision of calcaneus was performed with the cut identified on large from fluoroscopy. A combination of rongeur and power rasp was used to smooth down all edges on the superior, medial, lateral and posterior border of the calcaneus. Once satisfied, the area was flushed with copious ounce of normal saline. Procedure #5: Achilles tendon debridement repair, left lower extremity (CPT code: 90117) Next, excisional debridement down to tendon with a #15 blade of the thickened portions of the centralized tendon just proximal to its insertion were removed and passed the back table to be sent off for pathology for identification. At this time there was less than 50% of the Achilles tendon removedand there is noneed to move forward with the flexor hallucis longus tendon transfer. Next, using a 2-0 FiberWire the Achilles tendon was reconstructed as well as reubularized. Next, using the 2.5 mm drill and power for the two 3.5 mm Citrafix anchors with fiber tape were placed at the superior margin of the posterior calcaneus without incident. The tape was tugged on and showed excellent seating. The 2 fiber tapes were rethrown through the Achilles tendon and pulled down for tension. Next, using the 2.5 mm drill and power the additional two 3.5 mm Citrafix anchors were drilled without incident. The fibertape was crossed per the traveling nurse's recommendation and tension in place and advancedinto the calcaneus using the additional two 3.5 mm anchors. The ankle was put through range of motion and showed no evidence of catching. There is evidence of good attention to the Achilles tendon ascompared to the contralateral limb. The knee was flexed on the operating room table and a Mandel test was performed, at this time it was a negative Mandel test and there showed excellent plantarfl exion of the attitude to the left foot. The incision was flushed with copious normal saline. Procedure #6: Application of graft jacket, left lower extremity (CPT code: 80115) Next, 2 x 4 cm graft jacket was sutured in place using 3-0 Monocryl and running locking suture technique. Procedure #7: Advancement flap closure, left lower extremity (CPT code: 10486) Next, the adjacent skin to the Achilles tendon was undermined to allow for advancement flap closure. The deep layer was reapproximated closed using 3-0 Vicryl in running locking suture technique. Thesubcutaneous layer was reapproximated and closed using 3-0 Vicryl in running suture technique. At th istime the left lower extremity tourniquet was deflated and all bleeders were ligated and cauterized as necessary. The skin was reapproximated and advanced closed using 3 oh STRATAFIX suture. Procedure #8: Application of posterior splint, left lower extremity (CPT code: 10018?LT) Next, the left lower extremities were cleaned and patted dry. Bacitracin soakedAdaptic was applied to all incisions. A 6 cc of bone marrow aspirate concentrate were injected all of the incisions to the left lower extremity. Platelet poor plasma was applied to the Adaptic. The incisions were then dressed with dry sterile dressing and double layer Roblero AO splint in plantarflexion was applied to left lower extremity. The patient tolerated the procedure and anesthesia well and apparent satisfactory condition and wastransported to the PACU for further monitoring prior to discharge home. Vital signs stable and vascular status intact to all digits bilateral. Post Operative Plan: Weightbearing: Patient will be nonweightbearing to left lower extremity with assistive knee scooterand or crutches. Full weightbearing right lower extremity. Antibiotics: 900 mg of clindamycin through the IV DVT Prophylaxis: 81 mg aspirin twice daily until ambulatory Rodriguez: None Dressing: Bacitracin soaked Adaptic, 4 x 4's, double layer Roblero AO splint plantarflexed, left lower extremity X-Rays: Post-operative films taken on the operating room. Pain Medication: OxyContin 5 mg, Tylenol 1000 mg Follow-up: Patient will continue to be nonweightbearing until follow-up in 1 week to [address] Estrella in private office. Patient was instructed to pageDr. Estrella with any questions or concerns during the postoperative recovery until follow-up. Surgical Findings: 1. Evidence of thickened bursa that was removed at the time of surgery. 2. Retubularization and good anatomic correction of the Achilles tendon with the foot in plantarflexion attitude at the time of repair. 3. Negative Mandel test Complications Complications: No Admit VTE Documentation VTE Present on Admission: No VTE Mechan Device Prophylaxis: SCD's VTE Pharm Prophylaxis ordered?: Yes 04/28/25 1315 Cosigner Signature (if applicable): CC: DPPaul Estrella; Dr. Jameel Estrada MD~ Signed [facility]06-06-2025 Consult note Author Oswaldo ryan [facility] Note Date/Time April 28, 2025 8:47a m [facility] Medical Records Department [address] [place] [address] Pre-Anesthesia Evaluation 04/28/25 0845 MR#: [id number] Acct: [id number] Name: PRERNA MONTERO Rep #:[id number] 1 : 1990 34 From: Oswaldo Pineda MD PCP: Dr. Jameel Estrada MD Status:REG SD C Y Race: C Location: [facility] ASA Classification* ASA Classification ASA Classification: 2 Assessment & Plan Anesthesia* Anesthesia Assessment Anesthesia Assessment: Discussed sedation and/or anesthesia options, risks, benefits, and alternatives with patient/parents/legal guardian/POA. Questions invited. The patient/parents/legal guardian/POA seems to understand and agrees to proceedwith anesthesia plan. Reviewed the physical assessment, medical history, allergy history and patient home medications list prior to surgery/procedure/anesthetic and documented any changes. Performed airway and anesthesia risk assessments. Anesthesia Type Anesthesia Type: General (POSSIBLE BLOCK ONLY IF REQUESTED BY SURGEON. NO AIR IN IV DUE TO PFO HX) Anesthesia Focused Assessment* Airway Assessment Mouth opens: >3 cm Mallampati Score: II Focused Labs Anesthesia Preop lab: CBC WBC 6.6 K/mm3 (4.4-11.0) 04/21/25 10:04/21/25 RBC 4.34 M/mm3 (4.2-5.4) 04/21/25 10:04/21/25 Hgb 13.0 g/dL (12.0-15.0) 04/21/25 10:56 04/21/25 Hct 39.5 % (37-47) 04/21/25 10:56 04/21/25 Plt Count 340 K/mm3 (150-450) 04/21/25 10:56 04/21/25 CHEMISTRY Potassium 4.4 mmol/L (3.3-5.1) 04/21/25 10:04/21/25 Sodium 138 mmol/L (133-145) 04/21/25 10:56 04/21/25 Magnesium 2.1 mg/dL (1.6-2.6) 09/03/22 11:48 09/03/22 BUN 13 mg/dL (4-19) 04/21/25 10:04/21/25 Creatinine 0.71 mg/dL (0.70-1.20) 04/21/25 10:56 04/21/25 Glucose 88 mg/dL (70-99) 04/21/25 10:56 04/21/25 POC Glucose 127 mg/dL (74-106) H 09/08/22 06:27 09/08/22 TSH 2.550 uIU/mL (0.300-4.200) 04/21/25 10:56 05/ COAG PT 12.6 SECONDS (11.7-14.9) 09/03/22 11:48 HCG, Quant 5097 mIU/mL (<9 non-preg) H 02/13/19 11:30 Urine Test Negative Negative 09/08/22 06:02 09/08/22 Pre-Assessment Diagnosis/Proposed Procedure Planned Operative Procedure(s): LEFT ACHILLES TENDON DEBRIDEMENT AND REPAIR Anesthesia History 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 When Was Last Pacemaker Check QUESTION #4 FULL TEXT: You/Your Family Experience fever (hyperthermia) with Anesthesia Last Oral Intake Last Oral intake: Last Oral Intake NPO since Meds taken in AM with sips of water? 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 Female Yes 04/14/25 12:54 HX of Motion Sickness No 04/14/25 12:54 HX of N/V After Surgery No 04/14/25 12:54 Non-Smoker Yes 04/14/25 12:54 Duration of Surgery greater Yes 04/14/25 12:54 than 60 minutes Number of Risk Factors 3 04/14/25 12:54 PONV Score Moderate Risk 04/14/25 12:54 Height & Weight Height & Weight: Anesthesia: Height & Weight Height 5 ft 3 in 02/23/24 10:24 Respiratory Assessment Respiratory Assessment - otr driver: Respiratory Tract Infection Hx - otr driver Hx Respiratory Tract Infection No 04/14/25 12:54 STOP Sleep Apnea STOP Sleep Apnea - otr driver: STOP Sleep Apnea - otr driver Hx Hypertension No 04/14/25 12:54 Hx Sleep Apnea No 04/14/25 12:54 CPAP BIPAP Do you snore loudly (louder No 04/14/25 12:54 than talking or can be heard Do you often feel tired/ No 04/14/25 12:54 fatigued/ sleepy during daytime? Has anyone observed you stop No 04/14/25 12:54 breathing during sleep? STOP Results Negative 04/14/25 12:54 QUESTION #5 FULL TEXT : Do you snore loudly (louder than talking or can be heard through closed doors)? 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 Specify any problems Hx of Preganancy in last 3 No 04/14/25 12:54 Months Nurse Filling Out Transfusion DSCHRIBER 04/14/25 12:54 & Questions: Date: 04/14/25 04/14/25 12:54 Time: 12:56 04/14/25 12:54 Patient unable to answer at this time (ie. confused, unrespo /Reproduction History /Reproductive History - otr driver: /Reproductive Hx- otr driver Hx Now Gestational Age (in weeks): EDC: Hx Hx Para Hx Section SAB No 04/14/25 12:54 Active Medications Active Medications: Current Medications Generic Name Dose Route Start Last Admin Trade Name Freq PRN Reason Stop Dose Admin Acetaminophen 1,000 mg 04/28/25 10:00 Acetaminophen 500 Mg Tablet PO 04/28/25 10:01 PREOP ONE Gabapentin 600 mg 04/28/25 10:00 Gabapentin 600 Mg Tablet PO 04/28/25 10:01 PREOP ONE Clindamycin Phosphate 900 mg in 50 mls @ 75 mls/hr 04/28/25 10:00 Cleocin IV 04/28/25 10:39 INTRAOP ONE Lactated Ringer's 1,000 mls @ 15 mls/hr 04/28/25 08:45 IV .Q48H JONATHAN Insulin Human Lispro 1 - 6 unit 04/28/25 10:00 Insulin Lispro 100 Unit/Ml Insuln.Pen SC 04/28/25 18:00 Q4H PRN PRN BG>/= 180, SEE PROTOCOL Protocol PFSH Medical History Easy bruising Hoarseness Airway problem Heartburn History of edema History of pain when walking History of echocardiogram Patent foramen ovale Incomplete right bundle branch block (RBBB) Wears glasses History of stress test Migraine headache Injury of back Non-smoker Asthma Cardiology follow-up encounter Hx of fracture of ankle Home Medications ?Medication ?Instructions ?Recorded ?Last Taken ?Type albuterol sulfate 90 mcg/actuation 2 puff inhalation Q 4H PRN PRN 09/09/13 10/01/19 History aerosol inhaler (Ventolin HFA) Shortness Of Breath 2 puffs albuterol sulfate 2.5 mg/3 mL 2.5 mg inhalation Q4H [place] N SOB 12/20/21 Unknown History (0.083 %) solution for nebulization fluticasone furoate 100 1 ea inhalation DAILY Unknown History mcg-vilanterol 25 mcg/dose inhalation powder (Breo Ellipta) levocetirizine 5 mg tablet (Xyzal) 5 mg PO QPM PRN all ergy symptoms 04/14/25 Unknown History Allergy/AdvReac Type Severity Reaction Status Date / Time chlorhexidine Allergy Intermediate Rash Verified 04/28/25 08:44 ibuprofen Allergy Itching Verified 04/28/25 08:44 iodine Allergy Rash Verified 04/28/25 08:44 cefuroxime (From Ceftin) AdvReac Other Verified 04/28/25 08:44 Family History Grandmother Heart disease Surgical History Hx of Achilles tendon repair History of hysterectomy (~08/2022) Hx of colonoscopy History of laparoscopic cholecystectomy Hx of appendectomy Social History Smoking Status: Never smoker alcohol intake: never substance use type: does not use caffeine: Yes Type: coffee Number of servings: 1 and tea Number of servings: 2 Review of Systems (Anesthesia) ROS Narrative System reviewed and no additional complaints, except as documented. 04/28/25 0847 <Electronically signed by Oswaldo Pineda MD > Date _ Oswaldo Pineda MD Cosigner Signature: Date CC: ~ Signed [facility] Work Phone: 1(187) 940-725406-06-2025 Evaluation note* Diagnosis Onset Date Resolution Status Admit Date Achilles tendon contracture, left ac maddy April 28, 2025 8:26am Calcaneal spur, left foot acute April 28, 2025 8:26am Other bursitis, not elsewher e classified, left ankle and foot acute April 28, 2025 8:26am Pain in left foot acute April 8:26am Plantar fascial fibromatosis acute April 28, 2025 8:26am [facility] Work Phone: 1(934) 208-983106-06-2025 Consult note [facility] Medical Records Department [address] [place] [id number] Pre-Anesthesia Evaluation 04/28/25 0845 MR#: [id number] Acct: [id number] Name: PRERNA MONTERO Rep #:[id number] 1 : 1990 34 From: Oswaldo Pineda MD PCP: Dr. Jameel Estrada MD Status:REG SD C Y Race: C Location: [facility] ASA Classification* ASA Classification ASA Classification: 2 Assessment & Plan Anesthesia* Anesthesia Assessment Anesthesia Assessment: Discussed sedation and/or anesthesia options, risks, benefits, and alternatives with patient/parents/legal guardian/POA. Questions invited. The patient/parents/legal guardian/POA seems to understand and agrees to proceedwith anesthesia plan. Reviewed the physical assessment, medical history, allergy history and patient home medications list prior to surgery/procedure/anesthetic and documented any changes. Performed airway and anesthesia risk assessments. Anesthesia Type Anesthesia Type: General (POSSIBLE BLOCK ONLY IF REQUESTED BY SURGEON. NO AIR IN IV DUE TO PFO HX) Anesthesia Focused Assessment* Airway Assessment Mouth opens: >3 cm Mallampati Score: II Focused Labs Anesthesia Preop lab: CBC WBC 6.6 K/mm3 (4.4-11.0) 04/21/25 10:04/21/25 RBC 4.34 M/mm3 (4.2-5.4) 04/21/25 10:04/21/25 Hgb 13.0 g/dL (12.0-15.0) 04/21/25 10:04/21/25 Hct 39.5 % (37-47) 04/21/25 10:04/21/25 Plt Count 340 K/mm3 (150-450) 04/21/25 10:04/21/25 CHEMISTRY Potassium 4.4 mmol/L (3.3-5.1) 04/21/25 10:04/21/25 Sodium 138 mmol/L (133-145) 04/21/25 10:04/21/25 Magnesium 2.1 mg/dL (1.6-2.6) 09/03/22 11:48 09/03/22 BUN 13 mg/dL (4-19) 04/21/25 10:04/21/25 Creatinine 0.71 mg/dL (0.70-1.20) 04/21/25 10:04/21/25 Glucose 88 mg/dL (70-99) 04/21/25 10:04/21/25 POC Glucose 127 mg/dL (74-106) H 09/08/22 06:27 09/08/22 TSH 2.550 uIU/mL (0.300-4.200) 04/21/25 10:56 05 COAG PT 12.6 SECONDS (11.7-14.9) 09/03/22 11:48 HCG, Quant 5097 mIU/mL (<9 non-preg) H 02/13/19 11:30 Urine Test Negative Negative 09/08/22 06:02 09/08/22 Pre-Assessment Diagnosis/Proposed Procedure Planned Operative Procedure(s): LEFT ACHILLES TENDON DEBRIDEMENT AND REPAIR Anesthesia History 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 When Was Last Pacemaker Check QUESTION #4 FULL TEXT: You/Your Family Experience fever (hyperthermia) with Anesthesia Last Oral Intake Last Oral intake: Last Oral Intake NPO since Meds taken in AM with sips of water? 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 Female Yes 04/14/25 12:54 HX of Motion Sickness No 04/14/25 12:54 HX of N/V After Surgery No 04/14/25 12:54 Non-Smoker Yes 04/14/25 12:54 Duration of Surgery greater Yes 04/14/25 12:54 than 60 minutes Number of Risk Factors 3 04/14/25 12:54 PONV Score Moderate Risk 04/14/25 12:54 Height & Weight Height & Weight: Anesthesia: Height & Weight Height 5 ft 3 in 02/23/24 10:24 Respiratory Assessment Respiratory Assessment - otr driver: Respiratory Tract Infection Hx - otr driver Hx Respiratory Tract Infection No 04/14/25 12:54 STOP Sleep Apnea STOP Sleep Apnea - otr driver: STOP Sleep Apnea - otr driver Hx Hypertension No 04/14/25 12:54 Hx Sleep Apnea No 04/14/25 12:54 CPAP BIPAP Do you snore loudly (louder No 04/14/25 12:54 than talking or can be heard Do you often feel tired/ No 04/14/25 12:54 fatigued/ sleepy during daytime? Has anyone observed you stop No 04/14/25 12:54 breathing during sleep? STOP Results Negative 04/14/25 12:54 QUESTION #5 FULL TEXT : Do you snore loudly (louder than talking or can be heard through closeddoors)? 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 Specify any problems Hx of Preganancy in last 3 No 04/14/25 12:54 Months Nurse Filling Out Transfusion DSCHRIBER 04/14/25 12:54 & Questions: Date: 04/14/25 04/14/25 12:54 Time: 12:56 04/14/25 12:54 Patient unable to answer at this time (ie. confused, unrespo /Reproduction History /Reproductive History - otr driver: /Reproductive Hx- otr driver Hx Now Gestational Age (in weeks): EDC: Hx Hx Para Hx Section SAB No 04/14/25 12:54 Active Medications Active Medications: Current Medications Generic Name Dose Route Start Last Admin Trade Name Freq PRN Reason Stop Dose Admin Acetaminophen 1,000 mg 04/28/25 10:00 Acetaminophen 500 Mg Tablet PO 04/28/25 10:01 PREOP ONE Gabapentin 600 mg 04/28/25 10:00 Gabapentin 600 Mg Tablet PO 04/28/25 10:01 PREOP ONE Clindamycin Phosphate 900 mg in 50 mls @ 75 mls/hr 04/28/25 10:00 Cleocin IV 04/28/25 10:39 INTRAOP ONE Lactated Ringer's 1,000 mls @ 15 mls/hr 04/28/25 08:45 IV .Q48H JONATHAN Insulin Human Lispro 1 - 6 unit 06/06/25 10:00 Insulin Lispro 100 Unit/Ml Insuln.Pen SC 04/28/25 18:00 Q4H PRN PRN BG>/= 180, SEE PROTOCOL Protocol PFSH Medical History Easy bruising Hoarseness Airway problem Heartburn History of edema History of pain when walking History of echocardiogram Patent foramen ovale Incomplete right bundle branch block (RBBB) Wears glasses History of stress test Migraine headache Injury of back Non-smoker Asthma Cardiology follow-up encounter Hx of fracture of ankle Home Medications ?Medication ?Instructions ?Recorded ?Last Taken ?Type albuterol sulfate 90 mcg/actuation 2 puff inhalation Q 4H PRN PRN 09/09/13 10/01/19 History aerosol inhaler (Ventolin HFA) Shortness Of Breath 2 puffs albuterol sulfate 2.5 mg/3 mL 2.5 mg inhalation Q4H [place] N SOB 12/20/21 Unknown History (0.083 %) solution for nebulization fluticasone furoate 100 1 ea inhalation DAILY Unknown History mcg-vilanterol 25 mcg/dose inhalation powder (Breo Ellipta) levocetirizine 5 mg tablet (Xyzal) 5 mg PO QPM PRN all ergy symptoms 04/14/25 Unknown History Allergy/AdvReac Type Severity Reaction Status Date / Time chlorhexidine Allergy Intermediate Rash Verified 04/28/25 08:44 ibuprofen Allergy Itching Verified 04/28/25 08:44 iodine Allergy Rash Verified 04/28/25 08:44 cefuroxime (From Ceftin) AdvReac Other Verified 04/28/25 08:44 Family History Grandmother Heart disease Surgical History Hx of Achilles tendon repair History of hysterectomy (~08/2022) Hx of colonoscopy History of laparoscopic cholecystectomy Hx of appendectomy Social History Smoking Status: Never smoker alcohol intake: never substance use type: does not use caffeine: Yes Type: coffee Number of servings: 1 and tea Number of servings: 2 Review of Systems (Anesthesia) ROS Narrative System reviewed and no additional complaints, except as documented. 04/28/25 0847 > Date _ Oswaldo Pineda MD Cosigner Signature: Date CC: ~ Signed [facility]09-21-2022 Note. MICRO - Microbiology PROCEDURE: Urine Culture [*1] SOURCE: Urine, Clean Catch BODY SITE: COLLECTED DATE/TIME: 08/11/2022 15:15 EDT RECEIVED DATE/TIME: 08/11/2022 20:29 EDT START DATE/TIME: 08/11/2022 20:29 EDT FREE TEXT SOURCE: FINAL REPORTS Final Report [] Verified Date/Time/Personnel: 08/13/2022 07:40 EDT <10,000 cfu/ml. No Significant growth. Sensitivity not indicated. PRELIMINARY REPORTS Preliminary Report [] Verified Date/Time/Personnel: 08/12/2022 09:25 EDT Culture results pending. Performing Locations *1: This test was performed at: [facility], [address] [place] [address], [id number] , [facility] ([place])04-01-2022 Evaluation + Plan note Future Scheduled Tests Radiology* XR Ankle Minimum 3 Views Left 04/01/22 * XR Chest 2 Views (PA & Lateral) 12/04/21 [facility] 05-10-2022 Evaluation + Plan note Future Scheduled Tests Radiology* XR Ankle Minimum 3 Views Left 04/01/22 * XR Chest 2 Views (PA & Lateral) 12/04/21 * US Pelvis Non-OB W/Transvaginal 08/11/22 [facility] 01-12-2022 Evaluation + Plan note Future Scheduled Tests Radiology* XR Chest 2 Views (PA & Lateral) 12/04/21 * XR Knee 3 Views Left 12/24/20 [facility] 12-08-2021 HCoV 229E RNA ERVIN+non-probe Ql (Nph)Not Detected *NA* (10/30/21 12:00 PM) Auto Viro/Sero [id number] HCoV OC43 RNA ERVIN+non-probe Ql (Nph)Detected *ABN* (10/30/21 12:00 PM) Auto Viro/Sero [id number] Evaluation + Plan note Future Scheduled Tests Radiology* XR Knee 3 Views Left 12/24/20 [facility] Evaluation + Plan note Future Appointments Appointment Date:12/10/2022 10:30:00 AM Scheduled Provider:OZZIE GRANGER DO Location:[facility] Appointment Type:PC OV Future Scheduled Tests Radiology* XR Chest 2 Views (PA & Lateral) 12/04/21 [facility] Evaluation noteNo assessment information available [facility] Work Phone: Evaluation note* Diagnosis Onset Date Resolution Status Acute postoperative pain acu te [facility] Work Phone: Evaluation note* Diagnosis Onset Date Resolution Status Chest pain acute Near syncope acute Patent foramen ovale acute Shortness of breath on exertion acute [facility] Work Phone: Hospital course Narrative No data available for this section [facility] Hospital Discharge instructions No data available for this section [facility] Hospital Discharge instructions Additional Instructions 1. Please keep your surgical dressing clean dry and intact. Do not remove. Do not get it wet. 2. Continue rest, ice (behind your operative knee) and elevate per your postoperative instructions that were given to you at the day of your surgical consultation while in office. 3. No weightbearing to left lower extremity with assistance of crutches and/or knee scooter. Full weightbearing right lower extremity. 4. Please take all pain medication and prescriptions as written. 5. If you are a diabetic patient please continue tight glucose control while in the postoperative phase. 6. Please continue to follow-up with all your doctors visits prior and after surgery. 7. Please reach out to Dr. Estrella, through the paging system in the hospital or private office with any questions or concerns. 8. Thank you for letting me be involved in your surgical care![facility] Work Phone: Progress note No data available for this section [facility] Reason for referral (narrative)No reason for referral information availableW[facility] Work Phone: Summary Purpose Family History Relationship Condition Age at Onset Recorded Date/T candy grandmother Cardiac disease Unknown Advance Directives Advance Directive Response Recorded Date/ Time Living Will No December 20 11:53am Power of Pharmaceutical Officer No December 20, 2021 11:53am Advance Directive Response Recorded Date/ Time Name of Medical Power of Pharmaceutical Officer MENDEZ MARTINEZ September 08, 2022 3:31pm Living Will Yes September 08 3:31pm Power of Pharmaceutical Officer Yes September 08, 2022 3:31pm Advance Directive Response Recorded Date/ Time Living Will Yes September 08 3:31pm Power of Pharmaceutical Officer Yes September 08, 2022 3:31pm Advance Directive Response Recorded Date/ Time Do you have a Healthcare Power of Pharmaceutical Officer? 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 Reason for Visit Acute postoperative pain Chief Complaint EST (SELF) INT LABS Reason for Visit Chest pain Near syncope Patent foramen ovale Shortness of breath on exertion Chief Complaint EST (SELF) INT LABS CHEST PAIN CHEST PAIN Amb Documentation Reason for Visit Chest pain Near syncope Patent foramen ovale Shortness of breath on exertion Chief Complaint Admit Date Left Achilles Tendon debridement and rep air with p April 28, 2025 8:26am Reason for Visit Admit Date Achilles tendon contracture, left April 282024 8:26am Calcaneal spur, left foot April 28, 2025 8:26am Other bursitis, not elsewhere classified , left ankle and foot April 28, 2025 8:26am Pain in left foot April 28, 2025 8:26a m Plantar fascial fibromatosis April 28 8:26am Additional Source Comments INFORMATION SOURCE (unrecogn ized section and content) DATE CREATED AUTHOR 05/19/2018 [facility] [place] DATE CREATED AUTHOR AUTHOR'S ORGANIZ ATION 11/21/2022 [facility] ([place]) DATE CREATED AUTHOR AUTHOR'S ORGANIZ ATION 07/25/2024 [facility] DATE CREATED AUTHOR AUTHOR'S ORGANIZ ATION 04/22/2025 [facility] DATE CREATED AUTHOR AUTHOR'S ORGANIZ ATION 04/28/2025 [facility] Care Team (unrecognized sect ion and content) Team Status: Active Member Role Status Dates Dr. Deyvi Preston DO Family Provider Active Fanny Ch FARM AGENT, FARM AGENT-C Primary Care Provider Active Team Status: Inactive Member Role Status Luis Manuel Ch FARM AGENT, FARM AGENT-C Primary Care Provider Active Payal Reddy DO Attending Provider Active Team Status: Active Member Role Status Luis Manuel Preston DO Family Provider Active Jameel Estrada MD Primary Care Provider Active Team Status: Inactive Member Role Status Luis Manuel Reddy DO Referring Provider Active Dr. Matt Yee MD Attending Provider Active Jameel Estrada MD Primary Care Provider Active Team Status: Inactive Member Role Status Luis Manuel Estrada MD Primary Care Provider Active Dr. Matt Yee MD Attending Provider, Referring Provider Active Team Status: Active Member Role Status Luis Manuel Estrada MD Primary Care Provider Active Dr. Matt Yee MD Referring Provider, Other Prov ider Active Dr. Cash Gonsalez MD Attending Provider Active Team Status: Active Member Role Status Luis Manuel Estrada MD Primary Care Provider Active Abril Dudley FARM AGENT, FARM AGENT-C Attending Provider Active Team Status: Active Member Role Status Luis Manuel Estrada MD Primary Care Provider Active Team Status: Inactive Member Role Status Luis Manuel Estrada MD Primary Care Provider Active St art: April 21, 2025 End: April 21, 2025 Jameel Estrada MD Attending Provider Active Start : April 21, 2025 End: April 21, 2025 Team Status: Inactive Member Role Status Dates Jameel Estrada MD Primary Care Provider Active St art: April 28, 2025 End: April 28, 2025 Dr. Anastacio Estrella DPM Attending Provider Active Start: April 28, 2025 End: April 28, 2025 Dr. Anastacio Estrella DPM Referring Provider Active Start: April 28, 2025 End: April 28, 2025 Care Team (unrecognized sect ion and content) Care Team Personnel Name: FANNY CH Position: P4 Advanced Practice Nurse Med Service: Active Provider Member Role: Primary Care Physician Address: Address: [address] [place] [address] Care Team Related Persons Name: TIN RYDER Care Team Personnel Name: FANNY CH Position: P4 Advanced Practice Nurse Med Service: Active Provider Member Role: Primary Care Physician Address: Address: [address] [place] [address] Care Team Related Persons Name: TIN RYDER Care Team Personnel Name: OZZIE GRANGER DO Position: P4 Physician - Primary Care Member Role: Primary Care Physician Address: Address: [address] [place] [address] Care Team Related Persons Name: TIN RYDER Goals (unrecognized section and content) Goals may be documented in a n alternate section FOR RECORDS PERTAINING TO PATIENTS WHO ARE OR HAVE BEEN ENROLLED IN A CHEMICAL DEPENDENCY/SUBSTANCEABUSE PROGRAM, SOME INFORMATION MAY BE OMITTED. This clinical summary was aggregated from multiple sources. Caution should be exercised in using it in the provision of clinical care. This summary normalizes information from multiple sources, and as a consequence, information in this document may materially change the coding, format and clinical context of patient data. In addition, data may be omitted in some cases. CLINICAL DECISIONS SHOULD BE BASED ON THE PRIMARY CLINICAL RECORDS. [employer] provides no warranty or guarantee of the accuracy or completeness of information in this document.
== END 2025-04-29 23:58 | disposition home or self-care (01) ==
LOC: ED 23:43
PROVIDERS: Emergency Provider Emergency Medicine; PCP Family Medicine; Visit Provider Emergency Medicine
DX: M25.572 Pain in left ankle and joints of left foot (principal); M79.672 Pain in left foot; G89.18 Other acute postprocedural pain
CPT/HCPCS: 99282

== ENCOUNTER → 2025-09-22 | Outpatient (CLI) | payer OTHER, SELFPAY ==
--- NOTE | 2025-09-22 10:45 | VDLE_ITS ---
Reason For Study VL/Venous Duplex US - Huey Extrem
== END | disposition home or self-care (01) ==
LOC: CVS 10:44
PROVIDERS: PCP Family Medicine; Referring Provider Podiatrist Foot & Ankle Surgery; Visit Provider Podiatrist Foot & Ankle Surgery
DX: I73.9 Peripheral vascular disease, unspecified (principal); M79.604 Pain in right leg; M79.605 Pain in left leg
CPT/HCPCS: 93970